=== PATIENT | male | born 1945 | race Caucasian/White ===

== ENCOUNTER 2020-12-27 18:54 | Emergency (ER) | payer OTHER, SELFPAY ==
--- NOTE | ~2020-12-27 | XR_ITS ---
EXAMINATION: XR ABDOMEN KUB CLINICAL INDICATION: Constipation COMPARISON: 09/28/2017 TECHNIQUE: AP view of the abdomen. FINDINGS: Stool and air seen throughout colon to the rectum. No evidence for obstruction. Scattered air-filled nondistended loops of small bowel are noted as well. No acute bony abnormality. Incidental bone island above the left acetabulum. XR/XR KUB IMPRESSION: Unremarkable bowel gas pattern no obstructive changes.
[2020-12-27 18:56] VITALS: BP 159/85; PULSE 90; RESP 18; TEMP 37.2; O2SAT 97; BMI 30.2
--- NOTE | 2020-12-27 21:53 | ED_ITS ---
HPI - Abdominal Pain General Chief Complaint: Abdominal Pain Stated Complaint: Abdominal pain Time Seen by Provider: 12/27/20 21:33 Source: patient Mode of arrival: ambulatory Limitations: no limitations History of Present Illness HPI narrative: Patient comes emergency room complaining of constipation/bloating. Patient states that he had 2 bowel movements earlier today. However he still feels distended. Patient does have history of chronic constipation. Patient states he took Dulcolax and MiraLax a few days ago and has been having bowel movements. Patient denies vomiting or diarrhea, denies hematuria Related Data Home Medications Medication Instructions Recorded Confirmed amlodipine 2.5 mg tablet mg PO 08/23/20 08/23/20 aspirin 81 mg tablet,delayed 81 mg PO DAILY 08/23/20 08/23/20 release flu vacc [id number](65yr up)-PF 240 ml IM 08/23/20 08/23/20 mcg/0.7 mL intramuscular syringe Previous Rx's Medication Instructions Recorded atorvastatin 40 mg tablet 40 mg PO DAILY #90 tab 06/11/20 lisinopril 40 mg tablet 40 mg PO DAILY #90 tab 07/30/20 buspirone 5 mg tablet 5 mg PO TID #270 tab 08/16/20 lorazepam 0.5 mg tablet 0.5 mg PO BEDTIME PRN #4 tab 08/23/20 fluconazole 100 mg tablet 100 mg PO DAILY #7 tab 08/31/20 nystatin 100,000 unit/gram topical 1 appl TOPICAL BID #60 g 08/31/20 powder omeprazole 20 mg capsule,delayed 20 mg PO DAILY #90 cap 10/16/20 release lidocaine 5 % topical patch 1 patch TOPICAL DAILY #30 ea 11/21/20 lactulose 20 g PO BID PRN #1 ea 12/28/20 simethicone 180 mg PO BID PRN #10 cap 12/28/20 Allergies Allergy/AdvReac Type Severity Reaction Status Date / Time gabapentin [GABAPENTIN] Allergy Intermediate DARK Verified 05/25/20 12:23 THOUGHTS, suicidal lactose [LACTOSE] Allergy Intermediate PAIN IN Verified 05/25/20 12:23 STOMACH, CONSTIPATION clindamycin [CLINDAMYCIN] Allergy Unknown HIVES Verified 05/25/20 12:23 penicillin V Allergy Unknown hives Verified 05/25/20 12:23 Penicillins [PENICILLINS] Allergy Unknown Hives Verified 10/16/20 12:23 prednisone Allergy Unknown nightmares Verified 05/25/20 12:23 ZyrTEC Allergy Unknown nausea, Verified 05/25/20 12:23 emotional sertraline [From ZOLOFT] AdvReac Severe SI Verified 05/25/20 12:23 Review of Systems Review of Systems Constitutional : No Weight loss, No Fever, No Chills, No Night Sweats, No Fatigue, No Malaise ENT/Mouth : No Hearing loss, No Ear Pain, No Nasal Congestion, No Sinus Pain, No Hoarseness, No sore throat, No Rhinorrhea, No Swallowing Difficulty Eyes: No Eye Pain, No Swelling, No Redness, No Foreign Body, No Discharge, No Vision Changes Cardiovascular : No Chest Pain, No SOB, No Dyspnea on Exertion, No Orthopnea, No Edema, No Palpitations Respiratory : No Cough, No Sputum, No Wheezing, No Smoke Exposure, No Dyspnea Gastrointestinal : No Nausea, No Vomiting, No Diarrhea, plane of Constipation, complaining of abdominal distension, no significant abdominal pain, No Hematochezia, No Melena Genitourinary : no irregular bleeding, No Dysuria, No Urinary Frequency, No Hematuria, No Urinary Incontinence, No Urgency, No Flank Pain, No Urinary Flow Changes, No Hesitancy Musculoskeletal : No joint pain, No Myalgias, No Joint Swelling Skin : No Skin Lesions, No rash Neuro : No Weakness, No Numbness, No Paresthesias, No Loss of Consciousness, No Dizziness, No Headache Psych : No Anxiety/Panic, No Depression, No SI/HI/AH/VH, No Social Issues, Heme/Lymph: No Bruising, No Bleeding,No Lymphadenopathy Endocrine : No Polyuria, No Polydipsia, No Temperature Intolerance Physical Exam Vital Signs: Vital Signs: Last Vital Signs Temp 99.0 F 12/27/20 18:56 Pulse 90 12/27/20 18:56 Resp 18 12/27/20 18:56 BP 159/85 H 12/27/20 18:56 Pulse Ox 97 12/27/20 18:56 Body Mass Index 30.2 Appearance: Alert. Oriented X3. No acute distress. Eyes: Pupils equal, round and reactive to light. ENT: Pharynx normal. Neck: Normal inspection. Neck supple. No lymph nodes noted. No crepitus CVS: Normal heart rate and rhythm. Pulses normal. Normal S1 and S2 Respiratory: No respiratory distress. Breath sounds normal. No Wheezing. No rales Abdomen: Soft and nontender. Moderate distension, no rigidity, no rebound or guarding. Skin: Skin warm and dry. Normal skin color. Normal skin turgor. Extremities: No lower extremity edema. No lower extremity edema. No Lacerations. No Rash Neuro: Oriented X 3. No motor deficit. No sensory deficit. Moving all extermities. No slurred speech. Course Course Course Narrative: KUB shows a fair amount of stool in the colon. Patient was given 1 Fleet enema. Patient states that he passed a significant amount of gas, patient states his abdomen feels much better, does not have any pain. On physical exam, no pain on palpation, the abdomen is no longer distended MDM - Abdominal Pain Imaging Data KUB: Radiologist's impression: FINDINGS: Stool and air seen throughout colon to the rectum. No evidence for obstruction. Scattered air-filled nondistended loops of small bowel are noted as well. No acute bony abnormality. Incidental bone island above the left acetabulum. XR/XR KUB IMPRESSION: Unremarkable bowel gas pattern no obstructive changes. Discharge Plan Discharge Clinical Impression: Constipation Qualifiers: Constipation type: unspecified constipation type Qualified Code(s): K59.00 - Constipation, unspecified Patient Disposition: Home, Self-Care Instructions: Constipation (ED) Additional Instructions: Please follow-up with your primary care physician tomorrow. If you have any worsening or new symptoms, please return to the emergency room or call 911 Prescriptions: New simethicone 180 mg capsule 180 mg PO BID PRN (Reason: abdominal distention) Qty: 10 RF: 0 lactulose 10 gram packet 20 g PO BID PRN (Reason: constipation) Qty: 1 RF: 0 No Action atorvastatin 40 mg tablet 40 mg PO DAILY Qty: 90 RF: 2 lisinopril 40 mg tablet 40 mg PO DAILY Qty: 90 RF: 3 buspirone 5 mg tablet 5 mg PO TID Qty: 270 RF: 3 nystatin 100,000 unit/gram powder 1 appl topical BID Qty: 60 RF: 2 fluconazole 100 mg tablet 100 mg PO DAILY Qty: 7 RF: 0 omeprazole 20 mg capsule,delayed release(DR/EC) 20 mg PO DAILY Qty: 90 RF: 3 lidocaine [Lidoderm] 5 % adhesive patch,medicated 1 patch topical DAILY Qty: 30 RF: 3 amlodipine 2.5 mg tablet PO RF: 0 aspirin 81 mg tablet,delayed release (DR/EC) 81 mg PO DAILY RF: 0 Fluzone HighDose Quad 20-21 PF 240 mcg/0.7 mL syringe IM RF: 0 lorazepam 0.5 mg tablet 0.5 mg PO BEDTIME PRN (Reason: anxiety) Qty: 4 RF: 0 PMFSH Past Medical History Medical History Anxiety CVA (cerebral vascular accident) GERD (gastroesophageal reflux disease) HTN (hypertension) Melanoma Neuralgia 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 Daughter No problems noted. Daughter No problems noted. Daughter No problems noted. Social History Social History Advance Directives: No Advance Directives Information Provided: Yes
[2020-12-27 22:00] VITALS: BP 148/70; PULSE 88; RESP 18; TEMP 37.1; O2SAT 98
[2020-12-28] VITALS: BP 150/70; PULSE 82; RESP 18; O2SAT 99
--- NOTE | 2020-12-28 00:04 | PC.NURSE ---
Spoke with patient's daughter (Eli Tanner) with updates. Aware of plan to medicate with fleet enema, with likely plan to discharge home. Instructed to call back at with updates when ready for discharge.
[2020-12-28] MEDS: Sodium Phosphate,Mono-Dibasic 133 ML ENEMA PR (00:22)
== END 2020-12-28 01:58 | disposition home or self-care (01) ==
PROVIDERS: Emergency Provider Emergency Medicine; PCP Internal Medicine
DX: K59.00 Constipation, unspecified (principal); R10.9 Unspecified abdominal pain; E78.5 Hyperlipidemia, unspecified; I10 Essential (primary) hypertension; Z79.82 Long term (current) use of aspirin; Z79.02 Long term (current) use of antithrombotics/antiplatelets; Z79.899 Other long term (current) drug therapy
CPT/HCPCS: 74018; 99284

== ENCOUNTER 2021-04-09 06:53 | Outpatient (REF) | payer OTHER, SELFPAY ==
[2021-04-09 11:43] LABS: Hematocrit 45.4 % (42-52); Mean Corpuscular Hemoglobin 30.4 pg (27.0-33.0); Mean Corpuscular Volume 91.9 fL (80-98); Mean Platelet Volume 9.4 fL (9.4-12.4); Platelet Count 246 X10*3/uL (160-400); Red Blood Count 4.94 X10*6/uL (4.60-5.80); Red Cell Distribution Width 13.3 % (11.0-16.0); White Blood Count 9.8 X10*3/uL (4.8-10.8)
[2021-04-09 11:54] LABS: Alanine Aminotransferase 39 U/L (0-40); Albumin Level 4.2 g/dL (3.5-5.0); Alkaline Phosphatase 190 U/L (39-117); Anion Gap 13 (12-20); Aspartate Amino Transferase 27 U/L (5-37); Bilirubin Total 0.6 mg/dL (0.0-1.0); Blood Urea Nitrogen 19 mg/dL (9-16); Calcium 9.3 mg/dL (8.4-10.2); Carbon Dioxide 25 mmol/L (22-29); Chloride 107 mmol/L (96-108); Cholesterol 116 mg/dL; Estimated Glomerular Filt Rate > 60; Glucose Fasting 96 mg/dL (60-99); HDL Cholesterol 44 mg/dL; LDL Cholesterol Calculated 45 mg/dl; Potassium 4.1 mmol/L (3.3-5.1); Sodium 141 mmol/L (135-145); Total Protein 6.8 g/dL (6.5-8.0); Triglycerides 135 mg/dL
== END 2021-04-09 06:54 | disposition home or self-care (01) ==
LOC: HO.HMGCLDS 06:53
PROVIDERS: PCP Internal Medicine; Visit Provider Internal Medicine
DX: E78.5 Hyperlipidemia, unspecified (principal); I10 Essential (primary) hypertension
CPT/HCPCS: 36415; 80053; 80061; 85027

== ENCOUNTER 2021-11-14 07:04 | Outpatient (REF) | payer OTHER, SELFPAY ==
[2021-11-14 11:34] LABS: Appearance Urine CLEAR; Color Urine YELLOW; Glucose Urine UA NEG (NEG); Leukocyte Esterase Urine NEG (NEG); Nitrite Urine NEG (NEG); Specific Gravity - Urine 1.025 (1.005-1.025); UACC Culture Trigger NO; Urine Blood 1+ (NEG); Urine Ketones NEG (NEG); Urine Protein NEG (NEG-TRACE)
[2021-11-14 11:47] LABS: Alanine Aminotransferase 44 U/L (0-40); Albumin Level 4.1 g/dL (3.5-5.0); Alkaline Phosphatase 182 U/L (39-117); Anion Gap 14 (12-20); Aspartate Amino Transferase 29 U/L (5-37); Bilirubin Total 1.2 mg/dL (0.0-1.0); Blood Urea Nitrogen 13 mg/dL (9-16); Calcium 9.4 mg/dL (8.4-10.2); Carbon Dioxide 23 mmol/L (22-29); Chloride 108 mmol/L (96-108); Cholesterol 134 mg/dL; Estimated Glomerular Filt Rate > 60; Glucose Fasting 132 mg/dL (60-99); HDL Cholesterol 49 mg/dL; LDL Cholesterol Calculated 67 mg/dl; Potassium 4.1 mmol/L (3.3-5.1); Sodium 141 mmol/L (135-145); Total Protein 6.7 g/dL (6.5-8.0); Triglycerides 94 mg/dL
[2021-11-14 11:56] LABS: Hematocrit 45.4 % (42.0-52.0); Hemoglobin 15.2 g/dl (14.0-18.0); Mean Corpuscular HGB Conc 33.5 g/dl (31.0-36.0); Mean Corpuscular Hemoglobin 30.3 pg (27.0-33.0); Mean Corpuscular Volume 90.4 fL (80.0-98.0); Mean Platelet Volume 9.4 fL (9.4-12.4); Platelet Count 245 X10*3/uL (160-400); Red Blood Count 5.02 X10*6/uL (4.60-5.80); Red Cell Distribution Width 13.4 % (11.0-16.0); Squamous Epithelial Cell Urine 1+ /LPF; WBC Urine 0-2 /HPF (0-4); White Blood Count 9.7 X10*3/uL (4.8-10.8)
== END 2021-11-14 07:05 | disposition home or self-care (01) ==
LOC: HO.LAB 07:04
PROVIDERS: PCP Internal Medicine; Visit Provider Internal Medicine
DX: E78.5 Hyperlipidemia, unspecified (principal); I10 Essential (primary) hypertension
CPT/HCPCS: 36415; 80053; 80061; 81001; 85027

== ENCOUNTER 2021-11-21 08:44 | Outpatient (REF) | payer OTHER, SELFPAY ==
--- NOTE | ~2021-11-21 | CT_ITS ---
EXAMINATION: CT CHEST WITH CONTRAST CLINICAL INFORMATION: Other nonspecific abnormal finding of lung field COMPARISON: Previous chest x-ray most recent December [address] most recent March 2019 TECHNIQUE: Multidetector volumetric CT imaging of the chest was obtained after the administration of 50 mL of Omnipaque 350 intravenous contrast without immediate adverse reactions. Axial MIP volume rendering provided. Sagittal and coronal reformatted images were obtained. This CT examination was performed using dose optimization techniques as appropriate, variously including the following: *Automated exposure control *Adjustment of mA and/or kV according to patient size (this includes techniques or standardized protocols for targeted exams where dose is matched to indication/reason for exam; i.e. extremities or head) *Use of iterative reconstruction technique DLP: 186 mGy-cm FINDINGS: LUNGS: The pulmonary nodules are stable. Largest right pulmonary nodule measures 7 x 10 mm in the right upper lobe axial image 45 series 7. Largest left pulmonary nodule is a heterogeneous nodule measuring 5 mm axial image 113 series 7. No new pulmonary nodule is seen. MEDIASTINUM: There are bilateral thyroid nodules that are stable.. The heart does not appear enlarged. There is coronary artery calcification. There is no pericardial effusion. The thoracic aorta is normal in caliber. There are no enlarged hilar or mediastinal lymph nodes. PLEURA: There is no pleural effusion. No pleural mass or thickening. AXILLA: No lymphadenopathy. UPPER ABDOMEN: Unremarkable OSSEOUS STRUCTURES: There are degenerative changes of the spine.. CT/CT chest w con IMPRESSION: Stable pulmonary nodules. Fleischner guidelines were followed.
[2021-11-21] MEDS: iohexoL 350 MG/ML 75 ML INFUS..BTL 65 ML IV (09:46)
== END 2021-11-21 08:45 | disposition home or self-care (01) ==
LOC: HO.CT 08:44
PROVIDERS: PCP Internal Medicine; Visit Provider Internal Medicine
DX: R91.8 Other nonspecific abnormal finding of lung field (principal)
CPT/HCPCS: 71260; Q9967

== ENCOUNTER 2022-04-26 21:49 | Observation (INO) | payer OTHER, SELFPAY ==
--- NOTE | ~2022-04-26 | CT_ITS ---
EXAMINATION: CT HEAD WITHOUT CONTRAST CLINICAL INFORMATION: TIA COMPARISON: 01/12/2020 TECHNIQUE: Contiguous axial imaging was performed from the skull base to vertex without intravenous contrast. This CT examination was performed using dose optimization techniques as appropriate, variously including the following: * Automated exposure control * Adjustment of mA and/or kV according to patient size (this includes techniques or standardized protocols for targeted exams where dose is matched to indication/reason for exam; i.e. extremities or head) Use of iterative reconstruction technique DLP: 718 mGy-cm. FINDINGS: There is no evidence of acute intracranial hemorrhage or territorial infarction. No abnormal mass effect or midline shift is seen. Meyer to white matter differentiation is well preserved. No extra-axial fluid collections are identified. No hydrocephalus. Proportional prominence of the ventricles and sulcal spaces is consistent with mild volume loss. Patchy periventricular and deep white matter hypoattenuation is consistent with moderate small vessel ischemic changes. The osseous structures and soft tissues are normal. Mucous retention cyst of the right maxillary sinus. The mastoid air cells and visualized portions of the paranasal sinuses are otherwise well aerated. CT/CT head/brain wo IV con IMPRESSION: No acute intracranial pathology. Chronic volume loss with small vessel ischemic change.
--- NOTE | ~2022-04-26 | XR_ITS ---
EXAMINATION: XR CHEST CLINICAL INFORMATION: Chest pain COMPARISON: 12/28/2019 TECHNIQUE: Frontal view of the chest was obtained. FINDINGS: The lungs are well expanded. There is no focal consolidation, edema, or effusion. No pneumothorax. The cardiomediastinal silhouette is within normal limits. No acute osseous abnormality. XR/XR chest 1V IMPRESSION: Clear lungs.
[2022-04-26 22:06] VITALS: BP 161/94; BP 200/110; PULSE 102; PULSE 70; RESP 20; O2SAT 96; O2SAT 98; BMI 31.3
[2022-04-26 22:41] VITALS: BMI 31.3
--- NOTE | 2022-04-26 22:41 | ECG_ITS ---
Test Reason : HIGH BP Blood Pressure : / mmHG Vent. Rate : 069 BPM Atrial Rate : 069 BPM P-R Int : 172 ms QRS Dur : 100 ms QT Int : 404 ms P-R-T Axes : 055 -32 052 degrees QTc Int : 432 ms Sinus rhythm with Blocked Premature atrial complexes Left axis deviation Minimal voltage criteria for LVH, may be normal variant ( R in aVL ) Abnormal ECG When compared with ECG of 27-MAR-2020 18:07, Premature atrial complexes are now Present Referred By: Lucinda Rome Electronically Signed By:KOSTAS ACKERMAN
[2022-04-26 23:00] LABS: Appearance Urine Clear; Color Urine Yellow; Glucose Urine UA Negative (Negative); Leukocyte Esterase Urine Small (1+) (Negative); Nitrite Urine Negative (Negative); UMIC TRIGGER UACC YES; Urine Blood Negative (Negative); Urine Ketones Negative (Negative); Urine Protein Negative (Neg-Trace)
--- NOTE | 2022-04-26 23:08 | ED_ITS ---
HPI - Neuro Symptoms/Deficit General Chief Complaint: Neuro Symptoms/Deficit Stated Complaint: LEFT SIDE PAIN AND WEAKNESS Time Seen by Provider: 04/26/22 22:40 History of Present Illness HPI Narrative: Patient is a 76-year-old male, history of hypertension, anxiety. Baseline on amlodipine. History CVA in the past. At the time patient had a CVA he had right foot weakness. Today patient complained of numbness to the left upper and to the left lower extremity. It was sudden in onset happened together. No associated chest pain. No diaphoresis. Patient from home. Symptoms lasted for approximately 10 minutes. He denies having any weakness at that time. There was no trauma. She denies any fever chills coughing congestion. No urinary symptoms. Patient home home. Currently symptom free. Patient denies noticing any changes in speech at the time. No changes in vision at that time. Related Data Home Medications Medication Instructions Recorded Confirmed flu vacc [id number](65yr up)-PF 240 ml IM 08/23/20 12/03/21 mcg/0.7 mL intramuscular syringe Previous Rx's Medication Instructions Recorded lorazepam 0.5 mg tablet 0.5 mg PO BEDTIME PRN anxiety #4 08/23/20 tabs lidocaine 5 % topical patch 1 patch topical DAILY #30 ea 11/21/20 (Lidoderm) lactulose 10 gram oral packet 20 g PO BID PRN constipation #1 ea 12/28/20 simethicone 180 mg capsule 180 mg PO BID PRN abdominal 12/28/20 distention #10 caps omeprazole 20 mg capsule,delayed 20 mg PO DAILY #90 caps 07/17/21 release meclizine 25 mg tablet 25 mg PO TID PRN dizziness #10 tabs 08/05/21 amlodipine 2.5 mg tablet 2.5 mg PO BID #180 tabs 12/24/21 fluconazole 100 mg tablet 100 mg PO DAILY #7 tabs 12/24/21 nystatin 100,000 unit/gram topical 1 appl topical BID to groin #60 12/24/21 powder grams buspirone 10 mg tablet 10 mg PO TID #270 tabs 02/28/22 atorvastatin 40 mg tablet 40 mg PO DAILY #90 tabs 04/15/22 lisinopril 40 mg tablet 40 mg PO DAILY #90 tabs 04/15/22 aspirin 81 mg tablet,delayed 81 mg PO DAILY #90 tabs 04/24/22 release Allergies Allergy/AdvReac Type Severity Reaction Status Date / Time gabapentin [GABAPENTIN] Allergy Intermediate DARK Verified 12/03/21 11:27 THOUGHTS, suicidal lactose [LACTOSE] Allergy Intermediate PAIN IN Verified 12/03/21 11:27 STOMACH, CONSTIPATION clindamycin [CLINDAMYCIN] Allergy Unknown HIVES Verified 12/03/21 11:27 penicillin V Allergy Unknown hives Verified 12/03/21 11:27 Penicillins [PENICILLINS] Allergy Unknown Hives Verified 12/03/21 11:27 prednisone Allergy Unknown nightmares Verified 12/03/21 11:27 ZyrTEC Allergy Unknown nausea, Verified 12/03/21 11:27 emotional sertraline [From ZOLOFT] AdvReac Severe SI Verified 12/03/21 11:27 Review of Systems Review of Systems: Positive left-sided weakness Yes all other systems are reviewed and are negative PMFSH Past Medical History Attestation statement: The following information was validated with the patient. Medical History Anxiety Cataract Constipation CVA (cerebral vascular accident) Epistaxis GERD (gastroesophageal reflux disease) Hematuria HTN (hypertension) Hyperlipidemia Lung mass Melanoma Neuralgia JOSEF on CPAP Paget's disease Seasonal allergies Tobacco dependence Surgical History No pertinent past surgical history Family History Family History Father Unknown family medical history Mother Unknown family medical history Son No problems noted. Daughter No problems noted. Daughter No problems noted. Daughter No problems noted. Social History Social History Housing: House Patient Tobacco Use Status: Never used Tobacco e-Cigarette/Vaping Use: Never Used Advance Directives: No Advance Directives Information Provided: No Current occupational status: retired Cognitive needs: No Hearing needs: Yes Vision needs: Yes Physical Exam Vital Signs: Vital Signs: Last Vital Signs Pulse 70 04/26/22 22:06 Resp 20 04/26/22 22:06 BP 161/94 H 04/26/22 22:06 Pulse Ox 96 04/26/22 22:06 O2 Del Method 04/26/22 22:06 BMI result Body Mass Index 31.3 Appearance: Alert. Oriented X3. No acute distress. Eyes: Pupils equal, round and reactive to light. ENT: Pharynx normal. Neck: Normal inspection. Neck supple. No lymph nodes noted. No crepitus CVS: Normal heart rate and rhythm. Pulses normal. Normal S1 and S2 Respiratory: No respiratory distress. Breath sounds normal. No Wheezing. No rales Abdomen: Soft and nontender. No rigidity. No distention. good BS x4 Skin: Skin warm and dry. Normal skin color. Normal skin turgor. Extremities: No lower extremity edema. Neurovascular intact to all extremities. No Lacerations. No Rash Neuro: Oriented X 3. No motor deficit. No sensory deficit. Moving all extermities. No slurred speech. Cranial nerves 2-12 grossly intact. [id number] intact. Rapid alternating movement intact. Strength in upper and lower extremity intact. NIH stroke scale 0 MDM - Neuro Symptoms/Deficit MDM Narrative Medical decision making narrative: Positive numbness to the left upper extremity left lower extremity which resolv ed. NIH stroke scale 0. Positive history of smoking positive history of CVA in the past. Patient actually went to rehab for that stroke [address] scan of the head was grossly negative for any acute evidence of bleeding. Labs are pending. Patient most likely will require admission for TIA workup. Patient's EKG showed a sinus pattern heart rate is 70 [place] QRS QT within normal limits there is no acute ST segment elevation noted. CT head no gross bleeding. Patient's numbness resolved. Will admit patient for possible TIA. Case discussed with hospitalist team. In stable condition. Medical Records Attestation: I reviewed the patient's medical records. Lab Data Attestation: I reviewed the patient's lab results. Result diagrams: 04/26/22 23:10 04/26/22 23:10 Labs: Lab Results 04/26/22 04/26/22 04/26/22 Range/Units 22:53 23:10 23:10 WBC 11.7 H (4.8-10.8) X10*3/uL RBC 5.36 (4.60-5.80) X10*6/uL Hgb 15.9 (14.0-18.0) g/dl Hct 47.0 (42.0-52.0) % MCV 87.7 (80.0-98.0) fL MCH 29.7 (27.0-33.0) pg MCHC 33.8 (31.0-36.0) g/dl RDW 13.3 (11.0-16.0) % Plt Count 245 (160-400) X10*3/uL MPV 8.9 L (9.4-12.4) fL Immature Gran % (Auto) 1.5 H (0.0-0.4) % Neut % (Auto) 64.6 (45-73) % Lymph % (Auto) 20.0 (20-40) % Bryan % (Auto) 10.3 (2-11) % Eos % (Auto) 2.7 (0-4) % Baso % (Auto) 0.9 (0-2) % Lymph # (Auto) 2.3 (1.2-4.9) X10*3/uL Bryan # (Auto) 1.2 (0.1-1.2) X10*3/uL Eos # (Auto) 0.3 (0.0-0.4) X10*3/uL Baso # (Auto) 0.1 (0.0-0.2) X10*3/uL Abs Immat Gran (auto) 0.18 H (0.00-0.03) X10*3/uL Absolute Neuts (auto) 7.6 (2.0-8.3) x10*3/uL Absolute Nucleated RBC 0.000 (0.0-0.012) X10*3/uL Nucleated RBC % (auto) 0.0 (0.0-0.2) /100WBC PT 11.2 (10.0-13.1) SEC INR 1.0 (0.9-1.1) Sodium (135-145) mmol/L Potassium (3.3-5.1) mmol/L Chloride (96-108) mmol/L Carbon Dioxide (22-29) mmol/L Anion Gap (12-20) BUN (9-16) mg/dL Creatinine (0.5-1.4) mg/dL Estim Creat Clear Calc Estimated GFR Random Glucose (60-115) mg/dL Calcium (8.4-10.2) mg/dL Troponin I High Sens (<3.5-35.0) ng/L Hold Red Top Urine Color Yellow Urine Appearance Clear Urine pH 6.0 (5.0-9.0) Ur Specific [place] 1.010 (1.005-1.025) Urine Protein Negative (Neg-Trace) mg/dL Urine Glucose (UA) Negative (Negative) mg/dL Urine Ketones Negative (Negative) mg/dL Urine Blood Negative (Negative) Urine Nitrite Negative (Negative) Ur Leukocyte Esterase Small (1+) H (Negative) Urine RBC 0-2 (0-2) /HPF Urine WBC 0-5 (0-5) /HPF Ur Squamous Epith Cells 0-2 (0-2) /HPF Urine Bacteria None Seen (None Seen) Hyaline Casts 0-2 (0-2) /LPF 04/26/22 04/26/22 04/26/22 Range/Units 23:10 23:10 23:10 WBC (4.8-10.8) X10*3/uL RBC (4.60-5.80) X10*6/uL Hgb (14.0-18.0) g/dl Hct (42.0-52.0) % MCV (80.0-98.0) fL MCH (27.0-33.0) pg MCHC (31.0-36.0) g/dl RDW (11.0-16.0) % Plt Count (160-400) X10*3/uL MPV (9.4-12.4) fL Immature Gran % (Auto) (0.0-0.4) % Neut % (Auto) (45-73) % Lymph % (Auto) (20-40) % Bryan % (Auto) (2-11) % Eos % (Auto) (0-4) % Baso % (Auto) (0-2) % Lymph # (Auto) (1.2-4.9) X10*3/uL Bryan # (Auto) (0.1-1.2) X10*3/uL Eos # (Auto) (0.0-0.4) X10*3/uL Baso # (Auto) (0.0-0.2) X10*3/uL Abs Immat Gran (auto) (0.00-0.03) X10*3/uL Absolute Neuts (auto) (2.0-8.3) x10*3/uL Absolute Nucleated RBC (0.0-0.012) X10*3/uL Nucleated RBC % (auto) (0.0-0.2) /100WBC PT (10.0-13.1) SEC INR (0.9-1.1) Sodium 142 (135-145) mmol/L Potassium 4.4 (3.3-5.1) mmol/L Chloride 106 (96-108) mmol/L Carbon Dioxide 24 (22-29) mmol/L Anion Gap 16 (12-20) BUN 17 H (9-16) mg/dL Creatinine 1.01 (0.5-1.4) mg/dL Estim Creat Clear Calc 76.6 Estimated GFR > 60 Random Glucose 136 H (60-115) mg/dL Calcium 9.5 (8.4-10.2) mg/dL Troponin I High Sens 6.4 (<3.5-35.0) ng/L Hold Red Top See Note Urine Color Urine Appearance Urine pH (5.0-9.0) Ur Specific [place] (1.005-1.025) Urine Protein (Neg-Trace) mg/dL Urine Glucose (UA) (Negative) mg/dL Urine Ketones (Negative) mg/dL Urine Blood (Negative) Urine Nitrite (Negative) Ur Leukocyte Esterase (Negative) Urine RBC (0-2) /HPF Urine WBC (0-5) /HPF Ur Squamous Epith Cells (0-2) /HPF Urine Bacteria (None Seen) Hyaline Casts (0-2) /LPF NIH Stroke Scale Internal: Initial- Upon Arrival Time: 23:11 Level of Consciousness: Alert Level of Consciousness Questions: Answers both questions correctly Level of Consciousness Commands: Performs both tasks correctly Best Gaze: Normal Visual: No visual loss Facial Palsy: Normal Motor Arm (Right): No drift Motor Arm (Left): No drift Motor Leg (Right): No drift Motor Leg (Left): No drift Limb Ataxia: Absent Sensory: Normal Best Language: No aphasia Dysarthia: Normal Extinction and Inattention: No abnormality Score: 0 Discharge Plan Discharge Clinical Impression: Transient cerebral ischemia Patient Disposition: Admitted as Observation
[2022-04-26 23:16] LABS: MANUAL DIFF FLAG NO
[2022-04-26 23:17] LABS: Basophils Absolute Auto 0.1 X10*3/uL (0.0-0.2); Basophils Percent Auto 0.9 % (0-2); Eosinophils Absolute Auto 0.3 X10*3/uL (0.0-0.4); Eosinophils Percent Auto 2.7 % (0-4); Hemoglobin 15.9 g/dl (14.0-18.0); Imm Gran Abs Auto 0.18 X10*3/uL (0.00-0.03); Imm Gran Pct Auto 1.5 % (0.0-0.4); Lymphocytes Absolute Auto 2.3 X10*3/uL (1.2-4.9); Mean Corpuscular HGB Conc 33.8 g/dl (31.0-36.0); Mean Corpuscular Hemoglobin 29.7 pg (27.0-33.0); Mean Corpuscular Volume 87.7 fL (80.0-98.0); Mean Platelet Volume 8.9 fL (9.4-12.4); Monocytes Absolute Auto 1.2 X10*3/uL (0.1-1.2); Monocytes Percent Auto 10.3 % (2-11); Neutrophils Absolute Auto 7.6 x10*3/uL (2.0-8.3); Neutrophils Percent Auto 64.6 % (45-73); Platelet Count 245 X10*3/uL (160-400); Red Blood Count 5.36 X10*6/uL (4.60-5.80); Red Cell Distribution Width 13.3 % (11.0-16.0); White Blood Count 11.7 X10*3/uL (4.8-10.8)
[2022-04-26 23:30] LABS: Anion Gap 16 (12-20); Blood Urea Nitrogen 17 mg/dL (9-16); Calcium 9.5 mg/dL (8.4-10.2); Carbon Dioxide 24 mmol/L (22-29); Chloride 106 mmol/L (96-108); Creatinine Clr Calc Pharmacy 76.6; Estimated Glomerular Filt Rate > 60; Glucose Random 136 mg/dL (60-115); Potassium 4.4 mmol/L (3.3-5.1); Sodium 142 mmol/L (135-145)
[2022-04-26 23:31] LABS: Prothrombin Time 11.2 SEC (10.0-13.1)
[2022-04-26 23:32] LABS: Bacteria Urine None Seen (None Seen); Hyaline Casts Urine 0-2 /LPF (0-2); RBC Urine 0-2 /HPF (0-2); Squamous Epithelial Cell Urine 0-2 /HPF (0-2); UACC Culture Trigger YES; WBC Urine 0-5 /HPF (0-5)
[2022-04-26 23:35] LABS: Stroke Lab Use COMPLETE
[2022-04-26 23:37] LABS: Troponin-I High Sensitivity 6.4 ng/L (<3.5-35.0)
[2022-04-26 23:44] LABS: Glucose, Whole Blood 136 mg/dL (60-115)
--- NOTE | 2022-04-26 23:44 | PM.IMHP ---
History of Present Illness Date of Service: 04/26/22 Chief Complaint: Left upper and lower extremity numbness 76-year-old male with a past medical history of hypertension, hyperlipidemia, CVA , anxiety, depression, history of lung mass, JOSEF on CPAP, paces disease, tobacco dependence presented to the hospital today with a chief complaint of left upper and lower extremity numbness. Patient reported that this afternoon he had an episode of left upper lower extremity numbness which lasted for about 10-15 minutes followed by his symptoms completely resolved. Denies any weakness. Denies any falls or trauma. Denies any headaches or blurry visions. Patient reports that he had a prior history of CVA with residual mild right-sided weakness. Denies any falls or trauma. Denies any chest pain palpitations lightheadedness or dizziness. Denies any fever chills cough, GI symptoms. Review of all other systems is negative except mentioned above ER course: Per ER team patient's exam was nonfocal; CT head showed no acute findings; admitted under impression of TIA. [facility] Medical History Anxiety Cataract Constipation CVA (cerebral vascular accident) Epistaxis GERD (gastroesophageal reflux disease) Hematuria HTN (hypertension) Hyperlipidemia Lung mass Melanoma Neuralgia JOSEF on CPAP Paget's disease Seasonal allergies Tobacco dependence Family History Father Unknown family medical history Mother Unknown family medical history Son No problems noted. Daughter No problems noted. Daughter No problems noted. Daughter No problems noted. Surgical History No pertinent past surgical history Social History Housing: House Patient Tobacco Use Status: Never used Tobacco e-Cigarette/Vaping Use: Never Used Advance Directives: No Advance Directives Information Provided: No Current occupational status: retired Cognitive needs: No Hearing needs: Yes Vision needs: Yes Meds Allergies Allergy/AdvReac Type Severity Reaction Status Date / Time gabapentin [GABAPENTIN] Allergy Intermediate DARK Verified 12/03/21 11:27 THOUGHTS, suicidal lactose [LACTOSE] Allergy Intermediate PAIN IN Verified 12/03/21 11:27 STOMACH, CONSTIPATION clindamycin [CLINDAMYCIN] Allergy Unknown HIVES Verified 12/03/21 11:27 penicillin V Allergy Unknown hives Verified 12/03/21 11:27 Penicillins [PENICILLINS] Allergy Unknown Hives Verified 12/03/21 11:27 prednisone Allergy Unknown nightmares Verified 12/03/21 11:27 ZyrTEC Allergy Unknown nausea, Verified 12/03/21 11:27 emotional sertraline [From ZOLOFT] AdvReac Severe SI Verified 12/03/21 11:27 Home Medications Medication Instructions Recorded Confirmed Last Taken Type flu vacc [id number](65yr up)-PF 240 ml IM 08/23/20 12/03/21 Unknown History mcg/0.7 mL intramuscular syringe Physical Exam Vital Signs and Narrative: Vital Signs: Last Vital Signs Pulse 70 04/26/22 22:06 Resp 20 04/26/22 22:06 BP 161/94 H 04/26/22 22:06 Pulse Ox 96 04/26/22 22:06 O2 Del Method 04/26/22 22:06 BMI result Body Mass Index 31.3 Gen: Appears be in no acute distress HEENT: NCAT, Moist mucosa. Pulmonary: Vesicular breath sounds, fair air entry CVS: Normal S1-S2 Abdomen: BS+, Soft, Nontender Extremities: Warm well perfused Neuro: Alert and awake. nonfocal Results Labs CBC and Chem 7: 04/26/22 23:10 04/26/22 23:10 Labs: Laboratory Results - last 24 hr 04/26/22 04/26/22 04/26/22 22:53 23:10 23:10 MCV 87.7 MCH 29.7 MCHC 33.8 RDW 13.3 Plt Count 245 MPV 8.9 L Immature Gran % (Auto) 1.5 H Neut % (Auto) 64.6 Lymph % (Auto) 20.0 [place] % (Auto) 10.3 Eos % (Auto) 2.7 Baso % (Auto) 0.9 Lymph # (Auto) 2.3 [place] # (Auto) 1.2 Eos # (Auto) 0.3 Baso # (Auto) 0.1 Abs Immat Gran (auto) 0.18 H Absolute Neuts (auto) 7.6 Absolute Nucleated RBC 0.000 Nucleated RBC % (auto) 0.0 PT 11.2 INR 1.0 Anion Gap Estim Creat Clear Calc Estimated GFR Random Glucose Calcium Hold Red Top Urine Color Yellow Urine Appearance Clear Urine pH 6.0 Ur Specific [place] 1.010 Urine Protein Negative Urine Glucose (UA) Negative Urine Ketones Negative Urine Blood Negative Urine Nitrite Negative Ur Leukocyte Esterase Small (1+) H Urine RBC 0-2 Urine WBC 0-5 Ur Squamous Epith Cells 0-2 Urine Bacteria None Seen Hyaline Casts 0-2 04/26/22 04/26/22 23:10 23:10 MCV MCH MCHC RDW Plt Count MPV Immature Gran % (Auto) Neut % (Auto) Lymph % (Auto) [place] % (Auto) Eos % (Auto) Baso % (Auto) Lymph # (Auto) [place] # (Auto) Eos # (Auto) Baso # (Auto) Abs Immat Gran (auto) Absolute Neuts (auto) Absolute Nucleated RBC Nucleated RBC % (auto) PT INR Anion Gap 16 Estim Creat Clear Calc 76.6 Estimated GFR > 60 Random Glucose 136 H Calcium 9.5 Hold Red Top See Note Urine Color Urine Appearance Urine pH Ur Specific [place] Urine Protein Urine Glucose (UA) Urine Ketones Urine Blood Urine Nitrite Ur Leukocyte Esterase Urine RBC Urine WBC Ur Squamous Epith Cells Urine Bacteria Hyaline Casts Imaging Radiologist's Impressions: Impressions Chest X-Ray 04/26/22 22:49 IMPRESSION: Clear lungs. Head CT 04/26/22 23:00 IMPRESSION: No acute intracranial pathology. Chronic volume loss with small vessel ischemic change. Assessment and Plan (1) Transient cerebral ischemia: Status: Acute Plan 76-year-old male with a past medical history of hypertension, hyperlipidemia, CVA, anxiety, depression, history of lung mass, JOSEF on CPAP, paces disease, tobacco dependence presented to the hospital today with a chief complaint of left upper and lower extremity numbness. Symptoms currently resolved. Concerning for TIA. Admitted for further management. TIA: Patient had transient left upper and left lower extremity numbness. Currently asymptomatic. Exam nonfocal. CT head showed no acute findings. PT/OT/speech and swallow eval Fall precautions Neurology consult Echocardiogram Telemetry Chronic medical conditions: History of CVA: Continue home aspirin/statin History of hypertension: Continue home amlodipine/lisinopril History of anxiety/depression: Continue home lorazepam/) DVT prophylaxis: SCD boots Code status: Full code Quality Stroke Does the patient have a stroke diagnosis?: No VTE Prior VTE?: No VTE Risk Level:: Medical - moderate - high VTE Device Contraindication: N/A - Device Ordered VTE Drug Contraindication: Treatment Not Indicated
[2022-04-27 03:36] VITALS: BP 131/62; PULSE 64; RESP 18; TEMP 36.7; O2SAT 98
--- NOTE | 2022-04-27 04:14 | PC.NURSE ---
pt sleeping comfortably on stretcher. equal chest rise and fall. no apparent distress. within view of nurses station. will continue to monitor.
[2022-04-27 05:15] LABS: COVID-19 Test Negative (Negative)
--- NOTE | 2022-04-27 06:53 | PC.NURSE ---
pt ambulatory, independent to and from bathroom. a&Ox4, speaking clear full sentences no apparent distress. neuros intact. on security monitor. will continue to monitor.
[2022-04-27 07:02] LABS: MANUAL DIFF FLAG NO
[2022-04-27 07:09] LABS: Basophils Absolute Auto 0.1 X10*3/uL (0.0-0.2); Basophils Percent Auto 0.9 % (0-2); Eosinophils Absolute Auto 0.4 X10*3/uL (0.0-0.4); Eosinophils Percent Auto 3.9 % (0-4); Hematocrit 41.4 % (42.0-52.0); Hemoglobin 14.3 g/dl (14.0-18.0); Imm Gran Abs Auto 0.13 X10*3/uL (0.00-0.03); Imm Gran Pct Auto 1.3 % (0.0-0.4); Lymphocytes Absolute Auto 2.6 X10*3/uL (1.2-4.9); Mean Corpuscular HGB Conc 34.5 g/dl (31.0-36.0); Mean Corpuscular Hemoglobin 30.5 pg (27.0-33.0); Mean Corpuscular Volume 88.3 fL (80.0-98.0); Monocytes Absolute Auto 1.1 X10*3/uL (0.1-1.2); Monocytes Percent Auto 11.2 % (2-11); Neutrophils Absolute Auto 5.5 x10*3/uL (2.0-8.3); Neutrophils Percent Auto 55.7 % (45-73); Platelet Count 223 X10*3/uL (160-400); Red Blood Count 4.69 X10*6/uL (4.60-5.80); Red Cell Distribution Width 13.6 % (11.0-16.0); White Blood Count 9.8 X10*3/uL (4.8-10.8)
[2022-04-27 07:28] VITALS: BP 134/68; PULSE 61; RESP 16; O2SAT 95
[2022-04-27 07:44] LABS: Cholesterol 119 mg/dL; HDL Cholesterol 42 mg/dL; LDL Cholesterol Calculated 51 mg/dl; Triglycerides 134 mg/dL
[2022-04-27 08:04] LABS: Anion Gap 16 (12-20); Blood Urea Nitrogen 16 mg/dL (9-16); Carbon Dioxide 22 mmol/L (22-29); Chloride 108 mmol/L (96-108); Creatinine Clr Calc Pharmacy 86.9; Estimated Glomerular Filt Rate > 60; Glucose Random 111 mg/dL (60-115); Potassium 4.3 mmol/L (3.3-5.1); Sodium 142 mmol/L (135-145)
--- NOTE | 2022-04-27 09:10 | P.PNIM_ITS ---
Subjective Subjective Date of Service: 04/27/22 Interval History: seen in f/u for tia interval hisotory: no new symptoms, back to baseline Review of Systems Gen: no fever Resp: no sob, no cough CV: no chest, no NGO, no leg edema GI: No n/v, no abd pain Neuro: No confusion Physical Exam Vital Signs: Vital Signs: Last Vital Signs Temp 98.1 F 04/27/22 03:36 Pulse 61 04/27/22 07:28 Resp 16 04/27/22 07:28 BP 134/68 04/27/22 07:28 Pulse Ox 95 04/27/22 07:28 O2 Del Method 04/27/22 07:28 BMI result Body Mass Index 31.3 Const: Other: General: AO X 3, no acute distress Resp: CTA bilateral CVS: S1,S2,RRR GI: +BS, NT, no distention Skin: No rash Neuro: motor grossly intact, no focal deficit Psych: appropriate affect Objective Data Active Medications Acetaminophen (Acetaminophen 325 Mg Tablet) 650 mg PO Q6H PRN PRN Reason: Pain, Mild (Pain Scale 1-3) Melatonin (Melatonin 3 Mg Tablet) 6 mg PO BEDTIME PRN PRN Reason: Insomnia Senna (Sennosides 8.6 Mg Tablet) 17.2 mg PO BEDTIME PRN PRN Reason: Constipation Sodium Chloride (0.9 % Sodium Chloride Flush 3 Ml Syringe) 3 ml IVFLUSH QSHIFT [facility] Last Admin: 04/27/22 05:50 Dose: Not Given Documented By: RENEE Non-Admin Reason: Previously Administered Labs CBC & Chem 7: 04/27/22 06:31 04/27/22 06:31 Labs: Laboratory Results - last 24 hr 04/26/22 04/26/22 04/26/22 22:53 23:10 23:10 MCV 87.7 MCH 29.7 MCHC 33.8 RDW 13.3 Plt Count 245 MPV 8.9 L Immature Gran % (Auto) 1.5 H Neut % (Auto) 64.6 Lymph % (Auto) 20.0 [place] % (Auto) 10.3 Eos % (Auto) 2.7 Baso % (Auto) 0.9 Lymph # (Auto) 2.3 [place] # (Auto) 1.2 Eos # (Auto) 0.3 Baso # (Auto) 0.1 Abs Immat Gran (auto) 0.18 H Absolute Neuts (auto) 7.6 Absolute Nucleated RBC 0.000 Nucleated RBC % (auto) 0.0 PT 11.2 INR 1.0 Anion Gap Estim Creat Clear Calc Estimated GFR POC Glucose Random Glucose Calcium Triglycerides Cholesterol LDL Cholesterol, Calc HDL Cholesterol Hold Red Top Urine Color Yellow Urine Appearance Clear Urine pH 6.0 Ur Specific [place] 1.010 Urine Protein Negative Urine Glucose (UA) Negative Urine Ketones Negative Urine Blood Negative Urine Nitrite Negative Ur Leukocyte Esterase Small (1+) H Urine RBC 0-2 Urine WBC 0-5 Ur Squamous Epith Cells 0-2 Urine Bacteria None Seen Hyaline Casts 0-2 COVID-19 (AIMEE) COVID-19 [employer] 04/26/22 04/26/22 04/26/22 23:10 23:10 23:40 MCV MCH MCHC RDW Plt Count MPV Immature Gran % (Auto) Neut % (Auto) Lymph % (Auto) [place] % (Auto) Eos % (Auto) Baso % (Auto) Lymph # (Auto) [place] # (Auto) Eos # (Auto) Baso # (Auto) Abs Immat Gran (auto) Absolute Neuts (auto) Absolute Nucleated RBC Nucleated RBC % (auto) PT INR Anion Gap 16 Estim Creat Clear Calc 76.6 Estimated GFR > 60 POC Glucose 136 H Random Glucose 136 H Calcium 9.5 Triglycerides Cholesterol LDL Cholesterol, Calc HDL Cholesterol Hold Red Top See Note Urine Color Urine Appearance Urine pH Ur Specific [place] Urine Protein Urine Glucose (UA) Urine Ketones Urine Blood Urine Nitrite Ur Leukocyte Esterase Urine RBC Urine WBC Ur Squamous Epith Cells Urine Bacteria Hyaline Casts COVID-19 (AIMEE) COVID-19 Clin Com 04/27/22 04/27/22 04/27/22 04:45 06:31 06:31 MCV 88.3 MCH 30.5 MCHC 34.5 RDW 13.6 Plt Count 223 MPV 9.0 L Immature Gran % (Auto) 1.3 H Neut % (Auto) 55.7 Lymph % (Auto) 27.0 [place] % (Auto) 11.2 H Eos % (Auto) 3.9 Baso % (Auto) 0.9 Lymph # (Auto) 2.6 [place] # (Auto) 1.1 Eos # (Auto) 0.4 Baso # (Auto) 0.1 Abs Immat Gran (auto) 0.13 H Absolute Neuts (auto) 5.5 Absolute Nucleated RBC 0.000 Nucleated RBC % (auto) 0.0 PT INR Anion Gap 16 Estim Creat Clear Calc 86.9 Estimated GFR > 60 POC Glucose Random Glucose 111 Calcium 9.0 Triglycerides Cholesterol LDL Cholesterol, Calc HDL Cholesterol Hold Red Top Urine Color Urine Appearance Urine pH Ur Specific [place] Urine Protein Urine Glucose (UA) Urine Ketones Urine Blood Urine Nitrite Ur Leukocyte Esterase Urine RBC Urine WBC Ur Squamous Epith Cells Urine Bacteria Hyaline Casts COVID-19 (AIMEE) Negative COVID-19 Clin Com See Note 04/27/22 06:31 MCV MCH MCHC RDW Plt Count MPV Immature Gran % (Auto) Neut % (Auto) Lymph % (Auto) [place] % (Auto) Eos % (Auto) Baso % (Auto) Lymph # (Auto) [place] # (Auto) Eos # (Auto) Baso # (Auto) Abs Immat Gran (auto) Absolute Neuts (auto) Absolute Nucleated RBC Nucleated RBC % (auto) PT INR Anion Gap Estim Creat Clear Calc Estimated GFR POC Glucose Random Glucose Calcium Triglycerides 134 Cholesterol 119 LDL Cholesterol, Calc 51 HDL Cholesterol 42 Hold Red Top Urine Color Urine Appearance Urine pH Ur Specific [place] Urine Protein Urine Glucose (UA) Urine Ketones Urine Blood Urine Nitrite Ur Leukocyte Esterase Urine RBC Urine WBC Ur Squamous Epith Cells Urine Bacteria Hyaline Casts COVID-19 (AIMEE) COVID-19 Clin Com Assessment and Plan (1) Transient cerebral ischemia: Status: Acute Plan 76-year-old male with a past medical history of hypertension, hyperlipidemia, CVA, anxiety, depression, history of lung mass, JOSEF on CPAP, paces disease, tobacco dependence presented to the hospital today with a chief complaint of left upper and lower extremity numbness.? Symptoms currently resolved.? Concerning for TIA.? Admitted for further management.? TIA: Patient had transient left upper and left lower extremity numbness.? Currently asymptomatic.? Exam nonfocal.? CT head showed no acute findings.? pending neuro eval, doesn't have speech deficity. DC speech consult -continue BP meds, ASA, statin Chronic medical conditions: History of CVA: Continue home aspirin/statin History of hypertension: Continue home amlodipine/lisinopril History of anxiety/depression:? Continue home lorazepam/) DVT prophylaxis: SCD boots Code status:? Full code need for inpatient: Home today unaless neuro advises further testing for TIA w/u med rec to be completed Quality Stroke Does the patient have a stroke diagnosis?: No VTE Prior VTE?: No VTE Risk Level:: Medical - moderate - high VTE Device Contraindication: N/A - Device Ordered VTE Drug Contraindication: Treatment Not Indicated
--- NOTE | 2022-04-27 09:28 | PHA.MEDREC ---
Pharmacy Consult ? Medication Reconciliation Pharmacy has completed the medication reconciliation. Patient great historian of meds. Verified meds with patient and cross-referenced claim history.
--- NOTE | 2022-04-27 10:04 | PM.NEUROCN ---
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 According to him it started in left shoulder area like goes bones. In about 7-8 minutes it slowly extended to involve the whole left side. After that he had a right-sided headache that was about 4/10 in intensity lasting for many hours and not associated with any other symptom. He also reported that he was having about 7-8 days of headaches every month, which he had attributed to sinus problems but ENT evaluation has been negative for any sinus issues. Review of Systems Review of Systems: No recent cold or flu-like illness PMFSH Past Medical History Medical History Anxiety Cataract Constipation CVA (cerebral vascular accident) Epistaxis GERD (gastroesophageal reflux disease) Hematuria HTN (hypertension) Hyperlipidemia Lung mass Melanoma Neuralgia JOSEF on CPAP Paget's disease Seasonal allergies Tobacco dependence Family History Family History Father Unknown family medical history Mother Unknown family medical history Son No problems noted. Daughter No problems noted. Daughter No problems noted. Daughter No problems noted. Surgical History Surgical History No pertinent past surgical history Social History Social History Housing: House Alcohol intake: never Patient Tobacco Use Status: Never used Tobacco e-Cigarette/Vaping Use: Never Used Use of substances other than those prescribed or required for medical reasons: No Advance Directives: No Advance Directives Information Provided: No Current occupational status: retired Cognitive needs: No Hearing needs: Yes Vision needs: Yes Meds Allergies Allergy/AdvReac Type Severity Reaction Status Date / Time gabapentin [GABAPENTIN] Allergy Intermediate DARK Verified 12/03/21 11:27 THOUGHTS, suicidal lactose [LACTOSE] Allergy Intermediate PAIN IN Verified 12/03/21 11:27 STOMACH, CONSTIPATION clindamycin [CLINDAMYCIN] Allergy Unknown HIVES Verified 12/03/21 11:27 penicillin V Allergy Unknown hives Verified 12/03/21 11:27 Penicillins [PENICILLINS] Allergy Unknown Hives Verified 12/03/21 11:27 prednisone Allergy Unknown nightmares Verified 12/03/21 11:27 ZyrTEC Allergy Unknown nausea, Verified 12/03/21 11:27 emotional sertraline [From ZOLOFT] AdvReac Severe SI Verified 12/03/21 11:27 Active Medications: Current Medications Acetaminophen (Acetaminophen 325 Mg Tablet) 650 mg PO Q6H PRN PRN Reason: Pain, Mild (Pain Scale 1-3) Melatonin (Melatonin 3 Mg Tablet) 6 mg PO BEDTIME PRN PRN Reason: Insomnia Senna (Sennosides 8.6 Mg Tablet) 17.2 mg PO BEDTIME PRN PRN Reason: Constipation Sodium Chloride (0.9 % Sodium Chloride Flush 3 Ml Syringe) 3 ml IVFLUSH QSHIFT [facility] Last Admin: 04/27/22 05:50 Dose: Not Given Home Medications Medication Instructions Recorded Confirmed Last Taken Type atorvastatin 40 mg tablet 40 mg PO BEDTIME 04/27/22 04/27/22 04/25/22 History finasteride 5 mg tablet 1 tab PO DAILY 04/27/22 04/27/22 04/26/22 History omeprazole 20 mg capsule,delayed 20 mg PO DAILY@0630 04/27/22 04/27/22 04/26/22 History release Physical Exam Vital Signs: Vital Signs: Last Vital Signs Temp 98.1 F 04/27/22 03:36 Pulse 61 04/27/22 07:28 Resp 16 04/27/22 07:28 BP 134/68 04/27/22 07:28 Pulse Ox 95 04/27/22 07:28 O2 Del Method 04/27/22 07:28 BMI result Body Mass Index 31.3 Neuro: Other: Alert and awake with normal spontaneity of speech fluency comprehension and slightly anxious affect. Pupils were equal and reactive to light and extraocular muscles were intact. Visual roth are full to confrontation. Face was symmetrical. There was no pronator drift. Deep tendon reflexes were trace to absent with flexor plantars. Speech was normal. His blood pressure was slightly high but not as much as he was stating. He said that his blood pressure at home was 220 but his initial systolic blood pressure was 159. Blood pressure now was 134/68. Results Labs CBC & Chem 7: 04/27/22 06:31 04/27/22 06:31 Labs: Short CBC 04/26/22 04/27/22 Range/Units 23:10 06:31 WBC 11.7 H 9.8 (4.8-10.8) X10*3/uL Hgb 15.9 14.3 (14.0-18.0) g/dl Hct 47.0 41.4 L (42.0-52.0) % Plt Count 245 223 (160-400) X10*3/uL BMP 04/26/22 04/27/22 23:10 06:31 Sodium 142 142 Potassium 4.4 4.3 Chloride 106 108 Carbon Dioxide 24 22 BUN 17 H 16 Creatinine 1.01 0.89 Calcium 9.5 9.0 Urine 04/26/22 Range/Units 22:53 Urine Color Yellow Urine Appearance Clear Urine pH 6.0 (5.0-9.0) Ur Specific [place] 1.010 (1.005-1.025) Urine Protein Negative (Neg-Trace) mg/dL Urine Glucose (UA) Negative (Negative) mg/dL His noncontrast head CT revealed moderate to severe hypodense signal abnormalities with no obvious acute lesion. His MRI of brain in the past had reveal similar lesions. CTA in the past was okay. Assessment and Plan (1) Migraine with aura: Status: Acute 76 years old man who reported having 7-8 headaches in a month, which she has attributed to sinus problems. This time he came with symptoms somewhat typical of migraine with aura and headache. He does have significant microvascular ischemic changes but this present set of symptoms and nonfocal examination was suggestive more of migraine and stroke or TIA. He was reassured and educated. I recommend starting him on topiramate 25 mg at night for migraine control and using sumatriptan 50 mg as needed. As far as vascular disease is concerned, he should continue anti-platelet agent, blood pressure control and statin. (2) Cerebral microvascular disease: Status: Acute Procedures Date of Service Date of Service: 04/27/22
[2022-04-27] MEDS: 0.9 % Sodium Chloride Flush 3 ML SYRINGE IVFLUSH ×2 (10:30→15:08)
[2022-04-27] MEDS: Aspirin Enteric Coated 81 MG TABLET.DR PO (13:40)
[2022-04-27] MEDS: lisinopriL 40 MG TABLET PO (13:40)
[2022-04-27] MEDS: Omeprazole 20 MG CAPSULE.DR PO (13:40)
[2022-04-27] MEDS: amLODIPine Besylate 2.5 MG TABLET PO (13:41)
[2022-04-27] MEDS: Finasteride 5 MG TABLET PO (13:41)
[2022-04-27] MEDS: busPIRone HCl 10 MG TABLET PO (13:41)
[2022-04-27 13:50] VITALS: BP 180/92; PULSE 67; RESP 16; TEMP 36.6; O2SAT 97
--- NOTE | 2022-04-27 13:55 | MHC.CM.PN ---
Met with patient in regards to discharge planning. Patient lives with his , ambulates with a cane/walker and had no services prior to coming to the hospital. PCP verified. Patient received 4 Pfizer vaccines. Patient denies having a HCP. Is interested in completing one but doesn't have his reading glasses. Blank HCP provided and explained. Obs notice explained and signed. Patient has transportation when medically stable. Continue to monitor for d/c needs.
[2022-04-27 15:35] VITALS: BP 142/70; PULSE 69; RESP 15; TEMP 36.8; O2SAT 96
== END 2022-04-27 16:30 | disposition home or self-care (01) ==
LOC: HO.ED 23:12 → HO.EDOVER 23:45
PROVIDERS: Admitting Provider Hospitalist; Emergency Provider Emergency Medicine Emergency Medical Services; PCP Internal Medicine; Visit Provider Internal Medicine
DX: G43.109 Migraine with aura, not intractable, without status migrainosus (principal); I67.89 Other cerebrovascular disease; I10 Essential (primary) hypertension; R07.89 Other chest pain; R20.0 Anesthesia of skin; Z20.822 Contact with and (suspected) exposure to COVID-19; F17.200 Nicotine dependence, unspecified, uncomplicated; Z71.6 Tobacco abuse counseling; Z79.899 Other long term (current) drug therapy; Z86.73 Personal history of transient ischemic attack (TIA), and cerebral infarction without residual deficits
CPT/HCPCS: 36415; 70450; 71045; 80048; 80061; 81001; 81003; 82947; 84484; 85025; 85610; 87086; 87635; 93005; 99219; 99285

== ENCOUNTER 2022-06-18 06:36 | Outpatient (REF) | payer OTHER, SELFPAY ==
[2022-06-18 11:31] LABS: Hematocrit 45.8 % (42.0-52.0); Hemoglobin 15.7 g/dl (14.0-18.0); Mean Corpuscular HGB Conc 34.3 g/dl (31.0-36.0); Mean Corpuscular Hemoglobin 30.5 pg (27.0-33.0); Mean Corpuscular Volume 89.1 fL (80.0-98.0); Mean Platelet Volume 9.1 fL (9.4-12.4); Platelet Count 279 X10*3/uL (160-400); Red Blood Count 5.14 X10*6/uL (4.60-5.80); Red Cell Distribution Width 13.2 % (11.0-16.0); White Blood Count 10.6 X10*3/uL (4.8-10.8)
[2022-06-18 11:46] LABS: Estimated Average Glucose 126 mg/dL
[2022-06-18 12:04] LABS: Alanine Aminotransferase 41 U/L (0-40); Albumin Level 4.4 g/dL (3.5-5.0); Alkaline Phosphatase 181 U/L (39-117); Anion Gap 19 (12-20); Aspartate Amino Transferase 26 U/L (5-37); Bilirubin Total 1.1 mg/dL (0.0-1.0); Blood Urea Nitrogen 21 mg/dL (9-16); Calcium 9.5 mg/dL (8.4-10.2); Carbon Dioxide 22 mmol/L (22-29); Chloride 104 mmol/L (96-108); Cholesterol 148 mg/dL; Estimated Glomerular Filt Rate > 60; Glucose Fasting 121 mg/dL (60-99); HDL Cholesterol 55 mg/dL; LDL Cholesterol Calculated 64 mg/dl; Potassium 4.2 mmol/L (3.3-5.1); Sodium 141 mmol/L (135-145); Total Protein 7.1 g/dL (6.5-8.0); Triglycerides 146 mg/dL
== END 2022-06-18 06:37 | disposition home or self-care (01) ==
LOC: HO.HMGCLDS 06:36
PROVIDERS: PCP Internal Medicine; Visit Provider Internal Medicine
DX: E78.5 Hyperlipidemia, unspecified (principal); I10 Essential (primary) hypertension
CPT/HCPCS: 36415; 80053; 80061; 83036; 85027

== ENCOUNTER 2022-09-10 10:11 | Outpatient (REF) | payer OTHER, SELFPAY ==
--- NOTE | ~2022-09-10 | XR_ITS ---
EXAMINATION: AP KNEE STANDING, BILATERAL XR KNEE, BILATERAL CLINICAL INFORMATION: Bilateral knee pain. COMPARISON: None. TECHNIQUE: AP bilateral knee. 2 views each knee. FINDINGS: Bilateral AP Knee Standing: There is severe loss of medial compartment joint space with periarticular spurring. The lateral compartment joint space is normal. No loose bodies, fracture or dislocation seen. Left Knee: There is severe loss of patellofemoral compartment joint space with periarticular spurring. No loose bodies or joint effusion seen. The soft tissues are normal. Right Knee: There is severe loss of patellofemoral compartment right knee with periarticular spurring. There is mild suprapatellar joint effusion. No visible acute fracture, dislocation or subluxation seen. The soft tissues are normal. 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 No loose bodies or bony erosive changes. There is mild suprapatellar joint effusion right knee.
--- NOTE | ~2022-09-10 | XR_ITS ---
EXAMINATION: AP KNEE STANDING, BILATERAL XR KNEE, BILATERAL CLINICAL INFORMATION: Bilateral knee pain. COMPARISON: None. TECHNIQUE: AP bilateral knee. 2 views each knee. FINDINGS: Bilateral AP Knee Standing: There is severe loss of medial compartment joint space with periarticular spurring. The lateral compartment joint space is normal. No loose bodies, fracture or dislocation seen. Left Knee: There is severe loss of patellofemoral compartment joint space with periarticular spurring. No loose bodies or joint effusion seen. The soft tissues are normal. Right Knee: There is severe loss of patellofemoral compartment right knee with periarticular spurring. There is mild suprapatellar joint effusion. No visible acute fracture, dislocation or subluxation seen. The soft tissues are normal. 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 No loose bodies or bony erosive changes. There is mild suprapatellar joint effusion right knee.
--- NOTE | ~2022-09-10 | XR_ITS ---
EXAMINATION: AP KNEE STANDING, BILATERAL XR KNEE, BILATERAL CLINICAL INFORMATION: Bilateral knee pain. COMPARISON: None. TECHNIQUE: AP bilateral knee. 2 views each knee. FINDINGS: Bilateral AP Knee Standing: There is severe loss of medial compartment joint space with periarticular spurring. The lateral compartment joint space is normal. No loose bodies, fracture or dislocation seen. Left Knee: There is severe loss of patellofemoral compartment joint space with periarticular spurring. No loose bodies or joint effusion seen. The soft tissues are normal. Right Knee: There is severe loss of patellofemoral compartment right knee with periarticular spurring. There is mild suprapatellar joint effusion. No visible acute fracture, dislocation or subluxation seen. The soft tissues are normal. XR/XR knee LT 2V IMPRESSION: Severe degenerative changes medial and patellofemoral compartment both knees with periarticular spurring. No loose bodies or bony erosive changes. There is mild suprapatellar joint effusion right knee.
== END 2022-09-10 10:12 | disposition home or self-care (01) ==
LOC: HO.HOSX 10:11
PROVIDERS: Visit Provider Physician Assistant
DX: M17.12 Unilateral primary osteoarthritis, left knee (principal); M25.561 Pain in right knee
CPT/HCPCS: 20610; 73560; 73565; J1040

== ENCOUNTER → 2022-09-22 09:23 | Outpatient (BNVA) | payer OTHER, SELFPAY | PROVIDERS: PCP Internal Medicine; Visit Provider Physician Assistant | DX: Z13.89 Encounter for screening for other disorder (principal) ==

== ENCOUNTER 2022-11-01 13:32 | Emergency (ER) | payer OTHER, SELFPAY ==
--- NOTE | ~2022-11-01 | CT_ITS ---
EXAMINATION: CT HEAD WITHOUT CONTRAST CLINICAL INFORMATION: Headache, hypertension COMPARISON: CT 04/26/2022 TECHNIQUE: Contiguous axial imaging was performed from the skull base to vertex without intravenous administration of contrast. This CT examination was performed using dose optimization techniques as appropriate, variously including the following: *Automated exposure control *Adjustment of mA and/or kV according to patient size (this includes techniques or standardized protocols for targeted exams where dose is matched to indication/reason for exam; i.e. extremities or head) *Use of iterative reconstruction technique DLP: 716 mGy-cm FINDINGS: No intra-axial or extra-axial hemorrhage. No acute territorial infarct. Chronic small vessel ischemic disease of the periventricular white matter does not appear significantly changed.. Preservation of stewart-white matter differentiation. No mass, mass effect, or midline shift. No fracture. Ossification along the falx. Polypoid mucosal thickening of the right maxillary sinus. The mastoid air cells and visualized paranasal sinuses are otherwise clear. CT/CT head/brain wo IV con IMPRESSION: No acute intracranial pathology. Chronic microangiopathy.
--- NOTE | 2022-11-01 13:48 | ED_ITS ---
HPI - General Adult General Chief complaint: General Medical <PIPPA Griffin - Last Filed: 11/01/22 14:19> Stated complaint: HTN <PIPPA Griffin - Last Filed: 11/01/22 14:19> Time Seen by Provider: 11/01/22 21:00 <PIPPA Griffin - Last Filed: 11/01/22 14:19> Source: patient <Uday Hernandez MD - Last Filed: 11/01/22 21:21> Mode of arrival: EMS <Uday Hernandez MD - Last Filed: 11/01/22 21:21> Limitations: no limitations <Uday Hernandez MD - Last Filed: 11/01/22 21:21> History of Present Illness HPI narrative: 69-year-old male with history of hypertension, stroke presents with elevated blood pressure reading. Patient had a new blood pressure cuff today. He used for the 1st time. Blood pressure was 200/100. He contacted his primary care provider who instructed him to take an extra 2.5 mg of amlodipine. Patient noted a mild headache but no other significant symptoms such as chest pain, shortness breath, palpitations, lightheadedness, focal neurologic deficits. Subsequently, his daughter at contacted 911 because she was unable to get a hold of family. They arrived, they noted his blood pressure continued to be significantly elevated was transported to the hospital. Patient has been compliant with his medication. Denies any significant dietary indiscretions. Again denies any chest pain, shortness of breath, palpitations, lightheadedness, lower extremity edema, orthopnea, PND, neurologic deficits. He does have a history of post herpetic neuralgia with hearing loss but that is unchanged. <Uday Hernandez MD - Last Filed: 11/01/22 21:21> Related Data Home medications: Home Medications Medication Instructions Recorded Confirmed atorvastatin 40 mg tablet 40 mg PO BEDTIME 04/27/22 09/22/22 finasteride 5 mg tablet 1 tab PO DAILY 04/27/22 09/22/22 Previous Rx's Medication Instructions Recorded buspirone 10 mg tablet 10 mg PO TID #270 tabs 02/28/22 lisinopril 40 mg tablet 40 mg PO DAILY #90 tabs 04/15/22 aspirin 81 mg tablet,delayed 81 mg PO DAILY #90 tabs 04/24/22 release topiramate 25 mg tablet (Topamax) 25 mg PO DAILY #30 tabs 04/27/22 omeprazole 20 mg capsule,delayed 20 mg PO DAILY@0630 #90 caps 07/14/22 release lidocaine 5 % topical patch 2 patch topical DAILY #60 ea 09/23/22 (Lidoderm) amlodipine 5 mg tablet 5 mg PO BID 90 days #180 tabs 11/01/22 <PIPPA Griffin - Last Filed: 11/01/22 14:19> Allergies/adverse reactions: Allergies Allergy/AdvReac Type Severity Reaction Status Date / Time gabapentin [GABAPENTIN] Allergy Intermediate DARK Verified 09/10/22 10:12 THOUGHTS, suicidal lactose [LACTOSE] Allergy Intermediate PAIN IN Verified 09/10/22 10:12 STOMACH, CONSTIPATION cetirizine [From Zyrtec] Allergy Unknown Nausea, Verified 09/10/22 10:12 Emotional clindamycin [CLINDAMYCIN] Allergy Unknown HIVES Verified 09/10/22 10:12 penicillin V Allergy Unknown hives Verified 09/10/22 10:12 Penicillins [PENICILLINS] Allergy Unknown Hives Verified 09/10/22 10:12 prednisone Allergy Unknown nightmares Verified 09/10/22 10:12 sertraline [From ZOLOFT] AdvReac Severe SI Verified 09/10/22 10:12 <PIPPA Griffin - Last Filed: 11/01/22 14:19> [facility] Past Medical History Medical History: Medical History Anxiety Cataract Cerebral microvascular disease Constipation CVA (cerebral vascular accident) Epistaxis GERD (gastroesophageal reflux disease) Hematuria HTN (hypertension) Hyperlipidemia Lung mass Melanoma Neuralgia JOSEF on CPAP Paget's disease Seasonal allergies Tobacco dependence <PIPPA Griffin - Last Filed: 11/01/22 14:19> Surgical History: Surgical History Hx of cataract surgery No pertinent past surgical history <PIPPA Griffin - Last Filed: 11/01/22 14:19> Family History Family History: Family History Father Unknown family medical history Mother Unknown family medical history Son No problems noted. Daughter No problems noted. Daughter No problems noted. Daughter No problems noted. <PIPPA Griffin - Last Filed: 11/01/22 14:19> Social History Social History: Social History Housing: House Alcohol intake: never Patient Tobacco Use Status: Never used Tobacco Smoked in Last 30 Days: No e-Cigarette/Vaping Use: Never Used Use of substances other than those prescribed or required for medical reasons: No Advance Directives: No Advance Directives Information Provided: No service: No Current occupational status: retired Cognitive needs: No Hearing needs: Yes Vision needs: Yes <PIPPA Griffin - Last Filed: 11/01/22 14:19> Physical Exam ED Vital Signs: Vital Signs - 24 hr 11/01/22 14:14 11/01/22 20:33 11/01/22 20:59 Temperature 97.9 F 98.1 F Pulse Rate 101 H 69 75 Respiratory Rate 18 17 18 Blood Pressure 160/92 H 153/95 H 140/80 H Pulse Oximetry 96 95 97 Oxygen Delivery Method Room Air Room Air Room Air BMI result Body Mass Index 32.6 <PIPPA Griffin - Last Filed: 11/01/22 14:19> Vital Signs - 24 hr 11/01/22 14:14 11/01/22 20:33 11/01/22 20:59 Temperature 97.9 F 98.1 F Pulse Rate 101 H 69 75 Respiratory Rate 18 17 18 Blood Pressure 160/92 H 153/95 H 140/80 H Pulse Oximetry 96 95 97 Oxygen Delivery Method Room Air Room Air Room Air BMI result Body Mass Index 32.6 <Uday Hernandez MD - Last Filed: 11/01/22 21:21> GEN: Well developed, no acute distress, alert, oriented HEENT: Normocephalic, atraumatic, normal external ears, nose appears normal, no oropharyngeal edema or exudates Eyes: Normal to appearance Neck: Supple, no lymphadenopathy Respiratory: Talks in complete sentences, no respiratory distress, clear to aus cultation bilaterally Cardiovascular: Regular rate and rhythm, no murmurs rubs or gallops Abdomen: Soft, nontender, nondistended, no guarding, no rebound Back: No CVA tenderness Extremities: No clubbing cyanosis or edema Neurologic: No focal neurologic deficits, cranial nerves 2-12 intact, strength is 5/5 bilaterally, gait normal Skin: No rash <Uday Hernandez MD - Last Filed: 11/01/22 21:21> Course Course Course Narrative: RMTrish--77-year-old male with past medical history of HTN, anxiety, prior CVA, JOSEF, HTN, intermittent deafness, BIBA for HTN at home 202/100 and MARTINEZ/pressure back of head. patient states he called his MD and was instructed to take additional dose of Amlodipine (2.5mg) and BP was even higher after repeating 1hr later. [Took total 5mg Amlodipine today]. Also reports gas pain , lightheadedness and tingling in fingers this morning when pressure was elevated, resolved now. Takes baby ASA BP 160/92 in triage EKG, labs including troponin, head CT ordered <PIPPA Griffin - Last Filed: 11/01/22 14:19> Reevaluation(s) Reevaluation #1: Patient raise anus asymptomatic. His or his blood pressures improved. W orkup is complete. Patient be discharged at this time. He take amlodipine 5 mg in the morning and 2.5 mg in the late afternoon. He will follow up on Thursday with his primary care provider in take his blood pressure cuff to corroborate the readings from his new machine <Uday Hernandez MD - Last Filed: 11/01/22 21:21> Time: 21:15 <Uday Hernandez MD - Last Filed: 11/01/22 21:21> Medical Decision Making Medical Decision Making MDM Narrative: 77-year-old male presents with elevated blood pressure. Patient had a mild headache. He describes a couple days ago having some mild indigestion which he attributed to some fish that he made. He denied any chest pain, shortness breath, palpitations, lightheadedness. Examination was normal including nonfocal neurologic deficits. We will continue to monitor her blood pressure. We will adjust medications as needed. Will check for renal dys function, any form of hemorrhagic CVA or other CVA given his headache, cardiac enzymes given indigestion 2 days ago. At this point, patient's most likely diagnosis is central hypertension. <Uday Hernandez MD - Last Filed: 11/01/22 21:21> Differential Diagnosis Differential Diagnoses: The differential diagnosis associated with the presentation includes (Essential hypertension, hypertensive urgency, hypertensive emergency, medication noncompliance) <Uday Hernandez MD - Last Filed: 11/01/22 21:21> Admission/Observation Consideration of admission/observation: Escalation of care including admission/observation considered <Uday Hernandez MD - Last Filed: 11/01/22 21:21> Lab Data MDM Lab Attestation statement: I reviewed the patient's lab results. <Uday Hernandez MD - Last Filed: 11/01/22 21:21> Result Diagrams: 11/01/22 15:27 11/01/22 15:27 <PIPPA Griffin - Last Filed: 11/01/22 14:19> Labs: Lab Results 11/01/22 11/01/22 11/01/22 Range/Units 15:27 15:27 15:27 WBC 10.8 (4.8-10.8) X10*3/uL RBC 5.46 (4.60-5.80) X10*6/uL Hgb 16.1 (14.0-18.0) g/dl Hct 47.3 (42.0-52.0) % MCV 86.6 (80.0-98.0) fL MCH 29.5 (27.0-33.0) pg MCHC 34.0 (31.0-36.0) g/dl RDW 13.6 (11.0-16.0) % Plt Count 255 (160-400) X10*3/uL MPV 8.5 L (9.4-12.4) fL Immature Gran % (Auto) 0.9 H (0.0-0.4) % Neut % (Auto) 71.2 (45-73) % Lymph % (Auto) 15.8 L (20-40) % [place] % (Auto) 9.6 (2-11) % Eos % (Auto) 1.4 (0-4) % Baso % (Auto) 1.1 (0-2) % Lymph # (Auto) 1.7 (1.2-4.9) X10*3/uL [place] # (Auto) 1.0 (0.1-1.2) X10*3/uL Eos # (Auto) 0.2 (0.0-0.4) X10*3/uL Baso # (Auto) 0.1 (0.0-0.2) X10*3/uL Abs Immat Gran (auto) 0.10 H (0.00-0.03) X10*3/uL Absolute Neuts (auto) 7.7 (2.0-8.3) x10*3/uL Absolute Nucleated RBC 0.000 (0.0-0.012) X10*3/uL Nucleated RBC % (auto) 0.0 (0.0-0.2) /100WBC PT (10.0-13.1) SEC INR (0.9-1.1) Sodium 142 (135-145) mmol/L Potassium 4.3 (3.3-5.1) mmol/L Chloride 108 (96-108) mmol/L Carbon Dioxide 24 (22-29) mmol/L Anion Gap 14 (12-20) BUN 13 (9-16) mg/dL Creatinine 0.99 (0.5-1.4) mg/dL Estim Creat Clear Calc 78.5 Estimated GFR > 60 Random Glucose 136 H (60-115) mg/dL Calcium 9.6 (8.4-10.2) mg/dL Magnesium 1.7 (1.6-2.6) mg/dL Total Bilirubin 0.7 (0.0-1.0) mg/dL Direct Bilirubin 0.2 (0.0-0.5) mg/dL AST 28 (5-37) U/L ALT 51 H (0-40) U/L Alkaline Phosphatase 208 H (39-117) U/L Troponin I High Sens 3.9 (<3.5-35.0) ng/L Total Protein 7.2 (6.5-8.0) g/dL Albumin 4.4 (3.5-5.0) g/dL 11/01/22 11/01/22 Range/Units 15:27 18:45 WBC (4.8-10.8) X10*3/uL RBC (4.60-5.80) X10*6/uL Hgb (14.0-18.0) g/dl Hct (42.0-52.0) % MCV (80.0-98.0) fL MCH (27.0-33.0) pg MCHC (31.0-36.0) g/dl RDW (11.0-16.0) % Plt Count (160-400) X10*3/uL MPV (9.4-12.4) fL Immature Gran % (Auto) (0.0-0.4) % Neut % (Auto) (45-73) % Lymph % (Auto) (20-40) % [place] % (Auto) (2-11) % Eos % (Auto) (0-4) % Baso % (Auto) (0-2) % Lymph # (Auto) (1.2-4.9) X10*3/uL [place] # (Auto) (0.1-1.2) X10*3/uL Eos # (Auto) (0.0-0.4) X10*3/uL Baso # (Auto) (0.0-0.2) X10*3/uL Abs Immat Gran (auto) (0.00-0.03) X10*3/uL Absolute Neuts (auto) (2.0-8.3) x10*3/uL Absolute Nucleated RBC (0.0-0.012) X10*3/uL Nucleated RBC % (auto) (0.0-0.2) /100WBC PT 10.7 (10.0-13.1) SEC INR 0.9 (0.9-1.1) Sodium (135-145) mmol/L Potassium (3.3-5.1) mmol/L Chloride (96-108) mmol/L Carbon Dioxide (22-29) mmol/L Anion Gap (12-20) BUN (9-16) mg/dL Creatinine (0.5-1.4) mg/dL Estim Creat Clear Calc Estimated GFR Random Glucose (60-115) mg/dL Calcium (8.4-10.2) mg/dL Magnesium (1.6-2.6) mg/dL Total Bilirubin (0.0-1.0) mg/dL Direct Bilirubin (0.0-0.5) mg/dL AST (5-37) U/L ALT (0-40) U/L Alkaline Phosphatase (39-117) U/L Troponin I High Sens 8.6 D (<3.5-35.0) ng/L Total Protein (6.5-8.0) g/dL Albumin (3.5-5.0) g/dL <PIPPA Griffin - Last Filed: 11/01/22 14:19> Lab Results 11/01/22 11/01/22 11/01/22 Range/Units 15:27 15:27 15:27 WBC 10.8 (4.8-10.8) X10*3/uL RBC 5.46 (4.60-5.80) X10*6/uL Hgb 16.1 (14.0-18.0) g/dl Hct 47.3 (42.0-52.0) % MCV 86.6 (80.0-98.0) fL MCH 29.5 (27.0-33.0) pg MCHC 34.0 (31.0-36.0) g/dl RDW 13.6 (11.0-16.0) % Plt Count 255 (160-400) X10*3/uL MPV 8.5 L (9.4-12.4) fL Immature Gran % (Auto) 0.9 H (0.0-0.4) % Neut % (Auto) 71.2 (45-73) % Lymph % (Auto) 15.8 L (20-40) % [place] % (Auto) 9.6 (2-11) % Eos % (Auto) 1.4 (0-4) % Baso % (Auto) 1.1 (0-2) % Lymph # (Auto) 1.7 (1.2-4.9) X10*3/uL [place] # (Auto) 1.0 (0.1-1.2) X10*3/uL Eos # (Auto) 0.2 (0.0-0.4) X10*3/uL Baso # (Auto) 0.1 (0.0-0.2) X10*3/uL Abs Immat Gran (auto) 0.10 H (0.00-0.03) X10*3/uL Absolute Neuts (auto) 7.7 (2.0-8.3) x10*3/uL Absolute Nucleated RBC 0.000 (0.0-0.012) X10*3/uL Nucleated RBC % (auto) 0.0 (0.0-0.2) /100WBC PT (10.0-13.1) SEC INR (0.9-1.1) Sodium 142 (135-145) mmol/L Potassium 4.3 (3.3-5.1) mmol/L Chloride 108 (96-108) mmol/L Carbon Dioxide 24 (22-29) mmol/L Anion Gap 14 (12-20) BUN 13 (9-16) mg/dL Creatinine 0.99 (0.5-1.4) mg/dL Estim Creat Clear Calc 78.5 Estimated GFR > 60 Random Glucose 136 H (60-115) mg/dL Calcium 9.6 (8.4-10.2) mg/dL Magnesium 1.7 (1.6-2.6) mg/dL Total Bilirubin 0.7 (0.0-1.0) mg/dL Direct Bilirubin 0.2 (0.0-0.5) mg/dL AST 28 (5-37) U/L ALT 51 H (0-40) U/L Alkaline Phosphatase 208 H (39-117) U/L Troponin I High Sens 3.9 (<3.5-35.0) ng/L Total Protein 7.2 (6.5-8.0) g/dL Albumin 4.4 (3.5-5.0) g/dL 11/01/22 11/01/22 Range/Units 15:27 18:45 WBC (4.8-10.8) X10*3/uL RBC (4.60-5.80) X10*6/uL Hgb (14.0-18.0) g/dl Hct (42.0-52.0) % MCV (80.0-98.0) fL MCH (27.0-33.0) pg MCHC (31.0-36.0) g/dl RDW (11.0-16.0) % Plt Count (160-400) X10*3/uL MPV (9.4-12.4) fL Immature Gran % (Auto) (0.0-0.4) % Neut % (Auto) (45-73) % Lymph % (Auto) (20-40) % [place] % (Auto) (2-11) % Eos % (Auto) (0-4) % Baso % (Auto) (0-2) % Lymph # (Auto) (1.2-4.9) X10*3/uL [place] # (Auto) (0.1-1.2) X10*3/uL Eos # (Auto) (0.0-0.4) X10*3/uL Baso # (Auto) (0.0-0.2) X10*3/uL Abs Immat Gran (auto) (0.00-0.03) X10*3/uL Absolute Neuts (auto) (2.0-8.3) x10*3/uL Absolute Nucleated RBC (0.0-0.012) X10*3/uL Nucleated RBC % (auto) (0.0-0.2) /100WBC PT 10.7 (10.0-13.1) SEC INR 0.9 (0.9-1.1) Sodium (135-145) mmol/L Potassium (3.3-5.1) mmol/L Chloride (96-108) mmol/L Carbon Dioxide (22-29) mmol/L Anion Gap (12-20) BUN (9-16) mg/dL Creatinine (0.5-1.4) mg/dL Estim Creat Clear Calc Estimated GFR Random Glucose (60-115) mg/dL Calcium (8.4-10.2) mg/dL Magnesium (1.6-2.6) mg/dL Total Bilirubin (0.0-1.0) mg/dL Direct Bilirubin (0.0-0.5) mg/dL AST (5-37) U/L ALT (0-40) U/L Alkaline Phosphatase (39-117) U/L Troponin I High Sens 8.6 D (<3.5-35.0) ng/L Total Protein (6.5-8.0) g/dL Albumin (3.5-5.0) g/dL <Uday Hernandez MD - Last Filed: 11/01/22 21:21> Independent Interpretation I performed an independent interpretation of an: EKG (Normal sinus rhythm id, left axis deviation, LVH, no acute ST elevations or depressions, no evidence of strain) and CT Scan (Head no acute injury) <Uday Hernandez MD - Last Filed: 11/01/22 21:21> Radiology Impression Discussion of test interpretation with radiology: I have reviewed the radiologist's reading. ( CT/CT head/brain wo IV con IMPRESSION: No acute intracranial pathology. Chronic microangiopathy. Dictated By:Jayy Elena MDSigned By:<Electronically signed by Jayy Elena MD in OV>11/01/221901 DD/ TD/TT: Research Microbiologist: COREEN) <Uday Hernandez MD - Last Filed: 11/01/22 21:21> Independent Historian Clinical information obtained from an independent historian. History obtained from or confirmed by: EMS <Uday Hernandez MD - Last Filed: 11/01/22 21:21> External Record Review External record reviewed: Office record (Neurology: 04/26/2022, visitation for microangiopathy.) <Uday Hernandez MD - Last Filed: 11/01/22 21:21> Tests considered The following testing was considered but not selected: MRI, chest x-ray <Uday Hernandez MD - Last Filed: 11/01/22 21:21> Prescription Management I considered prescription management with: Other (Antihypertensives) <Uday Hernandez MD - Last Filed: 11/01/22 21:21> Chronic Conditions Patient?s care impacted by: Hypertension <Uday Hernandez MD - Last Filed: 11/01/22 21:21> Discharge Plan Discharge Clinical Impression: HTN (hypertension), Elevated blood sugar, Cerebral microvascular disease, Alkaline phosphatase elevation <PIPPA Griffin - Last Filed: 11/01/22 14:19> Patient Disposition: Home, Self-Care <PIPPA Griffin - Last Filed: 11/01/22 14:19> Instructions: Nondiabetic Hyperglycemia (ED), Chronic Hypertension (DC), DASH Eating Plan (ED) <PIPPA Griffin - Last Filed: 11/01/22 14:19> Additional Instructions: Until you follow-up with your primary care provider, I am recommending taking amlodipine 5 mg in the morning and 2.5 mg in the afternoon as instead of 2.5 mg twice a day. When you follow-up with her primary care doctor on Thursday or Thursday, please take your blood pressure cuff to make sure the blood pressure cuff readings are similar to assure yourself working appropriately. For any concerning symptoms such as chest pain, headaches, vision changes, numbness, weakness, please return to the emergency department for re-evaluation. <PIPPA Griffin - Last Filed: 11/01/22 14:19> Prescriptions: No Action buspirone 10 mg tablet 10 mg PO TID Qty: 270 3RF lisinopril 40 mg tablet 40 mg PO DAILY Qty: 90 3RF aspirin 81 mg tablet,delayed release (DR/EC) 81 mg PO DAILY Qty: 90 3RF omeprazole 20 mg capsule,delayed release(DR/EC) 20 mg PO DAILY@0630 Qty: 90 3RF lidocaine [Lidoderm] 5 % adhesive patch,medicated 2 patch topical DAILY Qty: 60 2RF Rx Instructions: leave on most painful area for up to 12 hrs amlodipine 5 mg tablet 5 mg PO BID 90 Days Qty: 180 0RF finasteride 5 mg tablet 1 tab PO DAILY atorvastatin 40 mg tablet 40 mg PO BEDTIME topiramate [Topamax] 25 mg tablet 25 mg PO DAILY Qty: 30 0RF <PIPPA Griffin - Last Filed: 11/01/22 14:19> Referrals: Alicia Kelsey MD [Primary Care Provider] - 2 days <PIPPA Griffin - Last Filed: 11/01/22 14:19>
[2022-11-01 14:14] VITALS: BP 160/92; BP 180/90; PULSE 101; PULSE 70; RESP 18; TEMP 36.6; O2SAT 96; O2SAT 98; BMI 32.6
--- NOTE | 2022-11-01 14:14 | ECG_ITS ---
Test Reason : HYPERTENSION Blood Pressure : / mmHG Vent. Rate : 090 BPM Atrial Rate : 090 BPM P-R Int : 176 ms QRS Dur : 096 ms QT Int : 364 ms P-R-T Axes : 056 -39 057 degrees QTc Int : 445 ms Normal sinus rhythm Left axis deviation Minimal voltage criteria for LVH, may be normal variant ( R in aVL ) Abnormal ECG When compared with ECG of 26-APR-2022 22:15, Premature atrial complexes are no longer Present Referred By: Baylee Javed Electronically Signed By:WILLA COBURN MD
[2022-11-01 15:42] LABS: MANUAL DIFF FLAG NO
[2022-11-01 15:45] LABS: Basophils Absolute Auto 0.1 X10*3/uL (0.0-0.2); Basophils Percent Auto 1.1 % (0-2); Eosinophils Absolute Auto 0.2 X10*3/uL (0.0-0.4); Eosinophils Percent Auto 1.4 % (0-4); Hematocrit 47.3 % (42.0-52.0); Hemoglobin 16.1 g/dl (14.0-18.0); Imm Gran Pct Auto 0.9 % (0.0-0.4); Lymphocytes Absolute Auto 1.7 X10*3/uL (1.2-4.9); Lymphocytes Percent Auto 15.8 % (20-40); Mean Corpuscular Hemoglobin 29.5 pg (27.0-33.0); Mean Corpuscular Volume 86.6 fL (80.0-98.0); Mean Platelet Volume 8.5 fL (9.4-12.4); Monocytes Percent Auto 9.6 % (2-11); Neutrophils Absolute Auto 7.7 x10*3/uL (2.0-8.3); Neutrophils Percent Auto 71.2 % (45-73); Platelet Count 255 X10*3/uL (160-400); Red Blood Count 5.46 X10*6/uL (4.60-5.80); Red Cell Distribution Width 13.6 % (11.0-16.0); White Blood Count 10.8 X10*3/uL (4.8-10.8)
[2022-11-01 15:49] LABS: INTERNATIONAL NORM RATIO 0.9 (0.9-1.1); Prothrombin Time 10.7 SEC (10.0-13.1)
[2022-11-01 16:00] LABS: Alanine Aminotransferase 51 U/L (0-40); Albumin Level 4.4 g/dL (3.5-5.0); Alkaline Phosphatase 208 U/L (39-117); Anion Gap 14 (12-20); Aspartate Amino Transferase 28 U/L (5-37); Bilirubin Direct 0.2 mg/dL (0.0-0.5); Bilirubin Total 0.7 mg/dL (0.0-1.0); Blood Urea Nitrogen 13 mg/dL (9-16); Calcium 9.6 mg/dL (8.4-10.2); Carbon Dioxide 24 mmol/L (22-29); Chloride 108 mmol/L (96-108); Creatinine Clr Calc Pharmacy 78.5; Estimated Glomerular Filt Rate > 60; Glucose Random 136 mg/dL (60-115); Magnesium 1.7 mg/dL (1.6-2.6); Potassium 4.3 mmol/L (3.3-5.1); Sodium 142 mmol/L (135-145); Total Protein 7.2 g/dL (6.5-8.0)
[2022-11-01 16:07] LABS: Troponin-I High Sensitivity 3.9 ng/L (<3.5-35.0)
[2022-11-01 19:24] LABS: Troponin-I High Sensitivity 8.6 ng/L (<3.5-35.0)
[2022-11-01 20:33] VITALS: BP 153/95; PULSE 69; RESP 17; TEMP 36.7; O2SAT 95
[2022-11-01 20:59] VITALS: BP 140/80; PULSE 75; RESP 18; O2SAT 97
--- NOTE | 2022-11-01 21:22 | PC.NURSE ---
pt a&ox3, vss - pt blood pressure has decreased during time in ED, pt resting quietly. reporting 2/10 headache from the stretcher.
== END 2022-11-01 21:51 | disposition home or self-care (01) ==
PROVIDERS: Physician Assistant; Emergency Provider Emergency Medicine; PCP Internal Medicine
DX: I10 Essential (primary) hypertension (principal); R51.9 Headache, unspecified; R73.9 Hyperglycemia, unspecified; R74.8 Abnormal levels of other serum enzymes; I67.89 Other cerebrovascular disease; E78.5 Hyperlipidemia, unspecified; R91.8 Other nonspecific abnormal finding of lung field; Z86.73 Personal history of transient ischemic attack (TIA), and cerebral infarction without residual deficits; Z79.899 Other long term (current) drug therapy; Z79.02 Long term (current) use of antithrombotics/antiplatelets; Z79.82 Long term (current) use of aspirin
CPT/HCPCS: 36415; 70450; 80048; 80076; 83735; 84484; 85025; 85610; 93005; 99284

== ENCOUNTER 2022-12-10 07:18 | Outpatient (REF) | payer OTHER, SELFPAY ==
--- NOTE | ~2022-12-10 | CT_ITS ---
EXAMINATION: CT CHEST WITHOUT CONTRAST CLINICAL INFORMATION: Solitary pulmonary nodule. COMPARISON: CT chest 11/21/2021 TECHNIQUE: Multidetector volumetric CT imaging of the chest was done. Axial MIP volume rendering provided. Sagittal and coronal reformatted images were obtained. This CT examination was performed using dose optimization techniques as appropriate, variously including the following: *Automated exposure control *Adjustment of mA and/or kV according to patient size (this includes techniques or standardized protocols for targeted exams where dose is matched to indication/reason for exam; i.e. 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 LUNGS: Again visualized is 1.0 x 0.7 cm nodule right upper lobe, axial image 13/4. There is a 5 mm nodule left lower lobe, axial image 30/4. Both these nodules are stable. No new nodules are seen. 2 mm nodule left lower lobe pleural-based axial image 311/9 and a 4 mm calcified triangular shaped nodule pleural-based right lower lobe adjacent major fissure axial image 204/9 is stable. MEDIASTINUM: The right thyroid lobe is enlarged. Central trachea and the bronchi are widely patent. Heart size and the great vessels are normal caliber. No pericardial effusion seen. No abnormal size mediastinal lymph nodes noted. CORONARY ARTERY CALCIFICATION: Mild coronary artery calcifications are present. PLEURA: There is no pleural effusion. No pleural mass or thickening. AXILLA: No lymphadenopathy. UPPER ABDOMEN: Visualized liver, spleen, pancreas and bilateral adrenal glands unremarkable. OSSEOUS STRUCTURES: There is exaggerated thoracic kyphosis. The vertebral heights, alignment and disc heights are normal. There is moderate ventral spondylosis dorsal spine. CT/CT chest wo IV con IMPRESSION: 1. Stable bilateral pulmonary nodules. No new nodules seen. 2. No abnormal mediastinal or axillary lymphadenopathy. Fleischner guidelines were followed.
== END 2022-12-10 07:19 | disposition home or self-care (01) ==
LOC: HO.CT 07:18
PROVIDERS: Visit Provider Nurse Practitioner
DX: R91.1 Solitary pulmonary nodule (principal)
CPT/HCPCS: 71250

== ENCOUNTER 2023-04-29 06:36 | Outpatient (REF) | payer OTHER, SELFPAY ==
[2023-04-29 12:46] LABS: Alanine Aminotransferase 49 U/L (0-40); Albumin Level 4.1 g/dL (3.5-5.0); Alkaline Phosphatase 181 U/L (39-117); Anion Gap 13 (12-20); Aspartate Amino Transferase 30 U/L (5-37); Bilirubin Total 0.5 mg/dL (0.0-1.0); Blood Urea Nitrogen 16 mg/dL (9-16); Calcium 9.7 mg/dL (8.4-10.2); Carbon Dioxide 25 mmol/L (22-29); Chloride 107 mmol/L (96-108); Cholesterol 123 mg/dL (<200); Estimated Glomerular Filt Rate > 60; Glucose Fasting 125 mg/dL (60-99); HDL Cholesterol 45 mg/dL (>40); LDL Cholesterol Calculated 47 mg/dL (<100); Potassium 4.2 mmol/L (3.3-5.1); Sodium 141 mmol/L (135-145); Triglycerides 157 mg/dL (<150)
[2023-04-29 12:52] LABS: Estimated Average Glucose 128 mg/dL; Hemoglobin A1c % 6.1 % (<6.0)
[2023-04-29 13:16] LABS: PSA,Total (Free>4and<10) 1.76 ng/mL (0.00-4.00)
== END 2023-04-29 06:37 | disposition home or self-care (01) ==
LOC: HO.HMGCLDS 06:36
PROVIDERS: PCP Internal Medicine; Visit Provider Internal Medicine
DX: Z12.5 Encounter for screening for malignant neoplasm of prostate (principal); I10 Essential (primary) hypertension; E78.5 Hyperlipidemia, unspecified; R73.9 Hyperglycemia, unspecified; F41.9 Anxiety disorder, unspecified
CPT/HCPCS: 36415; 80053; 80061; 83036; 84153

== ENCOUNTER 2023-05-01 14:00 | Outpatient (AMB) | payer OTHER, SELFPAY ==
--- NOTE | 2023-05-01 14:01 | MHC.PC.OV ---
Intake Visit Reasons: 6mo follow up/ HTN Intake Note: Pt is here today for 6 months follow up visit on HTN. Allergies gabapentin [GABAPENTIN] Allergy (Intermediate, Verified 05/01/23 14:02) DARK THOUGHTS, suicidal lactose [LACTOSE] Allergy (Intermediate, Verified 05/01/23 14:02) PAIN IN STOMACH, CONSTIPATION cetirizine [From Zyrtec] Allergy (Unknown, Verified 05/01/23 14:02) Nausea, Emotional clindamycin [CLINDAMYCIN] Allergy (Unknown, Verified 05/01/23 14:02) HIVES penicillin V Allergy (Unknown, Verified 05/01/23 14:02) hives Penicillins [PENICILLINS] Allergy (Unknown, Verified 05/01/23 14:02) Hives prednisone Allergy (Unknown, Verified 05/01/23 14:02) nightmares sertraline [From ZOLOFT] Adverse Reaction (Severe, Verified 05/01/23 14:02) SI Tobacco use date assessed: 05/01/23 Fall risk assessment: 2 + Falls in past year Last assessed Fall Risk: 05/01/23 Dental Screening Dental Screen Date: 05/01/23 Did you have a dental visit in the last 12 months?: Yes Did you have a dental problem in the last 6 months where you did not have access to dental care?: No Was dental information given to patient?: Patient has dentist HPI 6mo follow up/ HTN HPI Details Pt is for f/u of HTN, HYPERLIPID, hyperglycemia. PFSH Medical History Cerebral microvascular disease Hematuria Epistaxis Lung mass Tobacco dependence Cataract Constipation Hyperlipidemia Anxiety CVA (cerebral vascular accident) Seasonal allergies JOSEF on CPAP Melanoma Paget's disease GERD (gastroesophageal reflux disease) Neuralgia HTN (hypertension) Surgical History Hx of cataract surgery No pertinent past surgical history Family History Father Unknown family medical history Mother Unknown family medical history Son No problems noted. Daughter No problems noted. Daughter No problems noted. Daughter No problems noted. Social History Housing: House Alcohol intake: never Patient Tobacco Use Status: Never used Tobacco e-Cigarette/Vaping Use: Never Used service: No Current occupational status: retired Cognitive needs: No Hearing needs: Yes Vision needs: Yes Questionnaire PHQ-9 Over the last 2 weeks, how often have you been bothered by any of the following problems? 1. Little interest or pleasure in doing things: not at all 2. Feeling down, depressed, or hopeless: not at all 3. Trouble falling or staying asleep, or sleeping too much: not at all 4. Feeling tired or having little energy: several days 5. Poor appetite or overeating: not at all 6. Feeling bad about yourself - or that you are a failure or have let yourself or your family down: not at all 7. Trouble concentrating on things, such as reading the newspaper or watching television: not at all 8. Moving or speaking so slowly that other people could have noticed. Or the opposite - being so fidgety or restless that you have been moving around a lot more than usual: not at all 9. Thoughts that you would be better off or of hurting yourself in some way: not at all Total score: 1 Depression Screening Interpretation: Negative Source: Developed by Drs. Neil Dominguez, Trang Butler, Armando Parr and colleagues, with an educational unruly from [employer]. Thrive Questionnaire Date Thrive assessed: 05/01/23 I am a: Patient What is your living situation today?: I have a steady place to live Within the past 12 months, did the food you bought not last and you didn't have the money to get more?: Never true Within the past 12 months, did you worry whether your food would run out before you got money to buy more?: Never true Do you have trouble paying for medicines?: No Do you have trouble getting transportation to medical appointments?: No Do you have trouble paying your heating and electricity bill?: No Do you have trouble taking care of your child, family member or friend?: No Do you have trouble with day-to-day activities such as bathing, preparing meals, shopping, managing finances, etc.?: No Are you currently unemployed and looking for a job?: No Are you interested in more education?: No Please select the resources that you would like help with: None Currently or been in a relationship where the following occur: no concerns reported AUDIT C Alcohol Use Questionnaire (AUDIT-C) 1. How often do you have a drink containing alcohol?: Never 3. How often do you have six or more drinks on one occasion?: Never Total Score: 0 ABBY-7 AMB Questionnaire ABBY-7 Date ABBY - 7 assessed: 05/01/23 Feeling nervous, anxious, or on edge: 0 = Not at all Not being able to stop or control worryin = Not at all Worrying too much about different things: 0 = Not at all Trouble relaxin = Not at all Being so restless that it is hard to sit still: 0 = Not at all Becoming easily annoyed or irritable: 0 = Not at all Feeling afraid as if something awful might happen: 0 = Not at all Total ABBY-7 score (0-4 normal; 5-9 mild; 10-14 moderate; 15-21 severe): 0 Source: Developed by Drs. Neil Dominguez, Trang Butler, Armando Parr and colleagues, with an educational unruly from [employer]. Review of Systems Const All systems reviewed & are unremarkable except as noted in HPI and below Reports no additional complaints Eyes Reports no additional complaints ENT Reports no additional complaints Card Reports no additional complaints Resp Reports no additional complaints GI Reports no additional complaints Reports no additional complaints Physical exam (Primary Care) Tobacco/Smoking Status: Tobacco use Status Tobacco use date assessed 05/01/23 05/01/23 14:04 Patient Tobacco Use Status Never used Tobacco 05/01/23 14:04 e-Cigarette/Vaping Use Never Used 05/01/23 14:04 PHQ-9: PHQ-9 Score PHQ-9: Total score 1 05/01/23 14:05 Depression Screening Interpretation: Negative Thrive Assessment: Date of Thrive Assessment Date Thrive assessed 05/01/23 05/01/23 14:05 Currently or been in a relationship where the following occur: no concerns reported Telehealth Telehealth Location of provider rendering services: practice address Location of patient: address on file Patient Identification confirmed using: Name, : Yes Telehealth method: voice only Patient verbally consented to treatment: Yes Patient verbally consented to billing insurance company: Yes Patient informed of any privacy concerns related to visit: Yes Minutes spent on Phone/Video with Pt.: 15 Assessment and Plan Assessment & Plan (1) Hyperglycemia: Code(s): R73.9 - Hyperglycemia, unspecified Plan: a1c is 6.1, ADA, exercise, weight loss discussed. Pt asked for referral to ranch helper (2) HTN (hypertension): Comment: 20 years Code(s): I10 - Essential (primary) hypertension Plan: cont meds (3) Hyperlipidemia: Code(s): E78.5 - Hyperlipidemia, unspecified Plan: cont statin, f/u 6 months Orders: Orders Complete Blood Count Auto Diff 6 Months E78.5 - Hyperlipidemia, unspecified, I10 - Essential (primary) hypertension, R73.9 - Hyperglycemia, unspecified Comprehensive [place]. Panel Fast 6 Months E78.5 - Hyperlipidemia, unspecified, I10 - Essential (primary) hypertension, R73.9 - Hyperglycemia, unspecified Hemoglobin A1c 6 Months E78.5 - Hyperlipidemia, unspecified, I10 - Essential (primary) hypertension, R73.9 - Hyperglycemia, unspecified Lipid Panel 6 Months E78.5 - Hyperlipidemia, unspecified, I10 - Essential (primary) hypertension, R73.9 - Hyperglycemia, unspecified Referrals Nutrition/Dietitian Referral R73.9 - Hyperglycemia, unspecified Coding Level of Care Code Tele New Pt Level 3 (42927) Diagnoses Hyperglycemia R73.9 HTN (hypertension) I10 Hyperlipidemia E78.5
== END 2023-05-01 14:23 | disposition home or self-care (01) ==
LOC: HO.HMGC 14:00
PROVIDERS: PCP Internal Medicine; Visit Provider Internal Medicine
DX: R73.9 Hyperglycemia, unspecified (principal); I10 Essential (primary) hypertension; E78.5 Hyperlipidemia, unspecified
CPT/HCPCS: 99442

== ENCOUNTER 2023-06-08 10:36 | Outpatient (REF) | payer OTHER, SELFPAY ==
[2023-06-08 13:06] LABS: MANUAL DIFF FLAG NO
[2023-06-08 13:16] LABS: Basophils Absolute Auto 0.1 X10*3/uL (0.0-0.2); Basophils Percent Auto 1.2 % (0-2); Eosinophils Absolute Auto 0.2 X10*3/uL (0.0-0.4); Hematocrit 43.3 % (42.0-52.0); Hemoglobin 14.9 g/dl (14.0-18.0); Imm Gran Abs Auto 0.04 X10*3/uL (0.00-0.03); Imm Gran Pct Auto 0.5 % (0.0-0.4); Lymphocytes Absolute Auto 1.7 X10*3/uL (1.2-4.9); Lymphocytes Percent Auto 21.6 % (20-40); Mean Corpuscular HGB Conc 34.4 g/dl (31.0-36.0); Mean Corpuscular Hemoglobin 30.1 pg (27.0-33.0); Mean Corpuscular Volume 87.5 fL (80.0-98.0); Mean Platelet Volume 9.4 fL (9.4-12.4); Monocytes Absolute Auto 0.8 X10*3/uL (0.1-1.2); Monocytes Percent Auto 10.7 % (2-11); Neutrophils Absolute Auto 4.8 x10*3/uL (2.0-8.3); Platelet Count 256 X10*3/uL (160-400); Red Blood Count 4.95 X10*6/uL (4.60-5.80); Red Cell Distribution Width 13.2 % (11.0-16.0); White Blood Count 7.6 X10*3/uL (4.8-10.8)
[2023-06-08 13:55] LABS: Alanine Aminotransferase 64 U/L (0-40); Albumin Level 4.2 g/dL (3.5-5.0); Alkaline Phosphatase 121 U/L (39-117); Anion Gap 14 (12-20); Aspartate Amino Transferase 43 U/L (5-37); Bilirubin Direct 0.4 mg/dL (0.0-0.5); Bilirubin Total 1.2 mg/dL (0.0-1.0); Blood Urea Nitrogen 12 mg/dL (9-16); C Reactive Protein 0.15 mg/dL (< or = 0.50); Calcium 9.3 mg/dL (8.4-10.2); Carbon Dioxide 23 mmol/L (22-29); Chloride 107 mmol/L (96-108); Estimated Glomerular Filt Rate > 60; Glucose Random 111 mg/dL (60-115); Lipase 25 U/L (8-78); Potassium 3.4 mmol/L (3.3-5.1); Sodium 141 mmol/L (135-145)
[2023-06-08 13:59] LABS: TSH reflex Free T4 0.47 uIU/mL (0.32-4.0)
[2023-06-08 15:06] LABS: Erythrocyte Sedimentation Rate 7 MM/HR (0-15)
== END 2023-06-08 10:37 | disposition home or self-care (01) ==
LOC: HO.HMGCLDS 10:36
PROVIDERS: PCP Internal Medicine; Visit Provider Internal Medicine
DX: R19.7 Diarrhea, unspecified (principal)
CPT/HCPCS: 36415; 80048; 80076; 83690; 84443; 85025; 85652; 86140

== ENCOUNTER 2023-06-09 09:28 | Outpatient (REF) | payer OTHER, SELFPAY ==
[2023-06-10 09:51] LABS: Adenovirus F 40/41 Not Detected (Not Detect.); Astrovirus Not Detected (Not Detect.); Campylobacter Not Detected (Not Detect.); Cryptosporidium Not Detected (Not Detect.); Cyclospora cayetanensis Not Detected (Not Detect.); E. coli EAEC Not Detected (Not Detect.); E. coli EPEC Not Detected (Not Detect.); E. coli ETEC Not Detected (Not Detect.); E. coli STEC Not Detected (Not Detect.); Entamoeba histolytica Not Detected (Not Detect.); Giardia lamblia Not Detected (Not Detect.); Norovirus GI/GII Not Detected (Not Detect.); Plesiomonas shigelloides Not Detected (Not Detect.); Rotavirus A Not Detected (Not Detect.); Salmonella Not Detected (Not Detect.); Sapovirus Not Detected (Not Detect.); Shigella sp./EIEC Not Detected (Not Detect.); Vibrio Not Detected (Not Detect.); Vibrio Cholerae Not Detected (Not Detect.); Yersinia enterocolitica Not Detected (Not Detect.)
[2023-06-13 21:59] LABS: Calprotectin, Fecal 1140 mcg/g
== END 2023-06-09 09:29 | disposition home or self-care (01) ==
LOC: HO.HMGCLNP 09:28
PROVIDERS: PCP Internal Medicine; Visit Provider Internal Medicine
DX: R19.7 Diarrhea, unspecified (principal)
CPT/HCPCS: 83993; 87507

== ENCOUNTER 2023-10-26 06:19 | Outpatient (REF) | payer OTHER, SELFPAY ==
[2023-10-26 11:08] LABS: MANUAL DIFF FLAG NO
[2023-10-26 11:25] LABS: Basophils Absolute Auto 0.1 X10*3/uL (0.0-0.2); Basophils Percent Auto 0.8 % (0-2); Eosinophils Absolute Auto 0.6 X10*3/uL (0.0-0.4); Eosinophils Percent Auto 6.7 % (0-4); Hemoglobin 15.1 g/dl (14.0-18.0); Imm Gran Abs Auto 0.08 X10*3/uL (0.00-0.03); Imm Gran Pct Auto 0.9 % (0.0-0.4); Lymphocytes Absolute Auto 2.8 X10*3/uL (1.2-4.9); Lymphocytes Percent Auto 32.4 % (20-40); Mean Corpuscular HGB Conc 33.6 g/dl (31.0-36.0); Mean Corpuscular Hemoglobin 30.1 pg (27.0-33.0); Mean Corpuscular Volume 89.6 fL (80.0-98.0); Mean Platelet Volume 9.6 fL (9.4-12.4); Monocytes Absolute Auto 0.9 X10*3/uL (0.1-1.2); Monocytes Percent Auto 10.4 % (2-11); Neutrophils Absolute Auto 4.3 x10*3/uL (2.0-8.3); Neutrophils Percent Auto 48.8 % (45-73); Platelet Count 232 X10*3/uL (160-400); Red Blood Count 5.02 X10*6/uL (4.60-5.80); Red Cell Distribution Width 13.4 % (11.0-16.0); White Blood Count 8.7 X10*3/uL (4.8-10.8)
[2023-10-26 11:50] LABS: Estimated Average Glucose 120 mg/dL; Hemoglobin A1c % 5.8 % (<6.0)
[2023-10-26 11:58] LABS: Alanine Aminotransferase 34 U/L (0-40); Albumin Level 3.9 g/dL (3.5-5.0); Alkaline Phosphatase 165 U/L (39-117); Anion Gap 14 (12-20); Aspartate Amino Transferase 26 U/L (5-37); Bilirubin Total 0.9 mg/dL (0.0-1.0); Blood Urea Nitrogen 14 mg/dL (9-16); Carbon Dioxide 25 mmol/L (22-29); Chloride 108 mmol/L (96-108); Cholesterol 108 mg/dL (<200); Estimated Glomerular Filt Rate > 60; Glucose Fasting 106 mg/dL (60-99); HDL Cholesterol 44 mg/dL (>40); LDL Cholesterol Calculated 49 mg/dL (<100); Potassium 3.8 mmol/L (3.3-5.1); Sodium 143 mmol/L (135-145); Total Protein 6.5 g/dL (6.5-8.0); Triglycerides 79 mg/dL (<150)
== END 2023-10-26 06:20 | disposition home or self-care (01) ==
LOC: HO.HMGCLDS 06:19
PROVIDERS: PCP Internal Medicine; Visit Provider Internal Medicine
DX: I10 Essential (primary) hypertension (principal); E78.5 Hyperlipidemia, unspecified; R73.9 Hyperglycemia, unspecified
CPT/HCPCS: 36415; 80053; 80061; 83036; 85025

== ENCOUNTER 2023-10-27 10:13 | Outpatient (REF) | payer OTHER, SELFPAY | END 2023-10-27 10:14 | disposition home or self-care (01) | LOC: HO.SH 10:13 | PROVIDERS: PCP Internal Medicine; Visit Provider Internal Medicine | DX: Z01.118 Encounter for examination of ears and hearing with other abnormal findings (principal); H90.3 Sensorineural hearing loss, bilateral | CPT/HCPCS: 92557 ==

== ENCOUNTER 2023-10-30 09:42 | Outpatient (AMB) | payer OTHER, SELFPAY ==
[2023-10-30 09:44] VITALS: BP 136/78; PULSE 89; O2SAT 97
--- NOTE | 2023-10-30 09:44 | A.OFFPC_ITS ---
Vital Signs 10/30/23 09:44 Height 6 ft Weight 221 lb BMI 30.0 BP 136/78 Blood Pressure Location Lt brachial Position Sitting Pulse 89 Pulse Source Pulse Oximeter Pulse Oximetry (%) 97 Oxygen Delivery Method Room Air Intake Visit Reasons: right ear wax Intake Note: Pt is here today for a follow up visit. Pt states that he needs his R ear flushed due to wax. Pt states that he has been having R heal pain and he has a a lump on his L eyelid. Pt also would like a referral to see specilaist Allergies gabapentin [GABAPENTIN] Allergy (Intermediate, Verified 10/30/23 10:00) DARK THOUGHTS, suicidal lactose [LACTOSE] Allergy (Intermediate, Verified 10/30/23 10:00) PAIN IN STOMACH, CONSTIPATION cetirizine [From Zyrtec] Allergy (Unknown, Verified 10/30/23 10:00) Nausea, Emotional clindamycin [CLINDAMYCIN] Allergy (Unknown, Verified 10/30/23 10:00) HIVES penicillin V Allergy (Unknown, Verified 10/30/23 10:00) hives Penicillins [PENICILLINS] Allergy (Unknown, Verified 10/30/23 10:00) Hives prednisone Allergy (Unknown, Verified 10/30/23 10:00) nightmares sertraline [From ZOLOFT] Adverse Reaction (Severe, Verified 10/30/23 10:00) SI Medication List - Last Reconciled 10/30/23 by Alicia Kelsey MD amlodipine 2.5 mg PO DAILY amlodipine 5 mg PO DAILY aspirin 81 mg PO DAILY atorvastatin 40 mg PO BEDTIME azelastine intranasal buspirone 10 mg PO TID finasteride 1 tab PO DAILY lidocaine 5% (Lidoderm) 2 patches topical DAILY lisinopril 40 mg PO DAILY meclizine 25 mg PO BID PRN nystatin 1 appl topical BID omeprazole 20 mg PO DAILY@0630 Tobacco use date assessed: 10/30/23 Fall risk assessment: 2 + Falls in past year Last assessed Fall Risk: 10/30/23 Dental Screening Dental Screen Date: 10/30/23 Did you have a dental visit in the last 12 months?: Yes Did you have a dental problem in the last 6 months where you did not have access to dental care?: No Was dental information given to patient?: Patient has dentist HPI right ear wax HPI Details Patient presents for the follow-up on hypertension hyperlipidemia chronic anxiety BPH stable on current medications. He complains of left heel pain when starting to walk for the last few days. He denies any injury [facility] Medical History Cerebral microvascular disease Hematuria Epistaxis Lung mass Tobacco dependence Cataract Constipation Hyperlipidemia Anxiety CVA (cerebral vascular accident) Seasonal allergies JOSEF on CPAP Melanoma Paget's disease GERD (gastroesophageal reflux disease) Neuralgia HTN (hypertension) Surgical History Hx of cataract surgery No pertinent past surgical history Family History Father Unknown family medical history Mother Unknown family medical history Son No problems noted. Daughter No problems noted. Daughter No problems noted. Daughter No problems noted. Social History Housing: House Alcohol intake: never Patient Tobacco Use Status: Never used Tobacco e-Cigarette/Vaping Use: Never Used service: No Current occupational status: retired Cognitive needs: No Hearing needs: Yes Vision needs: Yes Questionnaire PHQ-9 Over the last 2 weeks, how often have you been bothered by any of the following problems? 1. Little interest or pleasure in doing things: not at all 2. Feeling down, depressed, or hopeless: not at all 3. Trouble falling or staying asleep, or sleeping too much: not at all 4. Feeling tired or having little energy: several days 5. Poor appetite or overeating: not at all 6. Feeling bad about yourself - or that you are a failure or have let yourself or your family down: not at all 7. Trouble concentrating on things, such as reading the newspaper or watching television: not at all 8. Moving or speaking so slowly that other people could have noticed. Or the opposite - being so fidgety or restless that you have been moving around a lot more than usual: not at all 9. Thoughts that you would be better off or of hurting yourself in some way: not at all Total score: 1 Depression Screening Interpretation: Negative Depression Screening Done: Yes Source: Developed by Drs. Neil Trang Asher Kurt Kroenke and colleagues, with an educational unruly from [employer]. Thrive Questionnaire Date Thrive assessed: 10/30/23 I am a: Patient What is your living situation today?: I have a steady place to live Within the past 12 months, did the food you bought not last and you didn't have the money to get more?: Never true Within the past 12 months, did you worry whether your food would run out before you got money to buy more?: Never true Do you have trouble paying for medicines?: No Do you have trouble getting transportation to medical appointments?: No Do you have trouble paying your heating and electricity bill?: No Do you have trouble taking care of your child, family member or friend?: No Do you have trouble with day-to-day activities such as bathing, preparing meals, shopping, managing finances, etc.?: No Are you currently unemployed and looking for a job?: No Are you interested in more education?: No Please select the resources that you would like help with: None THRIVE Score: 0 AUDIT C Alcohol Use Questionnaire (AUDIT-C) 1. How often do you have a drink containing alcohol?: Never 3. How often do you have six or more drinks on one occasion?: Never Total Score: 0 ABBY-7 AMB Questionnaire ABBY-7 Date ABBY - 7 assessed: 10/30/23 Feeling nervous, anxious, or on edge: 0 = Not at all Not being able to stop or control worryin = Not at all Worrying too much about different things: 0 = Not at all Trouble relaxin = Not at all Being so restless that it is hard to sit still: 0 = Not at all Becoming easily annoyed or irritable: 0 = Not at all Feeling afraid as if something awful might happen: 0 = Not at all Total ABBY-7 score (0-4 normal; 5-9 mild; 10-14 moderate; 15-21 severe): 0 Source: Developed by Drs. Neil Dominguez, Armando Golden and colleagues, with an educational unruly from [employer]. Review of Systems Const All systems reviewed & are unremarkable except as noted in HPI and below Reports no additional complaints Eyes Reports no additional complaints ENT Reports no additional complaints Card Reports no additional complaints Resp Reports no additional complaints GI Reports no additional complaints Reports no additional complaints Physical exam (Primary Care) Vital Signs: Last Vital Signs Pulse 89 10/30/23 09:44 BP 136/78 10/30/23 09:44 Pulse Ox 97 10/30/23 09:44 Oxygen Delivery Method Room Air 10/30/23 09:44 BMI result Body Mass Index 30.0 Tobacco/Smoking Status: Tobacco use Status Tobacco use date assessed 10/30/23 10/30/23 10:02 Patient Tobacco Use Status Never used Tobacco 10/30/23 10:02 e-Cigarette/Vaping Use Never Used 10/30/23 09:44 PHQ-9: PHQ-9 Score PHQ-9: Total score 1 10/30/23 10:06 Depression Screening Interpretation: Negative Thrive Assessment: Date of Thrive Assessment Date Thrive assessed 10/30/23 10/30/23 10:06 Const General: no acute distress HENMT Head: Yes normal to inspection General nose exam: Normal external nose present Neck Neck: Yes no lymphadenopathy Resp Effort & Inspection: normal respiratory effort Auscultation: clear to auscultation bilaterally Cardio Rhythm: regular rhythm Heart sounds: S1 normal heart sound present and S2 normal heart sound present GI Inspection: Yes normal to inspection Palpation (GI): Soft to palpation Percussion: Yes normal to percussion Auscultation: normal bowel sounds Extrem Other: Reproducible tenderness over the left heel General: Yes no clubbing, cyanosis or edema Assessment and Plan Assessment & Plan (1) Onychomycosis: Code(s): B35.1 - Tinea unguium Plan: refer to podiatry (2) Hyperlipidemia: Code(s): E78.5 - Hyperlipidemia, unspecified Plan: Continue statin (3) HTN (hypertension): Comment: 20 years Code(s): I10 - Essential (primary) hypertension Plan: Continue current medications (4) Hyperglycemia: Code(s): R73.9 - Hyperglycemia, unspecified Plan: A1c is 5.8 continue ADA diet increase exercise and weight loss discussed with the patient (5) Anxiety: Code(s): F41.9 - Anxiety disorder, unspecified Plan: Continue BuSpar Orders: Orders Hemoglobin A1c 4 Months E78.5 - Hyperlipidemia, unspecified, F41.9 - Anxiety disorder, unspecified, I10 - Essential (primary) hypertension, R73.9 - Hyperglycemia, unspecified Comprehensive [place]. Panel Fast 4 Months E78.5 - Hyperlipidemia, unspecified, F41.9 - Anxiety disorder, unspecified, I10 - Essential (primary) hypertension, R73.9 - Hyperglycemia, unspecified Referrals Podiatry Referral B35.1 - Tinea unguium, E78.5 - Hyperlipidemia, unspecified, F41.9 - Anxiety disorder, unspecified, I10 - Essential (primary) hypertension, R73.9 - Hyperglycemia, unspecified Medications: New meloxicam 15 mg PO DAILY 10 tabs 0RF Coding Level of Care Code Est Pt Level 4 (45791) Diagnoses Onychomycosis B35.1 Hyperlipidemia E78.5 HTN (hypertension) I10 Hyperglycemia R73.9 Anxiety F41.9
== END 2023-10-30 10:34 | disposition home or self-care (01) ==
PROVIDERS: PCP Internal Medicine; Visit Provider Internal Medicine
DX: B35.1 Tinea unguium (principal); E78.5 Hyperlipidemia, unspecified; I10 Essential (primary) hypertension; R73.9 Hyperglycemia, unspecified; F41.9 Anxiety disorder, unspecified
CPT/HCPCS: 99214

== ENCOUNTER 2023-11-06 08:42 | Outpatient (REF) | payer SELFPAY ==
--- NOTE | 2023-11-06 09:47 | MHC.AU.HA1 ---
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 Summary: Gabo reports successful wax removal at PCP following his eval here 10/26. Ready to proceed with ordering hearing aids. Reviewed options. Due to his frustration with maintenance such as wax guards and batteries on the hearing aids he previously disliked, a rechargeable mini BTE with custom earmold is recommended. Gabo gets out and about into difficult to hear in situations such as restaurants and zoroastrian. He notes that his family is looking forward to him getting hearing aids. Impressions taken without incidence Au. He will be submitting a reimbursement form to [facility]. Hearing Aid Prescription: Based on the individual?s shared listening needs, communication environments, dexterity, desire for connectivity, and personal preferences, the following prescription for amplification has been made: Right ear: Make, Model, Color: Oticon Real 1 miniBTE R, chroma beige Battery Size: Rechargeable Type of Earmold/Dome/CShell/SlimTip: acrylic canal lock Left ear: Left ear prescription to be same as Right Hearing Aid above: Make, Model, Color: Oticon Real 1 miniBTE R, chroma beige Battery Size: Rechargeable Type of Earmold/Dome/CShell/SlimTip: acrylic canal lock Plan of Care: Patient wishes to purchase hearing aids as prescribed Action Taken/Action Needed: Earmold Impressions Taken Medical Clearance requested from PCP/ENT Hearing Instrument Fitting to be scheduled when materials arrive Primary Diagnosis: H90.3 Bilateral Sensorineural Hearing Loss Signature: Provider: Bhavin Martinez, [facility]
== END 2023-11-06 08:43 | disposition home or self-care (01) ==
LOC: HO.HAP 08:42
PROVIDERS: PCP Internal Medicine; Visit Provider Internal Medicine
DX: Z46.1 Encounter for fitting and adjustment of hearing aid (principal); H90.3 Sensorineural hearing loss, bilateral
CPT/HCPCS: 92590

== ENCOUNTER 2023-11-24 14:41 | Outpatient (AMB) | payer OTHER, SELFPAY ==
[2023-11-24 14:44] VITALS: BP 130/78; PULSE 82; TEMP 36.6; O2SAT 98
--- NOTE | 2023-11-24 14:44 | MHC.OFFWIV ---
Intake Vital Signs 11/24/23 14:44 Height 6 ft Weight 221 lb BMI 30.0 BP 130/78 Blood Pressure Location Lt brachial Position Sitting Pulse 82 Pulse Source Pulse Oximeter Temp 97.8 F Temp Source Oral Pulse Oximetry (%) 98 Intake Visit Reasons: EP LT side pain Intake Note: pt is here for left side pain Patient Tobacco Use Status: Never used Tobacco Allergies gabapentin [GABAPENTIN] Allergy (Intermediate, Verified 11/24/23 15:12) DARK THOUGHTS, suicidal lactose [LACTOSE] Allergy (Intermediate, Verified 11/24/23 15:12) PAIN IN STOMACH, CONSTIPATION cetirizine [From Zyrtec] Allergy (Unknown, Verified 11/24/23 15:12) Nausea, Emotional clindamycin [CLINDAMYCIN] Allergy (Unknown, Verified 11/24/23 15:12) HIVES penicillin V Allergy (Unknown, Verified 11/24/23 15:12) hives Penicillins [PENICILLINS] Allergy (Unknown, Verified 11/24/23 15:12) Hives prednisone Allergy (Unknown, Verified 11/24/23 15:12) nightmares sertraline [From ZOLOFT] Adverse Reaction (Severe, Verified 11/24/23 15:12) SI Medication List - Last Reconciled 11/24/23 by Milton Dumont MD amlodipine 2.5 mg PO DAILY amlodipine 5 mg PO DAILY aspirin 81 mg PO DAILY atorvastatin 40 mg PO BEDTIME azelastine intranasal buspirone 10 mg PO TID finasteride 1 tab PO DAILY lidocaine 5% (Lidoderm) 2 patches topical DAILY lisinopril 40 mg PO DAILY meclizine 25 mg PO BID PRN meloxicam 15 mg PO DAILY nystatin 1 appl topical BID omeprazole 20 mg PO DAILY@0630 Do you need a note to return to daycare/school/sports/work: No HPI EP LT side pain HPI Details 78 yr old male presents to the office for a sick visit. Pt lost his 2 weeks ago. He is suffering with low back pain after he lifted a heavy garbage bag two weeks ago. Sx are slowly improving. Pain from the lower back radiating to the left lower leg. No urinary incontinence. [facility] Medical History Cerebral microvascular disease Hematuria Epistaxis Lung mass Tobacco dependence Cataract Constipation Hyperlipidemia Anxiety CVA (cerebral vascular accident) Seasonal allergies JOSEF on CPAP Melanoma Paget's disease GERD (gastroesophageal reflux disease) Neuralgia HTN (hypertension) Surgical History Hx of cataract surgery No pertinent past surgical history Family History Father Unknown family medical history Mother Unknown family medical history Son No problems noted. Daughter No problems noted. Daughter No problems noted. Daughter No problems noted. Social History Housing: House Alcohol intake: never Patient Tobacco Use Status: Never used Tobacco e-Cigarette/Vaping Use: Never Used service: No Current occupational status: retired Cognitive needs: No Hearing needs: Yes Vision needs: Yes Physical Exam Vital Signs: Last Vital Signs Temp 97.8 F 11/24/23 14:44 Pulse 82 11/24/23 14:44 BP 130/78 11/24/23 14:44 Pulse Ox 98 11/24/23 14:44 BMI result Body Mass Index 30.0 Const General: cooperative and healthy appearing Nutritional Appearance: well nourished Orientation/consciousness: patient oriented x3 Limitations: no limitations HEENT Head: Yes normal to inspection Eyes General: appearance normal, both eyes and all related structures Neck Neck: Yes normal visual inspection Chest Chest palpation & inspection: normal palpation of entire chest wall Resp Effort & Inspection: normal respiratory effort Back/Spine/Pelvis Other: No spinal tenderness. No paraspinal spasm. Neuro General: patient oriented x3 Assessment & Plan Assessment & Plan (1) Low back pain: Code(s): M54.50 - Low back pain, unspecified Plan: Muscle relaxant added to the regimen. Physical therapy added to the regimen. If sx do not improve, to follow up here. Coding Level of Care Code Est Pt Level 3 (61208) Diagnoses Low back pain M54.50
== END 2023-11-24 15:24 | disposition home or self-care (01) ==
PROVIDERS: PCP Internal Medicine; Visit Provider Internal Medicine
DX: M54.50 Low back pain, unspecified (principal)
CPT/HCPCS: 99213

== ENCOUNTER 2023-12-09 08:19 | Outpatient (REF) | payer OTHER, SELFPAY ==
--- NOTE | ~2023-12-09 | XR_ITS ---
EXAMINATION: XR KNEE, LEFT CLINICAL INFORMATION: Pain left knee. COMPARISON: 09/10/2022. TECHNIQUE: AP standing, lateral and sunrise views of the left knee. FINDINGS: LEFT KNEE: The bones are diffusely demineralized. Trace joint effusion. Marked narrowing of the medial compartment with medial marginal osteophytes. Narrowing of the patellofemoral compartment with small posterior patellar osteophytes. Tiny lateral marginal osteophytes. XR/XR knee LT 3V IMPRESSION: Advanced degenerative changes in the medial and patellofemoral compartments.
== END 2023-12-09 08:20 | disposition home or self-care (01) ==
LOC: HO.HOSX 08:19
PROVIDERS: Visit Provider Physician Assistant
DX: M17.0 Bilateral primary osteoarthritis of knee (principal)
CPT/HCPCS: 20610; 73562; J0665; J1010

== ENCOUNTER 2023-12-09 09:33 | Outpatient (AMB) | payer OTHER, SELFPAY ==
--- NOTE | 2023-12-09 09:38 | MHC.OFFVIS ---
Vital Signs 12/09/23 09:38 Height 6 ft Weight 221 lb BMI 30.0 Intake Visit Reasons: new prob-Lt knee pain Intake Note: Gabo is a 78 year old male, left hand dominant, who presents today for left knee pain. Patient reports the pain has been going on for about 3 weeks and is a 5 on the 0-10 pain scale. He was using ibuprofen 600 mg for the pain with relief but still experienced pain when ambulating. He applied lidocaine patches on the left knee that he had at home. He states he was taking out a trash bin and began having pain on the left buttocks radiating down the left ankle. Laboratory Specialist Required: No Accompanied by: Self / Same As Patient Allergies gabapentin [GABAPENTIN] Allergy (Intermediate, Verified 12/09/23 09:38) DARK THOUGHTS, suicidal lactose [LACTOSE] Allergy (Intermediate, Verified 12/09/23 09:38) PAIN IN STOMACH, CONSTIPATION cetirizine [From Zyrtec] Allergy (Unknown, Verified 12/09/23 09:38) Nausea, Emotional clindamycin [CLINDAMYCIN] Allergy (Unknown, Verified 12/09/23 09:38) HIVES penicillin V Allergy (Unknown, Verified 12/09/23 09:38) hives Penicillins [PENICILLINS] Allergy (Unknown, Verified 12/09/23 09:38) Hives prednisone Allergy (Unknown, Verified 12/09/23 09:38) nightmares sertraline [From ZOLOFT] Adverse Reaction (Severe, Verified 12/09/23 09:38) SI HPI HPI new prob-Lt knee pain: Details: 78-year-old male who presents to the office today for evaluation of left knee pain for about 3 weeks. He reports he was taking out a trash bin when he started having pain on the left buttock radiating down the left ankle. He currently states he has pain in his left knee and rates the pain as 5 on the scale of 0-10. His pain is aggravated with ambulation. He has tried ibuprofen for his pain without relief. He also tried lidocaine patches which provided him relief. She does not have a history of diabetes. 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 Daughter No problems noted. Daughter No problems noted. Daughter No problems noted. Social History Housing: House Alcohol intake: never Patient Tobacco Use Status: Never used Tobacco e-Cigarette/Vaping Use: Never Used service: No Current occupational status: retired Cognitive needs: No Hearing needs: Yes Vision needs: Yes Review of Systems Const All systems reviewed & are unremarkable except as noted in HPI and below Physical Exam Vital Signs: BMI result Body Mass Index 30.0 Extrem Other: Left knee: Skin intact, no erythema or joint effusion. Tenderness along the medial and lateral joint line. Full ROM with crepitus. Negative Leigh?s. No ligamentous laxity. NVI. Office Procedures Joint Injection/Drain Joint Injection/Drain Primary Site: left knee Prep: site was prepped using aseptic technique, ethochloride spray was applied and injection warnings given Injected: 80 mg of, DepoMedrol, 1% plain lidocaine (2ml), 0.25% bupivacaine (6ml) and in the joint Approach Used: anterolateral Procedure: The patient tolerated the procedure well and there was some relief with the local anesthesia Coding 57901 - Glenohumeral/Tronchanteric Bursa/Intraarticular Procedure code (CPT) selection complete Results Reviewed Results Reviewed: Xrays were obtained in the office today and personally reviewed by me of the left knee show end stage oa Assessment & Plan Assessment & Plan (1) Osteoarthritis of knees, bilateral: Code(s): M17.0 - Bilateral primary osteoarthritis of knee Category: Medical Plan We discussed options today which include steroid injection. They did consent to move forward with the injection, which was tolerated well. I recommended rest, ice and elevation and OTC anti-inflammatories PRN for discomfort. A prescription of Celebrex was sent to his pharmacy today. If symptoms persist or worsens over the next 6-8 weeks, patient will contact the office, otherwise follow-up as needed. Orders: Orders PT Evaluation and Treatment Today M17.0 - Bilateral primary osteoarthritis of knee XR knee LT 3V Today M25.562 - Pain in left knee Medications: New celecoxib (Celebrex) 200 mg PO BID 60 caps 3RF 30 days Patient Instructions: Scribed for Beatris Perkins PA-C, by Uriel Weaver emergency medical technician/driver, on 12/09/2023 at 9:45 AM EST. I, Beatris Perkins PA-C, have personally reviewed and agree with the information entered by the scribe. Coding Level of Care Code Est Pt Level 3 (09841) Diagnoses Osteoarthritis of knees, bilateral M17.0 CPT Codes Coding - Joint 7: 04945 - Glenohumeral/Tronchanteric Bursa/Intraarticular ([id number])
== END 2023-12-09 10:32 | disposition home or self-care (01) ==
PROVIDERS: PCP Internal Medicine; Visit Provider Physician Assistant
DX: M17.0 Bilateral primary osteoarthritis of knee (principal)
CPT/HCPCS: 20610; 99214

== ENCOUNTER 2023-12-31 09:52 | Outpatient (REF) | payer SELFPAY ==
--- NOTE | 2023-12-31 11:02 | MHC.AU.HA2 ---
Hearing Instrument Fitting- Adult- Binaural Date of Visit: 12/31/23 Hearing Instruments Dispensed: Right Ear: Make, Model, Color, Serial Number: Oticon Real 1 miniBTE R, chroma beige [id number] Escape Wheel Tooth Cutter Repair Warranty: 12/05/2026 Escape Wheel Tooth Cutter Loss and Damage Warranty: 12/05/2026 [facility] Service Plan: 12/30/26 Battery Size: Rechargeable Earmold/Dome/CShell/SlimTip: acrylic canal lock [id number], war 03/03/24 Left Ear: Make, Model, Color, Serial Number: Oticon Real 1 miniBTE R, chroma beige [id number] Escape Wheel Tooth Cutter Repair Warranty: 12/05/2026 Escape Wheel Tooth Cutter Loss and Damage Warranty: 12/05/2026 [facility] Service Plan: 12/30/26 Battery Size: Rechargeable Earmold/Dome/CShell/SlimTip: acrylic canal lock [id number] war: 03/03/24 Accessories/Assistive Technology: Oticon Minibite dispatcher street department [id number] Warranty 12/05/2026 Connectline TV3 Black [id number] Warranty 12/05/2024 Summary of Fitting: Fit with and oriented to binaural Oticon Real 1 miniBTE R HAs. EM fit looks good. Good subjective comfort and benefit reported. Verified to DSL 5 Adult targets. Set to adaptation 2 with gradual increase. VC not active. Reviewed charging, maintenance, precautions. Practiced insertion and removal. Counseled on adjustment to amplification. Aids are paired to TV streamer, should be ready to go once plugged in and connected to TV. Provided itemized receipt [facility]. Recommendations: Recommendations: Hearing instrument care and maintenance were discussed and practiced. A hearing instrument follow-up was scheduled. Diagnosis Code(s): Primary Diagnosis: H90.3 Bilateral Sensorineural Hearing Loss Signature: Provider: Bhavin Martinez, [facility]
== END 2023-12-31 09:53 | disposition home or self-care (01) ==
LOC: HO.HAP 09:52
PROVIDERS: Visit Provider Internal Medicine
DX: Z46.1 Encounter for fitting and adjustment of hearing aid (principal); H90.3 Sensorineural hearing loss, bilateral
CPT/HCPCS: V5262; V5264; V5299

== ENCOUNTER 2024-01-14 14:15 | Outpatient (REF) | payer SELFPAY ==
--- NOTE | 2024-01-14 14:40 | MHC.AU.HA3 ---
Hearing Instrument Follow-Up- Binaural Date of Visit: 01/14/24 Right Ear: Make, Model, Color, Serial Number: Oticon Real 1 miniBTE R, chroma beige [id number] Purchasing Administrative Assistant Repair Warranty: 12/05/2026 Purchasing Administrative Assistant Loss and Damage Warranty: 12/05/2026 [facility] Service Plan: 12/30/26 Battery Size: Rechargeable Gallery Intern/Slim Tube: Earmold/Dome/CShell/SlimTip:acrylic canal lock [id number], war 03/03/24 Type of Wax Guard: Dispensed By: [facility] Date of Fittin12/31/2023 Left Ear: Make, Model, Color, Serial Number: Oticon Real 1 miniBTE R, chroma beige [id number] Purchasing Administrative Assistant Repair Warranty: 12/05/2026 Purchasing Administrative Assistant Loss and Damage Warranty: 12/05/2026 [facility] Service Plan: 12/30/26 Battery Size: Rechargeable Gallery Intern/Slim Tube: Earmold/Dome/CShell/SlimTip: acrylic canal lock [id number] war: 03/03/24 Type of Wax Guard: Dispensed By: [facility] Date of Fittin12/31/2023 Follow-Up Summary: Gabo reports that he likes the hearing aids but is struggling with the right side falling out. Has stopped wearing the aids out of the house due to fear of losing one. Had him put the aids in. Found he was putting the aids on the wrong ear. Reinstructed- red right . Advised to put the hearing aid behind the ear first and then insert the earmold. Practiced repeatedly on both sides. Pt. reports he can feel the difference when they are in correctly. Recommendations: Recommendations (Other): Return for hearing aid follow up as previously planned. Diagnosis Code(s): Primary Diagnosis: H90.3 Bilateral Sensorineural Hearing Loss Signature: Provider: Bhavin Martinez, [facility]
== END 2024-01-14 14:16 | disposition home or self-care (01) ==
LOC: HO.HAP 14:15
PROVIDERS: Visit Provider Internal Medicine
DX: Z13.89 Encounter for screening for other disorder (principal)

== ENCOUNTER 2024-01-18 08:00 | Outpatient (RCR) | payer OTHER, SELFPAY ==
--- NOTE | 2023-12-28 08:58 | MHC.PT.EP ---
[facility] [place] Office [place] Office [place] Office [address] Jeremie Sotelo [address] [phone] F: [phone] F: [phone] F: [phone] F: [phone] Physical Therapy Plan of Care Date of Evaluation: 12/28/23 Date of Surgery: Diagnosis: Bilateral knee OA Assessment: Patient is a 78 year old R handed male who presents with s/s consistent with b/l knee OA, pain. He does not work and lost his 3 months ago. He wants to be more active. He has a cane and walker as needed. Patient past medical history includes HTN, CVA, Paget's disease. Current impairments include pain, posture, balance, flexibility, ROM, strength, activity tolerance and functional mobility. Functional limitations include decreased ability to sit, stand, walk, transfer and negotiate stairs. Patient is motivated with good rehab potential. Skilled PT will address impairments and functional limitations in order to achieve goals. Frequency and Duration: The patient will be seen 2x/week for 5 weeks Short Term Goals: I with HEP - 2 weeks AROM 0-120 b/l - 3 weeks Able to walk 10 minutes without increased pain - 3 weeks Nuclear Medicine Medical Director Goals: AROM 0-125 - 5 weeks Strength in b/l LE 4/5 grossly - 5 weeks LEFS 50/80 - 5 weeks Max pain with ADLs 3/10 - 5 weeks Treatment Plan: Modalities to reduce pain, spasms and effusion. Manual therapy to restore motion and function. Therapeutic exercise to improve strength and flexibility. Neuromuscular re-education for posture and balance. Therapeutic activities to return to functional activities of daily living. Electronically signed by: Darin Monk, PT Please sign and return to therapist. Thank you for your referral.
--- NOTE | 2024-05-18 10:32 | MHC.PT.DC ---
[facility] [place] [facility] [place] [facility] [place] [facility] [address] Jeremie Sotelo [address] [phone] F: [phone] F: [phone] F: [phone] F: [phone] Physical Therapy Discharge Report Diagnosis: Bilateral knee OA Date of Surgery: Date of Evaluation: 12/28/23 Date of Discharge: 03/19/24 Treatments to Date: 5 Cancellations to Date: No Shows to Date: Discharge Status: Patient Elected to Stop Recommend MD Follow-up Discharge Summary: 01/18/24: pt progressing slowly with skilled PT. Pain continues to limit progression and activity tolerance it restricted as a result. 01/11/24: multiple co-morbidities limiting current activity tolerance. we will attempt to progress NV. 01/08/24: we held on progression due to recent bout of pain from PHN. we will attempt to progress NV. 01/01/24: pt progressing with ex. s/s similar to eval. continue to assess and progress accordingly. Patient is a 78 year old R handed male who presents with s/s consistent with b/l knee OA, pain. He does not work and lost his 3 months ago. He wants to be more active. He has a cane and walker as needed. Patient past medical history includes HTN, CVA, Paget's disease. Current impairments include pain, posture, balance, flexibility, ROM, strength, activity tolerance and functional mobility. Functional limitations include decreased ability to sit, stand, walk, transfer and negotiate stairs. Patient is motivated with good rehab potential. Skilled PT will address impairments and functional limitations in order to achieve goals. Electronically signed by: Darin Monk, PT Please sign and return to therapist. Thank you for your referral.
== END 2024-05-18 10:33 | disposition home or self-care (01) ==
LOC: HO.PTCHIC 08:00
PROVIDERS: PCP Internal Medicine; Visit Provider Physician Assistant
DX: M17.0 Bilateral primary osteoarthritis of knee (principal)
CPT/HCPCS: 97110; 97163

== ENCOUNTER 2024-01-21 08:59 | Outpatient (REF) | payer SELFPAY ==
--- NOTE | 2024-01-21 10:45 | MHC.AU.HA3 ---
Hearing Instrument Follow-Up- Binaural Date of Visit: 01/21/24 Right Ear: Make, Model, Color, Serial Number: Oticon Real 1 miniBTE R, chroma beige [id number] Fiberglass Luggage Molder Repair Warranty: 12/05/2026 Fiberglass Luggage Molder Loss and Damage Warranty: 12/05/2026 [facility] Service Plan: 12/30/26 Battery Size: Rechargeable Assessment Technician/Slim Tube: Earmold/Dome/CShell/SlimTip:acrylic canal lock [id number], war 03/03/24 Type of Wax Guard: Dispensed By: [facility] Date of Fittin12/31/2023 Left Ear: Make, Model, Color, Serial Number: Oticon Real 1 miniBTE R, chroma beige [id number] Fiberglass Luggage Molder Repair Warranty: 12/05/2026 Fiberglass Luggage Molder Loss and Damage Warranty: 12/05/2026 [facility] Service Plan: 12/30/26 Battery Size: Rechargeable Assessment Technician/Slim Tube: Earmold/Dome/CShell/SlimTip: acrylic canal lock [id number] war: 03/03/24 Type of Wax Guard: Dispensed By: [facility] Date of Fittin12/31/2023 Follow-Up Summary: Here for hearing aid follow up. Upon arrival hearing aids were visibly in the wrong ears. Despite inserting hearing aids correctly repeatedly at last visit, he returned to thinking red, left once he got home. He notes the way he has his assembly stock supervisor oriented might be mixing him up. Wrote him a note to put next to the assembly stock supervisor as a daily reminder that the red marked hearing aid goes in the right ear. Had to re-tube the left aid as it had become distorted from being twisted into the wrong ear. Practiced insertion again, doing well. Recommendations: Recommendations: An additional follow-up was scheduled to monitor progress. Diagnosis Code(s): Primary Diagnosis: H90.3 Bilateral Sensorineural Hearing Loss Signature: Provider: Bhavin Martinez, [facility]
== END 2024-01-21 09:00 | disposition home or self-care (01) ==
LOC: HO.HAP 08:59
PROVIDERS: Visit Provider Internal Medicine
DX: Z13.89 Encounter for screening for other disorder (principal)

== ENCOUNTER 2024-04-05 06:53 | Outpatient (REF) | payer OTHER, SELFPAY ==
[2024-04-05 11:06] LABS: Estimated Average Glucose 117 mg/dL; Hemoglobin A1c % 5.7 % (<6.0)
[2024-04-05 11:07] LABS: Alanine Aminotransferase 38 U/L (0-40); Albumin Level 4.1 g/dL (3.5-5.0); Alkaline Phosphatase 161 U/L (39-117); Anion Gap 15 (12-20); Aspartate Amino Transferase 28 U/L (5-37); Bilirubin Total 1.2 mg/dL (0.0-1.0); Blood Urea Nitrogen 14 mg/dL (9-16); Calcium 9.8 mg/dL (8.4-10.2); Carbon Dioxide 24 mmol/L (22-29); Chloride 107 mmol/L (96-108); Estimated Glomerular Filt Rate > 60; Glucose Fasting 115 mg/dL (60-99); Potassium 3.8 mmol/L (3.3-5.1); Sodium 142 mmol/L (135-145); Total Protein 6.9 g/dL (6.5-8.0)
== END 2024-04-05 06:54 | disposition home or self-care (01) ==
LOC: HO.HMGCLDS 06:53
PROVIDERS: PCP Internal Medicine; Visit Provider Internal Medicine
DX: E78.5 Hyperlipidemia, unspecified (principal); I10 Essential (primary) hypertension; R73.9 Hyperglycemia, unspecified; F41.9 Anxiety disorder, unspecified
CPT/HCPCS: 36415; 80053; 83036

== ENCOUNTER 2024-04-18 08:03 | Outpatient (AMB) | payer OTHER, SELFPAY ==
--- NOTE | 2024-04-18 08:04 | MHC.OFFWIV ---
Intake Vital Signs 04/18/24 08:08 Height 6 ft Weight 243 lb BMI 33.0 BP 130/86 Blood Pressure Location Lt brachial Position Sitting Pulse 72 Pulse Source Pulse Oximeter Pulse Oximetry (%) 97 Oxygen Delivery Method Room Air Intake Visit Reasons: EP dizzy, exhaustion Intake Note: pt c/o dizziness and fatigue. Started about 1 month ago. Patient Tobacco Use Status: Never used Tobacco Allergies gabapentin [GABAPENTIN] Allergy (Intermediate, Verified 04/18/24 08:10) DARK THOUGHTS, suicidal lactose [LACTOSE] Allergy (Intermediate, Verified 04/18/24 08:10) PAIN IN STOMACH, CONSTIPATION cetirizine [From Zyrtec] Allergy (Unknown, Verified 04/18/24 08:10) Nausea, Emotional clindamycin [CLINDAMYCIN] Allergy (Unknown, Verified 04/18/24 08:10) HIVES penicillin V Allergy (Unknown, Verified 04/18/24 08:10) hives Penicillins [PENICILLINS] Allergy (Unknown, Verified 04/18/24 08:10) Hives prednisone Allergy (Unknown, Verified 04/18/24 08:10) nightmares sertraline [From ZOLOFT] Adverse Reaction (Severe, Verified 04/18/24 08:10) SI Do you need a note to return to daycare/school/sports/work: No HPI HPI Comments History of Present Illness Details Gabo presents to the walkin today for sick visit Reports waking up with dry mouth and fatigue Also struggling with the loss of his who passed 09/2023 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 Daughter No problems noted. Daughter No problems noted. Daughter No problems noted. Social History Housing: House Alcohol intake: never Patient Tobacco Use Status: Never used Tobacco e-Cigarette/Vaping Use: Never Used service: No Current occupational status: retired Cognitive needs: No Hearing needs: Yes Vision needs: Yes Review of Systems Const All systems reviewed & are unremarkable except as noted in HPI and below Physical Exam Vital Signs: Last Vital Signs Pulse 72 04/18/24 08:08 BP 130/86 04/18/24 08:08 Pulse Ox 97 04/18/24 08:08 Oxygen Delivery Method Room Air 04/18/24 08:08 BMI result Body Mass Index 33.0 General: awake, alert, oriented. Answers questions appropriately. Fully engaged in examination. Skin: warm, dry, intact HEENT: Normocephalic. Hearing intact. Cardiac: External chest normal in appearance. RRR. Respiratory: No cough, audible wheezing or stridor. Abdomen: without gross distension. MS: No obvious swelling or deformities. Neurological: Oriented to person, place, time and situation. Thought process intact. No gait abnormalities appreciated. Psychiatric: Appropriate mood and affect. Good judgment and insight. Office Procedures EKG Details: Sinus rhythm with blocked PACs. Left axis deviation. Similar when compared to EKG from 04/26/2022 [id number], Complete Assessment & Plan Assessment & Plan (1) Fatigue: Code(s): R53.83 - Other fatigue (2) Anxiety: Code(s): F41.9 - Anxiety disorder, unspecified Plan EKG performed, as per above Message sent to patient's PCP to request sleep study be ordered to rule out obstructive sleep apnea Due to concerns for patients depression/anxiety I requested Eli the community sports coordinator to speak with the patient while he was in the office. He was referred for therapy. Advised patient dietary modifications Follow up with PCP in 1 month as planned. Return to walk-in as needed Orders: Orders AMB EKG-In Office Today R53.83 - Other fatigue Coding Level of Care Code Est Pt Level 3 (34322) Diagnoses Fatigue R53.83 Anxiety F41.9 CPT Codes EKG - CPT: 39552-Toelqschtykwfrano, Complete ([id number])
[2024-04-18 08:08] VITALS: BP 130/86; PULSE 72; O2SAT 97; BMI 33.0
== END 2024-04-18 10:04 | disposition home or self-care (01) ==
PROVIDERS: PCP Internal Medicine; Visit Provider Registered Nurse Emergency
DX: R53.83 Other fatigue (principal); F41.9 Anxiety disorder, unspecified
CPT/HCPCS: 93000; 99213

== ENCOUNTER 2024-05-04 09:07 | Outpatient (AMB) | payer OTHER, SELFPAY ==
[2024-05-04 09:16] VITALS: BP 110/74; PULSE 78; O2SAT 97; BMI 32.8
--- NOTE | 2024-05-04 09:16 | A.OFFPC_ITS ---
Vital Signs 05/04/24 09:16 Height 6 ft Weight 242 lb BMI 32.8 BP 110/74 Blood Pressure Location Rt brachial Position Sitting Pulse 78 Pulse Source Pulse Oximeter Pulse Oximetry (%) 97 Oxygen Delivery Method Room Air Intake Visit Reasons: follow up reschedule Intake Note: Pt is here today for a follow up visit. Pt states that he has been having 2 major falls. Pt states that he has been having dizziness and feeling out of balance. Pt also c/o sinus pain and pressure and pain in his gums. Allergies gabapentin [GABAPENTIN] Allergy (Intermediate, Verified 05/04/24 09:20) DARK THOUGHTS, suicidal lactose [LACTOSE] Allergy (Intermediate, Verified 05/04/24 09:20) PAIN IN STOMACH, CONSTIPATION cetirizine [From Zyrtec] Allergy (Unknown, Verified 05/04/24 09:20) Nausea, Emotional clindamycin [CLINDAMYCIN] Allergy (Unknown, Verified 05/04/24 09:20) HIVES penicillin V Allergy (Unknown, Verified 05/04/24 09:20) hives Penicillins [PENICILLINS] Allergy (Unknown, Verified 05/04/24 09:20) Hives prednisone Allergy (Unknown, Verified 05/04/24 09:20) nightmares sertraline [From ZOLOFT] Adverse Reaction (Severe, Verified 05/04/24 09:20) SI Medication List - Last Reconciled 05/04/24 by Alicia Kelsey MD amlodipine 2.5 mg PO DAILY amlodipine 5 mg PO DAILY aspirin 81 mg PO DAILY atorvastatin 40 mg PO BEDTIME azelastine intranasal buspirone 10 mg PO TID celecoxib (Celebrex) 200 mg PO BID 30 days finasteride 1 tab PO DAILY lidocaine 5% (Lidoderm) 2 patches topical DAILY lisinopril 40 mg PO DAILY meclizine 25 mg PO BID PRN nystatin 1 appl topical BID omeprazole 20 mg PO DAILY@0630 Tobacco use date assessed: 05/04/24 Fall risk assessment: 2 + Falls in past year Last assessed Fall Risk: 05/04/24 Dental Screening Dental Screen Date: 10/30/23 HPI follow up reschedule HPI Details Pt presents c/o lightheadness when standing up suddenly. Patient denies vertigo, weakness or numbness in extremities but reports poor balance and has been ambulating with a walker. Patient is grieving his to but has been talking to his friends and a licensed tax consultant. Anxiety is stable on buspirone. [facility] Medical History Cerebral microvascular disease Hematuria Epistaxis Lung mass Tobacco dependence Cataract Constipation Hyperlipidemia Anxiety CVA (cerebral vascular accident) Seasonal allergies JOSEF on CPAP Melanoma Paget's disease GERD (gastroesophageal reflux disease) Neuralgia HTN (hypertension) Surgical History Hx of cataract surgery No pertinent past surgical history Family History Father Unknown family medical history Mother Unknown family medical history Son No problems noted. Daughter No problems noted. Daughter No problems noted. Daughter No problems noted. Social History (Updated 05/04/24 @ 09:29 by KARI Pham) Household Members: None Housing: House Alcohol intake: never Patient Tobacco Use Status: Never used Tobacco e-Cigarette/Vaping Use: Never Used service: No Current occupational status: retired Cognitive needs: No Hearing needs: Yes Vision needs: Yes Questionnaire PHQ-9 Over the last 2 weeks, how often have you been bothered by any of the following problems? 1. Little interest or pleasure in doing things: not at all 2. Feeling down, depressed, or hopeless: not at all 3. Trouble falling or staying asleep, or sleeping too much: not at all 4. Feeling tired or having little energy: not at all 5. Poor appetite or overeating: not at all 6. Feeling bad about yourself - or that you are a failure or have let yourself or your family down: not at all 7. Trouble concentrating on things, such as reading the newspaper or watching television: not at all 8. Moving or speaking so slowly that other people could have noticed. Or the opposite - being so fidgety or restless that you have been moving around a lot more than usual: not at all 9. Thoughts that you would be better off or of hurting yourself in some way: not at all Total score: 0 Depression Screening Interpretation: Negative Depression Screening Done: Yes 16093 - PHQ-9 Billing: Yes Source: Developed by Drs. Neil Dominguez, Armando Golden and colleagues, with an educational unruly from [employer]. Thrive Questionnaire Date Thrive assessed: 05/04/24 I am a: Patient What is your living situation today?: I have a steady place to live Within the past 12 months, did the food you bought not last and you didn't have the money to get more?: Never true Within the past 12 months, did you worry whether your food would run out before you got money to buy more?: Never true Do you have trouble paying for medicines?: No Do you have trouble getting transportation to medical appointments?: No Do you have trouble paying your heating and electricity bill?: No Do you have trouble taking care of your child, family member or friend?: No Do you have trouble with day-to-day activities such as bathing, preparing meals, shopping, managing finances, etc.?: No Are you interested in more education?: No Please select the resources that you would like help with: None Currently or been in a relationship where the following occur: No concerns reported THRIVE Score: 0 AUDIT C Alcohol Use Questionnaire (AUDIT-C) 1. How often do you have a drink containing alcohol?: Never Total Score: 0 ABBY-7 AMB Questionnaire ABBY-7 Date ABBY - 7 assessed: 05/04/24 Feeling nervous, anxious, or on edge: 1 = Several days Not being able to stop or control worryin = Not at all Worrying too much about different things: 0 = Not at all Trouble relaxin = Several days Being so restless that it is hard to sit still: 1 = Several days Becoming easily annoyed or irritable: 0 = Not at all Feeling afraid as if something awful might happen: 0 = Not at all Total ABBY-7 score (0-4 normal; 5-9 mild; 10-14 moderate; 15-21 severe): 3 Source: Developed by Drs. Neil Dominguez, Armando Golden and colleagues, with an educational unruly from [employer]. ABBY-7 Assessment Billing ABBY-7 Assessment Tool: ABBY-7 Assessment 31626 Review of Systems Const All systems reviewed & are unremarkable except as noted in HPI and below Eyes Reports no additional complaints ENT Reports no additional complaints Card Reports no additional complaints Resp Reports no additional complaints GI Reports no additional complaints Reports no additional complaints Physical exam (Primary Care) Vital Signs: Last Vital Signs Pulse 78 05/04/24 09:16 BP 110/74 05/04/24 09:16 Pulse Ox 97 05/04/24 09:16 Oxygen Delivery Method Room Air 05/04/24 09:16 BMI result Body Mass Index 32.8 Tobacco/Smoking Status: Tobacco use Status Tobacco use date assessed 05/04/24 05/04/24 09:30 Patient Tobacco Use Status Never used Tobacco 05/04/24 09:30 e-Cigarette/Vaping Use Never Used 05/04/24 09:30 PHQ-9: PHQ-9 Score PHQ-9: Total score 0 05/04/24 09:30 Depression Screening Interpretation: Negative Thrive Assessment: Date of Thrive Assessment Date Thrive assessed 05/04/24 05/04/24 09:30 Currently or been in a relationship where the following occur: No concerns reported Const General: no acute distress HENMT Head: Yes normal to inspection Throat: Yes posterior oropharynx normal Resp Effort & Inspection: normal respiratory effort Auscultation: clear to auscultation bilaterally Cardio Rhythm: regular rhythm Heart sounds: S1 normal heart sound present and S2 normal heart sound present GI Palpation (GI): Soft to palpation Percussion: Yes normal to percussion Auscultation: normal bowel sounds Neuro Cranial nerves: Yes CN's II-XII intact bilaterally Gait exam (Neuro): Wide-based gait present Motor exam (neuro): 5/5 motor strength present throughout Extrem General: Yes no clubbing, cyanosis or edema Assessment and Plan Assessment & Plan (1) Poor balance: Code(s): R26.89 - Other abnormalities of gait and mobility Plan: Referred to [facility] for home physical therapy for poor balance (2) JOSEF on CPAP: Comment: Used to use CPAP but not for the last 3 years Code(s): G47.33 - Obstructive sleep apnea (adult) (pediatric); Z99.89 - Dependence on other enabling machines and devices Plan: Obtain sleep studies to get a new CPAP machine (3) HTN (hypertension): Comment: 20 years Code(s): I10 - Essential (primary) hypertension Plan: Blood pressure is low and amlodipine will be decreased from 7.5 to 5 mg a day and patient was advised to take it at night. He will continue 40 mg of lisinopril we will follow-up in 2 months (4) Anxiety: Code(s): F41.9 - Anxiety disorder, unspecified Plan: Continue buspirone and grieving counseling Orders: Orders RT home sleep study Today G47.33 - Obstructive sleep apnea (adult) (pediatric), Z99.89 - Dependence on other enabling machines and devices [facility]errals [facility] Referral R26.89 - Other abnormalities of gait and mobility Medications: Discontinued amlodipine in PM Discontinued Reason: Doctor's Order 2.5 mg PO DAILY 90 tabs 3RF Coding Level of Care Code Est Pt Level 4 (26369) Diagnoses Poor balance R26.89 JOSEF on CPAP G47.33; Z99.89 HTN (hypertension) I10 Anxiety F41.9 Additional Codes ABBY-7 Assessment Billing - ABBY-7 Assessment Tool: ABBY-7 Assessment 32988 ([id number])
== END 2024-05-04 10:11 | disposition home or self-care (01) ==
PROVIDERS: PCP Internal Medicine; Visit Provider Internal Medicine
DX: R26.89 Other abnormalities of gait and mobility (principal); G47.33 Obstructive sleep apnea (adult) (pediatric); Z99.89 Dependence on other enabling machines and devices; I10 Essential (primary) hypertension; F41.9 Anxiety disorder, unspecified

== ENCOUNTER → 2024-05-04 09:07 | Outpatient (BNVA) | payer OTHER, SELFPAY | PROVIDERS: PCP Internal Medicine; Visit Provider Internal Medicine | DX: R26.89 Other abnormalities of gait and mobility (principal); G47.33 Obstructive sleep apnea (adult) (pediatric); I10 Essential (primary) hypertension; F41.9 Anxiety disorder, unspecified; Z79.899 Other long term (current) drug therapy; Z99.89 Dependence on other enabling machines and devices | CPT/HCPCS: 96127 ==

== ENCOUNTER 2024-05-25 13:17 | Outpatient (AMB) | payer OTHER, SELFPAY ==
[2024-05-25 13:32] VITALS: BP 130/76; PULSE 96; O2SAT 97; BMI 32.8
--- NOTE | 2024-05-25 13:32 | MHC.PC.OV ---
Vital Signs 05/25/24 13:32 Height 6 ft Weight 242 lb BMI 32.8 BP 130/76 Blood Pressure Location Lt brachial Position Sitting Pulse 96 Pulse Source Pulse Oximeter Pulse Oximetry (%) 97 Oxygen Delivery Method Room Air Intake Visit Reasons: Follow up visit Intake Note: Pt is here today for a follow up visit on headaches and dizziness. Pt states that he saw ENT specialist. Allergies gabapentin [GABAPENTIN] Allergy (Intermediate, Verified 05/25/24 13:42) DARK THOUGHTS, suicidal lactose [LACTOSE] Allergy (Intermediate, Verified 05/25/24 13:42) PAIN IN STOMACH, CONSTIPATION cetirizine [From Zyrtec] Allergy (Unknown, Verified 05/25/24 13:42) Nausea, Emotional clindamycin [CLINDAMYCIN] Allergy (Unknown, Verified 05/25/24 13:42) HIVES penicillin V Allergy (Unknown, Verified 05/25/24 13:42) hives Penicillins [PENICILLINS] Allergy (Unknown, Verified 05/25/24 13:42) Hives prednisone Allergy (Unknown, Verified 05/25/24 13:42) nightmares sertraline [From ZOLOFT] Adverse Reaction (Severe, Verified 05/25/24 13:42) SI Medication List - Last Reconciled 05/25/24 by Alicia Kelsey MD amlodipine 5 mg PO DAILY aspirin 81 mg PO DAILY atorvastatin 40 mg PO BEDTIME azelastine intranasal buspirone 10 mg PO TID finasteride 5 mg PO DAILY lidocaine 5% (Lidoderm) 2 patches topical DAILY lisinopril 40 mg PO DAILY meclizine 25 mg PO BID PRN nystatin 1 appl topical BID omeprazole 20 mg PO DAILY@0630 Tobacco use date assessed: 05/04/24 Dental Screening Dental Screen Date: 10/30/23 HPI Follow up visit HPI Details Patient presents for the follow-up of hypertension hyperlipidemia chronic anxiety persistent positional vertigo. Patient was evaluated by ENT for vertigo and had a negative workup. He started vestibular therapy and balance exercises at home and is doing better. He is ambulating with a walker. [facility] Medical History Cerebral microvascular disease Hematuria Epistaxis Lung mass Tobacco dependence Cataract Constipation Hyperlipidemia Anxiety CVA (cerebral vascular accident) Seasonal allergies JOSEF on CPAP Melanoma Paget's disease GERD (gastroesophageal reflux disease) Neuralgia HTN (hypertension) Surgical History Hx of cataract surgery No pertinent past surgical history Family History Father Unknown family medical history Mother Unknown family medical history Son No problems noted. Daughter No problems noted. Daughter No problems noted. Daughter No problems noted. Social History Household Members: None Housing: House Alcohol intake: never Patient Tobacco Use Status: Never used Tobacco e-Cigarette/Vaping Use: Never Used service: No Current occupational status: retired Cognitive needs: No Hearing needs: Yes Vision needs: Yes Questionnaire Thrive Questionnaire Date Thrive assessed: 05/04/24 I am a: Patient What is your living situation today?: I have a steady place to live Within the past 12 months, did the food you bought not last and you didn't have the money to get more?: Never true Within the past 12 months, did you worry whether your food would run out before you got money to buy more?: Never true Do you have trouble paying for medicines?: No Do you have trouble getting transportation to medical appointments?: No Do you have trouble paying your heating and electricity bill?: No Do you have trouble taking care of your child, family member or friend?: No Do you have trouble with day-to-day activities such as bathing, preparing meals, shopping, managing finances, etc.?: No Are you interested in more education?: No Please select the resources that you would like help with: None Currently or been in a relationship where the following occur: No concerns reported THRIVE Score: 0 ABBY-7 AMB Questionnaire ABBY-7 Date ABBY - 7 assessed: 05/04/24 Source: Developed by Drs. Neil Dominguez, Trang Butler, Armando Parr and colleagues, with an educational unruly from [employer]. Review of Systems Const All systems reviewed & are unremarkable except as noted in HPI and below ENT Reports no additional complaints Card Reports no additional complaints Resp Reports no additional complaints GI Reports no additional complaints Reports no additional complaints Physical exam (Primary Care) Vital Signs: Last Vital Signs Pulse 96 05/25/24 13:32 BP 130/76 05/25/24 13:32 Pulse Ox 97 05/25/24 13:32 Oxygen Delivery Method Room Air 05/25/24 13:32 BMI result Body Mass Index 32.8 Tobacco/Smoking Status: Tobacco use Status Tobacco use date assessed 05/04/24 05/25/24 13:32 Patient Tobacco Use Status Never used Tobacco 05/25/24 13:32 e-Cigarette/Vaping Use Never Used 05/25/24 13:32 Thrive Assessment: Date of Thrive Assessment Date Thrive assessed 05/04/24 05/25/24 13:32 Currently or been in a relationship where the following occur: No concerns reported Const General: no acute distress HENMT Face and sinus: Yes normal facial exam Eyes General: appearance normal, both eyes and all related structures Resp Effort & Inspection: normal respiratory effort Auscultation: clear to auscultation bilaterally Cardio Rhythm: regular rhythm Heart sounds: S1 normal heart sound present and S2 normal heart sound present GI Inspection: Yes normal to inspection Palpation (GI): Soft to palpation Percussion: Yes normal to percussion Auscultation: normal bowel sounds Neuro General: CN's II-XI intact bilaterally Gait exam (Neuro): Staggering gait present Motor exam (neuro): 5/5 motor strength present throughout and Normal motor muscle tone present throughout Coordination: [id number] test normal Romberg Test: Negative Coding Level of Care Code Est Pt Level 4 (14471) Diagnoses Poor balance R26.89 Lung mass R91.8 Hyperlipidemia E78.5 HTN (hypertension) I10 Anxiety F41.9 Assessment & Plan Assessment & Plan (1) Poor balance: Code(s): R26.89 - Other abnormalities of gait and mobility Category: Medical Plan: Continue physical therapy and vestibular therapy (2) Lung mass: Comment: Stable chest CT consistent with multiple nodules 10/29 Code(s): R91.8 - Other nonspecific abnormal finding of lung field Category: Medical Plan: Continue to follow-up (3) Hyperlipidemia: Code(s): E78.5 - Hyperlipidemia, unspecified Category: Medical Plan: Continue atorvastatin (4) HTN (hypertension): Comment: 20 years Code(s): I10 - Essential (primary) hypertension Category: Medical Plan: Continue current medications (5) Anxiety: Code(s): F41.9 - Anxiety disorder, unspecified Category: Medical Plan: Continue buspirone Orders: Orders Lipid Panel 6 Weeks E78.5 - Hyperlipidemia, unspecified, I10 - Essential (primary) hypertension, R26.89 - Other abnormalities of gait and mobility, R53.83 - Other fatigue Complete Blood Count Auto Diff 6 Weeks E78.5 - Hyperlipidemia, unspecified, I10 - Essential (primary) hypertension, R26.89 - Other abnormalities of gait and mobility, R53.83 - Other fatigue TSH reflex Free T4 6 Weeks E78.5 - Hyperlipidemia, unspecified, I10 - Essential (primary) hypertension, R26.89 - Other abnormalities of gait and mobility, R53.83 - Other fatigue Comprehensive Edcouch. Panel Fast 6 Weeks E78.5 - Hyperlipidemia, unspecified, I10 - Essential (primary) hypertension, R26.89 - Other abnormalities of gait and mobility, R53.83 - Other fatigue Vitamin B12 and Folate 6 Weeks E78.5 - Hyperlipidemia, unspecified, I10 - Essential (primary) hypertension, R26.89 - Other abnormalities of gait and mobility, R53.83 - Other fatigue Medications: Discontinued celecoxib (Celebrex) Discontinued Reason: Doctor's Order 200 mg PO BID 30 days 60 caps 3RF
== END 2024-05-25 14:44 | disposition home or self-care (01) ==
PROVIDERS: PCP Internal Medicine; Visit Provider Internal Medicine
DX: R26.89 Other abnormalities of gait and mobility (principal); R91.8 Other nonspecific abnormal finding of lung field; E78.5 Hyperlipidemia, unspecified; I10 Essential (primary) hypertension; F41.9 Anxiety disorder, unspecified

== ENCOUNTER → 2024-05-25 13:17 | Outpatient (BNVA) | payer SELFPAY | PROVIDERS: PCP Internal Medicine; Visit Provider Internal Medicine ==

== ENCOUNTER 2024-05-25 13:36 | Outpatient (REF) | payer SELFPAY | END 2024-05-25 13:37 | disposition home or self-care (01) | LOC: HO.HAP 13:36 | PROVIDERS: Visit Provider Internal Medicine | DX: Z13.89 Encounter for screening for other disorder (principal) ==

== ENCOUNTER 2024-05-26 13:05 | Outpatient (REF) | payer SELFPAY | END 2024-05-26 13:06 | disposition home or self-care (01) | LOC: HO.HAP 13:05 | PROVIDERS: Visit Provider Internal Medicine | DX: Z13.89 Encounter for screening for other disorder (principal) ==

== ENCOUNTER 2024-06-27 12:54 | Outpatient (REF) | payer OTHER, SELFPAY ==
[2024-06-27 17:05] LABS: Influenza A PCR NEGATIVE (Negative); Influenza B PCR NEGATIVE (Negative); Resp Syncy Virus RNA Qual PCR NEGATIVE (Negative); SARS COV2 PCR INHOUSE NEGATIVE (Negative)
== END 2024-06-27 12:55 | disposition home or self-care (01) ==
LOC: HO.LAB 12:54
PROVIDERS: PCP Internal Medicine; Visit Provider Internal Medicine
DX: J06.9 Acute upper respiratory infection, unspecified (principal); I10 Essential (primary) hypertension; R09.89 Other specified symptoms and signs involving the circulatory and respiratory systems
CPT/HCPCS: 0241U

== ENCOUNTER 2024-06-27 12:54 | Outpatient (AMB) | payer OTHER, SELFPAY ==
[2024-06-27 12:57] VITALS: BP 130/78; PULSE 98; O2SAT 95; BMI 32.5
--- NOTE | 2024-06-27 12:57 | MHC.PC.OV ---
Vital Signs 06/27/24 12:57 Height 6 ft Weight 240 lb BMI 32.5 BP 130/78 Blood Pressure Location Rt brachial Position Sitting Pulse 98 Pulse Source Pulse Oximeter Pulse Oximetry (%) 95 Oxygen Delivery Method Room Air Intake Visit Reasons: Strong Flue Like Symptoms Intake Note: Pt is here today for a sick visit. Pt c/o cough, headache, post nasal drip, pt states that he gets the coughing fits to the point where his ribs hurt. Pt also c/o discharge from [facility] and hot sensation under her eyes. Allergies gabapentin [GABAPENTIN] Allergy (Intermediate, Verified 06/27/24 13:02) DARK THOUGHTS, suicidal lactose [LACTOSE] Allergy (Intermediate, Verified 06/27/24 13:02) PAIN IN STOMACH, CONSTIPATION cetirizine [From Zyrtec] Allergy (Unknown, Verified 06/27/24 13:02) Nausea, Emotional clindamycin [CLINDAMYCIN] Allergy (Unknown, Verified 06/27/24 13:02) HIVES penicillin V Allergy (Unknown, Verified 06/27/24 13:02) hives Penicillins [PENICILLINS] Allergy (Unknown, Verified 06/27/24 13:02) Hives prednisone Allergy (Unknown, Verified 06/27/24 13:02) nightmares sertraline [From ZOLOFT] Adverse Reaction (Severe, Verified 06/27/24 13:02) SI Medication List - Last Reconciled 06/27/24 by Alicia Kelsey MD amlodipine 5 mg PO DAILY aspirin 81 mg PO DAILY atorvastatin 40 mg PO BEDTIME azelastine intranasal buspirone 10 mg PO TID finasteride 5 mg PO DAILY lidocaine 5% (Lidoderm) 2 patches topical DAILY lisinopril 40 mg PO DAILY meclizine 25 mg PO BID PRN nystatin 1 appl topical BID omeprazole 20 mg PO DAILY@0630 Tobacco use date assessed: 05/04/24 Dental Screening Dental Screen Date: 10/30/23 HPI Strong Flue Like Symptoms HPI Details Pt c/o 2 days of cough with clear sputum, sore throat, sinus congestion, body aches. He denies shortness of breath pleurisy fever or night sweats. Hypertension is controlled on current medications. [facility] Medical History Cerebral microvascular disease Hematuria Epistaxis Lung mass Tobacco dependence Cataract Constipation Hyperlipidemia Anxiety CVA (cerebral vascular accident) Seasonal allergies JOSEF on CPAP Melanoma Paget's disease GERD (gastroesophageal reflux disease) Neuralgia HTN (hypertension) Surgical History Hx of cataract surgery No pertinent past surgical history Family History Father Unknown family medical history Mother Unknown family medical history Son No problems noted. Daughter No problems noted. Daughter No problems noted. Daughter No problems noted. Social History Household Members: None Housing: House Alcohol intake: never Patient Tobacco Use Status: Never used Tobacco e-Cigarette/Vaping Use: Never Used service: No Current occupational status: retired Cognitive needs: No Hearing needs: Yes Vision needs: Yes Questionnaire Thrive Questionnaire Date Thrive assessed: 05/01/24 I am a: Patient What is your living situation today?: I have a steady place to live Within the past 12 months, did the food you bought not last and you didn't have the money to get more?: Never true Within the past 12 months, did you worry whether your food would run out before you got money to buy more?: Never true Do you have trouble paying for medicines?: No Do you have trouble getting transportation to medical appointments?: No Do you have trouble paying your heating and electricity bill?: No Do you have trouble taking care of your child, family member or friend?: No Do you have trouble with day-to-day activities such as bathing, preparing meals, shopping, managing finances, etc.?: No Are you currently unemployed and looking for a job?: No Are you interested in more education?: No Please select the resources that you would like help with: None Currently or been in a relationship where the following occur: No concerns reported THRIVE Score: 0 AUDIT C Alcohol Use Questionnaire (AUDIT-C) 3. How often do you have six or more drinks on one occasion?: Never Total Score: 0 ABBY-7 AMB Questionnaire ABBY-7 Date ABBY - 7 assessed: 05/04/24 Source: Developed by Drs. Neil Dominguez, Trang B.W. Armando Butler and colleagues, with an educational unruly from [employer]. Review of Systems Const All systems reviewed & are unremarkable except as noted in HPI and below Eyes Reports no additional complaints ENT Reports no additional complaints Card Reports no additional complaints Resp Reports no additional complaints GI Reports no additional complaints Reports no additional complaints Physical exam (Primary Care) Vital Signs: Last Vital Signs Pulse 98 06/27/24 12:57 BP 130/78 06/27/24 12:57 Pulse Ox 95 06/27/24 12:57 Oxygen Delivery Method Room Air 06/27/24 12:57 BMI result Body Mass Index 32.5 Tobacco/Smoking Status: Tobacco use Status Tobacco use date assessed 05/04/24 06/27/24 12:59 Patient Tobacco Use Status Never used Tobacco 06/27/24 12:59 e-Cigarette/Vaping Use Never Used 06/27/24 12:59 Thrive Assessment: Date of Thrive Assessment Date Thrive assessed 05/01/24 06/27/24 12:59 Currently or been in a relationship where the following occur: No concerns reported Const General: no acute distress HENMT Ears: TM's normal bilaterally Face and sinus: Yes normal facial exam and No sinus tenderness Throat: Yes posterior oropharynx abnormal (erythema) and Yes postnasal drainage Eyes General: appearance normal, both eyes and all related structures Neck Neck: Yes supple and Yes anterior neck swelling Resp Effort & Inspection: normal respiratory effort Auscultation: clear to auscultation bilaterally Cardio Rhythm: regular rhythm Heart sounds: S1 normal heart sound present and S2 normal heart sound present Coding Level of Care Code Est Pt Level 3 (51439) Diagnoses URI (upper respiratory infection) J06.9 HTN (hypertension) I10 Assessment & Plan Assessment & Plan (1) URI (upper respiratory infection): Code(s): J06.9 - Acute upper respiratory infection, unspecified Category: Medical Plan: Check respiratory panel supportive care discussed with the patient (2) HTN (hypertension): Comment: 20 years Code(s): I10 - Essential (primary) hypertension Category: Medical Plan: Continue current medications Orders: Orders SARS-CoV2/FLU/RSV Today R09.89 - Other specified symptoms and signs involving the circulatory and respiratory systems
== END 2024-06-27 13:33 | disposition home or self-care (01) ==
PROVIDERS: PCP Internal Medicine; Visit Provider Internal Medicine
DX: J06.9 Acute upper respiratory infection, unspecified (principal); I10 Essential (primary) hypertension

== ENCOUNTER 2024-07-05 06:22 | Outpatient (REF) | payer OTHER, SELFPAY ==
[2024-07-05 09:58] LABS: MANUAL DIFF FLAG NO
[2024-07-05 10:05] LABS: Basophils Absolute Auto 0.1 X10*3/uL (0.0-0.2); Basophils Percent Auto 0.9 % (0-2); Eosinophils Absolute Auto 0.6 X10*3/uL (0.0-0.4); Eosinophils Percent Auto 5.9 % (0-4); Hemoglobin 15.3 g/dl (14.0-18.0); Imm Gran Abs Auto 0.11 X10*3/uL (0.00-0.03); Imm Gran Pct Auto 1.2 % (0.0-0.4); Lymphocytes Absolute Auto 2.5 X10*3/uL (1.2-4.9); Lymphocytes Percent Auto 25.7 % (20-40); Mean Corpuscular Hemoglobin 30.4 pg (27.0-33.0); Mean Corpuscular Volume 89.5 fL (80.0-98.0); Mean Platelet Volume 9.1 fL (9.4-12.4); Monocytes Absolute Auto 0.9 X10*3/uL (0.1-1.2); Monocytes Percent Auto 9.1 % (2-11); Neutrophils Absolute Auto 5.5 x10*3/uL (2.0-8.3); Neutrophils Percent Auto 57.2 % (45-73); Platelet Count 269 X10*3/uL (160-400); Red Blood Count 5.03 X10*6/uL (4.60-5.80); White Blood Count 9.5 X10*3/uL (4.8-10.8)
[2024-07-05 10:38] LABS: Alanine Aminotransferase 39 U/L (0-40); Alkaline Phosphatase 149 U/L (39-117); Anion Gap 11 (12-20); Aspartate Amino Transferase 36 U/L (5-37); Blood Urea Nitrogen 12 mg/dL (9-16); Calcium 9.1 mg/dL (8.4-10.2); Carbon Dioxide 27 mmol/L (22-29); Chloride 105 mmol/L (96-108); Cholesterol 110 mg/dL (<200); Estimated Glomerular Filt Rate > 60; Glucose Fasting 124 mg/dL (60-99); HDL Cholesterol 42 mg/dL (>40); LDL Cholesterol Calculated 50 mg/dL (<100); Potassium 3.6 mmol/L (3.3-5.1); Sodium 139 mmol/L (135-145); Total Protein 6.9 g/dL (6.5-8.0); Triglycerides 94 mg/dL (<150)
[2024-07-05 10:56] LABS: Folate 5.2 ng/mL (> or = 4.0); Vitamin B12 594 pg/mL (200-900)
== END 2024-07-05 06:23 | disposition home or self-care (01) ==
LOC: HO.HMGCLDS 06:22
PROVIDERS: PCP Internal Medicine; Visit Provider Internal Medicine
DX: R26.89 Other abnormalities of gait and mobility (principal); R53.83 Other fatigue; E78.5 Hyperlipidemia, unspecified; I10 Essential (primary) hypertension
CPT/HCPCS: 36415; 80053; 80061; 82607; 82746; 84443; 85025

== ENCOUNTER 2024-07-12 08:59 | Outpatient (AMB) | payer OTHER, SELFPAY ==
[2024-07-12 09:02] VITALS: BP 122/78; PULSE 80; O2SAT 97; BMI 32.5
--- NOTE | 2024-07-12 09:02 | MHC.PC.OV ---
Vital Signs 07/12/24 09:02 Height 6 ft Weight 240 lb BMI 32.5 BP 122/78 Blood Pressure Location Rt brachial Position Sitting Pulse 80 Pulse Source Pulse Oximeter Pulse Oximetry (%) 97 Intake Visit Reasons: 2 month follow up Intake Note: pt is here for 2 month follow up Sports Physiotherapist Required: No Accompanied by: Self / Same As Patient Allergies gabapentin [GABAPENTIN] Allergy (Intermediate, Verified 07/12/24 09:03) DARK THOUGHTS, suicidal lactose [LACTOSE] Allergy (Intermediate, Verified 07/12/24 09:03) PAIN IN STOMACH, CONSTIPATION cetirizine [From Zyrtec] Allergy (Unknown, Verified 07/12/24 09:03) Nausea, Emotional clindamycin [CLINDAMYCIN] Allergy (Unknown, Verified 07/12/24 09:03) HIVES penicillin V Allergy (Unknown, Verified 07/12/24 09:03) hives Penicillins [PENICILLINS] Allergy (Unknown, Verified 07/12/24 09:03) Hives prednisone Allergy (Unknown, Verified 07/12/24 09:03) nightmares sertraline [From ZOLOFT] Adverse Reaction (Severe, Verified 07/12/24 09:03) SI Medication List - Last Reconciled 07/12/24 by Alicia Kelsey MD amlodipine 5 mg PO QPM aspirin 81 mg PO DAILY atorvastatin 40 mg PO BEDTIME azelastine intranasal buspirone 10 mg PO TID finasteride 5 mg PO DAILY lidocaine 5% (Lidoderm) 2 patches topical DAILY lisinopril 40 mg PO DAILY meclizine 25 mg PO BID PRN nystatin 1 appl topical BID omeprazole 20 mg PO DAILY@0630 Tobacco use date assessed: 05/04/24 Fall risk assessment: No Falls in past year Last assessed Fall Risk: 07/12/24 Dental Screening Dental Screen Date: 10/30/23 HPI 2 month follow up HPI Details Patient presents for the follow-up for hypertension hyperlipidemia diet-controlled diabetes stable on current medications. [facility] Medical History Cerebral microvascular disease Hematuria Epistaxis Lung mass Tobacco dependence Cataract Constipation Hyperlipidemia Anxiety CVA (cerebral vascular accident) Seasonal allergies JOSEF on CPAP Melanoma Paget's disease GERD (gastroesophageal reflux disease) Neuralgia HTN (hypertension) Surgical History Hx of cataract surgery No pertinent past surgical history Family History Father Unknown family medical history Mother Unknown family medical history Son No problems noted. Daughter No problems noted. Daughter No problems noted. Daughter No problems noted. Social History Household Members: None Housing: House Alcohol intake: never Patient Tobacco Use Status: Never used Tobacco e-Cigarette/Vaping Use: Never Used service: No Current occupational status: retired Cognitive needs: No Hearing needs: Yes Vision needs: Yes Questionnaire Thrive Questionnaire Date Thrive assessed: 07/12/24 I am a: Patient What is your living situation today?: I have a steady place to live Within the past 12 months, did the food you bought not last and you didn't have the money to get more?: Never true Within the past 12 months, did you worry whether your food would run out before you got money to buy more?: Never true Do you have trouble paying for medicines?: No Do you have trouble getting transportation to medical appointments?: No Do you have trouble paying your heating and electricity bill?: No Do you have trouble taking care of your child, family member or friend?: No Do you have trouble with day-to-day activities such as bathing, preparing meals, shopping, managing finances, etc.?: No Are you currently unemployed and looking for a job?: No Are you interested in more education?: No Please select the resources that you would like help with: None Currently or been in a relationship where the following occur: No concerns reported THRIVE Score: 0 ABBY-7 AMB Questionnaire ABBY-7 Date ABBY - 7 assessed: 05/04/24 Source: Developed by Drs. Neil Dominguez, Trang Butler, Armando Parr and colleagues, with an educational unruly from [employer]. Review of Systems Const All systems reviewed & are unremarkable except as noted in HPI and below Eyes Reports no additional complaints ENT Reports no additional complaints Card Reports no additional complaints Resp Reports no additional complaints GI Reports no additional complaints Reports no additional complaints Physical exam (Primary Care) Vital Signs: Last Vital Signs Pulse 80 07/12/24 09:02 BP 122/78 07/12/24 09:02 Pulse Ox 97 07/12/24 09:02 BMI result Body Mass Index 32.5 Tobacco/Smoking Status: Tobacco use Status Tobacco use date assessed 05/04/24 07/12/24 09:05 Patient Tobacco Use Status Never used Tobacco 07/12/24 09:05 e-Cigarette/Vaping Use Never Used 07/12/24 09:05 Thrive Assessment: Date of Thrive Assessment Date Thrive assessed 07/12/24 07/12/24 09:05 Currently or been in a relationship where the following occur: No concerns reported Const General: no acute distress HENMT Head: Yes normal to inspection General nose exam: Normal external nose present Eyes General: appearance normal, both eyes and all related structures Neck Neck: Yes supple Resp Effort & Inspection: normal respiratory effort Auscultation: clear to auscultation bilaterally Cardio Rhythm: regular rhythm Heart sounds: S1 normal heart sound present and S2 normal heart sound present GI Inspection: Yes normal to inspection Palpation (GI): Soft to palpation Coding Level of Care Code Est Pt Level 4 (17530) Diagnoses HTN (hypertension) I10 Hyperlipidemia E78.5 Hyperglycemia R73.9 Assessment & Plan Assessment & Plan (1) HTN (hypertension): Comment: 20 years Code(s): I10 - Essential (primary) hypertension Category: Medical Plan: Continue medications (2) Hyperlipidemia: Code(s): E78.5 - Hyperlipidemia, unspecified Category: Medical Plan: Continue statin (3) Hyperglycemia: Code(s): R73.9 - Hyperglycemia, unspecified Category: Medical Plan: ADA diet increase physical activity discussed with the patient return in 4 months with a fasting labs before Orders: Orders Hemoglobin A1c 4 Months E78.5 - Hyperlipidemia, unspecified, I10 - Essential (primary) hypertension, R73.9 - Hyperglycemia, unspecified Complete Blood Count Auto Diff 4 Months E78.5 - Hyperlipidemia, unspecified, I10 - Essential (primary) hypertension, R73.9 - Hyperglycemia, unspecified Comprehensive [place]. Panel Fast 4 Months E78.5 - Hyperlipidemia, unspecified, I10 - Essential (primary) hypertension, R73.9 - Hyperglycemia, unspecified Lipid Panel 4 Months E78.5 - Hyperlipidemia, unspecified, I10 - Essential (primary) hypertension, R73.9 - Hyperglycemia, unspecified Microalbumin, Random (w Creat) 4 Months E78.5 - Hyperlipidemia, unspecified, I10 - Essential (primary) hypertension, R73.9 - Hyperglycemia, unspecified Medications: New triamcinolone acetonide 0.1% 1 appl topical DAILY 80 grams 1RF finasteride 5 mg PO DAILY 90 tabs 3RF OneTouch Ultra Test (blood sugar diagnostic) 1 qd 100 ea 3RF NS OneTouch Ultra2 Meter (blood-glucose meter) As directed 1 ea 0RF NS Changed From amlodipine 5 mg PO QAM 90 tabs 3RF To amlodipine 5 mg PO QPM Refilled lisinopril 40 mg PO DAILY 90 tabs 3RF atorvastatin 40 mg PO BEDTIME 90 tabs 3RF buspirone 10 mg PO TID 270 tabs 3RF omeprazole 20 mg PO DAILY@0630 90 caps 3RF
== END 2024-07-12 09:38 | disposition home or self-care (01) ==
PROVIDERS: PCP Internal Medicine; Visit Provider Internal Medicine
DX: I10 Essential (primary) hypertension (principal); E78.5 Hyperlipidemia, unspecified; R73.9 Hyperglycemia, unspecified

== ENCOUNTER 2024-08-29 09:03 | Emergency (ER) | payer OTHER, SELFPAY ==
--- NOTE | ~2024-08-29 | XR_ITS ---
EXAMINATION: XR ELBOW 1-2 VIEWS RIGHT HISTORY: fall, pain COMPARISON: There are no prior studies available for comparison. FINDINGS: Three views of the right elbow are submitted. Osseous mineralization is normal. There is no fracture or dislocation. The joint spaces are preserved. The soft tissues are unremarkable. There is no joint effusion. XR/XR elbow RT 2V IMPRESSION: Unremarkable examination of the right elbow. Electronically signed by: Neil Banegas MD 08/29/2024 10:42 AM [facility]
--- NOTE | ~2024-08-29 | XR_ITS ---
EXAMINATION: XR CHEST 2 VIEWS HISTORY: fall, upper back pain COMPARISON: Comparison is made with the prior examination dated 04/26/2022. FINDINGS: PA and lateral views of the chest are submitted. There is a 10 mm nodule in the right upper lobe previously described on chest CT 12/10/2022. The lungs are otherwise clear. There is no pleural effusion, pneumothorax, or pulmonary vascular congestion. The heart is normal in size. There is degenerative disc disease of the spine. XR/XR chest 2V IMPRESSION: No acute cardiopulmonary abnormality. Electronically signed by: Neil Banegas MD 08/29/2024 10:43 AM [facility]
--- NOTE | ~2024-08-29 | XR_ITS ---
EXAMINATION: XR SHOULDER 2 OR MORE VIEWS RIGHT HISTORY: fall, pain COMPARISON: There are no prior studies available for comparison. FINDINGS: Three views of the right shoulder are submitted. Osseous mineralization is normal. There is no fracture or dislocation. There is severe osteoarthritis of the AC joint with joint space narrowing and osteophyte formation. The glenohumeral maintained. There is a 10 mm nodule in the right upper lobe of the lung as described on prior chest CT 12/10/2022. XR/XR shoulder RT min 2V IMPRESSION: Severe osteoarthritis of the AC joint. No evidence of fracture of the right shoulder. Electronically signed by: Neil Banegas MD 08/29/2024 10:41 AM [facility]
[2024-08-29 09:25] VITALS: BP 138/78; PULSE 72; RESP 18; TEMP 36.6; O2SAT 95; BMI 33.0
--- NOTE | 2024-08-29 12:20 | ED_ITS ---
HPI - Fall General Chief Complaint: Fall Stated Complaint: Fall t-2, R shoulder pain Time Seen by Provider: 08/29/24 11:56 Source: patient Mode of arrival: ambulatory Limitations: no limitations History of Present Illness ED Provider: Gia Perez APRN HPI Narrative: 79-year-old male with a history of hypertension, anxiety, high cholesterol, GERD here with complaints of right shoulder pain which occurred after an injury last night. Patient reports that he was getting out of bed when he got caught in his night gown with his feet causing him to hit his right shoulder on his bed. Denies any fall to the ground. He denies any head strike or loss of consciousness. Reports right shoulder pain with waking. He has not tried any mifz-mnu-lvaegtp medications. He denies any associated weakness, numbness or tingling of the extremity. Is left-hand dominant Related Data Home Medications ?Medication ?Instructions ?Recorded ?Confirmed azelastine 137 mcg (0.1 %) nasal intranasal 10/30/23 07/12/24 spray amlodipine 5 mg tablet 5 mg PO QPM 07/12/24 07/12/24 Previous Rx's ?Medication ?Instructions ?Recorded meclizine 25 mg tablet 25 mg PO BID PRN dizziness #30 tabs 12/15/22 nystatin 100,000 unit/gram topical 1 appl topical BID #60 grams 02/20/23 powder lidocaine 5 % topical patch 2 patch topical DAILY #60 ea 01/26/24 (Lidoderm) aspirin 81 mg tablet,delayed 81 mg PO DAILY #90 tabs 06/12/24 release OneTouch Ultra Test (blood sugar #100 ea 07/12/24 diagnostic) OneTouch Ultra2 Meter #1 ea 07/12/24 (blood-glucose meter) atorvastatin 40 mg tablet 40 mg PO BEDTIME #90 tabs 07/12/24 buspirone 10 mg tablet 10 mg PO TID #270 tabs 07/12/24 finasteride 5 mg tablet 5 mg PO DAILY #90 tabs 07/12/24 lisinopril 40 mg tablet 40 mg PO DAILY #90 tabs 07/12/24 omeprazole 20 mg capsule,delayed 20 mg PO DAILY@0630 #90 caps 07/12/24 release triamcinolone acetonide 0.1 % 1 appl topical DAILY #80 grams 07/12/24 topical cream lancets 33 gauge (OneTouch Delica #100 ea 07/15/24 Plus Lancet) cyclobenzaprine 5 mg tablet 5 mg PO TID PRN muscle spasm #9 08/29/24 tabs lidocaine 5 % topical patch 1 patch topical DAILY #15 ea 08/29/24 (Lidoderm) Allergies Allergy/AdvReac Type Severity Reaction Status Date / Time gabapentin [GABAPENTIN] Allergy Intermediate DARK Verified 08/29/24 09:27 THOUGHTS, suicidal lactose [LACTOSE] Allergy Intermediate PAIN IN Verified 08/29/24 09:27 STOMACH, CONSTIPATION cetirizine [From Zyrtec] Allergy Unknown Nausea, Verified 08/29/24 09:27 Emotional clindamycin [CLINDAMYCIN] Allergy Unknown HIVES Verified 08/29/24 09:27 penicillin V Allergy Unknown hives Verified 08/29/24 09:27 Penicillins [PENICILLINS] Allergy Unknown Hives Verified 08/29/24 09:27 prednisone Allergy Unknown nightmares Verified 08/29/24 09:27 sertraline [From ZOLOFT] AdvReac Severe SI Verified 08/29/24 09:27 Review of Systems Review of Systems: Yes all other systems are reviewed and are negative Constitutional: Constitutional: Reports no additional constitutional complaints, Denies body ache(s), Denies chills, Denies fever(s), Denies headache(s) and Denies weakness Eyes: Eyes: Reports no additional eye complaints and Denies change in vision ENT: Reports system reviewed and no additional complaints, except as documented, Denies dizziness, Denies headache(s), Denies nasal congestion, Denies nasal discharge and Denies neck pain Cardiovascular: Cardiovascular: Reports no additional cardiovascular complaints, Denies chest pain, Denies leg edema and Denies dyspnea Respiratory: Respiratory: Reports no additional respiratory complaints, Denies cough and Denies dyspnea Gastrointestinal: Gastrointestinal: Reports no additional gastrointestinal complaints, Denies abdominal pain, Denies diarrhea, Denies nausea and Denies vomiting Genitourinary: Genitourinary: Denies urinary incontinence Musculoskeletal: Musculoskeletal: Reports no additional musculoskeletal compl aints, Denies back pain, Reports arthralgias, Denies joint swelling, Denies limited range of motion, Denies neck pain, Denies numbness and Denies tingling Integumentary/Breasts: Skin/Breast: Reports system reviewed and no additional complaints, except as docu and Denies rash Neurologic: Reports system reviewed and no additional complaints, except as documented, Denies Abnormal speech present, Denies dizziness, Denies headache(s), Denies numbness, Denies tingling and Denies weakness PMFSH Past Medical History Attestation statement: The following information was validated with the patient. 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 Daughter No problems noted. Daughter No problems noted. Daughter No problems noted. Social History Social History Household Members: None Housing: House Alcohol intake: never Patient Tobacco Use Status: Never used Tobacco e-Cigarette/Vaping Use: Never Used Advance Directives: No Advance Directives Information Provided: Yes Do you have a plan to hurt others: No Plan service: No Current occupational status: retired Cognitive needs: No Hearing needs: Yes Vision needs: Yes Physical Exam Vital Signs: Vital Signs: Last Vital Signs Temp 97.9 F 08/29/24 09:25 Pulse 72 08/29/24 09:25 Resp 18 08/29/24 09:25 BP 138/78 08/29/24 09:25 Pulse Ox 95 08/29/24 09:25 O2 Del Method Room Air 08/29/24 09:25 BMI result Body Mass Index 33.0 Const: General: cooperative, healthy appearing, comfortable and no acute distress Orientation/consciousness: patient oriented x3 Limitations: no limitations HEENT: Head: Yes normal to inspection Ears: hearing grossly normal bilaterally General nose exam: Normal external nose present Face and sinus: Yes normal facial exam Mouth: Normal oral and palatal mucosa present Throat: Yes posterior oropharynx normal Eyes: General: appearance normal, both eyes and all related structures Pupils: Equal, round and reactive pupils present Neck: Neck: Yes normal visual inspection and Yes full ROM Chest: Chest palpation & inspection: normal inspection of the chest Resp: Effort & Inspection: normal respiratory effort Auscultation: clear to auscultation bilaterally Cardio: Rate: regular rate Rhythm: regular rhythm Peripheral pulses: Peripheral pulses 2+ throughout GI: Inspection: Yes normal to inspection Palpation (GI): Soft to palpation and nontender Auscultation: normal bowel sounds Back/Spine/Pelvis: Thoracic/Lumbar Spine: thoracic and lumbar spine normal to inspection Skin: General skin exam: no rashes or lesions noted Neuro: General: patient oriented x3, moves all extremities, no focal motor deficits and normal sensation to monofilament Cranial nerves: Yes CN's II-XII intact bilaterally, Yes Equal, round and reactive pupils present, Yes Bilaterally intact EOM present, Yes Nystagmus not present, Yes Normal facial strength present and Yes Midline tongue present Cognition (Neuro): normal cognition Speech: No Abnormal speech present Gait exam (Neuro): Normal gait present Motor exam (neuro): 5/5 motor strength present throughout Sensory Exam: Normal double simultaneous stimulation for sensation Extrem: Other: there is tenderness on palpation to the right proximal humerus, anterior and p osterior shoulder with no obvious deformity, swelling or ecchymosis. There is pain with abduction of the extremity but the patient is able. He has full active and passive range of motion of the right elbow, right forearm and right hand and wrist. He has normal distal sensation. His 2+ radial and ulnar pulses. He has no pain on palpation over the thoracic or cervical spine. He has no step-offs or deformities. General: Yes normal to inspection Medications Administered Discontinued Medications Generic Name Dose Route Start Last Admin Trade Name Freq PRN Reason Stop Dose Admin Acetaminophen 975 mg 08/29/24 12:05 08/29/24 12:32 Acetaminophen 325 Mg Tablet PO 08/29/24 12:06 975 mg ONCE ONE Administration Lidocaine 1 patch 08/29/24 12:05 08/29/24 12:31 Lidocaine 4 % Patch Adh..Patch TRANSDERMA 08/29/24 12:06 1 patch ONCE ONE Administration Protocol Medical Decision Making Medical Decision Making MDM Narrative: 79-year-old male with a history of hypertension, anxiety, high cholesterol, GERD here with complaints of right shoulder pain which occurred after an injury last night. Patient reports that he was getting out of bed when he got caught in his night gown with his feet causing him to hit his right shoulder on his bed. Denies any fall to the ground. He denies any head strike or loss of consciousness. Reports right shoulder pain with waking. He has not tried any cljq-wzb-ozbvrhn medications. He denies any associated weakness, numbness or tingling of the extremity. Is left-hand dominant there is tenderness on palpation to the right proximal humerus, anterior and posterior shoulder with no obvious deformity, swelling or ecchymosis. There is pain with abduction of the extremity but the patient is able. He has full active and passive range of motion of the right elbow, right forearm and right hand and wrist. He has normal distal sensation. His 2+ radial and ulnar pulses. He has no pain on palpation over the thoracic or cervical spine. He has no step-offs or deformities. I will obtain x-rays There was no significant fall at all, no reports of head strike or LOC, normal neuro, no reports of AC therapy and therefore I do not believe patient needs CT imaging. I offered analgesia in the ER but he will only accept APAP and a lidoderm patch. He does have APAP at home as well as lidoderm patches which he will try. He will try low dose flexeril at night only. We discussed risks for falls. Differential Diagnosis Differential Diagnoses: The differential diagnosis associated with the presentation includes Contusion, strain, sprain Low suspicion for fracture, dislocation, vascular injury see additional discussion above Admission/Observation Consideration of admission/observation: Escalation of care including admission/observation considered Low suspicion for fracture, dislocation, vascular injury requiring advanced imaging, urgent orthopedic consultation Independent Interpretation I performed an independent interpretation of an: Plain X-Ray Interpretation: I independently viewed the x-ray and agree with the radiology report Radiology Impression Discussion of test interpretation with radiology: I have reviewed the radiologist's reading. Radiologist Impression: [address] [address] XRay Report Signed Patient: Gabo Blackburn MR#: [id number] : 1945 Acct:[id number] Age/Sex: 79 / M ADM Date: 08/29/24 Loc: HO.ED Attending Dr: Ordering Physician: Gia Perez NP Date of Service: 08/29/24 Procedure(s): XR shoulder RT min 2V Accession Number(s): [id number] cc: Alicia Kelsey MD; Gia Perez RO[address] FREIGHT FIRER~ EXAMINATION: XR SHOULDER 2 OR MORE VIEWS RIGHT HISTORY: fall, pain COMPARISON: There are no prior studies available for comparison. FINDINGS: Three views of the right shoulder are submitted. Osseous mineralization is normal. There is no fracture or dislocation. There is severe osteoarthritis of the AC joint with joint space narrowing and osteophyte formation. The glenohumeral maintained. There is a 10 mm nodule in the right upper lobe of the lung as described on prior chest CT 12/10/2022. XR/XR shoulder RT min 2V IMPRESSION: Severe osteoarthritis of the AC joint. No evidence of fracture of the right shoulder. Electronically signed by: Neil Banegas MD 08/29/2024 10:41 AM EST RP [address] [address] XRay Report Signed Patient: Gabo Blackburn MR#: [id number] : 1945 Acct:[id number] Age/Sex: 79 / M ADM Date: 08/29/24 Loc: .ED Attending Dr: Ordering Physician: Gia Perez NP Date of Service: 08/29/24 Procedure(s): XR elbow RT 2V Accession Number(s): [id number] cc: Alicia Kelsey MD; Gia Perez RO[address] F[employer]IGHT FIRER~ EXAMINATION: XR ELBOW 1-2 VIEWS RIGHT HISTORY: fall, pain COMPARISON: There are no prior studies available for comparison. FINDINGS: Three views of the right elbow are submitted. Osseous mineralization is normal. There is no fracture or dislocation. The joint spaces are preserved. The soft tissues are unremarkable. There is no joint effusion. XR/XR elbow RT 2V IMPRESSION: Unremarkable examination of the right elbow. Electronically signed by: Neil Banegas MD 08/29/2024 10:42 AM EST RP [address] [place] [address] XRay Report Signed Patient: Gabo Blackburn MR#: [id number] : 1945 Acct:[id number] Age/Sex: 79 / M ADM Date: 08/29/24 Loc: HO.ED Attending Dr: Ordering Physician: Gia Perez NP Date of Service: 08/29/24 Procedure(s): XR chest 2V Accession Number(s): [id number] cc: Alicia Kelsey MD; Gia Perez NP~ EXAMINATION: XR CHEST 2 VIEWS HISTORY: fall, upper back pain COMPARISON: Comparison is made with the prior examination dated 04/26/2022. FINDINGS: PA and lateral views of the chest are submitted. There is a 10 mm nodule in the right upper lobe previously described on chest CT 12/10/2022. The lungs are otherwise clear. There is no pleural effusion, pneumothorax, or pulmonary vascular congestion. The heart is normal in size. There is degenerative disc disease of the spine. XR/XR chest 2V IMPRESSION: No acute cardiopulmonary abnormality. Electronically signed by: Neil Banegas MD 08/29/2024 10:43 AM [facility] Tests considered The following testing was considered but not selected: low suspicion for fracture, dislocation, vascular injury requiring advanced imaging Prescription Management I considered prescription management with: Pain Medication Discharge Plan Discharge Clinical Impression: Strain of right shoulder Patient Disposition: Home, Self-Care Instructions: Muscle Strain (ED) Additional Instructions: take Tylenol 650 mg every 4 hours as needed for pain You may alternate heat or ice to the area Gentle stretching Follow-up with your doctor for any continued symptoms Prescriptions: New cyclobenzaprine 5 mg tablet 5 mg PO TID PRN (Reason: muscle spasm) Qty: 9 0RF lidocaine [Lidoderm] 5 % adhesive patch,medicated 1 patch topical DAILY Qty: 15 0RF Rx Instructions: leave on most painful area for up to 12 hrs No Action meclizine 25 mg tablet 25 mg PO BID PRN (Reason: dizziness) Qty: 30 0RF nystatin 100,000 unit/gram powder 1 appl topical BID Qty: 60 2RF Rx Instructions: to the groin lidocaine [Lidoderm] 5 % adhesive patch,medicated 2 patch topical DAILY Qty: 60 2RF Rx Instructions: leave on most painful area for up to 12 hrs aspirin 81 mg tablet,delayed release (DR/EC) 81 mg PO DAILY Qty: 90 3RF (DME) lancets [OneTouch Delica Plus Lancet] [facility] See Rx Instructions .Route Qty: 100 3RF Rx Instructions: Test blood sugar once a day azelastine 137 mcg (0.1 %) aerosol,spray intranasal amlodipine 5 mg tablet 5 mg PO QPM (DME) OneTouch Ultra Test Strip See Rx Instructions .Route Qty: 100 3RF Rx Instructions: 1 qd (DME) blood-glucose meter [OneTouch Ultra2 Meter] [facility] See Rx Instructions .Route Qty: 1 0RF Rx Instructions: As directed atorvastatin 40 mg tablet 40 mg PO BEDTIME Qty: 90 3RF buspirone 10 mg tablet 10 mg PO TID Qty: 270 3RF lisinopril 40 mg tablet 40 mg PO DAILY Qty: 90 3RF omeprazole 20 mg capsule,delayed release(DR/EC) 20 mg PO DAILY@0630 Qty: 90 3RF triamcinolone acetonide 0.1 % cream 1 appl topical DAILY Qty: 80 1RF finasteride 5 mg tablet 5 mg PO DAILY Qty: 90 3RF Referrals: Alicia Kelsey MD [Primary Care Provider] - 1 week Print Language: Citizen Of [place]
[2024-08-29] MEDS: Lidocaine 4 % Patch ADH..PATCH 1 PATCH TRANSDERMA (12:31)
[2024-08-29] MEDS: Acetaminophen 325 MG TABLET 975 MG PO (12:32)
[2024-08-29 12:44] VITALS: BP 138/78; PULSE 72; RESP 18; TEMP 36.6; O2SAT 95
== END 2024-08-29 12:44 | disposition home or self-care (01) ==
PROVIDERS: Emergency Provider Emergency Medicine; PCP Internal Medicine
DX: S29.012A Strain of muscle and tendon of back wall of thorax, initial encounter (principal); W19.XXXA Unspecified fall, initial encounter; Y93.89 Activity, other specified; Y92.9 Unspecified place or not applicable; Y99.9 Unspecified external cause status; M25.511 Pain in right shoulder; M25.521 Pain in right elbow
CPT/HCPCS: 71046; 73030; 73070; 99283

== ENCOUNTER → 2024-08-29 09:39 | Outpatient (BNV) | payer OTHER, SELFPAY | PROVIDERS: PCP Internal Medicine; Visit Provider Radiology Diagnostic Radiology | DX: M54.9 Dorsalgia, unspecified (principal); M25.521 Pain in right elbow; M25.511 Pain in right shoulder | CPT/HCPCS: 71046; 73030; 73070 ==

== ENCOUNTER 2024-11-08 06:33 | Outpatient (REF) | payer OTHER, SELFPAY ==
--- OUTSIDE RECORDS SUMMARY | 2024-11-08 06:35 | XMS_ITS | Patient Health Record ---
Author Organization [facility] Address [address] [place] [address] Care Team Providers Care Global Supply Chain Vice President Name Role Phone Alicia Kelsey MD Primary Care Provider Neil Hogan Unavailable [phone] Allergies Allergen (clinical drug ingredient) Drug/Non Drug Allergy documented on EMR Reaction Allergy Type Onset Date Status Penicillin ? reaction Drug Allergy Activ e clindamycin Clindamycin Unknown Drug Allergy Act birdie prednisone Prednisone Unknown Drug Allergy Activ e ZyrTEC Unknown Drug Allergy Active sertraline Zoloft Unknown Drug Allergy Active gabapentin Neurontin Unknown Drug Allergy Active Reason For Referral No Information Medications Medication SIG (Take, Route, Frequency, Duration) Notes Start Date End Date Status Lisinopril 40 MG Oral for 90 A ctive Dicyclomine HCl 10 MG TAKE 1 OR 2 CAPSUL ES ORALLY EVERY 6 HOURS NEEDED FOR ABDOMINAL CRAMPS OR DISCOMFORT for 90 Active Nystatin 675428 UNIT/GM External for 30 Active Simethicone Ultra Strength 180 MG Oral for 5 Active Aspirin Low Dose 81 MG Oral for 90 Active Omeprazole 20 MG Oral for 90 A ctive Atorvastatin Calcium 40 MG Oral for 90 Active Azelastine HCl 137 MCG/SPRAY Nasal for 90 Active Lactulose 20 GM 1 packet Orally Once a day for 30 day(s) Active Lidocaine 5 % External for 30 Active LORazepam 0.5 MG Oral for 4 Ac tive Fluconazole 100 MG Oral for 7 Active busPIRone HCl 5 MG Oral for 90 Active amLODIPine Besylate 2.5 MG Oral for 90 Active Immunizations Vaccine Route Administration Date Status Comme nts Influenza Unknown 05/10/2020 Administered Social History Tobacco Use: Social History Observation Description Date Details (start date - stop date) Never Smoker NA - NA Tobacco Use/Smoking Question Answer Notes Patient is a nonsmoker Alcohol Screen Question Answer Notes Did you have a drink containing alcohol in the p ast year? No Points 0 Interpretation Negative Section Notes: Nonsmoker; no sig alcohol Nonsmoker; no sig alcohol Problems Problem Type SNOMED Code ICD Code Onset Dates Problem Status W/U Status Risk Notes Problem 627452203 Encounter for screening for malignant neoplasm of colon (Z12.11) Active confirmed Problem 49661450 Constipation, unspecified constipation type (K59.00) Active confirmed Problem 730315508 Abdominal cramps (R10.9) Active confirmed Problem 51290823 Irritable bowel syndrome, unspecified type (K58.9) Active confirmed Problem 057240829 Irritable bowel syndrome with constipation (K58.1) Active confirmed Problem 27037571 Diarrhea of presumed infectious origin (R19.7) Active confirmed Problem 636294125 Acute diarrhea (R19.7) Active confirmed Encounters Encounter Location Date Provider Diagnosis [facility] [address] [place] [address] 10/07/2024 Neil Myrtle Plan Of Treatment Pending Test Test Name Order Date STOOL WBC 06/05/2023 C DIFFICILE RFLX PCR 06/05/2023 Future Test Test Name Order Date COLONOSCOPY 06/13/2021 Next Appt Details Provider Name:Neil Inman Myrtle , 02/01/2025 02:40:00 PM, [address], [address], [place], [address], Insurance Providers Payer Name Payer Address Payer Phone Subscriber Number Group Number Insured Name Patient Relationship to Insured Coverage Start Date Coverage End Date [facility] [address] [place] [address] [id number] GERRI WEBB Self - patient is the insured Medical (General) History Medical History History ICD Code Stroke Dec, 2019-no deficit Seasonal allergies Hypertension 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 Meyer Chronic constipation with IBS Sleep apnea--uses a CPAP GERD Melanoma of the right ear Surgical History Surgery Date(Month/Year) History of skin cancer surge abhijit with Basal cell and Squamous cell cancers Cataracts Melanoma on right ear
--- OUTSIDE RECORDS SUMMARY | 2024-11-08 06:35 | XMS_ITS ---
Author Organization [facility] Address [address] [place] [address] Care Team Providers Care Refrigeration Specialist Name Role Phone Alicia Kelsey MD Primary Care Provider Neil Hogan [phone] REASON FOR VISIT gas/constipation Encounters Encounter Location Date Provider Diagnosis [facility] [address] [place] [address] 10/07/2024 Neil Iraheta Plan Of Treatment Next Appt Details Provider Name:Neil Iraheta , 02/01/2025 02:40:00 PM, [address], [address], [place], [address], Progress Notes * GERRI GARCIA RDOB:1944 (79 yo M)Acc No.[id number]:10/07/2024 Patient:?GERRI GARCIA :1945???Age:79 Y???Sex:Male Address:[address] [place] [address], [address] * true * Date:? Generated for Printi ng/Mauriciog/eTransmitting on:?11/08/2024 06:35 AM EDT
--- OUTSIDE RECORDS SUMMARY | 2024-11-08 06:35 | XMS_ITS | Patient Health Record ---
Author Organization [facility] [place] Address [address] [place], [place] [id number] Care Team Providers Care Bushler Name Role Phone Alonso Meyer Primary Care Provider Chapito Hernandez Unavailable [phone] Allergies Allergen (clinical drug ingredient) Drug/Non Drug Allergy documented on EMR Reaction Allergy Type Onset Date Status Lactose Unknown Drug Allergy Active gabapentin Neurontin Unknown Drug Allergy Active sertraline Zoloft Unknown Drug Allergy Active Zyrtec Allergy Unknown Drug Allergy Ac tive Penicillin Unknown Drug Allergy Active Reason For Referral No Information Medications Medication SIG (Take, Route, Frequency, Duration) Notes Start Date End Date Status Baby Aspirin 81 MG 1 tablet Orally Once a day Active Ranitidine HCl 300 MG TAKE ONE CAPSULE B Y MOUTH EVERY DAY AT BEDTIME Oral for 90 Active Cpap Mask Order G47.33 Resmed Airtou ch F20 large Sig Date: 12/08/17 during sleep nightly for the treatment of sleep apnea for Lifetime 12/08/2017 Unknown LORazepam 0.5 MG (Schedule IV Drug) T K 1 T PO BID PRN ANXIETY Oral for 30 Active Azelastine HCl 0.1 % INHALE 2 SPRAY INTO BOTH NOSTRILS TWICE A DAY DIRECTED Nasal for 30 Active Lisinopril 40 MG 1 TABLET ONCE A DAY ORALLY 90 Oral for 90 Active amLODIPine Besylate 2.5 MG TAKE 1 TABLET BY MOUTH TWICE A DAY Oral for 90 Active Problems Problem Type SNOMED Code ICD Code Onset Dates Problem Status W/U Status Risk Notes Problem 60913939 Obstructive slee p apnea (adult) (pediatric) (G47.33) Active confirmed Problem 242627119 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) Active confirmed Problem 63970132 Essential hypertension (I10) Active confirmed Problem 738056843 Gastroesophageal reflux disease, esophagitis presence not specified (K21.9) Active confirmed Problem 304247269 Obesity (BMI 30-39.9) (E66.9) Active confirmed Problem 77467568 Aerophagia (F45.8) Active confirmed Problem 9045658 Post herpetic neuralgia (B02.29) Active confirmed Plan Of Treatment No Information Insurance Providers Payer Name Payer Address Payer Phone Subscriber Number Group Number Insured Name Patient Relationship to Insured Coverage Start Date Coverage End Date [facility] [address] [place] [phone] [id number] Gabo Steven Self - patient is the insured Medical (General) History Medical History History ICD Code Obstructive sleep apnea (adult) (pediatr ic) G47.33 Dependence on other enabling machines an d devices Z99.89 Gastroesophageal reflux disease, esophag itis presence not specified K21.9 Post herpetic neuralgia B02.29 Surgical History Surgery Date(Month/Year) Melanoma excision Hospitalization History Reason Date(Month/Year) ED visit abdominal pain 11/08/2017
--- OUTSIDE RECORDS SUMMARY | 2024-11-08 06:36 | XMS_ITS ---
Author Organization [facility] Address [address] [place] [address] Care Team Providers Care Aquatic Laborer Name Role Phone Alicia Kelsey MD Primary Care Provider Neil Hogan [phone] REASON FOR VISIT stool tests Encounters Encounter Location Date Provider Diagnosis [facility] [address] [place] [address] 06/25/2023 Neil Iraheta Plan Of Treatment Next Appt Details Provider Name:Neil Iraheta , 02/01/2025 02:40:00 PM, [address], [address], [place], [address], Progress Notes * GERRI GARCIA RDOB:1944 (78 yo M)Acc No.[id number]:06/25/2023 Patient:?GERRI GARCIA :1945???Age:78 Y???Sex:Male Address:[address] [place] [address], [address] * true * Date:? Generated for Printi ng/Mauriciog/eTransmitting on:?11/08/2024 06:36 AM EDT
--- OUTSIDE RECORDS SUMMARY | 2024-11-08 06:36 | XMS_ITS | Data Portability ---
Author Organization [place] - [facility] Address [address] [address] Care Team Providers Care Loss Prevention Detective Name Role Phone EZIO MCDONALD Primary Care Provider Assessment Encounter Date Assessment Date Assessment LastModified by Organization Details LastModified Time 05/18/2024 05/18/2024 78 year old male presents for evaluation of sinuses. Discussed with the patient that XR of the sinuses today demonstrate no significant sinus disease. He has a right maxillary mucus retention cyst. His symptoms may be consistent with a migraine variant. Have recommended that he pursue OT/PT for his lightheadedness . He will follow up as needed. Patient was evaluated by Dr. Nichole who examined pt and formulated this plan. Chen Turcios PA-C functioned as a scribe for this visit. [email or web address] Not available 05/19/2024 08:44:22 10/26/2024 10/26/2024 79-year-old male presents for evaluation of nasal discomfort and dryness. On examination there is mild mucositis which is likely the cause for his discomfort. Recommended 1 week of mupirocin and instructed him in proper use. Likely brought on by dryness. Recommended continued use of K-Y jelly and saline throughout the day. He may also consider cool-mist humidifier. Follow-up as needed. [email or web address] Not available 10/26/2024 09:05:00 Plan of Treatment Reminders Order Date Submit Date Provider Last Modified By Organization Details Last Modified Time Details Appointments Establish ed 30 2024 01:00P M KAVON LEGER MD Not available Not available Not available Lab None recorded. Referral None recorded. Procedures None recorded. Surgeries None recorded. Imaging XR, sinuses, paranasal , 3 or more view 2023 024 [email or web address] [facility], [address] [place] [address], [address], 05/18/2024 14:07:44 Medication Orders mupirocin 2 % topical ointment 2024 025 [facility][id number], [address] [place], [address], 10/26/2024 09:05:29 Patient TargetsNo targets recorded. Patient InstructionsNo instructions recorded. Reason for Referral None Reported. Results Created Date Observation Date Name Description Value Unit Range Abnormal Flag Note LastModifiedBy Organization Detail LastModifiedTime 05/18/20 24 XR, sinus es, paran flores, 3 or more view No observ ation record ed. [email or web address] [facility] [address], [address], 05/18/2024 14:04:56 Result Notes None recorded. Problems Name Problem SNOMED Code Status Onset Date Resolution Date Notes Provider Name and Address Organization Details Recorded Time Nasal congestio n 28152380 Active 2016 Nasal congestion ; Note: Date Diagnosed: 11/05/2016 2:50 PM (R09.81) Not Available [facility] 4 02:42:05 Sensorine ural hearing loss of bilateral ears 717166313 Active 2016 Sensorineu ral HL, bilateral; Note: Date Diagnosed: 02/20/2015 9:53 AM (389.18) ; Start Date : 02/20/2015 Sensorine ural hearing loss, bilateral; Note: Date Diagnosed: 12/02/2016 2:25 PM (H90.3) Not Available [facility] 4 02:42:07 Disorder of nasal sinus 0960874 Active 2016 Other specified disorders of nose and nasal sinuses; Note: Date Diagnosed: 05/19/2017 12:46 PM (J34.89) Not Available [facility] 4 02:42:02 Disorder of the nose 34812543 Active 2016 Other specified disorders of nose and nasal sinuses; Note: Date Diagnosed: 05/19/2017 12:46 PM (J34.89) Not Available [facility] 4 02:42:02 Gastroeso phageal reflux disease without esophagit is 286389052 Active 2015 Gastro-eso phageal reflux disease without esophagiti s; Condition: improved N ote: Date Diagnosed: 09/10/2015 9:47 AM (K21.9) Not Available [facility] 4 02:42:12 Chronic rhinitis 04964190 Active 2015 Chronic rhinitis; Note: Date Diagnosed: 09/10/2015 9:27 AM (J31.0) Not Available [facility] 4 02:42:03 Benign paroxysma l positiona l vertigo 804828891 Active 2015 Benign paroxysmal vertigo, right ear; Note: Date Diagnosed: 09/10/2015 9:27 AM (H81.11) Not Available [facility] 4 02:42:08 Atypical facial pain 53751808 Active 2016 Atypical facial pain; Note: Date Diagnosed: 11/05/2016 2:50 PM (G50.1) Not Available [facility] hospital 4 02:42:01 Lighthead edness 597004105 Active 2023 KAVON HERNANDEZ MD [address] [facility] [place] [address], [place], [address] , [place] - [facility] 4 14:03:53 Dizziness 055499431 Active 2023 CHEN TURCIOS PA-C [address] [place] [address],[place] [address], [place], [address] , [place] - [facility] 4 15:45:12 Ulcerativ e rhinitis 56979232 Active 2024 ESPERANZA CASTLE PA-C [address] [place] [address],[place] [address], [place], [address] , [place] - [facility] 5 09:05:17 Problem Notes None recorded. Procedures Surgical History None recorded. Imaging Results Imaging Date Name Status LastModified by [facility] Details LastModified Time 05/18/2024 XR, sinuses, paranasal, 3 or more view completed [email or web address] [facility] [address], [place], [address], 05/18/2024 14:04:56 Procedure Notes None recorded. Medical Equipment None Reported. Allergies Allergen ID Allergen Name Allergen Category Reaction Reaction Severity Criticality Documentation Date Start Date Code Code System Note Provider Name and Address Organization Details Recorded Time 87486 gabapenti n medicatio n other Not available Not available 12/22/2023 64767 RxNorm React ion: unkno wn, unspe cifie d;; Not Available [facility] 4 01:02:20 21776 cetirizin e hydrochlo ride medicatio n other Not available Not available 12/22/2023 77510 0 RxNorm React ion: unkno wn, unspe cifie d;; Not Available [facility] 4 01:02:31 99030 sertralin e hydrochlo ride medicatio n other Not available Not available 12/22/2023 44351 7 RxNorm React ion: unkno wn, unspe cifie d;; Not Available [facility] hospital 4 01:02:32 Medications Name Sig Start Date Stop Date Status Note LastModified by Organization Details LastModified Time Prescript ion - Prior Authoriza tion Request active Script Copy/Josephine or Auth^Scr ipt Copy/Josephine or Auth_ 36010 Not Available Not Available Not Available celecoxib 200 mg capsule 10/26 completed Not Available Not Available Not Available cyclobenz aprine 10 mg tablet 10/26 completed Not Available Not Available Not Available atorvasta tin 40 mg tablet TAKE 1 TABLET BY MOUTH EVERYDAY AT BEDTIME active Not Available Not Available No t Available meloxicam 15 mg tablet active Not Available Not Available Not Available pimecroli mus 1 % topical cream APPLY TWICE DAILY TO AFFECTED AREAS IN THE GROIN NEEDED. active Not Available Not Available No t Available amlodipin e 2.5 mg tablet 10/26 completed Not Available Not Available Not Available amlodipin e 5 mg tablet TAKE 1 TABLET BY MOUTH EVERY MORNING active Not Available Not Available No t Available omeprazol e 40 mg capsule,d elayed release 09/27 completed Medicati on ID: [id number] D uration Value: 30 Brand Name: omeprazo le Send Method: E-Prescr ibed Sub s Allowed: subs OK Medic ationGen ericName : omeprazo le Not Available Not Available Not Available aspirin 81 mg tablet,de layed release TAKE 1 TABLET BY MOUTH EVERY DAY active Not Available Not Available No t Available triamcino lone acetonide 0.1 % topical cream APPLY 1 APPLICAT ION TOPICALL Y DAILY 10/26 completed Not Available Not Available Not Available OneTouch Ultra Test strips USE ONE A DAY active Not Available Not Available No t Available buspirone 10 mg tablet TAKE 1 TABLET BY MOUTH THREE TIMES A DAY active Not Available Not Available No t Available lidocaine 5 % topical patch 10/26 completed Not Available Not Available Not Available omeprazol e 20 mg capsule,d elayed release TAKE 1 CAPSULE BY MOUTH EVERY DAY AT 0630 active Not Available Not Available No t Available mupirocin 2 % topical ointment APPLY A SMALL AMOUNT TO AFFECTED AREA active Not Available Not Available No t Available azelastin e 137 mcg (0.1 %) nasal spray USE 2 SPRAYS NASALLY TWICE A DAY DIRECTED active Not Available Not Available No t Available levofloxa melina 750 mg tablet 01/10 completed Medicati on ID: [id number] D uration Value: 10 Brand Name: levoflox acin Sen d Method: E-Prescr ibed Sub s Allowed: subs OK Medic ationGen ericName : levoflox acin Not Available Not Available Not Available lisinopri l 40 mg tablet TAKE 1 TABLET BY MOUTH EVERY DAY active Not Available Not Available No t Available fluticaso ne propionat e 50 mcg/actua tion nasal spray,janet pension 01/10 completed Medicati on ID: [id number] D uration Value: 30 Brand Name: fluticas one propiona te Send Method: E-Prescr ibed Sub s Allowed: subs OK Speci al Instruct ion: USE 1 SPRAY IN EACH NOSTRIL EVERY DAY Medi cationGe nericNam e: fluticas one propiona te Not Available Not Available Not Available dicyclomi ne 10 mg capsule 10/26 completed Not Available Not Available Not Available ipratropi um bromide 21 mcg (0.03 %) nasal spray 2 spray into both nostrils 01/10 completed Medicati on ID: [id number] P humphrey d By Name: ROME Merlos nd Name: ipratrop ium bromide Send Method: E-Prescr ibed Sub s Allowed: subs OK Medic ationGen ericName : ipratrop ium bromide Not Available Not Available Not Available finasteri de 5 mg tablet TAKE 1 TABLET BY MOUTH EVERY DAY active Not Available Not Available No t Available tobramyci n 0.3 %-dexamet hasone 0.1 % eye drops,janet penon 01/10 completed Medicati on ID: [id number] D uration Value: 7 Brand Name: tobramyc in-dexam ethasone Send Method: E-Prescr ibed Sub s Allowed: subs OK Medic ationGen ericName : tobramyc in-dexam ethasone Not Available Not Available Not Available cyclobenz aprine 5 mg tablet TAKE 1 TABLET BY MOUTH THREE TIMES A DAY NEEDED FOR MUSCLE SPASMS active Not Available Not Available No t Available Ranitidin e Hcl 01/10 completed Medicati on ID: [id number] D uration Value: 90 Brand Name: ranitidi ne hcl Send Method: E-Prescr ibed Sub s Allowed: subs OK Speci al Instruct ion: TAKE 1 TABLET BY MOUTH EVERY DAY AT BEDTIME Medicati onGeneri cName: ranitidi ne hcl Not Available Not Available Not Available omeprazol e 20 mg tablet,de layed release 10/26 completed Medicati on ID: [id number] P humphrey d By Name: ROME Merlos nd Name: omeprazo le Send Method: E-Prescr ibed Sub s Allowed: subs OK Speci al Instruct ion: Take 1 tablet by mouth every day before breakfas t Medica tionGene ricName: omeprazo le Not Available Not Available Not Available OneTouch Ultra2 Meter DIRECTED active Not Available Not Available No t Available OneTouch Delica Plus Lancet 33 gauge USE TO TEST BLOOD SUGAR ONCE A DAY active Not Available Not Available No t Available Vitals Date Recorded Body height Body mass index (BMI) Body weight Provider Name and Address Organization Details Last Updated DateTime 10/26/2024 182.88 cm 32.5 kg/m2 179055.17 g Varsha Doe [facility] 10/26/2024 08:50:33 Date Recorded Body height Body mass index (BMI) Body weight Provider Name and Address Organization Details Last Updated DateTime 05/18/2024 182.88 cm 32.7 kg/m2 424222.76 g Leonel Almonte [facility] 05/18/2024 13:14:48 Social History None recorded. Functional Status None recorded. Mental Status None recorded. Family History Nothing Reported. Medical History Condition Response Allergies/Hayfever Y Heart Problems N Anxiety Y Tonsil Infections N Emphysema N Migraines Y Thyroid Problems N Glaucoma N Depression N COPD N Developmental Delay N Nasal or Sinus Problems Y Anemia N Immune System Disorder N Anesthesia Complications N Heart Attack (MT) N Other Skin Condition N Diabetes N Rhinitis Y Bleeding Disorder N Food Allergy Y Arthritis Y Hearing Loss Y Hyperlipidemia N Cancer N Stroke Y Dementia N Nasal polyps Y Asthma N High Cholesterol N Sleep Disorder N GERD/Reflux Y Liver Disease N Headaches Y Fibromyalgia N Hypertension Y Speech Delay N Kidney Disease N Past Encounters Encounter ID Performer Location Encounter Start Date Encounter Closed Date Diagnosis/Indication Diagnosis SNOMED-CT Code Diagnosis ICD10 Code Diagnosis Note KAVNO HERNANDEZ MD [facility] [address] [address] 05/18/2024 12:51:34 05/18/2024 14:07:44 Nasal congestion 53539125 R09.81 Lightheadedness 18425298 8 R42 Dizziness 669059546 R42 [id number] KAVON HERNANDEZ MD [facility] [address] [address] 10/26/2024 08:40:31 10/26/2024 09:01:21 Chronic rhinitis 97226099 J31.0 Ulcerative rhinitis 3666 9007 J34.81 Health Concerns Section Related Observation LastModified by Organization Detai ls LastModified Time None Recorded Concern Status LastModified by Organization Details LastModified Time None Recorded Advance Directives Directive None Recorded Payers Encounter Date Sequence Insurance Name Policy Number Policy Ross Covered Member ID Ross Member ID Guarantor Name 05/18/2024 1 [facility] INDEMNITY PLAN (PPO) [id number] Gabo Shannon Ciro [id number] Gabo Tanner 10/26/2024 1 PENDING SALE TO [facility] INDEMNITY PLAN (PPO) [id number] Gabo Shannon PappasCiro [id number] Gabo Tanner Notes Date Note Type Note Provider Name and Address Organization Details Recorded Time 05/18/2024 text/html 78 year old male presents for evaluation of his sinuses. He reports nasal congestion and facial pressure. He does have longstanding post-herpetic neuralgia. He reports episodes of dizziness which he describes as a feeling of unsteadiness but not room spinning that lasts 15 minutes or less. These episodes occur 2-5 times daily. He has been using a walker to prevent falls. He feels this is related to his sinus pressure. He has been using Astelin but reports it only intermittently helps with his congestion. He denies nasal drainage. CT in January 2022 negative for sinus disease. He has used Flonase in the past. KAVON NICHOLE MD [address] [facility] [place],[address], [address], [facility] 05/19/2024 08:44:39 10/26/2024 text/html 79-year-old male presents for evaluation of nasal dryness and discomfort. This usually affects him in the morning. A small amount of blood in his mucus in the morning but no shimon bleeding. He uses azelastine but has taken a break from it as he was worried this was what was causing the discomfort. He occasionally uses saline and K-Y jelly in the nose. KAVON NICHOLE MD [address] [facility] [place] [address], [place], [address], [facility] - [facility] 10/26/2024 12:06:48
--- OUTSIDE RECORDS SUMMARY | 2024-11-08 06:36 | XMS_ITS | Clinical Summary ---
Author Organization [facility] Address [address] [id number] Care Team Providers Care Cerner Analyst Name Role Phone BebetomailekarlaAlicia Primary Care Provider [phone] Allergies Active Allergy Reactions Criticality Noted Date Comments Lactose Unknown Gabapentin Unknown Penicillins Unknown Prednisone Unknown Sertraline Unknown Cetirizine Unknown Medications amLODIPine (NORVASC) 5 mg tablet Active aspirin (ASPIRIN LOW DOSE) 81 mg EC tablet Active eucalyptus oil oil Active fluticasone (FLONASE) 50 mcg/actuation nasal spray Active lidocaine (LIDODERM) 5% patch Active lisinopril (PRINIVIL,ZESTR IL) 40 mg tablet Active ranitidine (ZANTAC) 300 mg capsule Active salicylic acid 6 % cream Active lactase 9,000 unit tablet Active amLODIPine (NORVASC) 2.5 mg tablet Take 2.5 mg by mouth at bed time. Active eucalyptus-pepp ermint oil solution Administer into affected nostril(s) as needed. 7 Active PAZEO 0.7 % drops Instill 0.7 drops into both eyes as needed. 4 7 Active azelastine (ASTELIN) 137 mcg (0.1 %) nasal spray INHALE 2 SPRAY INTO BOTH NOSTRILS TWICE A DAY DIRECTED 11 8 Active clindamycin (CLEOCIN T) 1 % lotion APPLY ONCE TO TWICE DAILY TO AFFECTED AREAS ON THE BODY 3 8 Active LORazepam (ATIVAN) 0.5 mg tablet TK 1 T PO BID PRN ANXIETY 0 8 Active Active Problems Problem Noted Date Diagnosed Date Post herpetic neuralgia 07/27/2017 Melanoma 07/27/2017 Vertigo 07/27/2017 Osteoarthritis 07/27/2017 Essential hypertension 07/27/2017 Palpitations 07/27/2017 Weakness 07/27/2017 Nodule of right lung 10/28/2016 Assessment & Plan (12/22/2022 9:48 AM EDT): Assessment: - Lung nodules stable since 2016 Plan: -Patient prefers to continue surveillance -CT chest without contrast in 1 year Assessment & Plan (12/13/2021 12:17 PM EDT): Assessment: -Stable pulmonary nodules Plan: -Low-dose CT scan chest in 12 months Assessment & Plan (04/07/2018 12:21 PM EDT): Assessment: Incidentally found lung nodules remain stable for 18 months. Considering Mr. Tanner's many health problems, he would like to watch these nodules once more before stopping surveillance. Since we have not yet reached two years, I feel this is reasonable. Plan: CT Chest with no contrast in 12 months, follow up in clinic afterward. If CT chest remains unchanged we have agreed to stop surveillance of these nodules. Family History Medical History Relation Name Comments Other Brother Family History of myocardial infarction Other Father Family History of congestive heart failure Other Mother Family History of multiple myeloma Relation Name Status Comments Brother Father Mother Social History Tobacco Use Types Packs/Day Years Used Date Smoking Tobacco: Never Smokeless Tobacco: Never Comments:: Alcohol Use Standard Drinks/Week Comments No 0 (1 standard drink = 0.6 oz pur e alcohol) Sex and Gender Information Value Date Recorded Sex Assigned at Male 12/19/2022 9:15 AM EDT Legal Sex Male 7:22 PM EDT Gender Identity Male 12/19/2022 9:15 AM EDT Sexual Orientation Straight 12/19/2022 9: 15 AM EDT Last Filed Vital Signs Vital Sign Reading Time Taken Comments Blood Pressure 160/93 04/07/2018 10:50 AM EDT Pulse 89 04/07/2018 10:50 AM EDT Temperature 36.7 ??C (98 ??F) 04/07/2018 10:50 AM EDT Respiratory Rate 16 04/07/2018 10:50 AM EDT Oxygen Saturation 98% 04/07/2018 10:50 AM EDT Inhaled Oxygen Concentration - - Weight 107 kg (236 lb) 04/07/2018 10:50 AM EDT Height 182.9 cm (6') 04/07/2018 10:50 AM EDT Body Mass Index 32.01 04/07/2018 10:50 AM EDT Plan of Treatment Health Maintenance Due Date Last Done Comments Basic Metabolic Panel 1945 DTaP,Tdap,and Td Vaccines (1 - Tdap) 04/30/2013 04/29/2013 Pneumococcal Vaccine: 50+ Years (2 of 2 - PCV) 07/30/2018 07/30/2017 RSV Vaccine (60+ years old and patients) (1 - 1-dose 75+ series) 2019 COVID-19 Vaccine (6 - season) 2024 05/08/2022, 11/11/2021, 05/19/2021, Additional history exists Influenza Vaccine (#1) 2024 , 04/17/2021, 05/10/2020, Additional history exists Alcohol/Substance Use Screening 08/10/2024 Depression Screening and Follow-Up 08/10/2024 Health Care Proxy Review 08/10/2024 Social Drivers of Health Annual Screening 08/10/2024 Zoster Vaccines Completed 06/18/2019, 03/04/2019 Hepatitis B Vaccines Aged Out No long er eligible based on patient's age to complete this topic Insurance [employer] Care Teams Cerner Analyst Relationship Specialty Start Date End Date Alicia Kelsey [address] [place] [address] PCP - General Internal Medicine 08/16/21
--- OUTSIDE RECORDS SUMMARY | 2024-11-08 06:36 | XMS_ITS | Referral Summary ---
Author Organization [facility] Address [address] [id number] Care Team Providers Care Label Fuser Tender Name Role Phone LowAlicia Primary Care Provider [phone] Allergies Active Allergy Reactions Criticality Noted Date [...] agreed to stop surveillance of these nodules. Social History Tobacco Use Types Packs/Day Years [...] 04/07/2018 10:50 AM EDT Plan of Treatment Not on file Insurance [facility] [place] [id number] Care Teams Label Fuser Tender Relationship Specialty Start Date End Date Alicia Kelsey [address] [place] [address] PCP - General Internal Medicine 08/16/21
--- OUTSIDE RECORDS SUMMARY | 2024-11-08 06:36 | XMS_ITS ---
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 reaction Drug Allergy Activ e clindamycin Clindamycin Unknown Drug Allergy Act birdie prednisone Prednisone Unknown Drug Allergy Activ e ZyrTEC Unknown Drug Allergy Active sertraline Zoloft Unknown Drug Allergy Active gabapentin Neurontin Unknown Drug Allergy Active REASON FOR VISIT diarrhea Medications Medication SIG (Take, Route, Frequency, Duration) Notes Start Date End Date Status busPIRone HCl 5 MG Oral for 90 Active amLODIPine Besylate 2.5 MG Oral for 90 Active Lisinopril 40 MG Oral for 90 A ctive Omeprazole 20 MG Oral for 90 A ctive Atorvastatin Calcium 40 MG Oral for 90 Active Azelastine HCl 137 MCG/SPRAY Nasal for 90 Active Lactulose 20 GM 1 packet Orally Once a day for 30 day(s) Active Lidocaine 5 % External for 30 Active LORazepam 0.5 MG Oral for 4 Ac tive Dicyclomine HCl 10 MG 1 or 2 capsules Or ally Every 6 hours as needed for abdominal cramps or discomfort for 30 day(s) 06/25/2023 Active Nystatin 185509 UNIT/GM External for 30 Active Simethicone Ultra Strength 180 MG Oral for 5 Active Aspirin Low Dose 81 MG Oral for 90 Active Fluconazole 100 MG Oral for 7 Active Social History Tobacco Use: Social History Observation Description Date Details (start date - stop date) Never Smoker NA - NA Tobacco Use/Smoking Question Answer Notes Patient is a nonsmoker Alcohol Screen Question Answer Notes Did you have a drink containing alcohol in the p ast year? No Points 0 Interpretation Negative Section Notes: Nonsmoker; no sig alcohol Problems Problem Type SNOMED Code ICD Code Onset Dates Problem Status W/U Status Risk Notes Problem 44763403 Irritable bowel syndrome, unspecified type (K58.9) Active confirmed Problem 298705159 Abdominal cramps (R10.9) Active confirmed Problem 440920767 Acute diarrhea (R19.7) Active confirmed Vital Signs Temperature 97.7 degrees Fahrenheit 06/25/20 23 Blood pressure systolic 00 mm Hg 06/25/20 23 Blood pressure diastolic 00 mm Hg 023 Height 72 in 06/25/2023 Weight 228 lbs 06/25/2023 BMI 30.92 kg/m2 06/25/2023 Encounters Encounter Location Date Provider Diagnosis [facility] [address] [place] [address] 06/25/2023 Neil Iraheta Irritable bowel syndrome, unspecified type K58.9 ; Abdominal cramps R10.9 and Acute diarrhea R19.7 Assessments Encounter Date Diagnosis (ICD Code) Assessment Notes Treatment Notes Treatment Clinical Notes Section Notes 06/25/2023 Irritable bowel syndrome, unspecified type (ICD-10 - K58.9) Watch diet, treat stress, and use the new prescription as needed Overall, Mr. Tanner presently appears well. It appears that the acute issue of his diarrhea and abdominal discomfort from over the past several weeks has resolved spontaneously. He never had any definitive evidence of an infectious process such as a fever or bleeding that would imply some type of bacterial infection. This may have been a nonspecific gastroenteritis . His did have a similar, albeit abbreviated, illness as well. Both of their illnesses seem to have been related to the COVID vaccines they each received before the onset of their symptoms. The elevated fecal calprotectin level did make me suspicious for possible underlying inflammatory bowel disease. However, given its current resolution and his good clinical appearance I suspect inflammatory bowel disease is not playing a role here. In regard to his more chronic symptoms we did discuss the diagnosis of irritable bowel syndrome again. I advised him that his stress and anxiety will very much play a role in these symptoms. I have given him a prescription to try dicyclomine on a p.r.n. basis to see if that can give him some transient relief when the situation is arise. We did discuss potential side effects such as blurred vision and urinary retention. I advised him of the need to stop the medication if he has any adverse effects and to advise me of that. If his symptoms remain stable and inactive then I don't think any further workup would be required. However, if his symptoms recur then I would recommend a colonoscopy at some point to definitively exclude any type of underlying inflammatory bowel disease or microscopic colitis. I would also want to check laboratories for celiac disease at that time as well. However at this point, if things remain well, I will see him again on a p.r.n. basis. I did advise him to definitely call me if things worsen again, or if he has any problems or questions I can be of assistance with. Mr. Tanner was comfortable with this plan. Thank you again for allowing me to have participated in Mr. Tanner's care. I shall continue to keep you advised of his progress as needed. Please do not hesitate to contact me if I can be of any further assistance in the future. 06/25/2023 Abdominal cramps (ICD-10 - R10.9) Overall, Mr. Tanner presently appears well. It appears that the acute issue of his diarrhea and abdominal discomfort from over the past several weeks has resolved spontaneously. He never had any definitive evidence of an infectious process such as a fever or bleeding that would imply some type of bacterial infection. This may have been a nonspecific gastroenteritis . His did have a similar, albeit abbreviated, illness as well. Both of their illnesses seem to have been related to the COVID vaccines they each received before the onset of their symptoms. The elevated fecal calprotectin level did make me suspicious for possible underlying inflammatory bowel disease. However, given its current resolution and his good clinical appearance I suspect inflammatory bowel disease is not playing a role here. In regard to his more chronic symptoms we did discuss the diagnosis of irritable bowel syndrome again. I advised him that his stress and anxiety will very much play a role in these symptoms. I have given him a prescription to try dicyclomine on a p.r.n. basis to see if that can give him some transient relief when the situation is arise. We did discuss potential side effects such as blurred vision and urinary retention. I advised him of the need to stop the medication if he has any adverse effects and to advise me of that. If his symptoms remain stable and inactive then I don't think any further workup would be required. However, if his symptoms recur then I would recommend a colonoscopy at some point to definitively exclude any type of underlying inflammatory bowel disease or microscopic colitis. I would also want to check laboratories for celiac disease at that time as well. However at this point, if things remain well, I will see him again on a p.r.n. basis. I did advise him to definitely call me if things worsen again, or if he has any problems or questions I can be of assistance with. Mr. Tanner was comfortable with this plan. Thank you again for allowing me to have participated in Mr. Tanner's care. I shall continue to keep you advised of his progress as needed. Please do not hesitate to contact me if I can be of any further assistance in the future. 06/25/2023 Acute diarrhea (ICD-10 - R19.7) Overall, Mr. Tanner presently appears well. It appears that the acute issue of his diarrhea and abdominal discomfort from over the past several weeks has resolved spontaneously. He never had any definitive evidence of an infectious process such as a fever or bleeding that would imply some type of bacterial infection. This may have been a nonspecific gastroenteritis . His did have a similar, albeit abbreviated, illness as well. Both of their illnesses seem to have been related to the COVID vaccines they each received before the onset of their symptoms. The elevated fecal calprotectin level did make me suspicious for possible underlying inflammatory bowel disease. However, given its current resolution and his good clinical appearance I suspect inflammatory bowel disease is not playing a role here. In regard to his more chronic symptoms we did discuss the diagnosis of irritable bowel syndrome again. I advised him that his stress and anxiety will very much play a role in these symptoms. I have given him a prescription to try dicyclomine on a p.r.n. basis to see if that can give him some transient relief when the situation is arise. We did discuss potential side effects such as blurred vision and urinary retention. I advised him of the need to stop the medication if he has any adverse effects and to advise me of that. If his symptoms remain stable and inactive then I don't think any further workup would be required. However, if his symptoms recur then I would recommend a colonoscopy at some point to definitively exclude any type of underlying inflammatory bowel disease or microscopic colitis. I would also want to check laboratories for celiac disease at that time as well. However at this point, if things remain well, I will see him again on a p.r.n. basis. I did advise him to definitely call me if things worsen again, or if he has any problems or questions I can be of assistance with. Mr. Tanner was comfortable with this plan. Thank you again for allowing me to have participated in Mr. Tanner's care. I shall continue to keep you advised of his progress as needed. Please do not hesitate to contact me if I can be of any further assistance in the future. Plan Of Treatment Medication Medication Name Sig Start Date Stop Date Notes Dicyclomine HCl 10 MG 1 or 2 capsules Or ally Every 6 hours as needed for abdominal cramps or discomfort for 30 day(s) 06/25/2023 Treatment Notes Assessment Notes Irritable bowel syndrome, unspecified ty pe Watch diet, treat stress, and use the new prescription as needed Next Appt Details Follow Up: prn, Reason: Provider Name:Neil Iraheta , 02/01/2025 02:40:00 PM, [address] [place] [address], [place] [address], [place], [address], Progress Notes * GERRI TANNER RDOB:1944 (78 yo M)Acc No.[id number]:06/25/2023 Progress Notes Patient:?GERRI TANNER Provider:?Neil Iraheta MD :1945???Age:78 Y???Sex:Male Tad e:06/25/2023 Address:[address] [place], [place] [id number] Pcp:Alicia Kelsey MD Subjective: * Chief Complaints: * ???Diarrhea * HPI: ???incontinence:? I saw Mr. Tanner in the office today for evaluation of his recent diarrhea, and more chronic issues of abdominal discomfort and irregular bowel movements. He was accompanied by his . ?I last saw Mr. Tanner in June 2021 when he came to the office for evaluation of primarily constipation. At that time I felt he had a definite component of long-standing irritable bowel syndrome. We did review that and I scheduled him for a screening colonoscopy given that he had not had an exam in over 10 years. However, he had to cancel that due to some family issues and did not want to reschedule. ?He does describe a long-standing history of some anxiety and stress- induced abdominal complaints and irregular bowel movements. 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 He also describes that it also seems that this will bother him at family gatherings such as at [facility] and [facility]. This will also precipitate abdominal cramping, gas, and irregular bowel movements. He has not noticed any hematochezia nor melena. ?He did call me in May with a more acute problem of diarrhea. He and his had received the COVID vaccine and both developed some diarrhea. His 's diarrhea resolved within a few days. However, is persisted with associated urgency and abdominal discomfort. I did order some laboratories which revealed a normal CBC, normal sedimentation rate, normal liver profile except for some very minimal elevations, normal chemistries and renal function, normal sedimentation rate, normal lipase, a normal TSH, and negative stool GI panel. His fecal calprotectin level did come back elevated at over 1100. ?I did have him come into the office today based on his previous symptoms and the elevated fecal calprotectin so as to assess whether or not he would need a colonoscopy to exclude inflammatory bowel disease or some other type of colitis. ?However, he reports that since we last spoke and he made this appointment his GI symptoms have greatly resolved in regard to the diarrhea and urgency. He reports that he is no longer having any diarrhea. Again, there's been no sign of bleeding. His appetite has remained good and he denies any nausea, vomiting, nor dysphagia. He denies any preceding history of antibiotic use, travel, nor ill contacts other than his who had a similar, but abbreviated illness, prior to the onset of his diarrhea. ?He denies any known family history of colon cancer nor inflammatory bowel disease. ?Of note, in regard to his stress and anxiety he does describe having seen counselors for that. 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 * Medical History:? * Surgical History:?History of skin cancer surgeries with Basal cell and Squamous cell cancers Cataracts Melanoma on right ear * Hospitalization/Major Diagno stic Procedure:?No Hospitalization History. * Family History:?Father: dece ased.?Mother: .?Maternal aunt: , stomach ulcers.? No known hx of colon cancer. * Social History:?Tobacco Use:?Tobacco Use/Smoking?Patient is a?nonsmoker.?Drugs/Alcohol:?Alcohol Screen?Did you have a drink containing alcohol in the past year??No,?Points?0,?Interpretation?Negative.?Miscellaneous:?Marital status: . 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 ???Nonsmoker; no sig alcohol. * Medications:?TakingLactulose 20 GM Packet 1 packet Orally Once a dayAtorvastatin Calcium 40 MG Tablet Oral amLODIPine Besylate 2.5 MG Tablet Oral busPIRone HCl 5 MG Tablet Oral Lisinopril 40 MG Tablet Oral Omeprazole 20 MG Capsule Delayed Release Oral Aspirin Low Dose 81 MG Tablet Delayed Release Oral Simethicone Ultra Strength 180 MG Capsule Oral Nystatin 119133 UNIT/GM Powder External Fluconazole 100 MG Tablet Oral LORazepam 0.5 MG Tablet Oral Lidocaine 5 % Patch External Azelastine HCl 137 MCG/SPRAY Solution Nasal Medication List reviewed and reconciled with the patientTaking Lactulose 20 GM Packet 1 packet Orally Once a dayTaking Atorvastatin Calcium 40 MG Tablet Oral Taking amLODIPine Besylate 2.5 MG Tablet Oral Taking busPIRone HCl 5 MG Tablet Oral Taking Lisinopril 40 MG Tablet Oral Taking Omeprazole 20 MG Capsule Delayed Release Oral Taking Aspirin Low Dose 81 MG Tablet Delayed Release Oral Taking Simethicone Ultra Strength 180 MG Capsule Oral Taking Nystatin 366726 UNIT/GM Powder External Taking Fluconazole 100 MG Tablet Oral Taking LORazepam 0.5 MG Tablet Oral Taking Lidocaine 5 % Patch External Taking Azelastine HCl 137 MCG/SPRAY Solution Nasal Medication List reviewed and reconciled with the patient * Allergies:?ZoloftNeurontinCl indamycinPenicillin: ? reactionPrednisoneZyrTECyes[Allergies Verified] Objective: * Vitals:?Wt: 228 lbs, Ht: 72 in, BMI:30.92 Index, BP: 00/00 mm Hg, Temp: 97.7. * Examination: ???General Examination: ?GENERAL APPEARANCE:?pleasant, well nourished, well developed, in no acute distress.?EYES:?sclera non-icteric.?ORAL CAVITY:?mucosa moist.?NECK/THYROID:?no cervical lymphadenopathy, neck supple.?SKIN:?nonjaundiced, no spider angiomata.?HEART:?S1, S2 normal.?LUNGS:?clear to auscultation bilaterally.?ABDOMEN:?normal bowel sounds, no guarding or rigidity, no guarding or rigidity, no masses palpable, soft, nontender, nondistended.?EXTREMITIES:?no edema.?NEUROLOGIC:?alert and oriented.? Assessment: * Assessment: 1.?Irritable bowel syndrome, unspecified type - K58.9 (Primary)?2.?Abdominal cramps - R10.9?3.?Acute diarrhea - R19.7? Overall, Mr. Tanner prese ly appears well. It appears that the acute issue of his diarrhea and abdominal discomfort from over the past several weeks has resolved spontaneously. He never had any definitive evidence of an infectious process such as a fever or bleeding that would imply some type of bacterial infection. This may have been a nonspecific gastroenteritis. His did have a similar, albeit abbreviated, illness as well. Both of their illnesses seem to have been related to the COVID vaccines they each received before the onset of their symptoms. The elevated fecal calprotectin level did make me suspicious for possible underlying inflammatory bowel disease. However, given its current resolution and his good clinical appearance I suspect inflammatory bowel disease is not playing a role here. In regard to his more chronic symptoms we did discuss the diagnosis of irritable bowel syndrome again. I advised him that his stress and anxiety will very much play a role in these symptoms. I have given him a prescription to try dicyclomine on a p.r.n. basis to see if that can give him some transient relief when the situation is arise. We did discuss potential side effects such as blurred vision and urinary retention. I advised him of the need to stop the medication if he has any adverse effects and to advise me of that. If his symptoms remain stable and inactive then I don't think any further workup would be required. However, if his symptoms recur then I would recommend a colonoscopy at some point to definitively exclude any type of underlying inflammatory bowel disease or microscopic colitis. I would also want to check laboratories for celiac disease at that time as well. However at this point, if things remain well, I will see him again on a p.r.n. basis. I did advise him to definitely call me if things worsen again, or if he has any problems or questions I can be of assistance with. Mr. Tanner was comfortable with this plan. Thank you again for allowing me to have participated in Mr. Tanner's care. I shall continue to keep you advised of his progress as needed. Please do not hesitate to contact me if I can be of any further assistance in the future. Plan: * Treatment: 2.?Abdominal cramps? Start Dicyclomine HCl Capsule, 10 MG, 1 or 2 capsules, Orally, Every 6 hours as needed for abdominal cramps or discomfort, 30 day(s), 30, Refills 3.?? * Procedure Codes:?1036F TOBAC CO NON-[id number] BP SCR NOT PRFRM REC REASON NOS * Preventive Medicine:? ??Counseling:?Care goal follow-up plan:?Above Normal BMI Follow-up?Giving encouragement to exercise,?BMI management provided?Yes.? * Follow Up:?prn * * Sign off status: Completed true * Provider:?Neil Iraheta MD Date:? 023 Generated for Petros cano/Anmol/Luizsmitting on:?11/08/2024 06:35 AM EDT History and Physical Notes * HPI (History of Present Illness) Category Sub-Category Detail Notes Category Not es incontinence I saw Mr. Tanner in the office today for evaluation of his recent diarrhea, and more chronic issues of abdominal discomfort and irregular bowel movements. He was accompanied by his . I last saw Mr. Tanner in June 2021 when he came to the office for evaluation of primarily constipation. At that time I felt he had a definite component of long-standing irritable bowel syndrome. We did review that and I scheduled him for a screening colonoscopy given that he had not had an exam in over 10 years. However, he had to cancel that due to some family issues and did not want to reschedule. He does describe a long-standing history of some anxiety and stress-induced abdominal complaints and irregular bowel movements. 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 He also describes that it also seems that this will bother him at family gatherings such as at [employer] and [facility]. This will also precipitate abdominal cramping, gas, and irregular bowel movements. He has not noticed any hematochezia nor melena. He did call me in May with a more acute problem of diarrhea. He and his had received the COVID vaccine and both developed some diarrhea. His 's diarrhea resolved within a few days. However, is persisted with associated urgency and abdominal discomfort. I did order some laboratories which revealed a normal CBC, normal sedimentation rate, normal liver profile except for some very minimal elevations, normal chemistries and renal function, normal sedimentation rate, normal lipase, a normal TSH, and negative stool GI panel. His fecal calprotectin level did come back elevated at over 1100. I did have him come into the office today based on his previous symptoms and the elevated fecal calprotectin so as to assess whether or not he would need a colonoscopy to exclude inflammatory bowel disease or some other type of colitis. However, he reports that since we last spoke and he made this appointment his GI symptoms have greatly resolved in regard to the diarrhea and urgency. He reports that he is no longer having any diarrhea. Again, there's been no sign of bleeding. His appetite has remained good and he denies any nausea, vomiting, nor dysphagia. He denies any preceding history of antibiotic use, travel, nor ill contacts other than his who had a similar, but abbreviated illness, prior to the onset of his diarrhea. He denies any known family history of colon cancer nor inflammatory bowel disease. Of note, in regard to his stress and anxiety he does describe having seen counselors for that. Examination Category Sub-Category Detail Notes Category Not es General Examination GENERAL APPEARANCE: pleasant , well nourished, well developed, in no acute distress HEAD: EYES: sclera non-icteric EARS: NOSE: THROAT: NECK/THYROID: no cervical lymphade nopathy, neck supple HEART: S1, S2 normal CHEST: LUNGS: clear to auscultatio n bilaterally ABDOMEN: normal bowel sounds, no guarding or rigidity, no guarding or rigidity, no masses palpable, soft, nontender, nondistended NEUROLOGIC: alert and oriented SKIN: nonjaundiced, no spi lily angiomata EXTREMITIES: no edema PERIPHERAL PULSES: BACK: BREASTS: MUSCULOSKELETAL: MALE GENITOURINARY: LYMPH NODES: RECTAL EXAM: FEMALE GENITOURINARY: ORAL CAVITY: mucosa moist
--- OUTSIDE RECORDS SUMMARY | 2024-11-08 06:36 | XMS_ITS | Clinical Summary ---
Author Organization [facility] ity Address [address] [place] [address] Care Team Providers Care Float Nurse Name Role Phone Unavailable Primary Care Provider Unavailabl e Social History Tobacco Use Types Packs/Day Years Used Date Smoking Tobacco: Never Assessed Sex and Gender Information Value Date Recorded Sex Assigned at Not on file Legal Sex Male 12:01 AM EST Gender Identity Not on file Sexual Orientation Not on file Plan of Treatment Health Maintenance Due Date Last Done Comments DTaP,Tdap,and Td Vaccines (1 - Tdap) 1964 Pneumococcal Vaccine: 50+ Ye ars (1 of 1 - PCV) 1994 Zoster Vaccines (1 of 2) 1994 RSV Immunization Patients 60 + Years Old (1 - 1-dose 75+ series) 2019 COVID-19 Vaccine (2023-2 5 season) 2024 Influenza Vaccine (#1) 2024 HIB Vaccines Aged Out No longer eligi ble based on patient's age to complete this topic HPV Vaccines Aged Out No longer eligi ble based on patient's age to complete this topic Hepatitis A Vaccines Aged Out No long er eligible based on patient's age to complete this topic Hepatitis B Vaccines Aged Out No long er eligible based on patient's age to complete this topic IPV Vaccines Aged Out No longer eligi ble based on patient's age to complete this topic MMR Vaccines Aged Out No longer eligi ble based on patient's age to complete this topic Meningococcal ACWY Vaccine Aged Out N o longer eligible based on patient's age to complete this topic Meningococcal B Vacine Aged Out No lo nger eligible based on patient's age to complete this topic RSV Immunization Patients Un lily 20 months Aged Out No longer eligible b ased on patient's age to complete this topic Varicella Vaccines Aged Out No longer eligible based on patient's age to complete this topic
[2024-11-08 10:26] LABS: MANUAL DIFF FLAG NO
[2024-11-08 10:42] LABS: Basophils Absolute Auto 0.1 X10*3/uL (0.0-0.2); Basophils Percent Auto 1.3 % (0-2); Eosinophils Absolute Auto 0.4 X10*3/uL (0.0-0.4); Eosinophils Percent Auto 4.6 % (0-4); Hematocrit 45.6 % (42.0-52.0); Hemoglobin 15.4 g/dl (14.0-18.0); Imm Gran Abs Auto 0.11 X10*3/uL (0.00-0.03); Imm Gran Pct Auto 1.3 % (0.0-0.4); Lymphocytes Absolute Auto 2.6 X10*3/uL (1.2-4.9); Lymphocytes Percent Auto 30.3 % (20-40); Mean Corpuscular HGB Conc 33.8 g/dl (31.0-36.0); Mean Corpuscular Hemoglobin 30.4 pg (27.0-33.0); Mean Corpuscular Volume 90.1 fL (80.0-98.0); Mean Platelet Volume 9.4 fL (9.4-12.4); Monocytes Absolute Auto 0.8 X10*3/uL (0.1-1.2); Monocytes Percent Auto 9.7 % (2-11); Neutrophils Absolute Auto 4.5 x10*3/uL (2.0-8.3); Neutrophils Percent Auto 52.8 % (45-73); Platelet Count 261 X10*3/uL (160-400); Red Blood Count 5.06 X10*6/uL (4.60-5.80); Red Cell Distribution Width 13.5 % (11.0-16.0); White Blood Count 8.5 X10*3/uL (4.8-10.8)
[2024-11-08 11:19] LABS: Estimated Average Glucose 120 mg/dL; Hemoglobin A1C 161.2681 umol/L; Hemoglobin A1c % 5.8 % (<6.0); Total Hemoglobin (HGBA1C) 4068.6396 umol/L
[2024-11-08 11:27] LABS: Creatinine Urine 144.38 mg/dL; Microalbum/Creatinine Ratio Ur 5.5 ug/mg cr (<30)
[2024-11-08 11:39] LABS: Albumin Level 3.9 g/dL (3.5-5.0); Alkaline Phosphatase 216 U/L (39-117); Anion Gap 11 (12-20); Aspartate Amino Transferase 34 U/L (5-37); Bilirubin Total 0.5 mg/dL (0.0-1.0); Blood Urea Nitrogen 13 mg/dL (9-16); Calcium 9.2 mg/dL (8.4-10.2); Carbon Dioxide 24 mmol/L (22-29); Chloride 110 mmol/L (96-108); Cholesterol 112 mg/dL (<200); Estimated Glomerular Filt Rate > 60; Glucose Fasting 164 mg/dL (60-99); HDL Cholesterol 42 mg/dL (>40); LDL Cholesterol Calculated 24 mg/dL (<100); Sodium 141 mmol/L (135-145); Total Protein 6.8 g/dL (6.5-8.0); Triglycerides 232 mg/dL (<150)
[2024-11-08 12:01] LABS: Alanine Aminotransferase 43 U/L (0-40)
== END 2024-11-08 06:34 | disposition home or self-care (01) ==
LOC: HO.HMGCLDS 06:33
PROVIDERS: PCP Internal Medicine; Visit Provider Internal Medicine
DX: I10 Essential (primary) hypertension (principal); E78.5 Hyperlipidemia, unspecified; R73.9 Hyperglycemia, unspecified
CPT/HCPCS: 36415; 80053; 80061; 82043; 82570; 83036; 85025

== ENCOUNTER 2024-11-14 09:02 | Outpatient (AMB) | payer OTHER, SELFPAY ==
--- NOTE | 2024-11-14 09:12 | MHC.PC.OV ---
Vital Signs 11/14/24 09:18 Height 6 ft Weight 240 lb BMI 32.5 BP 128/80 Blood Pressure Location Rt brachial Position Sitting Respiration 20 Pulse 82 Pulse Source Pulse Oximeter Temp 98.2 F Temp Source Oral Pulse Oximetry (%) 97 Oxygen Delivery Method Room Air Intake Visit Reasons: 4 months f/up Intake Note: Pt is here today for 4 months follow up visit. Allergies gabapentin [GABAPENTIN] Allergy (Intermediate, Verified 11/14/24 09:20) DARK THOUGHTS, suicidal lactose [LACTOSE] Allergy (Intermediate, Verified 11/14/24 09:20) PAIN IN STOMACH, CONSTIPATION cetirizine [From Zyrtec] Allergy (Unknown, Verified 11/14/24 09:20) Nausea, Emotional clindamycin [CLINDAMYCIN] Allergy (Unknown, Verified 11/14/24 09:20) HIVES penicillin V Allergy (Unknown, Verified 11/14/24 09:20) hives Penicillins [PENICILLINS] Allergy (Unknown, Verified 11/14/24 09:20) Hives prednisone Allergy (Unknown, Verified 11/14/24 09:20) nightmares sertraline [From ZOLOFT] Adverse Reaction (Severe, Verified 11/14/24 09:20) SI Medication List - Last Reconciled 11/14/24 by Alicia Kelsey MD amlodipine 5 mg PO QPM aspirin 81 mg PO DAILY atorvastatin 40 mg PO BEDTIME azelastine intranasal buspirone 10 mg PO TID cyclobenzaprine 5 mg PO TID PRN finasteride 5 mg PO DAILY lancets (J-KanTouch Delica Plus Lancet) Test blood sugar once a day lidocaine 5% (Lidoderm) 1 patch topical DAILY lidocaine 5% (Lidoderm) 2 patches topical DAILY lisinopril 40 mg PO DAILY meclizine 25 mg PO BID PRN nystatin 1 appl topical BID omeprazole 20 mg PO DAILY@0630 OneTouch Ultra Test (blood sugar diagnostic) 1 qd NS OneTouch Ultra2 Meter (blood-glucose meter) As directed NS triamcinolone acetonide 0.1% 1 appl topical DAILY Tobacco use date assessed: 11/14/24 Fall risk assessment: 2 + Falls in past year Last assessed Fall Risk: 11/14/24 Dental Screening Dental Screen Date: 11/14/24 Did you have a dental visit in the last 12 months?: Yes Did you have a dental problem in the last 6 months where you did not have access to dental care?: No Was dental information given to patient?: Patient has dentist HPI 4 months f/up HPI Details Pt presents for f/u HTN, hyperlipid, chronic anxiety, stable on meds PFSH Medical History Cerebral microvascular disease Hematuria Epistaxis Lung mass Tobacco dependence Cataract Constipation Hyperlipidemia Anxiety CVA (cerebral vascular accident) Seasonal allergies JOSEF on CPAP Melanoma Paget's disease GERD (gastroesophageal reflux disease) Neuralgia HTN (hypertension) Surgical History Hx of cataract surgery No pertinent past surgical history Family History Father Unknown family medical history Mother Unknown family medical history Son No problems noted. Daughter No problems noted. Daughter No problems noted. Daughter No problems noted. Social History Household Members: None Housing: House Alcohol intake: never Patient Tobacco Use Status: Never used Tobacco e-Cigarette/Vaping Use: Never Used service: No Current occupational status: retired Cognitive needs: No Hearing needs: Yes Vision needs: Yes Questionnaire PHQ-9 Over the last 2 weeks, how often have you been bothered by any of the following problems? 1. Little interest or pleasure in doing things: several days 2. Feeling down, depressed, or hopeless: several days 3. Trouble falling or staying asleep, or sleeping too much: not at all 4. Feeling tired or having little energy: several days 5. Poor appetite or overeating: not at all 6. Feeling bad about yourself - or that you are a failure or have let yourself or your family down: not at all 7. Trouble concentrating on things, such as reading the newspaper or watching television: not at all 8. Moving or speaking so slowly that other people could have noticed. Or the opposite - being so fidgety or restless that you have been moving around a lot more than usual: not at all 9. Thoughts that you would be better off or of hurting yourself in some way: not at all Total score: 3 Depression Screening Interpretation: Negative Depression Screening Done: Yes 95404 - PHQ-9 Billing: Yes Source: Developed by Drs. Neil Dominguez, Trang Butler, Armando Parr and colleagues, with an educational unruly from [employer]. Thrive Questionnaire Date Thrive assessed: 11/14/24 I am a: Patient What is your living situation today?: I have a steady place to live Within the past 12 months, did the food you bought not last and you didn't have the money to get more?: Never true Within the past 12 months, did you worry whether your food would run out before you got money to buy more?: Never true Do you have trouble paying for medicines?: No Do you have trouble getting transportation to medical appointments?: No Do you have trouble paying your heating and electricity bill?: No Do you have trouble taking care of your child, family member or friend?: I choose not to answer this question Do you have trouble with day-to-day activities such as bathing, preparing meals, shopping, managing finances, etc.?: No Are you currently unemployed and looking for a job?: No Are you interested in more education?: Yes Please select the resources that you would like help with: None Currently or been in a relationship where the following occur: No concerns reported THRIVE Score: 0 AUDIT C Alcohol Use Questionnaire (AUDIT-C) 1. How often do you have a drink containing alcohol?: Never 3. How often do you have six or more drinks on one occasion?: Never Total Score: 0 ABBY-7 AMB Questionnaire ABBY-7 Date ABBY - 7 assessed: 11/14/24 Feeling nervous, anxious, or on edge: 1 = Several days Not being able to stop or control worryin = Not at all Worrying too much about different things: 0 = Not at all Trouble relaxin = Several days Being so restless that it is hard to sit still: 0 = Not at all Becoming easily annoyed or irritable: 0 = Not at all Feeling afraid as if something awful might happen: 0 = Not at all Total ABBY-7 score (0-4 normal; 5-9 mild; 10-14 moderate; 15-21 severe): 2 Source: Developed by Trang MeadW. Luke, Armando Parr and colleagues, with an educational unruly from [employer]. ABBY-7 Assessment Billing ABBY-7 Assessment Tool: ABBY-7 Assessment 34934 Review of Systems Const All systems reviewed & are unremarkable except as noted in HPI and below Eyes Reports no additional complaints ENT Reports no additional complaints Card Reports no additional complaints Resp Reports no additional complaints GI Reports no additional complaints Reports no additional complaints Physical exam (Primary Care) Vital Signs: Last Vital Signs Temp 98.2 F 11/14/24 09:18 Pulse 82 11/14/24 09:18 Resp 20 11/14/24 09:18 BP 128/80 11/14/24 09:18 Pulse Ox 97 11/14/24 09:18 Oxygen Delivery Method Room Air 11/14/24 09:18 BMI result Body Mass Index 32.5 Tobacco/Smoking Status: Tobacco use Status Tobacco use date assessed 11/14/24 11/14/24 09:25 Patient Tobacco Use Status Never used Tobacco 11/14/24 09:12 e-Cigarette/Vaping Use Never Used 11/14/24 09:12 PHQ-9: PHQ-9 Score PHQ-9: Total score 3 11/14/24 09:57 Depression Screening Interpretation: Negative Thrive Assessment: Date of Thrive Assessment Date Thrive assessed 11/14/24 11/14/24 09:25 Currently or been in a relationship where the following occur: No concerns reported Const General: no acute distress HENMT Head: Yes normal to inspection Mouth: Normal oral and palatal mucosa present Eyes General: appearance normal, both eyes and all related structures Neck Neck: Yes no lymphadenopathy and Yes supple Resp Effort & Inspection: normal respiratory effort Auscultation: clear to auscultation bilaterally Cardio Rhythm: regular rhythm Heart sounds: S1 normal heart sound present and S2 normal heart sound present GI Inspection: Yes normal to inspection Palpation (GI): Soft to palpation Percussion: Yes normal to percussion Auscultation: normal bowel sounds Coding Level of Care Code Est Pt Level 4 (38691) Complex EM visit Add On G2211 Diagnoses HTN (hypertension) I10 Hyperglycemia R73.9 Hyperlipidemia E78.5 Additional Codes ABBY-7 Assessment Billing - ABBY-7 Assessment Tool: ABBY-7 Assessment 50051 ([id number]) PHQ-9 - 07370 - PHQ-9 Billing: Yes ([id number]) Assessment & Plan Assessment & Plan (1) HTN (hypertension): Comment: 20 years Code(s): I10 - Essential (primary) hypertension Category: Medical Plan: cont meds (2) Hyperglycemia: Code(s): R73.9 - Hyperglycemia, unspecified Category: Medical Plan: ADA diet, exercise, weight loss, A1C is 5.9, f/u 6 months (3) Hyperlipidemia: Code(s): E78.5 - Hyperlipidemia, unspecified Category: Medical Plan: cont statin Orders: Orders Complete Blood Count Auto Diff 4 Months E78.5 - Hyperlipidemia, unspecified, I10 - Essential (primary) hypertension, R73.9 - Hyperglycemia, unspecified Lipid Panel 4 Months E78.5 - Hyperlipidemia, unspecified, I10 - Essential (primary) hypertension, R73.9 - Hyperglycemia, unspecified Vitamin D 25-OH Total 4 Months E78.5 - Hyperlipidemia, unspecified, I10 - Essential (primary) hypertension, R73.9 - Hyperglycemia, unspecified Hemoglobin A1c 4 Months E78.5 - Hyperlipidemia, unspecified, I10 - Essential (primary) hypertension, R73.9 - Hyperglycemia, unspecified Comprehensive [place]. Panel Fast 4 Months E78.5 - Hyperlipidemia, unspecified, I10 - Essential (primary) hypertension, R73.9 - Hyperglycemia, unspecified Microalbumin, Random (w Creat) 4 Months E78.5 - Hyperlipidemia, unspecified, I10 - Essential (primary) hypertension, R73.9 - Hyperglycemia, unspecified
[2024-11-14 09:18] VITALS: BP 128/80; PULSE 82; RESP 20; TEMP 36.8; O2SAT 97; BMI 32.5
--- OUTSIDE RECORDS SUMMARY | 2024-11-14 09:59 | XMS_ITS ---
Author Organization [facility] Address [address] [place] [address] Care Team Providers Care Analysis Internship Name Role Phone Alicia Kelsey MD Primary Care Provider Neil Hogan [phone] REASON FOR VISIT gas/constipation Encounters Encounter Location Date Provider Diagnosis [facility] [address] [facility] [place] [address] 10/07/2024 Neil Iraheta Plan Of Treatment Next Appt Details Provider Name:Neil Iraheta , 02/01/2025 02:40:00 PM, [address], [address], [place], [address], Progress Notes * GERRI GARCIA RDOB:1944 (79 yo M)Acc No.[id number]:10/07/2024 Patient:?GERRI GARCIA :1945???Age:79 Y???Sex:Male Address:[address] [place] [address], [address] * true * Date:? Generated for Printi ng/Mauriciog/eTransmitting on:?11/14/2024 09:59 AM EDT
--- OUTSIDE RECORDS SUMMARY | 2024-11-14 10:00 | XMS_ITS | Referral Summary ---
Author Organization [facility] Address [address] [id number] Care Team Providers Care Section Supervisor Name Role Phone LowAlicia Primary Care Provider [phone] Allergies Active Allergy Reactions Criticality Noted Date [...] Plan of Treatment Not on file Insurance [facility] [place] [id number] Care Teams Section Supervisor Relationship Specialty Start Date End Date Alicia Kelsey [address] [place] [address] PCP - General Internal Medicine 08/16/21
--- OUTSIDE RECORDS SUMMARY | 2024-11-14 10:00 | XMS_ITS | Patient Health Record ---
Author Organization [facility] Address [address] [place] [address] Care Team Providers Care Traffic Maintenance Supervisor Name Role Phone Alicia Kelsey MD Primary Care Provider Neil Hogan Unavailable [phone] Allergies Allergen (clinical drug ingredient) Drug/Non Drug Allergy documented on EMR Reaction Allergy Type Onset Date Status clindamycin Clindamycin Unknown Drug Allergy Act birdie prednisone Prednisone Unknown Drug Allergy Activ e ZyrTEC Unknown Drug Allergy Active sertraline Zoloft Unknown Drug Allergy Active gabapentin Neurontin Unknown Drug Allergy Active Penicillin ? reaction Drug Allergy Activ e Reason For Referral No Information Medications Medication SIG (Take, Route, Frequency, Duration) Notes Start Date End Date Status Lisinopril 40 MG Oral for 90 A ctive Dicyclomine HCl 10 MG TAKE 1 OR 2 CAPSUL ES ORALLY EVERY 6 HOURS NEEDED FOR ABDOMINAL CRAMPS OR DISCOMFORT for 90 Active Nystatin 901283 UNIT/GM External for 30 Active Simethicone Ultra [...] Problem Status W/U Status Risk Notes Problem 992812469 Encounter for screening for malignant neoplasm of colon (Z12.11) Active confirmed Problem 66207689 Constipation, unspecified constipation type (K59.00) Active confirmed Problem 266521202 Abdominal cramps (R10.9) Active confirmed Problem 43861829 Irritable bowel syndrome, unspecified type (K58.9) Active confirmed Problem 103539330 Irritable bowel syndrome with constipation (K58.1) Active confirmed Problem 11781041 Diarrhea of presumed infectious origin (R19.7) Active confirmed Problem 228973976 Acute diarrhea (R19.7) Active confirmed Encounters Encounter Location Date Provider Diagnosis [facility] [address] [place] [address] 10/07/2024 Neil Myrtle Plan Of Treatment Pending Test Test Name Order Date STOOL WBC 06/05/2023 C DIFFICILE RFLX PCR 06/05/2023 Future Test Test Name Order Date COLONOSCOPY 06/13/2021 Next Appt Details Provider Name:Neil Inman Myrtle , 02/01/2025 02:40:00 PM, [address], [address], [place], [address], Insurance Providers Payer Name Payer Address Payer Phone Subscriber Number Group Number Insured Name Patient Relationship to Insured Coverage Start Date Coverage End Date [facility] [address] [place] [address] [id number] GERRI WEBB Self - patient is the insured Medical (General) History Medical History History ICD Code Stroke Dec, 2019-no deficit Seasonal allergies Hypertension 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
--- OUTSIDE RECORDS SUMMARY | 2024-11-14 10:00 | XMS_ITS | Patient Health Record ---
Author Organization 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) Active confirmed Problem 09863406 Essential hypertension (I10) Active confirmed Problem 381479176 Gastroesophageal reflux disease, esophagitis presence not specified (K21.9) Active confirmed Problem 592461818 Obesity (BMI 30-39.9) (E66.9) Active confirmed Problem 08759158 Aerophagia (F45.8) Active confirmed Problem 3203733 Post herpetic neuralgia (B02.29) Active confirmed Plan Of Treatment No Information Insurance Providers Payer Name Payer Address Payer Phone Subscriber Number Group Number Insured Name Patient Relationship to Insured Coverage Start Date Coverage End Date [facility] [address] [place] [address] [id number] Gabo Steven Self - patient is the [...]
--- OUTSIDE RECORDS SUMMARY | 2024-11-14 10:00 | XMS_ITS ---
Author Organization [facility] Address [address] [place] [address] Care Team Providers Care Lan Analyst Name Role Phone Alicia Kelsey MD Primary Care Provider Neil Hogan Unavailable [phone] Allergies Allergen (clinical drug ingredient) Drug/Non Drug Allergy documented on EMR Reaction Allergy Type Onset Date Status clindamycin Clindamycin Unknown Drug Allergy Act birdie prednisone Prednisone Unknown Drug Allergy Activ e ZyrTEC Unknown Drug Allergy Active sertraline Zoloft Unknown Drug Allergy Active gabapentin Neurontin Unknown Drug Allergy Active Penicillin ? reaction Drug Allergy Activ e REASON FOR VISIT diarrhea Medications Medication SIG [...] discomfort for 30 day(s) 06/25/2023 Active Nystatin 128705 UNIT/GM External for 30 Active Simethicone Ultra [...] Problem Status W/U Status Risk Notes Problem 72925949 Irritable bowel syndrome, unspecified type (K58.9) Active confirmed Problem 282193018 Abdominal cramps (R10.9) Active confirmed Problem 558106873 Acute diarrhea (R19.7) Active confirmed Vital Signs Temperature 97.7 degrees Fahrenheit 06/25/20 23 Blood pressure systolic 00 mm Hg 06/25/20 23 Blood pressure diastolic 00 mm Hg 023 Height 72 in 06/25/2023 Weight 228 lbs 06/25/2023 BMI 30.92 kg/m2 06/25/2023 Encounters Encounter Location Date Provider Diagnosis [facility] [address] [place] [address] 06/25/2023 Neil Iraheta Irritable bowel syndrome, unspecified [...] Provider Name:Neil Iraheta , 02/01/2025 02:40:00 PM, [address] [place] [address], [address] [address], [place], [address], Progress Notes * GERRI TANNER RDOB:1944 (78 yo M)Acc No.[id number]:06/25/2023 Progress Notes Patient:?GERRI TANNER Provider:?Neil Iraheta MD :1945???Age:78 Y???Sex:Male Tad e:06/25/2023 Address:[address] [place], [place] [address] Pcp:Alicia Kelsey MD Subjective: * Chief Complaints: [...] playing a major role as his 's processing spec. He also describes that it also seems that this will bother him at family gatherings such as at [facility] and [facility]. This will also precipitate abdominal cramping, [...] stress in relation to being his 's processing spec for medical and daily needs.? * Medical [...] status: . 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 ???Nonsmoker; no sig alcohol. * Medications:?TakingLactulose 20 GM Packet 1 packet Orally Once a dayAtorvastatin Calcium 40 MG Tablet Oral amLODIPine Besylate 2.5 MG Tablet Oral busPIRone HCl 5 MG Tablet Oral Lisinopril 40 MG Tablet Oral Omeprazole 20 MG Capsule Delayed Release Oral Aspirin Low Dose 81 MG Tablet Delayed Release Oral Simethicone Ultra Strength 180 MG Capsule Oral Nystatin 443151 UNIT/GM Powder External Fluconazole 100 MG Tablet [...] Strength 180 MG Capsule Oral Taking Nystatin 009067 UNIT/GM Powder External Taking Fluconazole 100 MG [...] Refills 3.?? * Procedure Codes:?1036F TOBAC CO NON-[id number] BP SCR NOT PRFRM REC REASON NOS * Preventive Medicine:? ??Counseling:?Care goal follow-up plan:?Above Normal BMI Follow-up?Giving encouragement to exercise,?BMI management provided?Yes.? * Follow Up:?prn * * Sign off status: Completed true * Provider:?Neil Iraheta MD Date:? 023 Generated for Petros cano/Anmol/Luizsmitting on:?11/14/2024 09:59 AM EDT History and Physical Notes * [...] playing a major role as his 's processing spec. He also describes that it also seems that this will bother him at family gatherings such as at [employer] and [facility]. This will also precipitate abdominal cramping, [...]
--- OUTSIDE RECORDS SUMMARY | 2024-11-14 10:00 | XMS_ITS | Clinical Summary ---
Author Organization [facility] Address [address] [id number] Care Team Providers Care Spinner Iron Name Role Phone TalikarlaAlicia Primary Care Provider [phone] Allergies Active Allergy Reactions Criticality Noted Date [...] - 1-dose 75+ series) 2019 COVID-19 Vaccine ( - season) 2024 05/08/2022, 11/11/2021, 05/19/2021, Additional history exists Alcohol/Substance Use Screening 08/10/2024 Depression Screening and Follow-Up 08/10/2024 Health Care Proxy Review 08/10/2024 Social Drivers of Health Annual Screening 08/10/2024 Influenza Vaccine (Season Ended) 2025 04/23/2022, 04/17/2021, 05/10/2020, Additional history exists Zoster Vaccines Completed 06/18/2019, 03/04/2019 Hepatitis B Vaccines Aged Out No long er eligible based on patient's age to complete this topic Insurance [employer] Care Teams Spinner Iron Relationship Specialty Start Date End Date Alicia Kelsey [address] [place] [address] PCP - General Internal Medicine 08/16/21
--- OUTSIDE RECORDS SUMMARY | 2024-11-14 10:00 | XMS_ITS | Data Portability ---
Author Organization [place] - [facility], Allergy Address [address] [address] Care Team Providers Care Videotape Operator Name Role Phone EZIO MCDONALD Primary Care [...] also consider cool-mist humidifier. Follow-up as needed. [email or web address] Not available 10/26/2024 09:05:00 Plan of Treatment [...] view 2023 024 [email or web address] [facility], [address] [place] [address], [address], 05/18/2024 14:07:44 Medication Orders mupirocin 2 % topical ointment 2024 025 [facility] #[id number], [address] [place], [address], 10/26/2024 09:05:29 Patient TargetsNo targets recorded. Patient InstructionsNo instructions recorded. Reason for Referral None Reported. Results Created Date Observation Date Name Description Value Unit Range Abnormal Flag Note LastModifiedBy Organization Detail LastModifiedTime 05/18/20 24 XR, sinus es, paran flores, 3 or more view No observ ation record ed. [email or web address] [facility] Of [address], [address], 05/18/2024 14:04:56 Result Notes None recorded. Problems Name Problem SNOMED Code Status Onset Date Resolution Date Notes Provider Name and Address Organization Details Recorded Time Nasal congestio n 40385346 Active 2016 Nasal congestion ; Note: Date Diagnosed: 11/05/2016 2:50 PM (R09.81) Not Available [facility] 4 02:42:05 Sensorine ural hearing loss of bilateral ears 545216997 Active 2016 Sensorineu ral HL, bilateral; Note: Date Diagnosed: 02/20/2015 9:53 AM (389.18) ; Start Date : 02/20/2015 Sensorine ural hearing loss, bilateral; Note: Date Diagnosed: 12/02/2016 2:25 PM (H90.3) Not Available [facility] 4 02:42:07 Disorder of nasal sinus 4488617 Active 2016 Other specified disorders of nose and nasal sinuses; Note: Date Diagnosed: 05/19/2017 12:46 PM (J34.89) Not Available [facility] 4 02:42:02 Disorder of the nose 54535785 Active 2016 Other specified disorders of nose and nasal sinuses; Note: Date Diagnosed: 05/19/2017 12:46 PM (J34.89) Not Available [facility] 4 02:42:02 Gastroeso phageal reflux disease without esophagit is 977874245 Active 2015 Gastro-eso phageal reflux disease without esophagiti s; Condition: improved N ote: Date Diagnosed: 09/10/2015 9:47 AM (K21.9) Not Available [facility] 4 02:42:12 Chronic rhinitis 79017718 Active 2015 Chronic rhinitis; Note: Date Diagnosed: 09/10/2015 9:27 AM (J31.0) Not Available [facility] 4 02:42:03 Benign paroxysma l positiona l vertigo 842163601 Active 2015 Benign paroxysmal vertigo, right ear; Note: Date Diagnosed: 09/10/2015 9:27 AM (H81.11) Not Available [facility] 4 02:42:08 Atypical facial pain 36076628 Active 2016 Atypical facial pain; Note: Date Diagnosed: 11/05/2016 2:50 PM (G50.1) Not Available [facility] 4 02:42:01 [place] edness 101894130 Active 2023 KAVON HERNANDEZ MD [address] [facility],[place] [address], [place], [address] , [place] - [facility] 4 14:03:53 Dizziness 201202250 Active 2023 CHEN TURCIOS PA-C [address] [place] [address],[place] [address], [place], [address] , [place] [facility] 4 15:45:12 Ulcerativ e rhinitis 91369799 Active 2024 ESPERANZA CASTLE PA-C [address] [place] [address],[place] [address], [place], [address] , [place] [facility] 5 09:05:17 Problem Notes None recorded. Procedures Surgical History None recorded. Imaging Results Imaging Date Name Status LastModified by [facility] Details LastModified Time 05/18/2024 XR, sinuses, paranasal, 3 or more view completed [email or web address] [facility] Of [address], [place], [address], 05/18/2024 14:04:56 Procedure Notes None recorded. Medical Equipment None Reported. Allergies Allergen ID Allergen Name Allergen Category Reaction Reaction Severity Criticality Documentation Date Start Date Code Code System Note Provider Name and Address Organization Details Recorded Time 30320 gabapenti n medicatio n other Not available Not available 12/22/2023 07741 RxNorm React ion: unkno wn, unspe cifie d;; Not Available [facility] 4 01:02:20 72922 cetirizin e hydrochlo ride medicatio n other Not available Not available 12/22/2023 36266 0 RxNorm React ion: unkno wn, unspe cifie d;; Not Available [facility] 4 01:02:31 54178 sertralin e hydrochlo ride medicatio n other Not available Not available 12/22/2023 49324 7 RxNorm React ion: unkno wn, unspe cifie d;; Not Available [facility] 4 01:02:32 Medications Name Sig Start Date Stop Date Status Note LastModified by Organization Details LastModified Time Prescript ion - Prior Authoriza tion Request active Script Copy/Josephine or Auth^Scr ipt Copy/Josephine or Auth_ [id number] Not Available Not Available Not Available celecoxib [...] elayed release 09/27 completed Medicati on ID: [id number] D uration Value: 30 Brand Name: omeprazo [...] mg tablet 01/10 completed Medicati on ID: [id number] D uration Value: 10 Brand Name: levoflox [...] spray,janet pension 01/10 completed Medicati on ID: [id number] D uration Value: 30 Brand Name: fluticas [...] both nostrils 01/10 completed Medicati on ID: [id number] P humphrey d By Name: ROME Merlos [...] drops,janet penon 01/10 completed Medicati on ID: [id number] D uration Value: 7 Brand Name: tobramyc [...] e Hcl 01/10 completed Medicati on ID: [id number] D uration Value: 90 Brand Name: ranitidi ne hcl Send Method: E-Prescr ibed Sub s Allowed: subs OK Speci al Instruct ion: TAKE 1 TABLET BY MOUTH EVERY DAY AT BEDTIME Medicati onGeneri cName: ranitidi ne hcl Not Available Not Available Not Available omeprazol e 20 mg tablet,de layed release 10/26 completed Medicati on ID: [id number] P uhmphrey d By Name: ROME Merlos nd Name: [...] Updated DateTime 10/26/2024 182.88 cm 32.5 kg/m2 436275.17 g Varsha Doe [facility] 10/26/2024 08:50:33 Date Recorded Body height Body mass index (BMI) Body weight Provider Name and Address Organization Details Last Updated DateTime 05/18/2024 182.88 cm 32.7 kg/m2 618780.76 g Leonel Almonte [facility] 05/18/2024 13:14:48 Social History None recorded. Functional [...] Disorder N Anesthesia Complications N Heart Attack (OK) N Other Skin Condition N Diabetes N Rhinitis Y Bleeding Disorder N Food Allergy Y Arthritis Y Hearing Loss Y Hyperlipidemia N Cancer N Stroke Y Dementia N Nasal polyps Y Asthma N Sleep Disorder N GERD/Reflux Y High Cholesterol N Liver Disease N Headaches Y Fibromyalgia N Hypertension Y Speech Delay N Kidney Disease N Past Encounters Encounter ID Performer Location Encounter Start Date Encounter Closed Date Diagnosis/Indication Diagnosis SNOMED-CT Code Diagnosis ICD10 Code Diagnosis Note KAVON HERNANDEZ MD [facility] [address] [address] 05/18/2024 12:51:34 05/18/2024 14:07:44 Nasal congestion 46833449 R09.81 Lightheadedness 06359289 8 R42 Dizziness 264446400 R42 [id number] KAVON HERNANDEZ MD [facility] [address] [address] 10/26/2024 08:40:31 10/26/2024 09:01:21 Chronic rhinitis 65268492 J31.0 Ulcerative rhinitis 3666 9007 J34.81 Health Concerns Section Related Observation LastModified by Organization Detai ls LastModified Time None Recorded Concern Status LastModified by Organization Details LastModified Time None Recorded Advance Directives Directive None Recorded Payers Encounter Date Sequence Insurance Name Policy Number Policy Ross Covered Member ID Ross Member ID Guarantor Name 05/18/2024 1 [facility] INDEMNITY PLAN (PPO) [id number] Gabo Shannon Ciro [id number] Gabo Tanner 10/26/2024 1 [facility] INDEMNITY PLAN (PPO) [id number] Gabo Shannon PappasCiro [id number] Gabo Tanner Notes Date Note Type Note [...] in the past. KAVON NICHOLE MD [address] [facility],[address], [address], [facility] 05/19/2024 08:44:39 10/26/2024 text/html 79-year-old male presents [...] in the nose. KAVON NICHOLE MD [address] [facility],[place] [address], [place], [address], [facility] - [facility] 10/26/2024 12:06:48
--- OUTSIDE RECORDS SUMMARY | 2024-11-14 10:00 | XMS_ITS | Clinical Summary ---
Author Organization [facility] ity Address [address] [place] [address] Care Team Providers Care Refrigerator Mover Name Role Phone Unavailable Primary Care Provider [...] Vaccines (1 of 2) 1994 RSV Immunization Adult Patie nts (1 - 1-dose 75+ series) 2019 COVID-19 [...]
--- OUTSIDE RECORDS SUMMARY | 2024-11-14 10:00 | XMS_ITS ---
Author Organization [facility] Address [address] [place] [address] Care Team Providers Care Commercial Subcontractor Name Role Phone Alicia Kelsey MD Primary Care Provider Neil Hogan [phone] REASON FOR VISIT stool tests Encounters Encounter Location Date Provider Diagnosis [facility] [address] [facility] [address] [place] [address] 06/25/2023 Neil Iraheta Plan Of Treatment Next Appt Details Provider Name:Neil rIaheta , 02/01/2025 02:40:00 PM, [address], [address], [place], [address], Progress Notes * GERRI GARCIA RDOB:1944 (78 yo M)Acc No.[id number]:06/25/2023 Patient:?GERRI GARCIA :1945???Age:78 Y???Sex:Male Address:[address] [place] [address], [address] * true * Date:? Generated for Printi ng/Mauriciog/eTransmitting on:?11/14/2024 10:00 AM EDT
== END 2024-11-14 09:52 | disposition home or self-care (01) ==
LOC: HO.HMCC 09:02
PROVIDERS: PCP Internal Medicine; Visit Provider Internal Medicine
DX: I10 Essential (primary) hypertension (principal); R73.9 Hyperglycemia, unspecified; E78.5 Hyperlipidemia, unspecified

== ENCOUNTER → 2024-11-14 09:02 | Outpatient (BNVA) | payer OTHER, SELFPAY | PROVIDERS: PCP Internal Medicine; Visit Provider Internal Medicine | DX: I10 Essential (primary) hypertension (principal); R73.9 Hyperglycemia, unspecified; E78.5 Hyperlipidemia, unspecified; Z79.899 Other long term (current) drug therapy | CPT/HCPCS: 96127 ==

== ENCOUNTER 2024-11-23 19:41 | Emergency (ER) | payer OTHER, SELFPAY ==
--- NOTE | ~2024-11-23 | CT_ITS ---
CLINICAL HISTORY: Left post neck pain and MARTINEZ, hypertension, unsteady CT angiography head and neck with contrast. 3D Postprocessing. Comparison: CT/SR - CT HEAD/BRAIN WO IV CON - 11/23/24 20:14 EDT Findings: Aortic arch and cervical great vessels are patent with no aneurysm, dissection, hemodynamically significant stenoses, or occlusion. Dominant right vertebral artery. Atherosclerosis at both carotid bifurcations without hemodynamically significant stenosis. Intracranial arteries are patent. No aneurysm, dissection, hemodynamically significant stenoses, or occlusion. origin of both posterior cerebral arteries. No abnormal intracranial enhancement. 3.3 cm right thyroid lobe nodule. 9 mm right parotid nodule. Lung apices clear. Degenerative changes of the spine. IMPRESSION: Patent head and neck CTA. 3.3 cm right thyroid lobe nodule. Recommend nonemergent thyroid ultrasound for further evaluation. This document has been electronically signed by: Maciel Jo MD on 11/23/2024 22:56:50
--- NOTE | ~2024-11-23 | CT_ITS ---
CLINICAL HISTORY: head pressure, HTN CT head without contrast Comparison: CT/REG/SR - CT HEAD/BRAIN WO IV CON - 11/01/22 16:56 EDT Findings: No intra-axial mass, midline shift, hydrocephalus, or acute hemorrhage. Diffuse volume loss. Periventricular and subcortical white matter hypoattenuation likely chronic small-vessel ischemic changes. Intracranial atherosclerosis. Mucous retention cyst in the right maxillary sinus. No acute findings in the orbits. Lipoma in the right posterior scalp. There is no acute fracture. IMPRESSION: 1. No acute intracranial findings. This document has been electronically signed by: Maciel Jo MD on 11/23/2024 21:40:07
[2024-11-23 19:56] VITALS: BP 173/108; PULSE 100; RESP 18; TEMP 37; O2SAT 98; BMI 32.5
--- NOTE | 2024-11-23 19:57 | ED.GENADULT ---
HPI - General Adult General Chief complaint: General Medical Stated complaint: high bp 189/105 Time Seen by Provider: 11/23/24 21:39 History of Present Illness ED Provider: Cholo BAGLEY narrative: The patient is an 79-year-old male who lives at home by himself. He was preparing himself dinner. He was sitting at the kitchen table when he developed an abrupt headache at the back of his head and his neck. This is more in the left side in the right. He has no history of similar symptoms. He says the headache was very uncomfortable. He checked his blood pressure and it was elevated compared to his usual. He was concerned about the headache and the hypertension and had his family bring him to the hospital. Related Data Home Medications ?Medication ?Instructions ?Recorded ?Confirmed azelastine 137 mcg (0.1 %) nasal intranasal 10/30/23 11/14/24 spray amlodipine 5 mg tablet 5 mg PO QPM 07/12/24 11/14/24 Previous Rx's ?Medication ?Instructions ?Recorded meclizine 25 mg tablet 25 mg PO BID PRN dizziness #30 tabs 12/15/22 nystatin 100,000 unit/gram topical 1 appl topical BID #60 grams 02/20/23 powder lidocaine 5 % topical patch 2 patch topical DAILY #60 ea 01/26/24 (Lidoderm) aspirin 81 mg tablet,delayed 81 mg PO DAILY #90 tabs 06/12/24 release OneTouch Ultra Test (blood sugar #100 ea 07/12/24 diagnostic) OneTouch Ultra2 Meter #1 ea 07/12/24 (blood-glucose meter) atorvastatin 40 mg tablet 40 mg PO BEDTIME #90 tabs 07/12/24 buspirone 10 mg tablet 10 mg PO TID #270 tabs 07/12/24 finasteride 5 mg tablet 5 mg PO DAILY #90 tabs 07/12/24 lisinopril 40 mg tablet 40 mg PO DAILY #90 tabs 07/12/24 omeprazole 20 mg capsule,delayed 20 mg PO DAILY@0630 #90 caps 07/12/24 release triamcinolone acetonide 0.1 % 1 appl topical DAILY #80 grams 07/12/24 topical cream lancets 33 gauge (OneTouch Delica #100 ea 07/15/24 Plus Lancet) cyclobenzaprine 5 mg tablet 5 mg PO TID PRN muscle spasm #9 08/29/24 tabs lidocaine 5 % topical patch 1 patch topical DAILY #15 ea 08/29/24 (Lidoderm) Allergies Allergy/AdvReac Type Severity Reaction Status Date / Time gabapentin [GABAPENTIN] Allergy Intermediate DARK Verified 11/23/24 20:04 THOUGHTS, suicidal lactose [LACTOSE] Allergy Intermediate PAIN IN Verified 11/23/24 20:04 STOMACH, CONSTIPATION cetirizine [From Zyrtec] Allergy Unknown Nausea, Verified 11/23/24 20:04 Emotional clindamycin [CLINDAMYCIN] Allergy Unknown HIVES Verified 11/23/24 20:04 penicillin V Allergy Unknown hives Verified 11/23/24 20:04 Penicillins [PENICILLINS] Allergy Unknown Hives Verified 11/23/24 20:04 prednisone Allergy Unknown nightmares Verified 11/23/24 20:04 sertraline [From ZOLOFT] AdvReac Severe SI Verified 11/23/24 20:04 Review of Systems Review of Systems: Yes all other systems are reviewed and are negative PMFSH Past Medical History Medical History Cerebral microvascular disease Hematuria Epistaxis Lung mass Tobacco dependence Cataract Constipation Hyperlipidemia Anxiety CVA (cerebral vascular accident) Seasonal allergies JOSEF on CPAP Melanoma Paget's disease GERD (gastroesophageal reflux disease) Neuralgia HTN (hypertension) Surgical History Hx of cataract surgery No pertinent past surgical history Family History Family History Father Unknown family medical history Mother Unknown family medical history Son No problems noted. Daughter No problems noted. Daughter No problems noted. Daughter No problems noted. Social History Social History Household Members: None Housing: House Alcohol intake: never Patient Tobacco Use Status: Never used Tobacco Smoked in Last 30 Days: No e-Cigarette/Vaping Use: Never Used Use of substances other than those prescribed or required for medical reasons: No Advance Directives: No Advance Directives Information Provided: No Do you have a plan to hurt others: No Plan service: No Current occupational status: retired Cognitive needs: No Hearing needs: Yes Vision needs: Yes Physical Exam ED Vital Signs: Vital Signs - 24 hr 11/23/24 20:49 11/23/24 22:39 11/24/24 00:43 Temperature 97.6 F 98.4 F 97.6 F Pulse Rate 96 85 81 Respiratory Rate 20 16 14 Blood Pressure 160/91 H 153/87 H 133/87 Pulse Oximetry 96 98 95 Oxygen Delivery Method Room Air Room Air Room Air BMI result Body Mass Index 32.5 Const Other: The patient is a fairly vigorous looking 79-year-old male. He is awake and alert. He does not appear in obvious distress. HENMT Other: The head and face are unremarkable. No external abnormalities in the occipital scalp. Mucous membranes are moist. Eyes Other: Pupils are round equal, conjunctivae are clear, extraocular movements are intact, lateral gaze is intact, visual roth are intact to confrontation. Neck Other: The patient can easily touch his chin to his chest. Resp Effort & Inspection: normal respiratory effort Auscultation: clear to auscultation bilaterally Cardio Rate: regular rate Rhythm: regular rhythm Heart sounds: S1 normal heart sound present and S2 normal heart sound present Skin General skin exam: no rashes or lesions noted Neuro Other: The patient was awake and alert with normal mental status. He has a supple neck. Lateral gaze is intact. Visual roth are intact. Face is symmetrical. Speech is clear. He has intact strength in all 4 extremities. No pronator drift. Finger-nose is normal. He normally walks with a cane. He was able to walk reasonably steady with a cane. Extrem Other: No peripheral edema Course Course Course Narrative: This is an RME: Additional HPI, ROS, PE not included below will be deferred to primary provider. RME assessment and note performed by: Chiquis Herbert PA-C This is a 61-fefl-urs-male, with a hx of HTN, HLD, hyperglycemia, who presents tot he ER with complaints of head pressure which started at 5:30PM . He states that he developed head pressure while making dinner and took his BP and was elevated. Patient reports that he has a history of a CVA with no deficits. He is neurologically intact, no focal deficits on examination. Patient reports that he took amlodipine dose 1 hour prior to arrival, he was also on aspirin, he is not on anticoagulation. Plan: CT, labs, further ER eval needed Medications Administered Discontinued Medications Generic Name Dose Route Start Last Admin Trade Name Ronnie PRN Reason Stop Dose Admin Acetaminophen 1,000 mg in 100 mls @ 400 mls/hr 11/23/24 21:59 11/23/24 22:53 Ofirmev IV 11/23/24 22:13 Infused ONCE ONE Infusion Iohexol 70 ml 11/23/24 22:24 11/23/24 22:24 Iohexol 350 Mg/Ml 100 Ml Infus..Btl IV 11/23/24 22:25 70 ml ONCE ONE Administration Medical Decision Making Medical Decision Making [facility] Narrative: patient is 79-year-old male who presents with abrupt onset of left-sided neck pain and occipital headache. He has no history of similar episodes in the past he was somewhat hypertensive. He says his normal blood pressure is 120/80. Although the patient did not look obviously toxic and although he had a normal neurological exam he was hypertensive and continued to complain of pain in the back of his head and the back of the left side of his neck. A noncontrast head CT had been ordered at triage. This was negative. Given the patient's ongoing symptoms have changed a CT angiogram of the head and neck that shows no signs of dissection or any other acute process. No aneurysm. While waiting for the results of the CT angiogram the patient's blood pressure improved without treatment. He was given IV acetaminophen. His headache resolved. He has also had 2 negative troponins and an unremarkable EKG. I think it may be discharged. Lab Data 11/23/24 20:28 11/23/24 20:28 Labs: Lab Results 11/23/24 11/23/24 Range/Units 20:28 23:33 WBC 10.6 (4.8-10.8) X10*3/uL RBC 5.42 (4.60-5.80) X10*6/uL Hgb 16.5 (14.0-18.0) g/dl Hct 47.7 (42.0-52.0) % MCV 88.0 (80.0-98.0) fL MCH 30.4 (27.0-33.0) pg MCHC 34.6 (31.0-36.0) g/dl RDW 13.0 (11.0-16.0) % Plt Count 249 (160-400) X10*3/uL MPV 8.8 L (9.4-12.4) fL Immature Gran % (Auto) 0.6 H (0.0-0.4) % Neut % (Auto) 58.8 (45-73) % Lymph % (Auto) 27.2 (20-40) % [place] % (Auto) 9.2 (2-11) % Eos % (Auto) 3.4 (0-4) % Baso % (Auto) 0.8 (0-2) % Lymph # (Auto) 2.9 (1.2-4.9) X10*3/uL [place] # (Auto) 1.0 (0.1-1.2) X10*3/uL Eos # (Auto) 0.4 (0.0-0.4) X10*3/uL Baso # (Auto) 0.1 (0.0-0.2) X10*3/uL Abs Immat Gran (auto) 0.06 H (0.00-0.03) X10*3/uL Absolute Neuts (auto) 6.2 (2.0-8.3) x10*3/uL Absolute Nucleated RBC 0.000 (0.0-0.012) X10*3/uL Nucleated RBC % (auto) 0.0 (0.0-0.2) /100WBC Sodium 142 (135-145) mmol/L Potassium 4.1 (3.3-5.1) mmol/L Chloride 109 H (96-108) mmol/L Carbon Dioxide 23 (22-29) mmol/L Anion Gap 14 (12-20) BUN 15 (9-16) mg/dL Creatinine 1.12 (0.5-1.4) mg/dL Estim Creat Clear Calc 66.9 Estimated GFR > 60 Random Glucose 120 H (60-115) mg/dL Calcium 9.7 (8.4-10.2) mg/dL Total Bilirubin 0.9 (0.0-1.0) mg/dL Direct Bilirubin 0.4 (0.0-0.5) mg/dL AST 36 (5-37) U/L ALT 50 H (0-40) U/L Alkaline Phosphatase 161 H (39-117) U/L Troponin I High Sens 5.5 8.7 D (<3.5-35.0) ng/L Total Protein 7.3 (6.5-8.0) g/dL Albumin 4.4 (3.5-5.0) g/dL Discharge Plan Discharge Clinical Impression: Occipital headache, Hypertension, Posterior neck pain, Thyroid nodule Patient Disposition: Home, Self-Care Additional Instructions: Your testing today is very reassuring. There is no dangerous process that seems to be causing your headache or your neck pain. The CAT scan of your head and neck showed an incidental finding of a thyroid nodule. You have a 3.3 cm nodule in the right side of your thyroid gland. This should be followed up with an ultrasound for further evaluation. Therefore please continue your regular medications. Please contact your regular doctor's office in the morning to arrange a follow up appointment to discuss today's episode further and also to arrange further evaluation of your thyroid nodule. Return to the emergency room if you feel significantly worse. Prescriptions: No Action meclizine 25 mg tablet 25 mg PO BID PRN (Reason: dizziness) Qty: 30 0RF nystatin 100,000 unit/gram powder 1 appl topical BID Qty: 60 2RF Rx Instructions: to the groin lidocaine [Lidoderm] 5 % adhesive patch,medicated 2 patch topical DAILY Qty: 60 2RF Rx Instructions: leave on most painful area for up to 12 hrs aspirin 81 mg tablet,delayed release (DR/EC) 81 mg PO DAILY Qty: 90 3RF (DME) lancets [OneTouch Delica Plus Lancet] 33 gauge misc See Rx Instructions .Route Qty: 100 3RF Rx Instructions: Test blood sugar once a day cyclobenzaprine 5 mg tablet 5 mg PO TID PRN (Reason: muscle spasm) Qty: 9 0RF lidocaine [Lidoderm] 5 % adhesive patch,medicated 1 patch topical DAILY Qty: 15 0RF Rx Instructions: leave on most painful area for up to 12 hrs azelastine 137 mcg (0.1 %) aerosol,spray intranasal amlodipine 5 mg tablet 5 mg PO QPM (DME) OneTouch Ultra Test Strip See Rx Instructions .Route Qty: 100 3RF Rx Instructions: 1 qd (DME) blood-glucose meter [[employer] MinderTouch Ultra2 Meter] Misc See Rx Instructions .Route Qty: 1 0RF Rx Instructions: As directed atorvastatin 40 mg tablet 40 mg PO BEDTIME Qty: 90 3RF buspirone 10 mg tablet 10 mg PO TID Qty: 270 3RF lisinopril 40 mg tablet 40 mg PO DAILY Qty: 90 3RF omeprazole 20 mg capsule,delayed release(DR/EC) 20 mg PO DAILY@0630 Qty: 90 3RF triamcinolone acetonide 0.1 % cream 1 appl topical DAILY Qty: 80 1RF finasteride 5 mg tablet 5 mg PO DAILY Qty: 90 3RF Referrals: Alicia Kelsey MD [Primary Care Provider] - Interventions: ED Discharge Assessment Last Done: 11/24/24 00:43 Discharge Date/Time: 11/24/24 01:00 Print Language: Amharic
[2024-11-23 20:32] LABS: MANUAL DIFF FLAG NO
[2024-11-23 20:38] LABS: Basophils Absolute Auto 0.1 X10*3/uL (0.0-0.2); Basophils Percent Auto 0.8 % (0-2); Eosinophils Absolute Auto 0.4 X10*3/uL (0.0-0.4); Eosinophils Percent Auto 3.4 % (0-4); Hematocrit 47.7 % (42.0-52.0); Hemoglobin 16.5 g/dl (14.0-18.0); Imm Gran Abs Auto 0.06 X10*3/uL (0.00-0.03); Imm Gran Pct Auto 0.6 % (0.0-0.4); Lymphocytes Absolute Auto 2.9 X10*3/uL (1.2-4.9); Lymphocytes Percent Auto 27.2 % (20-40); Mean Corpuscular HGB Conc 34.6 g/dl (31.0-36.0); Mean Corpuscular Hemoglobin 30.4 pg (27.0-33.0); Mean Platelet Volume 8.8 fL (9.4-12.4); Monocytes Percent Auto 9.2 % (2-11); Neutrophils Absolute Auto 6.2 x10*3/uL (2.0-8.3); Neutrophils Percent Auto 58.8 % (45-73); Platelet Count 249 X10*3/uL (160-400); Red Blood Count 5.42 X10*6/uL (4.60-5.80); White Blood Count 10.6 X10*3/uL (4.8-10.8)
[2024-11-23 20:49] VITALS: BP 160/91; PULSE 96; RESP 20; TEMP 36.4; O2SAT 96
[2024-11-23 20:49] LABS: Alanine Aminotransferase 50 U/L (0-40); Albumin Level 4.4 g/dL (3.5-5.0); Alkaline Phosphatase 161 U/L (39-117); Anion Gap 14 (12-20); Aspartate Amino Transferase 36 U/L (5-37); Bilirubin Direct 0.4 mg/dL (0.0-0.5); Bilirubin Total 0.9 mg/dL (0.0-1.0); Blood Urea Nitrogen 15 mg/dL (9-16); Calcium 9.7 mg/dL (8.4-10.2); Carbon Dioxide 23 mmol/L (22-29); Chloride 109 mmol/L (96-108); Creatinine Clr Calc Pharmacy 66.9; Estimated Glomerular Filt Rate > 60; Glucose Random 120 mg/dL (60-115); Potassium 4.1 mmol/L (3.3-5.1); Sodium 142 mmol/L (135-145); Total Protein 7.3 g/dL (6.5-8.0)
--- OUTSIDE RECORDS SUMMARY | 2024-11-23 21:18 | XMS_ITS | Clinical Summary ---
Author Organization [facility] Address [address] [id number] Care Team Providers Care Learning Facilitator Name Role Phone TalikarlaAlicia Primary Care Provider [phone] Allergies Active Allergy Reactions Criticality Noted Date [...] complete this topic Insurance [employer] Care Teams Learning Facilitator Relationship Specialty Start Date End Date Alicia Kelsey [address] [place] [address] PCP - General Internal Medicine 08/16/21
--- OUTSIDE RECORDS SUMMARY | 2024-11-23 21:18 | XMS_ITS | Referral Summary ---
Author Organization [facility] Address [address] [id number] Care Team Providers Care Diet Consultant Name Role Phone LowAlicia Primary Care Provider [phone] Allergies Active Allergy Reactions Criticality Noted Date [...] Plan of Treatment Not on file Insurance [facility] [id number] Care Teams Diet Consultant Relationship Specialty Start Date End Date Alicia Kelsey [address] [place] [address] PCP - General Internal Medicine 08/16/21
--- OUTSIDE RECORDS SUMMARY | 2024-11-23 21:18 | XMS_ITS | Clinical Summary ---
Author Organization [facility] ity Address [address] [place] [address] Care Team Providers Care Automotive Detailer Name Role Phone Unavailable Primary Care Provider [...] 75+ series) 2019 COVID-19 Vaccine ( - 2023-2 5 season) 2024 Influenza Vaccine (Season Ended) 2025 HIB Vaccines Aged Out No longer eligi [...] age to complete this topic Meningococcal B Vaccine Aged Out No l onger eligible based on patient's age to complete this topic RSV Immunization Patients Un lily 20 months Aged Out No longer eligible b ased on patient's age to complete this topic Varicella Vaccines Aged Out No longer eligible based on patient's age to complete this topic
--- NOTE | 2024-11-23 22:00 | ECG_ITS ---
Test Reason : HYPERTENSION Blood Pressure : */* mmHG Vent. Rate : 85 BPM Atrial Rate : 85 BPM P-R Int : 188 ms QRS Dur : 98 ms QT Int : 392 ms P-R-T Axes : 34 -34 53 degrees QTcB Int : 466 ms Normal sinus rhythm Left axis deviation Minimal voltage criteria for LVH, may be normal variant ( R in aVL ) Abnormal ECG When compared with ECG of 01-Nov-2022 15:30, No significant change was found Referred By: Grabiel Emmanuel Electronically Signed By: WILLA COBURN MD
[2024-11-23] MEDS: iohexoL 350 MG/ML 100 ML INFUS..BTL 70 ML IV (22:24)
[2024-11-23 22:27] LABS: Troponin-I High Sensitivity 5.5 ng/L (<3.5-35.0)
[2024-11-23] MEDS: Acetaminophen 1,000 MG/100 ML PIGGYBACK 400 MG IV (22:38)
[2024-11-23 22:39] VITALS: BP 153/87; PULSE 85; RESP 16; TEMP 36.9; O2SAT 98
[2024-11-23 23:58] LABS: Troponin-I High Sensitivity 8.7 ng/L (<3.5-35.0)
[2024-11-24 00:43] VITALS: BP 133/87; PULSE 81; RESP 14; TEMP 36.4; O2SAT 95
== END 2024-11-24 01:00 | disposition home or self-care (01) ==
PROVIDERS: Physician Assistant Medical; Emergency Provider Emergency Medicine; PCP Internal Medicine
DX: M54.81 Occipital neuralgia (principal); I10 Essential (primary) hypertension; M54.2 Cervicalgia; E04.1 Nontoxic single thyroid nodule; E78.5 Hyperlipidemia, unspecified; Z86.73 Personal history of transient ischemic attack (TIA), and cerebral infarction without residual deficits; Z79.899 Other long term (current) drug therapy; Z79.02 Long term (current) use of antithrombotics/antiplatelets
CPT/HCPCS: 36415; 70450; 70496; 70498; 80048; 80076; 84484; 85025; 93005; 96374; 99285; J0131; Q9967

== ENCOUNTER → 2024-11-23 20:06 | Outpatient (BNV) | payer OTHER, SELFPAY | PROVIDERS: Emergency Provider Emergency Medicine; PCP Internal Medicine; Visit Provider Radiology Diagnostic Radiology | DX: E04.1 Nontoxic single thyroid nodule (principal) | CPT/HCPCS: 70450; 70496; 70498 ==

== ENCOUNTER → 2024-11-23 22:00 | Outpatient (BNV) | payer OTHER, SELFPAY | PROVIDERS: Emergency Provider Emergency Medicine; PCP Internal Medicine; Visit Provider Internal Medicine Cardiovascular Disease | DX: R94.31 Abnormal electrocardiogram [ECG] [EKG] (principal); I10 Essential (primary) hypertension | CPT/HCPCS: 93010 ==

== ENCOUNTER 2025-01-05 09:55 | Outpatient (AMB) | payer OTHER, SELFPAY ==
[2025-01-05 09:56] VITALS: BP 132/80; PULSE 96; RESP 18; TEMP 36.8; O2SAT 96; BMI 32.8
--- NOTE | 2025-01-05 09:56 | MHC.PC.OV ---
Vital Signs 01/05/25 09:56 Height 6 ft Weight 242 lb BMI 32.8 BP 132/80 Blood Pressure Location Lt brachial Position Sitting Respiration 18 Pulse 96 Pulse Source Pulse Oximeter Temp 98.2 F Temp Source Oral Pulse Oximetry (%) 96 Oxygen Delivery Method Room Air Intake Visit Reasons: Infected toe Intake Note: Pt is here today for a sick visit. Pt c/o infected big toe. Pt states that he has been having redness and swelling in his big toe in R foot. Allergies gabapentin [GABAPENTIN] Allergy (Intermediate, Verified 01/05/25 09:57) DARK THOUGHTS, suicidal lactose [LACTOSE] Allergy (Intermediate, Verified 01/05/25 09:57) PAIN IN STOMACH, CONSTIPATION cetirizine [From Zyrtec] Allergy (Unknown, Verified 01/05/25 09:57) Nausea, Emotional clindamycin [CLINDAMYCIN] Allergy (Unknown, Verified 01/05/25 09:57) HIVES penicillin V Allergy (Unknown, Verified 01/05/25 09:57) hives Penicillins [PENICILLINS] Allergy (Unknown, Verified 01/05/25 09:57) Hives prednisone Allergy (Unknown, Verified 01/05/25 09:57) nightmares sertraline [From ZOLOFT] Adverse Reaction (Severe, Verified 01/05/25 09:57) SI Medication List - Last Reconciled 01/05/25 by Alicia Kelsey MD amlodipine 5 mg PO QPM aspirin 81 mg PO DAILY atorvastatin 40 mg PO BEDTIME azelastine intranasal buspirone 10 mg PO TID finasteride 5 mg PO DAILY lancets (OneTouch Delica Plus Lancet) Test blood sugar once a day lidocaine 5% (Lidoderm) 1 patch topical DAILY lidocaine 5% (Lidoderm) 2 patches topical DAILY lisinopril 40 mg PO DAILY meclizine 25 mg PO BID PRN nystatin 1 appl topical BID omeprazole 20 mg PO DAILY@0630 OneTouch Ultra Test (blood sugar diagnostic) 1 qd NS OneTouch Ultra2 Meter (blood-glucose meter) As directed NS triamcinolone acetonide 0.1% 1 appl topical DAILY Tobacco use date assessed: 01/05/25 Dental Screening Dental Screen Date: 11/14/24 HPI Infected toe HPI Details Patient presents complaining of ingrown toenail in the right big toe. Patient cut his toenail and developed swelling pain and redness 2 days ago. Patient denies fever chills, hypertension hyperlipidemia stable on current medications. [facility] Medical History (Updated 01/05/25 @ 17:21 by Alicia Kelsey MD) Thyroid nodule Cerebral microvascular disease Hematuria Epistaxis Lung mass Tobacco dependence Cataract Constipation Hyperlipidemia Anxiety CVA (cerebral vascular accident) Seasonal allergies JOSEF on CPAP Melanoma Paget's disease GERD (gastroesophageal reflux disease) Neuralgia HTN (hypertension) Surgical History Hx of cataract surgery No pertinent past surgical history Family History Father Unknown family medical history Mother Unknown family medical history Son No problems noted. Daughter No problems noted. Daughter No problems noted. Daughter No problems noted. Social History Household Members: None Housing: House Alcohol intake: never Patient Tobacco Use Status: Never used Tobacco e-Cigarette/Vaping Use: Never Used service: No Current occupational status: retired Cognitive needs: No Hearing needs: Yes Vision needs: Yes Questionnaire PHQ-9 Over the last 2 weeks, how often have you been bothered by any of the following problems? 1. Little interest or pleasure in doing things: not at all 2. Feeling down, depressed, or hopeless: not at all 3. Trouble falling or staying asleep, or sleeping too much: not at all 4. Feeling tired or having little energy: not at all 5. Poor appetite or overeating: not at all 6. Feeling bad about yourself - or that you are a failure or have let yourself or your family down: not at all 7. Trouble concentrating on things, such as reading the newspaper or watching television: not at all 8. Moving or speaking so slowly that other people could have noticed. Or the opposite - being so fidgety or restless that you have been moving around a lot more than usual: not at all 9. Thoughts that you would be better off or of hurting yourself in some way: not at all Total score: 0 Depression Screening Interpretation: Negative Depression Screening Done: Yes 87499 - PHQ-9 Billing: Yes Source: Developed by Drs. Neil Dominguez, Trang Butler, Armando Parr and colleagues, with an educational unruly from [employer]. Thrive Questionnaire Date Thrive assessed: 11/07/24 I am a: Patient What is your living situation today?: I have a steady place to live Within the past 12 months, did the food you bought not last and you didn't have the money to get more?: Never true Within the past 12 months, did you worry whether your food would run out before you got money to buy more?: Never true Do you have trouble paying for medicines?: No Do you have trouble getting transportation to medical appointments?: No Do you have trouble paying your heating and electricity bill?: No Do you have trouble taking care of your child, family member or friend?: I choose not to answer this question Do you have trouble with day-to-day activities such as bathing, preparing meals, shopping, managing finances, etc.?: No Are you currently unemployed and looking for a job?: No Are you interested in more education?: Yes Please select the resources that you would like help with: None Currently or been in a relationship where the following occur: No concerns reported THRIVE Score: 0 ABBY-7 AMB Questionnaire ABBY-7 Date ABBY - 7 assessed: 11/14/24 Source: Developed by Drs. Neil Dominguez, Trang Butler, Armando Parr and colleagues, with an educational unruly from [employer]. Review of Systems Const All systems reviewed & are unremarkable except as noted in HPI and below ENT Reports no additional complaints Resp Reports no additional complaints GI Reports no additional complaints Reports no additional complaints Physical exam (Primary Care) Vital Signs: Last Vital Signs Temp 98.2 F 01/05/25 09:56 Pulse 96 01/05/25 09:56 Resp 18 01/05/25 09:56 BP 132/80 01/05/25 09:56 Pulse Ox 96 01/05/25 09:56 Oxygen Delivery Method Room Air 01/05/25 09:56 BMI result Body Mass Index 32.8 Tobacco/Smoking Status: Tobacco use Status Tobacco use date assessed 01/05/25 01/05/25 09:59 Patient Tobacco Use Status Never used Tobacco 01/05/25 09:59 e-Cigarette/Vaping Use Never Used 01/05/25 09:59 PHQ-9: PHQ-9 Score PHQ-9: Total score 0 01/05/25 09:59 Depression Screening Interpretation: Negative Thrive Assessment: Date of Thrive Assessment Date Thrive assessed 11/07/24 01/05/25 09:59 Currently or been in a relationship where the following occur: No concerns reported HENMT Head: Yes normal to inspection Resp Effort & Inspection: normal respiratory effort Auscultation: clear to auscultation bilaterally Cardio Rhythm: regular rhythm Heart sounds: S1 normal heart sound present and S2 normal heart sound present GI Inspection: Yes normal to inspection Extrem Other: Right toenail but with slight erythema and tenderness but no discharge Coding Level of Care Code Est Pt Level 4 (13165) Diagnoses Thyroid nodule E04.1 Ingrown toenail of right foot L60.0 HTN (hypertension) I10 Additional Codes PHQ-9 - 55084 - PHQ-9 Billing: Yes ([id number]) Assessment & Plan Assessment & Plan (1) Thyroid nodule: Comment: on CT of neck 11/2024, present on thyroid US in 09/2016 3.1x 2.4 cm ? Thyroid biopsy in 2017 Code(s): E04.1 - Nontoxic single thyroid nodule Category: Medical Plan: Obtain thyroid ultrasound to evaluate for any change in the size of a thyroid nodule (2) Ingrown toenail of right foot: Code(s): L60.0 - Ingrowing nail Category: Medical Plan: Local care discussed with the patient doxycycline 100 mg b.i.d. for 7 days is present (3) HTN (hypertension): Comment: 20 years Code(s): I10 - Essential (primary) hypertension Category: Medical Plan: Continue current medications Orders: Orders US thyroid Today E04.1 - Nontoxic single thyroid nodule Medications: New doxycycline hyclate 100 mg PO BID 14 tabs 0RF
== END 2025-01-05 14:11 | disposition home or self-care (01) ==
LOC: HO.HMCC 09:55
PROVIDERS: PCP Internal Medicine; Visit Provider Internal Medicine
DX: E04.1 Nontoxic single thyroid nodule (principal); L60.0 Ingrowing nail; I10 Essential (primary) hypertension

== ENCOUNTER → 2025-01-05 09:55 | Outpatient (BNVA) | payer OTHER, SELFPAY | PROVIDERS: PCP Internal Medicine; Visit Provider Internal Medicine | DX: E04.1 Nontoxic single thyroid nodule (principal); L60.0 Ingrowing nail; I10 Essential (primary) hypertension | CPT/HCPCS: 96127 ==

== ENCOUNTER 2025-01-09 07:08 | Observation (INO) | payer OTHER, SELFPAY ==
[2025-01-09] VITALS (11 sets, daily range): BP systolic 107–172; BP diastolic 50–91; PULSE 60–91; RESP 14–18; TEMP 36.4–37.2; O2SAT 93–98; BMI 32.6; BMI 33.9
--- NOTE | ~2025-01-09 | CT_ITS ---
EXAMINATION: CT ANGIOGRAM HEAD AND NECK CLINICAL INFORMATION: Right-sided weakness, change in vision, resolved. 79-year-old male. COMPARISON: CT angiogram head and neck 11/23/2024, 12/28/2019. TECHNIQUE: Noncontrast axial imaging of the head was performed. This was followed by test bolus sequences and head and neck intravenous bolus administration 70 mL of Omnipaque 350. Helical imaging was performed in the axial plane from the aortic arch to the skull vertex. A [address] head was also obtained. The data was processed at the registered vascular technologist (rvt)'s workstation for generation of MIP sequences. Angled MIPs and volume rendered reformatted images were also generated at an offline 3D workstation. Stenoses are assessed in accordance with NASCET criteria unless otherwise indicated. This CT examination was performed using dose optimization techniques as appropriate, variously including the following: *Automated exposure control *Adjustment of mA and/or kV according to patient size (this includes techniques or standardized protocols for targeted exams where dose is matched to indication/reason for exam; i.e. extremities or head) *Use of iterative reconstruction technique FINDINGS: NONCONTRAST HEAD CT: There is no evidence of intracranial hemorrhage or extra-axial fluid collection. There is no mass effect, or edema. No CT evidence of acute territorial infarct. Ventricles, sulci, and cisterns are normal in size and configuration for patient age. No hydrocephalus. No midline shift. No hyperdense MCA sign. No subinsular ribbon sign. 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 There are numerous bilateral punctate and confluent hypoattenuating foci involving the supratentorial periventricular, subcortical, and hemispheric deep white matter, most likely small vessel ischemic change. Normal pituitary. Anterior falcine calcifications. Globes and orbital contents image normally. There are bilateral lens replacements. No extracranial soft tissue abnormalities. The paranasal sinuses, mastoid air cells, and tympanic cavities are normally aerated. No suspicious bony abnormalities. FINDINGS: NECK CTA: -AORTIC ARCH: Normal in caliber. Mild atheromatous calcification. Three-vessel branching pattern. -GREAT VESSEL ORIGINS: Widely patent. No stenosis. -RIGHT COMMON CAROTID ARTERY: Normal in course and caliber to the level of the bifurcation. -CERVICAL RIGHT INTERNAL CAROTID ARTERY: Calcific atherosclerotic disease of the carotid bulb and proximal internal carotid artery causing an approximate 30% stenosis. Remainder of the vessel is normal in course and caliber into the skull base. -LEFT COMMON CAROTID ARTERY: Normal in course and caliber to the level of the bifurcation. -CERVICAL LEFT INTERNAL CAROTID ARTERY: Calcific atherosclerotic disease of the carotid bulb and proximal internal carotid artery causing an approximate 20% stenosis. Remainder of the vessel is normal in course and caliber into the skull base. -CERVICAL RIGHT VERTEBRAL ARTERY: Mildly dominant. Normal origin. Normal in course and caliber into the skull base. -CERVICAL LEFT VERTEBRAL ARTERY: Normal origin. Normal in course and caliber into the skull base. OTHER, SOFT TISSUES: -No lymphadenopathy or mass. No abnormal fluid collection or soft tissue swelling. -Right-sided goiter. -Imaged superior mediastinal structures normal. -Imaged lung apices demonstrate emphysematous changes. There is a 1.2 x 0.8 cm oval nodule in the right posterior upper lobe (series 10, image 1151). This is unchanged from prior exams and presumably a benign entity. This is stable from 2021. CTA OF THE BRAIN: -INTRACRANIAL INTERNAL CAROTID ARTERIES: No focal stenosis or occlusion. -RIGHT ANTERIOR CEREBRAL ARTERY: Normal A1 segment.. Normal arborization of the distal segments. -LEFT ANTERIOR CEREBRAL ARTERY: Normal A1 segment.. Normal arborization of the distal segments. -ANTERIOR COMMUNICATING ARTERY: Normal. -RIGHT MIDDLE CEREBRAL ARTERY: Normal M1 segment of the MCA without focal stenosis or occlusion. Mild narrowing of the proximal M2 segments. Normal bifurcation. Normal arborization of the distal segments. -LEFT MIDDLE CEREBRAL ARTERY: Normal M1 segment of the MCA without focal stenosis or occlusion. Normal bifurcation. Normal arborization of the distal segments. -RIGHT VERTEBRAL ARTERY V4: Mildly dominant. Normal in course and caliber. -LEFT VERTEBRAL ARTERY V4: Normal in course and caliber. -BASILAR ARTERY: Normal without focal stenosis or occlusion. Normal appearance of the proximal superior cerebellar arteries. Normal basilar tip. -RIGHT POSTERIOR CEREBRAL ARTERY: The P1 segment is diminutive. origin of the [employer] with robust opacification of the posterior communicating artery. Normal opacification of the distal [employer] segments. -LEFT POSTERIOR CEREBRAL ARTERY: The P1 segment is diminutive. origin of the [employer]GER with robust opacification of the posterior communicating artery. Normal opacification of the distal [employer] segments. -POSTERIOR COMMUNICATING ARTERIES: Robust as detailed above. Normal opacification of the superior sagittal, straight, transverse, and sigmoid sinuses. No venous thrombosis. No space-occupying hemorrhage or definite evolving infarct. ------ CT/CT angio head neck IMPRESSION: NONCONTRAST HEAD CT: 1. No intracranial hemorrhage or mass effect. No CT evidence of acute territorial infarct. 2. Moderate small vessel ischemic changes. CTA NECK: 1. There is an approximate 30% stenosis of the right ICA at the origin secondary to calcific plaque. Vessel is otherwise patent. 2. There is an approximate 20% stenosis of the left ICA at the origin secondary to calcific plaque. Vessel is otherwise patent. 3. The vertebral arteries are normal in course and caliber without stenoses. The left is dominant. 4. There is emphysema in the lung apices. There is a stable 1.2 x 0.8 cm right upper lobe pulmonary nodule, unchanged from 2020 exam. This is a benign entity. 5. There is a right-sided goiter. CTA HEAD: 1. There is no flow-limiting high-grade stenosis, occlusion, dissection, or aneurysm in the intracranial arterial vasculature. 2. The major cortical and dural venous sinuses are patent. Electronically signed by: Donald Melendrez MD 01/09/2025 09:44 AM EDT
--- NOTE | 2025-01-09 07:17 | ECG_ITS ---
Test Reason : dizziness Blood Pressure : */* mmHG Vent. Rate : 60 BPM Atrial Rate : 60 BPM P-R Int : 186 ms QRS Dur : 102 ms QT Int : 432 ms P-R-T Axes : 86 -33 26 degrees QTcB Int : 432 ms Normal sinus rhythm Left axis deviation Minimal voltage criteria for LVH, may be normal variant ( R in aVL ) Abnormal ECG When compared with ECG of 23-Nov-2024 22:05, No significant changes seen Referred By: Lucinda Rome Electronically Signed By: VANE AMBROCIO
[2025-01-09 07:41] LABS: MANUAL DIFF FLAG NO
[2025-01-09 07:53] LABS: Basophils Absolute Auto 0.1 X10*3/uL (0.0-0.2); Basophils Percent Auto 0.9 % (0-2); Eosinophils Absolute Auto 0.3 X10*3/uL (0.0-0.4); Eosinophils Percent Auto 3.3 % (0-4); Hematocrit 46.2 % (42.0-52.0); Hemoglobin 16.2 g/dl (14.0-18.0); Imm Gran Abs Auto 0.08 X10*3/uL (0.00-0.03); Imm Gran Pct Auto 1.1 % (0.0-0.4); Lymphocytes Absolute Auto 1.7 X10*3/uL (1.2-4.9); Lymphocytes Percent Auto 22.8 % (20-40); Mean Corpuscular HGB Conc 35.1 g/dl (31.0-36.0); Mean Corpuscular Hemoglobin 30.5 pg (27.0-33.0); Mean Corpuscular Volume 86.8 fL (80.0-98.0); Monocytes Absolute Auto 0.8 X10*3/uL (0.1-1.2); Monocytes Percent Auto 10.6 % (2-11); Neutrophils Absolute Auto 4.6 x10*3/uL (2.0-8.3); Neutrophils Percent Auto 61.3 % (45-73); Platelet Count 232 X10*3/uL (160-400); Red Blood Count 5.32 X10*6/uL (4.60-5.80); Red Cell Distribution Width 13.1 % (11.0-16.0); White Blood Count 7.5 X10*3/uL (4.8-10.8)
[2025-01-09 08:03] LABS: INTERNATIONAL NORM RATIO 0.9 (0.9-1.1); Prothrombin Time 10.6 SEC (10.9-12.4)
[2025-01-09] MEDS: 0.9 % Sodium Chloride 1,000 ML 999 ML IV (08:03)
[2025-01-09 08:06] LABS: Partial Thromboplastin Time 31.5 SEC (26.0-36.8)
--- NOTE | 2025-01-09 08:10 | PC.NURSE ---
Addendum entered by Jame Haque RN 01/09/25 08:29: Patient c/o of vision changes in right eye at times. Patient states vision becomes blurry Original Note: Patient presents to ED c/o dizziness on exertion. Patient [facility] [place] [facility]. Patient was attempting to get out of bed and got dizzy and sat back down on bed. No LOC. Denies falls. Denies pain. PMH TIA and stroke. 20G in left hand on arrival, placed 18G in Left forearm. Collected/ sent blood. Patient + orthrostatics. Nurses swallow eval performed, patient passed. Patient notes using walker at home. Family at bedside.
[2025-01-09 08:14] LABS: Troponin-I High Sensitivity 6.1 ng/L (<3.5-35.0)
--- NOTE | 2025-01-09 08:20 | ED.DIZZY ---
HPI - Dizziness General Chief Complaint: Dizziness Stated Complaint: Dizzy, Headache Time Seen by Provider: 01/09/25 07:13 History of Present Illness HPI Narrative: Patient is an 79-year-old male with a previous history of TIA approximately 4 years ago. Presented today with trying to get up going to the bathroom at night felt somewhat lightheaded. Sat down. Then had visual changes over the right eye. Associated with some flopping of the right upper extremity. Lasted about 2 minutes. Symptoms subsequently resolved. Patient claims the entire right eye seems to be blurry at that time. Patient denies any fever chills no headache. No blood in the stool. No new medication. No nausea no vomiting. Had a 2nd episode of the floppiness over the hand. Light down called EMS. When EMS spoke with him he was awake alert oriented he was answering question his speech was normal. Patient was sent to the ED for further evaluation he is not on any blood thinners. No fever no chills has a history of osteoarthritis to the knee has a history of TIA has a history of thyroid nodules. Patient from home. No history of diabetes, hypertension, high cholesterol. No smoking. No AK. Related Data Home Medications ?Medication ?Instructions ?Recorded ?Confirmed azelastine 137 mcg (0.1 %) nasal intranasal 10/30/23 01/05/25 spray amlodipine 5 mg tablet 5 mg PO QPM 07/12/24 01/05/25 Previous Rx's ?Medication ?Instructions ?Recorded meclizine 25 mg tablet 25 mg PO BID PRN dizziness #30 tabs 12/15/22 nystatin 100,000 unit/gram topical 1 appl topical BID #60 grams 02/20/23 powder lidocaine 5 % topical patch 2 patch topical DAILY #60 ea 01/26/24 (Lidoderm) aspirin 81 mg tablet,delayed 81 mg PO DAILY #90 tabs 06/12/24 release OneTouch Ultra Test (blood sugar #100 ea 07/12/24 diagnostic) OneTouch Ultra2 Meter #1 ea 07/12/24 (blood-glucose meter) atorvastatin 40 mg tablet 40 mg PO BEDTIME #90 tabs 07/12/24 buspirone 10 mg tablet 10 mg PO TID #270 tabs 07/12/24 finasteride 5 mg tablet 5 mg PO DAILY #90 tabs 07/12/24 lisinopril 40 mg tablet 40 mg PO DAILY #90 tabs 07/12/24 omeprazole 20 mg capsule,delayed 20 mg PO DAILY@0630 #90 caps 07/12/24 release triamcinolone acetonide 0.1 % 1 appl topical DAILY #80 grams 07/12/24 topical cream lancets 33 gauge (NormaTouch Delica #100 ea 07/15/24 Plus Lancet) lidocaine 5 % topical patch 1 patch topical DAILY #15 ea 08/29/24 (Lidoderm) doxycycline hyclate 100 mg tablet 100 mg PO BID #14 tabs 01/05/25 Allergies Allergy/AdvReac Type Severity Reaction Status Date / Time gabapentin [GABAPENTIN] Allergy Intermediate DARK Verified 01/09/25 07:19 THOUGHTS, suicidal lactose [LACTOSE] Allergy Intermediate PAIN IN Verified 01/09/25 07:19 STOMACH, CONSTIPATION cetirizine [From Zyrtec] Allergy Unknown Nausea, Verified 01/09/25 07:19 Emotional clindamycin [CLINDAMYCIN] Allergy Unknown HIVES Verified 01/09/25 07:19 penicillin V Allergy Unknown hives Verified 01/09/25 07:19 Penicillins [PENICILLINS] Allergy Unknown Hives Verified 01/09/25 07:19 prednisone Allergy Unknown nightmares Verified 01/09/25 07:19 sertraline [From ZOLOFT] AdvReac Severe SI Verified 01/09/25 07:19 Review of Systems Review of Systems: Positive right arm floppiness positive change in vision over the right eye PMFSH Past Medical History Attestation statement: The following information was validated with the patient. Medical History Thyroid nodule Cerebral microvascular disease Hematuria Epistaxis Lung mass Tobacco dependence Cataract Constipation Hyperlipidemia Anxiety CVA (cerebral vascular accident) Seasonal allergies JOSEF on CPAP Melanoma Paget's disease GERD (gastroesophageal reflux disease) Neuralgia HTN (hypertension) Surgical History Hx of cataract surgery No pertinent past surgical history Family History Family History Father Unknown family medical history Mother Unknown family medical history Son No problems noted. Daughter No problems noted. Daughter No problems noted. Daughter No problems noted. Social History Social History Household Members: None Housing: House Alcohol intake: never Patient Tobacco Use Status: Never used Tobacco Smoked in Last 30 Days: No e-Cigarette/Vaping Use: Never Used Use of substances other than those prescribed or required for medical reasons: No Advance Directives: No Advance Directives Information Provided: Yes Do you have a plan to hurt others: No Plan service: No Current occupational status: retired Cognitive needs: No Hearing needs: Yes Vision needs: Yes Physical Exam Vital Signs: Vital Signs: Last Vital Signs Temp 98.7 F 01/09/25 08:09 Pulse 74 01/09/25 08:09 Resp 17 01/09/25 08:09 BP 147/81 H 01/09/25 08:09 Pulse Ox 97 01/09/25 08:09 O2 Del Method Room Air 01/09/25 08:09 BMI result Body Mass Index 32.6 Appearance: Alert. Oriented X3. No acute distress. Eyes: Pupils equal, round and reactive to light. ENT: Pharynx normal. Neck: Normal inspection. Neck supple. No lymph nodes noted. No crepitus CVS: Normal heart rate and rhythm. Pulses normal. Normal S1 and S2 Respiratory: No respiratory distress. Breath sounds normal. No Wheezing. No rales Abdomen: Soft and nontender. No rigidity. No distention. good BS x4 Skin: Skin warm and dry. Normal skin color. Normal skin turgor. Extremities: No lower extremity edema. Neurovascular intact to all extremities. No Lacerations. No Rash Neuro: Oriented X 3. No motor deficit. No sensory deficit. Moving all extermities. No slurred speech. Cranial nerves 2-12 grossly intact. Medications Administered Discontinued Medications Generic Name Dose Route Start Last Admin Trade Name Freq PRN Reason Stop Dose Admin Sodium Chloride 1,000 mls @ 999 mls/hr 01/09/25 07:45 01/09/25 09:12 Ns IV 01/09/25 08:45 Infused .Q1H1M MANNY Infusion Sodium Chloride 500 mls @ 999 mls/hr 01/09/25 08:30 01/09/25 09:42 Ns IV 01/09/25 09:00 Infused .Q31M MANNY Infusion Iohexol 100 ml 01/09/25 09:03 01/09/25 09:04 Iohexol 350 Mg/Ml 100 Ml Infus..Btl IV 01/09/25 09:04 70 ml ONCE ONE Administration Medical Decision Making Medical Decision Making [facility] Narrative: Patient well-appearing neurologically intact. NIH stroke scale is 0 at this time. Patient intra-ocular pressure was 15 on the right 16 on the left. No evidence for glaucoma. Sed rate and CRP was sent as patient had acute changes in vision. CT scan of the head CTA of the head and neck was ordered for possible TIA. Patient electrolyte to be checked. We got his hemoglobin back they were grossly normal no evidence for anemia patient's hemoglobin is 16. My interpretation of patient's EKG showed a sinus rhythm heart rate was 70 VT QRS QTC normal there is no acute ST segment elevation. First set of troponin was negative. INR was negative. CT scan of the head was grossly negative for any acute evidence of bleed by my interpretation. CT angio showed multiple partial blockage. Per radiology. Patient to be admitted for further evaluation question amaurosis fugax causing the change in vision. Currently in stable condition awaiting admission. CRP sed rate negative CT scan negative patient's symptoms not consistent with having temporal arteritis. I checked patient's intra-ocular pressure they were 15 bilaterally. No evidence for glaucoma. Differential Diagnosis Differential Diagnoses: The differential diagnosis associated with the presentation includes CVA, hypoglycemia Admission/Observation Consideration of admission/observation: Escalation of care including admission/observation considered Consult Healthcare Provider Management of the patient was discussed with: Hospitalist Lab Data [facility] Lab Attestation statement: I reviewed the patient's lab results. 01/09/25 07:34 01/09/25 08:16 Labs: Lab Results 01/09/25 01/09/25 01/09/25 Range/Units 07:34 07:36 08:16 WBC 7.5 (4.8-10.8) X10*3/uL RBC 5.32 (4.60-5.80) X10*6/uL Hgb 16.2 (14.0-18.0) g/dl Hct 46.2 (42.0-52.0) % MCV 86.8 (80.0-98.0) fL MCH 30.5 (27.0-33.0) pg MCHC 35.1 (31.0-36.0) g/dl RDW 13.1 (11.0-16.0) % Plt Count 232 (160-400) X10*3/uL MPV 9.0 L (9.4-12.4) fL Immature Gran % (Auto) 1.1 H (0.0-0.4) % Neut % (Auto) 61.3 (45-73) % Lymph % (Auto) 22.8 (20-40) % [place] % (Auto) 10.6 (2-11) % Eos % (Auto) 3.3 (0-4) % Baso % (Auto) 0.9 (0-2) % Lymph # (Auto) 1.7 (1.2-4.9) X10*3/uL [place] # (Auto) 0.8 (0.1-1.2) X10*3/uL Eos # (Auto) 0.3 (0.0-0.4) X10*3/uL Baso # (Auto) 0.1 (0.0-0.2) X10*3/uL Abs Immat Gran (auto) 0.08 H (0.00-0.03) X10*3/uL Absolute Neuts (auto) 4.6 (2.0-8.3) x10*3/uL Absolute Nucleated RBC 0.000 (0.0-0.012) X10*3/uL Nucleated RBC % (auto) 0.0 (0.0-0.2) /100WBC ESR (0-15) MM/HR PT 10.6 L (10.9-12.4) SEC INR 0.9 (0.9-1.1) APTT 31.5 (26.0-36.8) SEC Sodium 143 (135-145) mmol/L Potassium 3.7 (3.3-5.1) mmol/L Chloride 109 H (96-108) mmol/L Carbon Dioxide 26 (22-29) mmol/L Anion Gap 12 (12-20) BUN 16 (9-16) mg/dL Creatinine 0.91 (0.5-1.4) mg/dL Estim Creat Clear Calc 82.5 Estimated GFR > 60 Random Glucose 132 H (60-115) mg/dL Calcium 9.1 D (8.4-10.2) mg/dL Magnesium 1.6 (1.6-2.6) mg/dL Total Bilirubin 0.8 (0.0-1.0) mg/dL AST 35 (5-37) U/L ALT 56 H (0-40) U/L Alkaline Phosphatase 179 H (39-117) U/L Troponin I High Sens 6.1 (<3.5-35.0) ng/L Total Protein 6.9 (6.5-8.0) g/dL Albumin 4.3 (3.5-5.0) g/dL Urine Color Urine Appearance Urine pH (5.0-9.0) Ur Specific [place] (1.005-1.025) Urine Protein (Neg-Trace) mg/dL Urine Glucose (UA) (Negative) mg/dL Urine Ketones (Negative) mg/dL Urine Blood (Negative) Urine Nitrite (Negative) Ur Leukocyte Esterase (Negative) Urine RBC (0-2) /HPF Urine WBC (0-5) /HPF Ur Squamous Epith Cells (0-2) /HPF Urine Bacteria (None Seen) Hyaline Casts (0-2) /LPF 01/09/25 01/09/25 01/09/25 Range/Units 08:17 08:22 08:42 WBC (4.8-10.8) X10*3/uL RBC (4.60-5.80) X10*6/uL Hgb (14.0-18.0) g/dl Hct (42.0-52.0) % MCV (80.0-98.0) fL MCH (27.0-33.0) pg MCHC (31.0-36.0) g/dl RDW (11.0-16.0) % Plt Count (160-400) X10*3/uL MPV (9.4-12.4) fL Immature Gran % (Auto) (0.0-0.4) % Neut % (Auto) (45-73) % Lymph % (Auto) (20-40) % [place] % (Auto) (2-11) % Eos % (Auto) (0-4) % Baso % (Auto) (0-2) % Lymph # (Auto) (1.2-4.9) X10*3/uL [place] # (Auto) (0.1-1.2) X10*3/uL Eos # (Auto) (0.0-0.4) X10*3/uL Baso # (Auto) (0.0-0.2) X10*3/uL Abs Immat Gran (auto) (0.00-0.03) X10*3/uL Absolute Neuts (auto) (2.0-8.3) x10*3/uL Absolute Nucleated RBC (0.0-0.012) X10*3/uL Nucleated RBC % (auto) (0.0-0.2) /100WBC ESR 1 (0-15) MM/HR PT (10.9-12.4) SEC INR (0.9-1.1) APTT (26.0-36.8) SEC Sodium (135-145) mmol/L Potassium (3.3-5.1) mmol/L Chloride (96-108) mmol/L Carbon Dioxide (22-29) mmol/L Anion Gap (12-20) BUN (9-16) mg/dL Creatinine (0.5-1.4) mg/dL Estim Creat Clear Calc Estimated GFR Random Glucose (60-115) mg/dL Calcium (8.4-10.2) mg/dL Magnesium (1.6-2.6) mg/dL Total Bilirubin (0.0-1.0) mg/dL AST (5-37) U/L ALT (0-40) U/L Alkaline Phosphatase (39-117) U/L Troponin I High Sens 2.9 D (<3.5-35.0) ng/L Total Protein (6.5-8.0) g/dL Albumin (3.5-5.0) g/dL Urine Color Yellow Urine Appearance Clear Urine pH 6.5 (5.0-9.0) Ur Specific [place] 1.010 (1.005-1.025) Urine Protein Negative (Neg-Trace) mg/dL Urine Glucose (UA) Negative (Negative) mg/dL Urine Ketones Negative (Negative) mg/dL Urine Blood Negative (Negative) Urine Nitrite Negative (Negative) Ur Leukocyte Esterase Negative (Negative) Urine RBC 0-2 (0-2) /HPF Urine WBC 0-5 (0-5) /HPF Ur Squamous Epith Cells 0-2 (0-2) /HPF Urine Bacteria None Seen (None Seen) Hyaline Casts 0-2 (0-2) /LPF Independent Interpretation I performed an independent interpretation of an: EKG (Sinus heart rate is 60 VT QRS QTC normal no acute ST-T segment elevation noted.) and CT Scan (My interpretation patient's CT head grossly negative for bleed) Radiology Impression Discussion of test interpretation with radiology: I have reviewed the radiologist's reading. External Record Review External record reviewed: Inpatient record Chronic Conditions Patient?s care impacted by: Diabetes Discharge Plan Discharge Clinical Impression: Brain TIA Patient Disposition: Admitted As Inpatient Prescriptions: No Action meclizine 25 mg tablet 25 mg PO BID PRN (Reason: dizziness) Qty: 30 0RF nystatin 100,000 unit/gram powder 1 appl topical BID Qty: 60 2RF Rx Instructions: to the groin lidocaine [Lidoderm] 5 % adhesive patch,medicated 2 patch topical DAILY Qty: 60 2RF Rx Instructions: leave on most painful area for up to 12 hrs aspirin 81 mg tablet,delayed release (DR/EC) 81 mg PO DAILY Qty: 90 3RF (DME) lancets [Validus DC SystemsTouch Delica Plus Lancet] 33 gauge [facility] [place] See Rx Instructions .Route Qty: 100 3RF Rx Instructions: Test blood sugar once a day lidocaine [Lidoderm] 5 % adhesive patch,medicated 1 patch topical DAILY Qty: 15 0RF Rx Instructions: leave on most painful area for up to 12 hrs azelastine 137 mcg (0.1 %) aerosol,spray intranasal amlodipine 5 mg tablet 5 mg PO QPM (DME) OneTouch Ultra Test Strip See Rx Instructions .Route Qty: 100 3RF Rx Instructions: 1 qd (DME) blood-glucose meter [OneTouch Ultra2 Meter] [facility] See Rx Instructions .Route Qty: 1 0RF Rx Instructions: As directed atorvastatin 40 mg tablet 40 mg PO BEDTIME Qty: 90 3RF buspirone 10 mg tablet 10 mg PO TID Qty: 270 3RF lisinopril 40 mg tablet 40 mg PO DAILY Qty: 90 3RF omeprazole 20 mg capsule,delayed release(DR/EC) 20 mg PO DAILY@0630 Qty: 90 3RF triamcinolone acetonide 0.1 % cream 1 appl topical DAILY Qty: 80 1RF finasteride 5 mg tablet 5 mg PO DAILY Qty: 90 3RF doxycycline hyclate 100 mg tablet 100 mg PO BID Qty: 14 0RF Print Language: Nepali
[2025-01-09 08:30] LABS: Appearance Urine Clear; Color Urine Yellow; Glucose Urine UA Negative (Negative); Leukocyte Esterase Urine Negative (Negative); Nitrite Urine Negative (Negative); PH 6.5 (5.0-9.0); Urine Blood Negative (Negative); Urine Ketones Negative (Negative); Urine Protein Negative (Neg-Trace)
[2025-01-09 08:32] LABS: Bacteria Urine None Seen (None Seen); Hyaline Casts Urine 0-2 /LPF (0-2); RBC Urine 0-2 /HPF (0-2); Squamous Epithelial Cell Urine 0-2 /HPF (0-2); WBC Urine 0-5 /HPF (0-5)
--- OUTSIDE RECORDS SUMMARY | 2025-01-09 08:38 | XMS_ITS | Data Portability ---
Author Organization [place] - [facility], Allergy Address [address] [address] Care Team Providers Care Ceo And Co Founder Name Role Phone EZIO MCDONALD Primary Care [...] also consider cool-mist humidifier. Follow-up as needed. [email or web address] Not available 10/26/2024 09:05:00 Plan of Treatment [...] view 2023 024 [email or web address] 4 [facility], [address] [place] [address], [address], 05/18/2024 14:07:44 Medication Orders mupirocin 2 % topical ointment 2024 025 [facility][id number], [address] [place], [address], 10/26/2024 09:05:29 Patient TargetsNo targets recorded. Patient InstructionsNo instructions recorded. Reason for Referral None Reported. Results Created Date Observation Date Name Description Value Unit Range Abnormal Flag Note LastModifiedBy Organization Detail LastModifiedTime 05/18/20 24 XR, sinus es, paran flores, 3 or more view No observ ation record ed. [email or web address] [facility] Of [address], [address], 05/18/2024 14:04:56 Result Notes None recorded. Problems Name Problem SNOMED Code Status Onset Date Resolution Date Notes Provider Name and Address Organization Details Recorded Time Nasal congestio n 03853668 Active 2016 Nasal congestion ; Note: Date Diagnosed: 11/05/2016 2:50 PM (R09.81) Not Available [facility] 4 02:42:05 Sensorine ural hearing loss of bilateral ears 726710318 Active 2016 Sensorineu ral HL, bilateral; Note: Date Diagnosed: 02/20/2015 9:53 AM (389.18) ; Start Date : 02/20/2015 Sensorine ural hearing loss, bilateral; Note: Date Diagnosed: 12/02/2016 2:25 PM (H90.3) Not Available [facility] 4 02:42:07 Disorder of nasal sinus 6263435 Active 2016 Other specified disorders of nose and nasal sinuses; Note: Date Diagnosed: 05/19/2017 12:46 PM (J34.89) Not Available [facility] 4 02:42:02 Disorder of the nose 31479223 Active 2016 Other specified disorders of nose and nasal sinuses; Note: Date Diagnosed: 05/19/2017 12:46 PM (J34.89) Not Available [facility] 4 02:42:02 Gastroeso phageal reflux disease without esophagit is 350857233 Active 2015 Gastro-eso phageal reflux disease without esophagiti s; Condition: improved N ote: Date Diagnosed: 09/10/2015 9:47 AM (K21.9) Not Available [facility] 4 02:42:12 Chronic rhinitis 67919634 Active 2015 Chronic rhinitis; Note: Date Diagnosed: 09/10/2015 9:27 AM (J31.0) Not Available [facility] 4 02:42:03 Benign paroxysma l positiona l vertigo 824961569 Active 2015 Benign paroxysmal vertigo, right ear; Note: Date Diagnosed: 09/10/2015 9:27 AM (H81.11) Not Available [facility] 4 02:42:08 Atypical facial pain 91044738 Active 2016 Atypical facial pain; Note: Date Diagnosed: 11/05/2016 2:50 PM (G50.1) Not Available [facility] 4 02:42:01 [place] edness 833974591 Active 2023 KAVON HERNANDEZ MD [address] [facility],[place] [address], [place], [address] , [facility] - [facility] 4 14:03:53 Dizziness 517893892 Active 2023 CHEN TURCIOS PA-C [address] [place] [address],[place] [address], [place], [address] , [facility] - [facility] 4 15:45:12 Ulcerativ e rhinitis 17114840 Active 2024 ESPERANZA CASTLE PA-C [address] [place] [address],[place] [address], [place], [address] , [facility] 5 09:05:17 Problem Notes None recorded. Medical Equipment None Reported. Allergies Allergen ID Allergen Name Allergen Category Reaction Reaction Severity Criticality Documentation Date Start Date Code Code System Note Provider Name and Address Organization Details Recorded Time 32758 gabapenti n medicatio n other Not available Not available 12/22/2023 61808 RxNorm React ion: unkno wn, unspe cifie d;; Not Available [facility] 4 01:02:20 23011 cetirizin e hydrochlo ride medicatio n other Not available Not available 12/22/2023 19918 0 RxNorm React ion: unkno wn, unspe cifie d;; Not Available [facility] 4 01:02:31 50542 sertralin e hydrochlo ride medicatio n other Not available Not available 12/22/2023 39482 7 RxNorm React ion: unkno wn, unspe cifie d;; Not Available [facility] 4 01:02:32 Medications Name Sig Start Date Stop Date Status Note LastModified by Organization Details LastModified Time Prescript ion - Prior Authoriza tion Request active Script Copy/Josephine or Auth^Scr ipt Copy/Josephine or Auth_ [id number] Not Available Not Available Not Available celecoxib [...] elayed release 09/27 completed Medicati on ID: [id number] D uration Value: 30 Brand Name: omeprazo [...] mg tablet 01/10 completed Medicati on ID: [id number] D uration Value: 10 Brand Name: levoflox acin Sen d Method: E-Prescr ibed Sub s Allowed: subs OK Medic ationGen ericName : levoflox acin Not Available Not Available Not Available lisinopri l 40 mg tablet TAKE 1 TABLET BY MOUTH EVERY DAY active Not Available Not Available No t Available fluticaso ne propionat e 50 mcg/actua tion nasal spray,janet moreno 01/10 completed Medicati on ID: [id number] D uration Value: 30 Brand Name: fluticas [...] both nostrils 01/10 completed Medicati on ID: [id number] P rescribe d By Name: ROME Merlos nd Name: ipratrop ium bromide Send Method: E-Prescr ibed Sub s Allowed: subs OK Medic ationGen ericName : ipratrop ium bromide Not Available Not Available Not Available finasteri de 5 mg tablet TAKE 1 TABLET BY MOUTH EVERY DAY active Not Available Not Available No t Available tobramyci n 0.3 %-dexamet hasone 0.1 % eye drops,janet pension 01/10 completed Medicati on ID: [id number] D uration Value: 7 Brand Name: tobramyc [...] e Hcl 01/10 completed Medicati on ID: [id number] D uration Value: 90 Brand Name: ranitidi ne hcl Send Method: E-Prescr ibed Sub s Allowed: subs OK Speci al Instruct ion: TAKE 1 TABLET BY MOUTH EVERY DAY AT BEDTIME Medicati onGeneri cName: ranitidi ne hcl Not Available Not Available Not Available omeprazol e 20 mg tablet,de layed release 10/26 completed Medicati on ID: [id number] Janette castañeda By Name: ROME Merlos nd Name: omeprazo [...] Updated DateTime 10/26/2024 182.88 cm 32.5 kg/m2 108758.17 g Varsha Doe [place] - [facility] 10/26/2024 08:50:33 Date Recorded Body height Body mass index (BMI) Body weight Provider Name and Address Organization Details Last Updated DateTime 05/18/2024 182.88 cm 32.7 kg/m2 044166.76 g Leonel Almonte [place] - [facility] 05/18/2024 13:14:48 Social History None recorded. Functional Status None recorded. Mental Status None recorded. Family History Nothing Reported. Medical History Condition Response Allergies/Hayfever Y Heart Problems N Anxiety Y Tonsil Infections N Emphysema N Migraines Y Thyroid Problems N Depression N COPD N Developmental Delay N Glaucoma N Nasal or Sinus Problems Y Anemia N Immune System Disorder N Anesthesia Complications N Heart Attack (ID) N Other Skin Condition N Diabetes N Rhinitis Y Bleeding Disorder N Food Allergy Y Hearing Loss Y Arthritis Y Hyperlipidemia N Cancer N Stroke Y Dementia N Nasal polyps Y Asthma N Sleep Disorder N High Cholesterol N GERD/Reflux Y Liver Disease N Headaches Y Fibromyalgia N Hypertension Y Speech Delay N Kidney Disease N Past Encounters Encounter ID Performer Location Encounter Start Date Encounter Closed Date Diagnosis/Indication Diagnosis SNOMED-CT Code Diagnosis ICD10 Code Diagnosis Note KAVON HERNANDEZ MD [facility] [address] [address] 05/18/2024 12:51:34 05/18/2024 14:07:44 Nasal congestion 21468083 R09.81 Lightheadedness 08440896 8 R42 Dizziness 422066937 R42 [id number] ESPERANZA CASTLE PA-C [facility] [address] [address] 10/26/2024 08:40:31 10/26/2024 09:01:21 Chronic rhinitis 67289246 J31.0 Ulcerative rhinitis 3666 9007 J34.81 Health Concerns Section Related Observation LastModified by Organization Detai ls LastModified Time None Recorded Concern Status LastModified by Organization Details LastModified Time None Recorded Advance Directives Directive None Recorded Payers Insurance Date Sequence Insurance Name Policy Number Policy Ross Covered Member ID Ross Member ID Guarantor Name 10/26/2024 1 [facility] IN[facility]MNITY [facility] (MEDICARE SUPPLEMENT) [id number] Gabo Tanner [id number] Gabo Tanner 10/26/2024 1 [facility] IN[facility]MNITY [facility] (PPO) [id number] Gabo Tanner [id number] Gabo Tanner 10/26/2024 2 [facility] [id number] Gabo Ortega Ciro [id number] Gabo Tanner Notes Date Note Type Note [...] Flonase in the past. KAVON NICHOLE MD [address] [place] [address], [phone], [facility] 05/19/2024 08:44:39 10/26/2024 text/html 79-year-old male [...] jelly in the nose. KAVON NICHOLE MD [address] [place] [address],[address], [address], [facility] 10/26/2024 12:06:48
[2025-01-09 08:43] LABS: Alanine Aminotransferase 56 U/L (0-40); Albumin Level 4.3 g/dL (3.5-5.0); Alkaline Phosphatase 179 U/L (39-117); Anion Gap 12 (12-20); Aspartate Amino Transferase 35 U/L (5-37); Bilirubin Total 0.8 mg/dL (0.0-1.0); Blood Urea Nitrogen 16 mg/dL (9-16); Calcium 9.1 mg/dL (8.4-10.2); Carbon Dioxide 26 mmol/L (22-29); Chloride 109 mmol/L (96-108); Creatinine Clr Calc Pharmacy 82.5; Estimated Glomerular Filt Rate > 60; Glucose Random 132 mg/dL (60-115); Magnesium 1.6 mg/dL (1.6-2.6); Potassium 3.7 mmol/L (3.3-5.1); Sodium 143 mmol/L (135-145); Total Protein 6.9 g/dL (6.5-8.0)
[2025-01-09] MEDS: iohexoL 350 MG/ML 100 ML INFUS..BTL IV (09:04)
[2025-01-09 09:07] LABS: Troponin-I High Sensitivity 2.9 ng/L (<3.5-35.0)
[2025-01-09 09:08] LABS: Erythrocyte Sedimentation Rate 1 MM/HR (0-15)
[2025-01-09] MEDS: 0.9 % Sodium Chloride 500 ML 999 ML IV (09:13)
--- NOTE | 2025-01-09 11:14 | PHA.MEDREC ---
Addendum entered by James Glynn RPh 01/09/25 11:25: MED REC CHECKED BY [facility] Original Note: Pharmacy Consult ? Medication Reconciliation Pharmacy has completed the medication reconciliation. Spoke to patient to confirm med list. Patient new all of his medications. Patient states he is no longer taking Meclizine 25 mg. Patient confirmed he takes Buspirone 15 mg BID (1& 1/2 tab of 10 mg=15mg BID) Patient last took his medication yesterday.
--- NOTE | 2025-01-09 11:25 | PC.NURSE ---
CT head and neck performed showing multiple partial blockages, patient remains stable at this time.
--- NOTE | 2025-01-09 11:53 | P.HPHOSP_ITS ---
History of Present Illness Date of Service: 01/09/25 Chief Complaint: neurological changes The patient is a 79-year-old with a past medical history significant for hypertension, CVA, post herpetic neuralgia, Paget's, GERD, multiple others who presents to [facility] ED with complaints of acute neurological changes was began on the morning prior to hospitalization. The patient states that this morning while ambulating to the bathroom, the patient felt off balance as though he would fall backwards. The patient ambulated to and from the bathroom with this feeling. Subsequent to this the patient reported a several minute episode where his right eye vision was blurred. He reports that his vision looked as though seeing through ?prostate glass.? Shortly after this the patient reported ?flapping? of his right hand which lasted several sec. In the interim, the patient called his son and subsequently the paramedics. He had another episode of flapping of his hand. He reports that these have now resolved. In the emergency room, CT a of the head and neck reveals: No evidence of acute territorial infarct, moderate small-vessel ischemic changes 30% stenosis of the right ICA and 20% stenosis of the left ICA (see full reports for other findings) Pt patient will now be placed under observation for further monitoring and evaluation. Review of Systems 2 Review of Systems: Negative except HPI/interval history. [facility] Medical History Thyroid nodule Cerebral microvascular disease Hematuria Epistaxis Lung mass Tobacco dependence Cataract Constipation Hyperlipidemia Anxiety CVA (cerebral vascular accident) Seasonal allergies JOSEF on CPAP Melanoma Paget's disease GERD (gastroesophageal reflux disease) Neuralgia HTN (hypertension) Family History Father Unknown family medical history Mother Unknown family medical history Son No problems noted. Daughter No problems noted. Daughter No problems noted. Daughter No problems noted. Surgical History Hx of cataract surgery No pertinent past surgical history Social History Household Members: None Housing: House Alcohol intake: never Patient Tobacco Use Status: Never used Tobacco Smoked in Last 30 Days: No e-Cigarette/Vaping Use: Never Used Use of substances other than those prescribed or required for medical reasons: No Advance Directives: No Advance Directives Information Provided: Yes Do you have a plan to hurt others: No Plan service: No Current occupational status: retired Cognitive needs: No Hearing needs: Yes Vision needs: Yes Meds Allergies Allergy/AdvReac Type Severity Reaction Status Date / Time gabapentin [GABAPENTIN] Allergy Intermediate DARK Verified 01/09/25 07:19 THOUGHTS, suicidal cetirizine [From Zyrtec] Allergy Unknown Nausea, Verified 01/09/25 07:19 Emotional clindamycin [CLINDAMYCIN] Allergy Unknown HIVES Verified 01/09/25 07:19 penicillin V Allergy Unknown hives Verified 01/09/25 07:19 Penicillins [PENICILLINS] Allergy Unknown Hives Verified 01/09/25 07:19 prednisone Allergy Unknown nightmares Verified 01/09/25 07:19 sertraline [From ZOLOFT] AdvReac Severe SI Verified 01/09/25 07:19 Active Medications: Current Medications Acetaminophen (Acetaminophen 325 Mg Tablet) 650 mg PO Q6H PRN PRN Reason: Pain, Mild 1-3,fever,headache Calcium Carbonate (Calcium Carbonate 750 Mg Tab.Chew) 750 mg PO Q4H PRN PRN Reason: Heartburn Magnesium Hydroxide (Milk Of Magnesia 30 Ml Oral.Susp) 30 ml PO DAILY PRN PRN Reason: Constipation Melatonin (Melatonin 3 Mg Tablet) 6 mg PO BEDTIME PRN PRN Reason: Insomnia Sodium Chloride (0.9 % Sodium Chloride Flush 3 Ml Syringe) 3 ml IVFLUSH [facility] Medications ?Medication ?Instructions ?Recorded ?Confirmed ?Last Taken ?Type amlodipine 5 mg tablet 5 mg PO BEDTIME@1800 07/12/24 01/09/25 01/08/25 History azelastine 137 mcg (0.1 %) nasal 2 spray intranasal BID PRN Allergy 01/09/25 01/09/25 01/08/25 History spray Symptoms buspirone 10 mg tablet 15 mg PO BID 01/09/25 01/09/25 01/08/25 History lisinopril 40 mg tablet 40 mg PO DAILY 01/09/25 01/09/25 01/08/25 History nystatin 100,000 unit/gram topical 1 appl topical BID PRN Rash 01/09/25 01/09/25 01/08/25 History powder Physical Exam 2 Vital Signs and Narrative: Vital Signs: Last Vital Signs Temp 98.7 F 01/09/25 08:09 Pulse 74 01/09/25 08:09 Resp 17 01/09/25 08:09 BP 147/81 H 01/09/25 08:09 Pulse Ox 97 01/09/25 08:09 O2 Del Method Room Air 01/09/25 08:09 BMI result Body Mass Index 32.6 Const: Other: Constitutional - Awake and Alert, No apparent distress Eyes - PERRLA, EOMI Cardiovascular - S1S2, RRR, No edema Respiratory - Normal lung expansion, Normal respiratory effort, No respiratory distress, CTA bilaterally Gastrointestinal - NT / ND; +BS; No rebound or guarding - No CVA tenderness Extremities - no calf tenderness bilaterally, no swelling Musculoskeletal - Normal inspection, normal ROM Skin - Warm/Dry Neurological - Alert & oriented x3, No focal deficit; CN2-12 intact; fingter to nose appears wnl b/l Psychological - Appropriate affect Results Labs 01/09/25 07:34 01/09/25 08:16 Labs: Laboratory Results - last 24 hr 01/09/25 01/09/25 01/09/25 07:34 07:36 08:16 MCV 86.8 MCH 30.5 MCHC 35.1 RDW 13.1 Plt Count 232 MPV 9.0 L Immature Gran % (Auto) 1.1 H Neut % (Auto) 61.3 Lymph % (Auto) 22.8 Mckean % (Auto) 10.6 Eos % (Auto) 3.3 Baso % (Auto) 0.9 Lymph # (Auto) 1.7 Mckean # (Auto) 0.8 Eos # (Auto) 0.3 Baso # (Auto) 0.1 Abs Immat Gran (auto) 0.08 H Absolute Neuts (auto) 4.6 Absolute Nucleated RBC 0.000 Nucleated RBC % (auto) 0.0 ESR PT 10.6 L INR 0.9 APTT 31.5 Anion Gap 12 Estim Creat Clear Calc 82.5 Estimated GFR > 60 Random Glucose 132 H Calcium 9.1 D Magnesium 1.6 Total Bilirubin 0.8 AST 35 ALT 56 H Alkaline Phosphatase 179 H Troponin I High Sens 6.1 Total Protein 6.9 Albumin 4.3 Urine Color Urine Appearance Urine pH Ur Specific [place] Urine Protein Urine Glucose (UA) Urine Ketones Urine Blood Urine Nitrite Ur Leukocyte Esterase Urine RBC Urine WBC Ur Squamous Epith Cells Urine Bacteria Hyaline Casts 01/09/25 01/09/25 01/09/25 08:17 08:22 08:42 MCV MCH MCHC RDW Plt Count MPV Immature Gran % (Auto) Neut % (Auto) Lymph % (Auto) Mckean % (Auto) Eos % (Auto) Baso % (Auto) Lymph # (Auto) Mckean # (Auto) Eos # (Auto) Baso # (Auto) Abs Immat Gran (auto) Absolute Neuts (auto) Absolute Nucleated RBC Nucleated RBC % (auto) ESR 1 PT INR APTT Anion Gap Estim Creat Clear Calc Estimated GFR Random Glucose Calcium Magnesium Total Bilirubin AST ALT Alkaline Phosphatase Troponin I High Sens 2.9 D Total Protein Albumin Urine Color Yellow Urine Appearance Clear Urine pH 6.5 Ur Specific [place] 1.010 Urine Protein Negative Urine Glucose (UA) Negative Urine Ketones Negative Urine Blood Negative Urine Nitrite Negative Ur Leukocyte Esterase Negative Urine RBC 0-2 Urine WBC 0-5 Ur Squamous Epith Cells 0-2 Urine Bacteria None Seen Hyaline Casts 0-2 Imaging Radiologist's Impressions: Impressions Head/Neck CTA 01/09/25 08:56 IMPRESSION: NONCONTRAST HEAD CT: 1. No intracranial hemorrhage or mass effect. No CT evidence of acute territorial infarct. 2. Moderate small vessel ischemic changes. CTA NECK: 1. There is an approximate 30% stenosis of the right ICA at the origin secondary to calcific plaque. Vessel is otherwise patent. 2. There is an approximate 20% stenosis of the left ICA at the origin secondary to calcific plaque. Vessel is otherwise patent. 3. The vertebral arteries are normal in course and caliber without stenoses. The left is dominant. 4. There is emphysema in the lung apices. There is a stable 1.2 x 0.8 cm right upper lobe pulmonary nodule, unchanged from 2020 exam. This is a benign entity. 5. There is a right-sided goiter. CTA HEAD: 1. There is no flow-limiting high-grade stenosis, occlusion, dissection, or aneurysm in the intracranial arterial vasculature. 2. The major cortical and dural venous sinuses are patent. Electronically signed by: Donald Melendrez MD 01/09/2025 09:44 AM EDT Assessment and Plan (1) Brain TIA: Status: Acute Plan 79 yo M with multiple risk factors for CVA presenting with acute neurological changes (which have since resolved) concerning for TIA vs acute CVA. 1. Suspected TIA has multiple risk factors monitor on tele neurology consult -- further work up pending their eval including echo, mri, etc 2. HTN continue BP meds 3. HLD statin 4. history of CVA continue statin, asa 5. Mood continue baseline meds Full Code DVT pptx -- lovenox Quality Stroke Does the patient have a stroke diagnosis?: No VTE Prior VTE?: No VTE Risk Level:: Medical - moderate - high VTE Device Contraindication: N/A - Device Ordered VTE Drug Contraindication: N/A - Med Ordered
[2025-01-09 12:10] LABS: Cholesterol 117 mg/dL (<200); HDL Cholesterol 47 mg/dL (>40); LDL Cholesterol Calculated 53 mg/dL (<100); Triglycerides 85 mg/dL (<150)
[2025-01-09] MEDS: Enoxaparin Sodium 40 MG/0.4 ML SYRINGE SUBCUT (13:26)
[2025-01-09] MEDS: 0.9 % Sodium Chloride Flush 3 ML SYRINGE IVFLUSH ×2 (15:52→20:49)
--- NOTE | 2025-01-09 15:54 | P.CNNE_ITS ---
History of Present Illness Data of Consult Service Date: 01/09/25 Primary Care Provider: Nonstaff Physician HPI Reason for consult: Dizziness 79 years old man with past medical history of PTSD, hearing impairment, and suspected seizure disorder but negative EEG, woke up this morning and wanted to go to restroom when he felt dizzy. He stood there for few sec and then when to the restroom and urinated. After that he came out and felt dizzy again but also had blurriness of what he stated was his right eye. He also noted shaking of his right hand. These symptoms occurred couple of times and each time lasted for a minute or 2. He said that he was alert and awake and remembered everything. Now he was feeling okay. Review of Systems 2 Review of Systems: There was no associated chest pain shortness of breath palpitation PMFSH Past Medical History Medical History Thyroid nodule Cerebral microvascular disease Hematuria Epistaxis Lung mass Tobacco dependence Cataract Constipation Hyperlipidemia Anxiety CVA (cerebral vascular accident) Seasonal allergies JOSEF on CPAP Melanoma Paget's disease GERD (gastroesophageal reflux disease) Neuralgia HTN (hypertension) Family History Family History Father Unknown family medical history Mother Unknown family medical history Son No problems noted. Daughter No problems noted. Daughter No problems noted. Daughter No problems noted. Surgical History Surgical History Hx of cataract surgery No pertinent past surgical history Social History Social History Household Members: None Housing: House Alcohol intake: never Patient Tobacco Use Status: Never used Tobacco Smoked in Last 30 Days: No e-Cigarette/Vaping Use: Never Used Use of substances other than those prescribed or required for medical reasons: No Advance Directives: No Advance Directives Information Provided: Yes Do you have a plan to hurt others: No Plan service: No Current occupational status: retired Cognitive needs: No Hearing needs: Yes Vision needs: Yes Meds Allergies Allergy/AdvReac Type Severity Reaction Status Date / Time gabapentin [GABAPENTIN] Allergy Intermediate DARK Verified 01/09/25 07:19 THOUGHTS, suicidal cetirizine [From Zyrtec] Allergy Unknown Nausea, Verified 01/09/25 07:19 Emotional clindamycin [CLINDAMYCIN] Allergy Unknown HIVES Verified 01/09/25 07:19 penicillin V Allergy Unknown hives Verified 01/09/25 07:19 Penicillins [PENICILLINS] Allergy Unknown Hives Verified 01/09/25 07:19 prednisone Allergy Unknown nightmares Verified 01/09/25 07:19 sertraline [From ZOLOFT] AdvReac Severe SI Verified 01/09/25 07:19 Active Medications: Current Medications Acetaminophen (Acetaminophen 325 Mg Tablet) 650 mg PO Q6H PRN PRN Reason: Pain, Mild 1-3,fever,headache Amlodipine Besylate (Amlodipine Besylate 5 Mg Tablet) 5 mg PO BEDTIME@1800 [facility]; Protocol Aspirin (Aspirin Enteric Coated 81 Mg Tablet.) 81 mg PO DAILY [facility] Atorvastatin Calcium (Atorvastatin Calcium 40 Mg Tablet) 40 mg PO BEDTIME [facility] Buspirone HCl (Buspirone Hcl 5 Mg Tablet) 15 mg PO BID [facility] Calcium Carbonate (Calcium Carbonate 750 Mg Tab.Chew) 750 mg PO Q4H PRN PRN Reason: Heartburn Doxycycline Monohydrate (Doxycycline Monohydrate 100 Mg Capsule) 100 mg PO Q12H [facility] Enoxaparin Sodium (Enoxaparin Sodium 40 Mg/0.4 Ml Syringe) 40 mg SUBCUT Q24H [facility] Last Admin: 01/09/25 13:26 Dose: 40 mg Finasteride (Finasteride 5 Mg Tablet) 5 mg PO DAILY [facility] Magnesium Hydroxide (Milk Of Magnesia 30 Ml Oral.Susp) 30 ml PO DAILY PRN PRN Reason: Constipation Melatonin (Melatonin 3 Mg Tablet) 6 mg PO BEDTIME PRN PRN Reason: Insomnia Omeprazole (Omeprazole 20 Mg Capsule.) 20 mg PO DAILY@0630 [facility] Sodium Chloride (0.9 % Sodium Chloride Flush 3 Ml Syringe) 3 ml IVFLUSH QSHIFT [facility] Home Medications ?Medication ?Instructions ?Recorded ?Confirmed ?Last Taken ?Type amlodipine 5 mg tablet 5 mg PO BEDTIME@1800 07/12/24 01/09/25 01/08/25 History azelastine 137 mcg (0.1 %) nasal 2 spray intranasal BID PRN Allergy 01/09/25 01/09/25 01/08/25 History spray Symptoms buspirone 10 mg tablet 15 mg PO BID 01/09/25 01/09/25 01/08/25 History lisinopril 40 mg tablet 40 mg PO DAILY 01/09/25 01/09/25 01/08/25 History nystatin 100,000 unit/gram topical 1 appl topical BID PRN Rash 01/09/25 01/09/25 01/08/25 History powder Physical Exam 2 Vital Signs: Vital Signs: Last Vital Signs Temp 98.8 F 01/09/25 15:31 Pulse 84 01/09/25 15:31 Resp 15 01/09/25 15:31 BP 146/79 H 01/09/25 15:31 Pulse Ox 95 01/09/25 15:31 O2 Del Method Room Air 01/09/25 15:31 BMI result Body Mass Index 33.9 Neuro: Other: He is alert and awake with normal spontaneity of speech fluency comprehension and affect. Hearing is diminished. Face is symmetrical. Visual roth are full. [id number] testing is normal. Deep tendon reflexes are absent in plantars are flexor. Results Labs 01/09/25 07:34 01/09/25 08:16 Labs: Short CBC 01/09/25 Range/Units 07:34 WBC 7.5 (4.8-10.8) X10*3/uL Hgb 16.2 (14.0-18.0) g/dl Hct 46.2 (42.0-52.0) % Plt Count 232 (160-400) X10*3/uL BMP 01/09/25 08:16 Sodium 143 Potassium 3.7 Chloride 109 H Carbon Dioxide 26 BUN 16 Creatinine 0.91 Calcium 9.1 D Liver Function 01/09/25 Range/Units 08:16 Total Bilirubin 0.8 (0.0-1.0) mg/dL AST 35 (5-37) U/L ALT 56 H (0-40) U/L Alkaline Phosphatase 179 H (39-117) U/L Albumin 4.3 (3.5-5.0) g/dL Urine 01/09/25 Range/Units 08:17 Urine Color Yellow Urine Appearance Clear Urine pH 6.5 (5.0-9.0) Ur Specific [place] 1.010 (1.005-1.025) Urine Protein Negative (Neg-Trace) mg/dL Urine Glucose (UA) Negative (Negative) mg/dL Head CT revealed moderately severe diffuse cerebral and cerebellar atrophy and moderately severe chronic microvascular ischemic changes. CTA did not reveal any significant large vessel disease. Assessment and Plan (1) Brain TIA: Status: Acute 79 years old man with symptoms of dizziness, blurriness of vision, and right hand shaking. These symptoms might be related to vascular disease but there was no large vessel disease, which sometime can cause this type of symptoms. Seizure disorder was another possibility but he stated that he was fully alert during these episodes, which would make it less likely. His blood pressure was not low enough to cause orthostatic symptoms. My recommendation is to cover him for vascular disease were anti-platelet agent and obtain an EEG. Procedures Date of Service Date of Service: 01/09/25
[2025-01-09] MEDS: amLODIPine Besylate 5 MG TABLET PO (18:09)
[2025-01-09] MEDS: Atorvastatin Calcium 40 MG TABLET PO (20:47)
[2025-01-09] MEDS: busPIRone HCl 5 MG TABLET 15 MG PO (20:48)
[2025-01-09] MEDS: Doxycycline Monohydrate 100 MG CAPSULE PO (20:48)
[2025-01-10 03:38] LABS: CRP High Sensitivity <0.2 mg/L
[2025-01-10 03:50] VITALS: BP 134/87; PULSE 65; RESP 16; TEMP 36.9; O2SAT 100
[2025-01-10] MEDS: Omeprazole 20 MG CAPSULE.DR PO (06:14)
[2025-01-10 07:28] VITALS: BP 108/54; PULSE 68; RESP 18; TEMP 37.5; O2SAT 95
[2025-01-10] MEDS: Finasteride 5 MG TABLET PO (08:22)
[2025-01-10] MEDS: busPIRone HCl 5 MG TABLET 15 MG PO (08:22)
[2025-01-10] MEDS: Aspirin Enteric Coated 81 MG TABLET.DR PO (08:22)
[2025-01-10] MEDS: 0.9 % Sodium Chloride Flush 3 ML SYRINGE IVFLUSH ×2 (08:23→14:17)
[2025-01-10] MEDS: Doxycycline Monohydrate 100 MG CAPSULE PO (08:23)
--- NOTE | 2025-01-10 09:10 | MHC.CM.PN ---
DAT 01/10/25, PT W/TIA, CM MET W/PT WHO IS A&O, PT REPORTS HE LIVES ALONE HOWEVER HAS MULTIPLE FAMILY MEMBERS CHECKING IN ON PT, PER P.T. PT AT FUNCTIONAL BASELINE, PT REPORTS HE IS INDEP W/CARE AND USES A CANE INSIDE HOME AND WALKER WHEN HE LEAVES HOME, BR IS ACCESSIBLE IT WAS REMODELED FOR PT'S PRIOR TO HER PASSING, NO HOME SERVICES AND PT DECLINES NEED FOR HOME SERVICES AT THIS TIME, GOAL FOR DC IS HOME. PT VERIFIES PCP IS EZIO MCDONALD, PT REPORTS HIS HCP IS HIS SON HONORIO AND DTR TIMA SABILLON, COPY REQUESTED. ANTIC PT WILL DC LATER TODAY HOME SELF CARE, ONE OF PT'S SON WILL TRANSPORT
[2025-01-10 11:09] VITALS: BP 143/73; PULSE 59; RESP 16; TEMP 36.6; O2SAT 96
--- NOTE | 2025-01-10 13:50 | P.DS_ITS ---
DS: Providers Provider Date of Service: 01/10/25 Date of admission: 01/09/25 10:29 Date of discharge: 01/10/25 Primary care physician: Nonstaff Physician Consults: 01/09/25 11:50 Consult to Neurology Routine Consulting Provider: [facility] Reason for consultation: TIA DS: Diagnosis Discharge Diagnosis (1) Brain TIA: Status: Acute DS: Summary Hospital Course Hospital Course: History and physical as per admitting provider. The patient is a 79-year-old with a past medical history significant for hypertension, CVA, post herpetic neuralgia, Paget's, GERD, multiple others who presents to [facility] with complaints of acute neurological changes was began on the morning prior to hospitalization. The patient states that this morning while ambulating to the bathroom, the patient felt off balance as though he would fall backwards. The patient ambulated to and from the bathroom with this feeling. Subsequent to this the patient reported a several minute episode where his right eye vision was blurred. He reports that his vision looked as though seeing through ?prostate glass.? Shortly after this the patient reported ?flapping? of his right hand which lasted several sec. In the interim, the patient called his son and subsequently the paramedics. He had another episode of flapping of his hand. He reports that these have now resolved. In the emergency room, CT a of the head and neck reveals: No evidence of acute territorial infarct, moderate small- vessel ischemic changes. 30% stenosis of the right ICA and 20% stenosis of the left ICA. (see full reports for other findings) Pt patient will now be placed under observation for further monitoring and evaluation. 79-year-old man presented with neurological changes with suspected TIA. MRI was negative for any acute abnormalities, seen evaluated by Neurology who recommended treatment for vascular disease which sometimes may cause neurologic symptoms. Recommendation was to start antiplatelet agent. Patient is alert and oriented with no acute neurological changes. Plan will be to discharge home. Hypertension. Continue blood pressure medications Hyperlipidemia. Continue aspirin and statin Mood disorder. Continue home medications. Time Attestation Discharge Coordination Time (in mins): 40 Quality: Safe Use of Opioids Does Pt have an Active Cancer Diagnosis on the Problem List?: No Quality: Stroke Does the patient have a stroke diagnosis?: No Physical Exam Vital Signs: Vital Signs: Last Vital Signs Temp 97.9 F 01/10/25 11:09 Pulse 59 01/10/25 11:09 Resp 16 01/10/25 11:09 BP 143/73 H 01/10/25 11:09 Pulse Ox 96 01/10/25 11:09 O2 Del Method Room Air 01/10/25 11:09 BMI result Body Mass Index 33.9 Appearing in no acute distress head is normocephalic atraumatic eyes pupils are PERRLA sclera is anicteric mouth throat mucous membranes are intact and moist neck is supple no lymphadenopathy, no JVD noted lung sounds are clear to auscultation heart regular rate rhythm, clear S1, S2 positive bowel sounds, abdomen is soft, nontender neuro patient is alert x3, no focal deficits DS: Data Data Completed and Pending Labs on day of discharge: Laboratory Results - last 24 hr 01/09/25 08:22 C-React Prot High Sens <0.2 Discharge Plan Discharge Anticipated Discharge Date/Time: 01/10/25 07:49 Patient Disposition: Home, Self-Care Discharge Diagnosis: Suspected TIA Referrals: Alicia Kelsey MD [Physician] - 1 Week Discharge Medications: Continued lidocaine [Lidoderm] 5 % adhesive patch,medicated 2 patch topical DAILY Qty: 60 2RF Rx Instructions: leave on most painful area for up to 12 hrs aspirin 81 mg tablet,delayed release (DR/EC) 81 mg PO DAILY Qty: 90 3RF (DME) lancets [OneTouch Delica Plus Lancet] 33 gauge misc See Rx Instructions .Route Qty: 100 3RF Rx Instructions: Test blood sugar once a day azelastine 137 mcg (0.1 %) spray,non-aerosol 2 spray intranasal BID PRN (Reason: Allergy Symptoms) buspirone 10 mg tablet 15 mg PO BID nystatin 100,000 unit/gram powder 1 appl topical BID PRN (Reason: Rash) Rx Instructions: to the groin lisinopril 40 mg tablet 40 mg PO DAILY amlodipine 5 mg tablet 5 mg PO BEDTIME@1800 (DME) OneTouch Ultra Test Strip See Rx Instructions .Route Qty: 100 3RF Rx Instructions: 1 qd (DME) blood-glucose meter [OneTouch Ultra2 Meter] Misc See Rx Instructions .Route Qty: 1 0RF Rx Instructions: As directed atorvastatin 40 mg tablet 40 mg PO BEDTIME Qty: 90 3RF omeprazole 20 mg capsule,delayed release(DR/EC) 20 mg PO DAILY@0630 Qty: 90 3RF triamcinolone acetonide 0.1 % cream 1 appl topical DAILY Qty: 80 1RF Rx Instructions: Mix with Cerave cream finasteride 5 mg tablet 5 mg PO DAILY Qty: 90 3RF doxycycline hyclate 100 mg tablet 100 mg PO BID Qty: 14 0RF Discharge Orders: Discharge Order (Routine); Ordered 01/10/25 Ordered By: Christina Snyder Diet: Advance to usual diet Activity on Discharge: As tolerated Stand Alone Forms: Patient Portal Discharge page Print Language: Panamanian Care Plan Goals: Keep hydrated, drink at least 1 L of fluid a day Before getting up to a standing position sit down for a few minutes and get up slowly, rest for few sec before beginning to ambulate If symptoms return, come back to the emergency department Health Concerns: Suspected TIA Plan of Treatment: Follow-up with primary care provider as needed Take all medications as prescribed Assessment: See discharge summary
[2025-01-10] MEDS: Enoxaparin Sodium 40 MG/0.4 ML SYRINGE SUBCUT (14:17)
[2025-01-10 15:16] VITALS: BP 138/67; PULSE 60; RESP 20; TEMP 36.6; O2SAT 94
== END 2025-01-10 18:09 | disposition home or self-care (01) ==
LOC: HO.ED 10:39 → HO.EDOVER 10:55 → HO.IMC 11:25
PROVIDERS: Admitting Provider Family Medicine; Emergency Provider Emergency Medicine Emergency Medical Services; PCP Internal Medicine; Visit Provider Nurse Practitioner Acute Care
DX: R42 Dizziness and giddiness (principal); R26.9 Unspecified abnormalities of gait and mobility; H53.8 Other visual disturbances; R25.1 Tremor, unspecified; Z86.73 Personal history of transient ischemic attack (TIA), and cerebral infarction without residual deficits; I10 Essential (primary) hypertension; K21.9 Gastro-esophageal reflux disease without esophagitis; E78.5 Hyperlipidemia, unspecified; F39 Unspecified mood [affective] disorder; Z79.899 Other long term (current) drug therapy
CPT/HCPCS: 36415; 70496; 70498; 80053; 80061; 81001; 83735; 84484; 85025; 85610; 85652; 85730; 86141; 93005; 96360; 96361; 96372; 97161; 99222; 99285; J1650; Q9967

== ENCOUNTER → 2025-01-09 07:17 | Outpatient (BNV) | payer OTHER, SELFPAY | PROVIDERS: Admitting Provider Family Medicine; Emergency Provider Emergency Medicine Emergency Medical Services; Visit Provider Internal Medicine | DX: R94.31 Abnormal electrocardiogram [ECG] [EKG] (principal); R42 Dizziness and giddiness | CPT/HCPCS: 93010 ==

== ENCOUNTER → 2025-01-09 08:11 | Outpatient (BNV) | payer OTHER, SELFPAY | PROVIDERS: Emergency Provider Emergency Medicine Emergency Medical Services; Visit Provider Radiology Diagnostic Radiology | DX: J43.9 Emphysema, unspecified (principal) | CPT/HCPCS: 70496; 70498 ==

== ENCOUNTER → 2025-01-09 10:29 | Outpatient (BNV) | payer OTHER, SELFPAY | PROVIDERS: Admitting Provider Family Medicine; Emergency Provider Emergency Medicine Emergency Medical Services; Visit Provider Psychiatry & Neurology Neurology | DX: G45.9 Transient cerebral ischemic attack, unspecified (principal) | CPT/HCPCS: 99222 ==

== ENCOUNTER → 2025-01-09 10:29 | Outpatient (BNV) | payer OTHER, SELFPAY | PROVIDERS: Admitting Provider Family Medicine; Emergency Provider Emergency Medicine Emergency Medical Services; Visit Provider Family Medicine | DX: G45.9 Transient cerebral ischemic attack, unspecified (principal) | CPT/HCPCS: 99222; 99239 ==

== ENCOUNTER 2025-01-24 10:55 | Outpatient (AMB) | payer OTHER, SELFPAY ==
--- NOTE | 2025-01-24 11:21 | MHC.PC.OV ---
Vital Signs 01/24/25 11:22 Height 6 ft Weight 244 lb BMI 33.1 BP 120/68 Blood Pressure Location Rt brachial Position Sitting Respiration 20 Pulse 84 Pulse Source Pulse Oximeter Pulse Oximetry (%) 97 Oxygen Delivery Method Room Air Intake Visit Reasons: TCM Intake Note: Pt is here today for TCM. Allergies gabapentin [GABAPENTIN] Allergy (Intermediate, Verified 01/24/25 11:23) DARK THOUGHTS, suicidal cetirizine [From Zyrtec] Allergy (Unknown, Verified 01/24/25 11:23) Nausea, Emotional clindamycin [CLINDAMYCIN] Allergy (Unknown, Verified 01/24/25 11:23) HIVES penicillin V Allergy (Unknown, Verified 01/24/25 11:23) hives Penicillins [PENICILLINS] Allergy (Unknown, Verified 01/24/25 11:23) Hives prednisone Allergy (Unknown, Verified 01/24/25 11:23) nightmares sertraline [From ZOLOFT] Adverse Reaction (Severe, Verified 01/24/25 11:23) SI Tobacco use date assessed: 01/24/25 Last assessed Fall Risk: 01/24/25 Dental Screening Dental Screen Date: 11/14/24 HPI TCM HPI Details Patient presents for the follow-up of hospitalization for the episode of lightheadedness dizziness and transitional loss of vision in the right eye. Patient had negative neurological and cardiac workup. Patient denies any recurrent symptoms. Hypertension hyperlipidemia and chronic anxiety are stable on current medications. He has been ambulating with a walker due to poor balance despite extensive physical therapy. TCM TCM Information Date of Discharge 01/10/25 Discharged From [facility] Interactive Contact Date (Reference documentation from this date) 01/11/25 [facility] Medical History (Updated 01/24/25 @ 12:54 by Alicia Kelsey MD) Brain TIA Thyroid nodule Cerebral microvascular disease Hematuria Epistaxis Lung mass Tobacco dependence Cataract Constipation Hyperlipidemia Anxiety CVA (cerebral vascular accident) Seasonal allergies JOSEF on CPAP Melanoma Paget's disease GERD (gastroesophageal reflux disease) Neuralgia HTN (hypertension) Surgical History Hx of cataract surgery No pertinent past surgical history Family History Father Unknown family medical history Mother Unknown family medical history Son No problems noted. Daughter No problems noted. Daughter No problems noted. Daughter No problems noted. Social History Household Members: None Housing: House Alcohol intake: never Patient Tobacco Use Status: Never used Tobacco e-Cigarette/Vaping Use: Never Used service: No Current occupational status: retired Cognitive needs: No Hearing needs: Yes Vision needs: Yes Questionnaire Thrive Questionnaire Date Thrive assessed: 11/07/24 I am a: Patient What is your living situation today?: I have a steady place to live Within the past 12 months, did the food you bought not last and you didn't have the money to get more?: Never true Within the past 12 months, did you worry whether your food would run out before you got money to buy more?: Never true Do you have trouble paying for medicines?: No Do you have trouble getting transportation to medical appointments?: No Do you have trouble paying your heating and electricity bill?: No Do you have trouble taking care of your child, family member or friend?: I choose not to answer this question Do you have trouble with day-to-day activities such as bathing, preparing meals, shopping, managing finances, etc.?: No Are you currently unemployed and looking for a job?: No Are you interested in more education?: Yes Please select the resources that you would like help with: None Currently or been in a relationship where the following occur: No concerns reported THRIVE Score: 0 ABBY-7 AMB Questionnaire ABBY-7 Date ABBY - 7 assessed: 11/14/24 Source: Developed by Drs. Neil Dominguez, Trang Butler, Armando Parr and colleagues, with an educational unruly from [employer]. Review of Systems Const All systems reviewed & are unremarkable except as noted in HPI and below Eyes Reports no additional complaints ENT Reports no additional complaints Card Reports no additional complaints Resp Reports no additional complaints GI Reports no additional complaints Reports no additional complaints Physical exam (Primary Care) Vital Signs: Last Vital Signs Pulse 84 01/24/25 11:22 Resp 20 01/24/25 11:22 BP 120/68 01/24/25 11:22 Pulse Ox 97 01/24/25 11:22 Oxygen Delivery Method Room Air 01/24/25 11:22 BMI result Body Mass Index 33.1 Tobacco/Smoking Status: Tobacco use Status Tobacco use date assessed 01/24/25 01/24/25 11:37 Patient Tobacco Use Status Never used Tobacco 01/24/25 11:37 e-Cigarette/Vaping Use Never Used 01/24/25 11:22 Thrive Assessment: Date of Thrive Assessment Date Thrive assessed 11/07/24 01/24/25 11:22 Currently or been in a relationship where the following occur: No concerns reported Const General: no acute distress HENMT Head: Yes normal to inspection Throat: Yes posterior oropharynx normal Resp Effort & Inspection: normal respiratory effort Auscultation: clear to auscultation bilaterally Cardio Rhythm: regular rhythm Heart sounds: S1 normal heart sound present and S2 normal heart sound present GI Inspection: Yes normal to inspection Palpation (GI): Soft to palpation Percussion: Yes normal to percussion Auscultation: normal bowel sounds Neuro Cranial nerves: Yes CN's II-XII intact bilaterally Gait exam (Neuro): Shuffling gait present Motor exam (neuro): 5/5 motor strength present throughout Romberg Test: Negative Extrem General: Yes no clubbing, cyanosis or edema Coding Level of Care Code Est Pt Level 4 (05936) Diagnoses Hyperlipidemia E78.5 HTN (hypertension) I10 Brain TIA G45.9 Assessment & Plan Assessment & Plan (1) Hyperlipidemia: Code(s): E78.5 - Hyperlipidemia, unspecified Category: Medical Plan: Continue statin (2) HTN (hypertension): Comment: 20 years Code(s): I10 - Essential (primary) hypertension Category: Medical Plan: Continue current medications (3) Brain TIA: Comment: CT angio brain and neck negative 01/2025 Code(s): G45.9 - Transient cerebral ischemic attack, unspecified Category: Medical Plan: Obtain 7 day Holter and echocardiogram for the full TIA workup. Continue aspirin and high dose of statin
[2025-01-24 11:22] VITALS: BP 120/68; PULSE 84; RESP 20; O2SAT 97; BMI 33.1
--- OUTSIDE RECORDS SUMMARY | 2025-01-24 12:25 | XMS_ITS | Referral Summary ---
Author Organization [facility] Address [address] [id number] Care Team Providers Care Instructional Aide Name Role Phone LowAlicia Primary Care Provider Allergies Active Allergy Reactions Criticality Noted Date [...] Plan of Treatment Not on file Insurance [facility] [employer] [id number] Care Teams Instructional Aide Relationship Specialty Start Date End Date Alicia Kelsey [address] [place] [address] PCP - General Internal Medicine 08/16/21
== END 2025-01-24 12:44 | disposition home or self-care (01) ==
LOC: HO.HMCC 10:55
PROVIDERS: PCP Internal Medicine; Visit Provider Internal Medicine
DX: E78.5 Hyperlipidemia, unspecified (principal); I10 Essential (primary) hypertension; G45.9 Transient cerebral ischemic attack, unspecified

== ENCOUNTER → 2025-01-24 10:55 | Outpatient (BNVA) | payer OTHER, SELFPAY | PROVIDERS: PCP Internal Medicine; Visit Provider Internal Medicine | DX: Z13.89 Encounter for screening for other disorder (principal) ==

== ENCOUNTER 2025-02-27 10:16 | Outpatient (REF) | payer OTHER, SELFPAY ==
--- NOTE | ~2025-02-27 | US_ITS ---
EXAMINATION: US THYROID HISTORY: E04.1 - Nontoxic single thyroid nodule TECHNIQUE: Real-time grayscale ultrasound imaging was performed and images were reviewed. COMPARISON: Comparison is made with the prior examination dated 09/02/2016. Correlation is also made with a CT angiogram of the neck dated 01/09/2025. FINDINGS: SIZE: The right thyroid lobe measures 6.3 x 3.9 x 2.8 cm. The left thyroid lobe measures 5.6 x 2.1 x 1.9 cm. The isthmus measures 7 mm. FLOW: Flow to the gland is normal. ECHOGENICITY: The echotexture of the gland is heterogeneous. NODULES: Numerous nodules are noted bilaterally. The largest nodules are described below: Nodule #: 1 Location: Lower pole of the right thyroid lobe measuring 3.2 x 2.4 x 2.6 cm (previously 2.5 x 2.4 x 2.0 cm). Shape: Wider than tall (0 points) Margins: Smooth (0 points) Echotexture: Hypoechoic (2 points) Composition: Mostly solid (2 points) Calcifications: None (0 points) Total points: 4 TIRADS: TR4: Moderately suspicious. Nodule #: 2 Location: Lower pole of the right thyroid lobe measuring 8 x 6 x 8 mm (previously 7 x 4 x 1 mm). Shape: Wider than tall (0 points) Margins: Smooth (0 points) Echotexture: Hypoechoic (2 points) Composition: Solid (2 points) Calcifications: None (0 points) Total points: 4 TIRADS: TR4: Moderately suspicious. Nodule #: 3 Location: Lower pole of the right thyroid lobe medially measuring 8 x 8 x 9 mm (not seen previously). Shape: Wider than tall (0 points) Margins: Smooth (0 points) Echotexture: Isoechoic (1 point) Composition: Mostly solid (2 points) Calcifications: None (0 points) Total points: 3 TIRADS: TR3: Mildly suspicious. Nodule #: 4 Location: Lower pole of the left thyroid lobe measuring 1.6 x 1.3 x 1.2 cm (not seen previously). Shape: Taller than wide (3 points) Margins: Ill-defined (0 points) Echotexture: Hypoechoic (2 points) Composition: Solid (2 points) Calcifications: None (0 points) Total points: 7 TIRADS: TR5: Highly suspicious. Nodule #: 5 Location: Lower pole of the left thyroid lobe measuring 1.2 x 1.3 x 1.5 cm (not seen previously). Shape: Wider than tall (0 points) Margins: Ill-defined (0 points) Echotexture: Indeterminate (1 point) Composition: Mostly solid (2 points) Calcifications: None (0 points) Total points: 3 TIRADS: TR3: Mildly suspicious. US/US thyroid IMPRESSION: Multinodular thyroid gland as detailed above. According to ACR TI-RADS guidelines below, ultrasound-guided fine-needle aspiration of nodules #1 and 4 is recommended. ACR TI-RADS Guidelines TR1 (0 points): Benign, No follow-up or biopsy required TR2 (2 points): Not Suspicious, No biopsy or follow up indicated TR3 (3 points): Mildly Suspicious, FNA if >= 2.5 cm, Follow if >= 1.5 cm TR4 (4-6 points): Moderately Suspicious, FNA if >= 1.5 cm, Follow if >= 1.0 cm TR5 (>=7 points): Highly Suspicious, FNA if >= 1.0 cm, Follow if >= 0.5 cm Electronically signed by: Neil Banegas MD 02/27/2025 02:31 PM EDT
--- OUTSIDE RECORDS SUMMARY | 2025-02-27 11:12 | XMS_ITS | Referral Summary ---
Author Organization [facility] Address [address] [id number] Care Team Providers Care Manager Resource Name Role Phone LowAlicia Primary Care Provider [phone] Allergies Active Allergy Reactions Criticality Noted Date [...] 89 04/07/2018 10:50 AM EDT Temperature 36.7 C (98 F) 04/07/2018 10:50 AM EDT Respiratory Rate 16 04/07/2018 10:50 AM EDT Oxygen Saturation 98% 04/07/2018 10:50 AM EDT Inhaled Oxygen Concentration - - Weight 107 kg (236 lb) 04/07/2018 10:50 AM EDT Height 182.9 cm (6') 04/07/2018 10:50 AM EDT Body Mass Index 32.01 04/07/2018 10:50 AM EDT Plan [place] [id number] [employer] [id number] Care Teams Manager Resource Relationship Specialty Start Date End Date Alicia Kelsey [address] [place] [address] PCP - General Internal Medicine 08/16/21
--- OUTSIDE RECORDS SUMMARY | 2025-02-27 11:12 | XMS_ITS | Clinical Summary ---
Author Organization [facility] Address [address] [place] [id number] Care Team Providers Care Carboy Filler Name Role Phone Unavailable Primary Care Provider [...] Vaccine ( - 2023-2 5 season) 2024 Depression Screening 08/10/2024 Influenza Vaccine (#1) 2025 HIB Vaccines Aged Out No longer [...] complete this topic RSV Immunization Patients Un liyl 20 months Aged Out No longer eligible b ased on patient's age to complete this topic Varicella Vaccines Aged Out No longer eligible based on patient's age to complete this topic
--- OUTSIDE RECORDS SUMMARY | 2025-02-27 11:12 | XMS_ITS | Data Portability ---
Author Organization [place] - [facility], Allergy Address [address] [address] Care Team Providers Care Basketball Assembler Name Role Phone [email or web address] Primary Care Provider Assessment Encounter Date Assessment [...] also consider cool-mist humidifier. Follow-up as needed. Not available 10/26/2024 09:05:00 Plan of Treatment [...] view 2023 024 [email or web address] 4 [facility], [address] [place] [address], [phone], 05/18/2024 14:07:44 Medication Orders mupirocin 2 % topical ointment 2024 025 [id number], [address] [facility], [place], [address], 10/26/2024 09:05:29 Patient TargetsNo targets recorded. Patient InstructionsNo instructions recorded. Reason for Referral None Reported. Results Created Date Observation Date Name Description Value Unit Range Abnormal Flag Note LastModifiedBy Organization Detail LastModifiedTime 05/18/20 24 XR, sinus es, paran flores, 3 or more view No observ ation record ed. [email or web address] [facility] [address], [phone], 05/18/2024 14:04:56 Result Notes None recorded. Problems Name Problem SNOMED Code Status Onset Date Resolution Date Notes Provider Name and Address Organization Details Recorded Time Gastroeso phageal reflux disease without esophagit is 070260331 Active 2015 Gastro-eso phageal reflux disease without esophagiti s; Condition: improved N ote: Date Diagnosed: 09/10/2015 9:47 AM (K21.9) Not Available [facility] 4 02:42:12 Chronic rhinitis 91723325 Active 2015 Chronic rhinitis; Note: Date Diagnosed: 09/10/2015 9:27 AM (J31.0) Not Available [facility] 4 02:42:03 Benign paroxysma l positiona l vertigo 511130798 Active 2015 Benign paroxysmal vertigo, right ear; Note: Date Diagnosed: 09/10/2015 9:27 AM (H81.11) Not Available [facility] 4 02:42:08 Nasal congestio n 69691856 Active 2016 Nasal congestion ; Note: Date Diagnosed: 11/05/2016 2:50 PM (R09.81) Not Available [facility] 4 02:42:05 Atypical facial pain 77552414 Active 2016 Atypical facial pain; Note: Date Diagnosed: 11/05/2016 2:50 PM (G50.1) Not Available [facility] 4 02:42:01 Sensorine ural hearing loss of bilateral ears 502173712 Active 2016 Sensorineu ral HL, bilateral; Note: Date Diagnosed: 02/20/2015 9:53 AM (389.18) ; Start Date : 02/20/2015 Sensorine ural hearing loss, bilateral; Note: Date Diagnosed: 12/02/2016 2:25 PM (H90.3) Not Available [facility] 4 02:42:07 Disorder of nasal sinus 8796114 Active 2016 Other specified disorders of nose and nasal sinuses; Note: Date Diagnosed: 05/19/2017 12:46 PM (J34.89) Not Available [facility] 4 02:42:02 Disorder of the nose 53000157 Active 2016 Other specified disorders of nose and nasal sinuses; Note: Date Diagnosed: 05/19/2017 12:46 PM (J34.89) Not Available [facility] 4 02:42:02 Lighthead edness 125344735 Active 2023 KAVON HERNANDEZ MD [address] [facility],[place] [address], [place], [phone] , [facility] - [facility] 4 14:03:53 Dizziness 483573717 Active 2023 CHEN TURCIOS PA-C [address] [facility],[place] [address], [place], [phone] , [place] - [facility] 4 15:45:12 Ulcerativ e rhinitis 57177036 Active 2024 ESPERANZA CASTLE PA-C [address] [facility],[place] [address], [place], [phone] , [facility] - [facility] 5 09:05:17 Problem Notes None recorded. Medical Equipment None Reported. Allergies Allergen ID Allergen Name Allergen Category Reaction Reaction Severity Criticality Documentation Date Start Date Code Code System Note Provider Name and Address Organization Details Recorded Time 40617 gabapenti n medicatio n other Not available Not available 12/22/2023 45082 RxNorm React ion: unkno wn, unspe cifie d;; Not Available [facility] 4 01:02:20 46554 cetirizin e hydrochlo ride medicatio n other Not available Not available 12/22/2023 51795 0 RxNorm React ion: unkno wn, unspe cifie d;; Not Available [facility] 4 01:02:31 48662 sertralin e hydrochlo ride medicatio n other Not available Not available 12/22/2023 16166 7 RxNorm React ion: unkno wn, unspe cifie d;; Not Available [facility] 4 01:02:32 Medications Name Sig Start Date Stop Date Status Note LastModified by Organization Details LastModified Time Prescript ion - Prior Authoriza tion Request active Script Copy/Josephine or Auth^Scr ipt Copy/Josephine or Auth_ [id number] Not Available Not Available Not Available celecoxib [...] elayed release 09/27 completed Medicati on ID: [id number] D uration Value: 30 Brand Name: omeprazo [...] mg tablet 01/10 completed Medicati on ID: [id number] D uration Value: 10 Brand Name: levoflox [...] spray,janet pension 01/10 completed Medicati on ID: [id number] D uration Value: 30 Brand Name: fluticas [...] both nostrils 01/10 completed Medicati on ID: [id number] P rescribe d By Name: ROME Merlos [...] drops,janet pension 01/10 completed Medicati on ID: [id number] D uration Value: 7 Brand Name: tobramyc [...] e Hcl 01/10 completed Medicati on ID: [id number] D uration Value: 90 Brand Name: ranitidi ne hcl Send Method: E-Prescr ibed Sub s Allowed: subs OK Speci al Instruct ion: TAKE 1 TABLET BY MOUTH EVERY DAY AT BEDTIME Medicati onGeneri cName: ranitidi ne hcl Not Available Not Available Not Available omeprazol e 20 mg tablet,de layed release 10/26 completed Medicati on ID: [id number] Janette castañeda By Name: ROME Merlos nd [...] Updated DateTime 10/26/2024 182.88 cm 32.5 kg/m2 921676.17 g Varsha Doe [place] - [facility] 10/26/2024 08:50:33 Date Recorded Body height Body mass index (BMI) Body weight Provider Name and Address Organization Details Last Updated DateTime 05/18/2024 182.88 cm 32.7 kg/m2 126784.76 g Leonel Almonte [place] - [facility] 05/18/2024 13:14:48 Social History None recorded. Functional Status None recorded. Mental Status None recorded. Family History Nothing Reported. Medical History Condition Response Allergies/Hayfever Y Heart Problems N Anxiety Y Tonsil Infections N Emphysema N Migraines Y Thyroid Problems N Developmental Delay N COPD N Depression N Glaucoma N Nasal or Sinus Problems Y Anemia N Immune System Disorder N Anesthesia Complications N Heart Attack (CT) N Other Skin Condition N Diabetes N [...] Diagnosis Note KAVON HERNANDEZ MD [facility] [address] [phone] 05/18/2024 12:51:34 05/18/2024 14:07:44 Nasal congestion 09460995 R09.81 Lightheadedness 59529376 8 R42 Dizziness 303992878 R42 [id number] ESPERANZA CASTLE PA-C [facility] [address] [phone] 10/26/2024 08:40:31 10/26/2024 09:01:21 Chronic rhinitis 60538625 J31.0 Ulcerative rhinitis 3666 9007 J34.81 Health Concerns Section Related Observation LastModified by Organization Detai ls LastModified Time None Recorded Concern Status LastModified by Organization Details LastModified Time None Recorded Advance Directives Directive None Recorded Payers Insurance Date Sequence Insurance Name Policy Number Policy Ross Covered Member ID Ross Member ID Guarantor Name 10/26/2024 1 [facility] INDEMNITY PLAN (MEDICARE SUPPLEMENT) [id number] Gabo Tanner [id number] Gabo Tanner 10/26/2024 1 [facility] INDEMNITY PLAN (PPO) [id number] Gabo Tanner [id number] Gabo Tanner 10/26/2024 2 [facility] [id number] Gabo Tanner [id number] Gabo Shannon Ciro Notes Date Note Type Note Provider Name [...] Flonase in the past. KAVON NICHOLE MD [address] [place] [address], [phone], [facility] - [facility] 05/19/2024 08:44:39 10/26/2024 text/html 79-year-old male presents [...] jelly in the nose. KAVON NICHOLE MD [address] [place] [address],[address], [phone], [facility] - [facility] 10/26/2024 12:06:48
== END 2025-02-27 10:17 | disposition home or self-care (01) ==
LOC: HO.HMGCX 10:16
PROVIDERS: PCP Internal Medicine; Visit Provider Internal Medicine
DX: E04.1 Nontoxic single thyroid nodule (principal)
CPT/HCPCS: 76536

== ENCOUNTER → 2025-02-27 10:22 | Outpatient (BNV) | payer OTHER, SELFPAY | PROVIDERS: PCP Internal Medicine; Visit Provider Radiology Diagnostic Radiology | DX: R90.82 White matter disease, unspecified (principal); E04.2 Nontoxic multinodular goiter | CPT/HCPCS: 70551; 76536 ==

== ENCOUNTER 2025-02-27 11:30 | Emergency (ER) | payer OTHER, SELFPAY ==
[2025-02-27] VITALS (7 sets, daily range): BP systolic 116–167; BP diastolic 68–82; PULSE 65–89; RESP 15–20; TEMP 36.3–37; O2SAT 94–98; BMI 33.1
--- NOTE | ~2025-02-27 | MR_ITS ---
CLINICAL HISTORY: dizziness, vomiting, diff walking --- Additional Notes or Special Instructions: just had CTA and CT scan January MR Brain without gadolinium Comparison: CT/AL/SR - CT HEAD NECK ANGIOGRAPHY WITH IV CONTRAST - 01/09/25 08:56 EDT Findings: No restricted diffusion. No intra-axial mass or hemorrhage. There are severe white matter changes. There is involvement of both the deep and superficial white matter. No midline shift. No hydrocephalus. Vascular flow voids are intact. The orbits are normal. There is a mucous retention cyst within the right maxillary sinus. There are no air-fluid levels. No focal bone lesion. 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 IMPRESSION: 1. There are severe white matter changes. This may be secondary to advanced small-vessel ischemia or to a demyelinating process. This document has been electronically signed by: Sangeetha Moctezuma MD on 02/27/2025 17:56:47
--- NOTE | 2025-02-27 11:32 | ED_ITS ---
HPI - Dizziness General Chief Complaint: Dizziness Stated Complaint: dizziness, nausea Time Seen by Provider: 02/27/25 11:44 Source: patient and old records reviewed Mode of arrival: ambulatory Limitations: no limitations History of Present Illness ED Provider: RAJI BAGLEY Narrative: 79 yo male with PMH of CVA, seizures, anxiety, HTN, HLD who was just seen and treated here January 2025 for possible TIA - he takes a baby aspirin daily. He notes he was getting thyroid US today when he was sat up from exam even though it was slow he started to feel off again. He felt like his balance was off, he had n/v, he again had shaking R arm. These were similar findings to his last visit in ED. 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 He denies any falls or trauma. 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) Timing: sudden onset Severity: severe Description: sense of movement Context: change in body position and anxiety History of similar symptoms: Yes Exacerbating factors: movement/ambulation and change in body position Relieving factors: remaining still Associated symptoms: nausea and vomiting Related Data Home Medications ?Medication ?Instructions ?Recorded ?Confirmed amlodipine 5 mg tablet 5 mg PO BEDTIME@1800 4 01/11/25 azelastine 137 mcg (0.1 %) nasal 2 spray intranasal BI D PRN Allergy 01/09/25 01/11/25 spray Symptoms buspirone 10 mg tablet 15 mg PO BID 01/09/25 lisinopril 40 mg tablet 40 mg PO DAILY 01/09/2512/02 nystatin 100,000 unit/gram topical 1 appl topical BID PRN Rash 01/09/25 01/11/25 powder Previous Rx's ?Medication ?Instructions ?Recorded lidocaine 5 % topical patch 2 patch topical DAILY #60 ea 01/26/24 (Lidoderm) aspirin 81 mg tablet,delayed 81 mg PO DAILY #90 tabs 1 08/12/23 release OneTouch Ultra Test (blood sugar #100 ea 07/12/24 diagnostic) OneTouch Ultra2 Meter #1 ea 07/12/24 (blood-glucose meter) atorvastatin 40 mg tablet 40 mg PO BEDTIME #90 tabs finasteride 5 mg tablet 5 mg PO DAILY #90 tabs 07/12 omeprazole 20 mg capsule,delayed 20 mg PO DAILY@0630 # 90 caps 07/12/24 release triamcinolone acetonide 0.1 % 1 appl topical DAILY #80 grams 07/12/24 topical cream lancets 33 gauge (trueEXTouch [place] #100 ea 07/15/24 Plus Lancet) Allergies Allergy/AdvReac Type Severity Reaction Status Date / Time gabapentin (GABAPENTIN) Allergy Intermediate DARK Verified 02/27/25 11:41 THOUGHTS, suicidal cetirizine (From Zyrtec) Allergy Unknown Nausea, Verified 02/27/25 11:41 Emotional clindamycin (CLINDAMYCIN) Allergy Unknown HIVES Verified 02/27/25 11:41 penicillin V Allergy Unknown hives Verified 02/27/25 11:41 Penicillins (PENICILLINS) Allergy Unknown Hives Verified 02/27/25 11:41 prednisone Allergy Unknown nightmares Verified 02/27/25 11:41 sertraline (From ZOLOFT) AdvReac Severe SI Verified 02/27/25 11:41 Review of Systems 2 Review of Systems: Constitutional : No Fever, No Chills, No Fatigue ENT/Mouth : No sore throat, No Rhinorrhea Eyes: No Eye Pain, No Swelling, No Redness Cardiovascular : No Chest Pain, No SOB, No Dyspnea on Exertion Respiratory : No Cough, No Sputum Gastrointestinal : pos Nausea, pos Vomiting, No Diarrhea, No abdominal Pain Genitourinary : No Dysuria, No Urinary Frequency, No Hematuria, Musculoskeletal : No joint pain, No Myalgias, No Joint Swelling Skin : No Skin Lesions, No rash Neuro : No Weakness, No Numbness, pos Dizziness, no Headache All other systems reviewed and are negative [facility] Past Medical History Attestation statement: The following information was validated with the patient. 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 Daughter No problems noted. Daughter No problems noted. Daughter No problems noted. Social History Social History Household Members: None Housing: House Alcohol intake: never Patient Tobacco Use Status: Never used Tobacco e-Cigarette/Vaping Use: Never Used Advance Directives: No Advance Directives Information Provided: Yes service: No Current occupational status: retired Cognitive needs: No Hearing needs: Yes Vision needs: Yes Physical Exam 2 Vital Signs: Vital Signs: Last Vital Signs Temp 97.4 F 02/27/25 14:34 Pulse 65 02/27/25 17:57 Resp 18 02/27/25 17:57 BP 116/73 02/27/25 17:57 Pulse Ox 95 02/27/25 17:57 O2 Del Method Room Air 02/27/25 17:57 BMI result Body Mass Index 33.1 Appearance: Alert. Oriented X3. No acute distress. anxious Eyes: Pupils equal, round and reactive to light. ENT: Pharynx normal. Neck: Normal inspection. Neck supple. CVS: Normal heart rate and rhythm. Pulses normal. Respiratory: No respiratory distress. Breath sounds normal. Abdomen: Soft and nontender. Skin: Skin warm and dry. Normal skin color. Normal skin turgor. Extremities: No lower extremity edema. No calf ttp Neuro: Oriented X 3. No motor deficit. No sensory deficit. CN2-12 intact, no drift, able to spell world forwards and backwards no change in vision NIH Stroke Scale Internal: Initial- Upon Arrival Level of Consciousness: Alert Level of Consciousness Questions: Answers both questions correctly Level of Consciousness Commands: Performs both tasks correctly Best Gaze: Normal Visual: No visual loss Facial Palsy: Normal Motor Arm (Right): No drift Motor Arm (Left): No drift Motor Leg (Right): No drift Motor Leg (Left): No drift Limb Ataxia: Absent Sensory: Normal Best Language: No aphasia Dysarthia: Normal Extinction and Inattention: No abnormality Score: 0 Course Course Course Narrative: This is an RME performed by Girma Lopez CNP: Additional HPI, ROS, PE not included below will be deferred to primary provider. Patient is an 79-year-old male who presents emergency department for evaluation he is in a wheelchair, reporting profound dizziness, feels he is unable to stand or walk without falling over no fall. 20 minutes prior to arrival he was having a thyroid ultrasound performed, when they tried to get me up - progressively worsening, I feel unsteady and it's all in my head . Began actively vomiting while in triage, anxious, any movement resulting in dry heaving, unable to participate in full neuro exam. Denies headache, vision changes, chest pain, shortness of breath, abdominal pain. States he presented similarly 2 month ago, was found to have a TIA. Has had vertigo in the past but states this is much worse and totally different . Patient brought back to room 4 Reevaluation(s) Reevaluation #1: 1245pm symptoms have resolved. Medications Administered Discontinued Medications Generic Name Dose Route Start Last Admin Trade Name Freq PRN Reason Stop Dose Admin Ondansetron HCl 4 mg 02/27/25 11:45 02/27/25 12:07 Ondansetron Hcl 4 Mg/2 Ml Vial IVPUSH 02/27/25 11:46 Not Given ONCE ONE Ondansetron HCl 4 mg 02/27/25 11:49 02/27/25 12:07 Ondansetron Hcl 4 Mg/2 Ml Vial IVPUSH 02/27/25 11:50 4 mg ONCE ONE Administration Medical Decision Making Medical Decision Making [facility] Narrative: 79 yo male with PMH of CVA, seizures, anxiety, HTN, HLD here with c/o feeling off, n/v but no focal deficits on exam. He has hx of same with recent CTA showing no occlusive disease. He has NIH of O and no sig deficits based off this and symptoms he is not a candidate for TNK. I am going to obtain labs and given recurrent dizziness but no MRI I am going to obtain MRI for evidence of posterior stroke Differential Diagnosis Differential Diagnoses: The differential diagnosis associated with the presentation includes vertigo, TIA, anxiety Admission/Observation Consideration of admission/observation: Escalation of care including admission/observation considered if MRI normal with symptoms gone will DC home Lab Data [facility] Lab Attestation statement: I reviewed the patient's lab results. trop flat x 2 02/27/25 12:02 02/27/25 12:02 Labs: Lab Results 02/27/25 02/27/25 02/27/25 Range/Units 12:02 14:32 15:21 WBC 9.8 (4.8-10.8) X10*3/uL RBC 5.10 (4.60-5.80) X10*6/uL Hgb 15.5 (14.0-18.0) g/dl Hct 44.4 (42.0-52.0) % MCV 87.1 (80.0-98.0) fL MCH 30.4 (27.0-33.0) pg MCHC 34.9 (31.0-36.0) g/dl RDW 13.4 (11.0-16.0) % Plt Count 240 (160-400) X10*3/uL MPV 9.3 L (9.4-12.4) fL Immature Gran % (Auto) 0.6 H (0.0-0.4) % Neut % (Auto) 61.1 (45-73) % Lymph % (Auto) 23.0 (20-40) % Mineral % (Auto) 12.0 H (2-11) % Eos % (Auto) 2.3 (0-4) % Baso % (Auto) 1.0 (0-2) % Lymph # (Auto) 2.3 (1.2-4.9) X10*3/uL Mineral # (Auto) 1.2 (0.1-1.2) X10*3/uL Eos # (Auto) 0.2 (0.0-0.4) X10*3/uL Baso # (Auto) 0.1 (0.0-0.2) X10*3/uL Abs Immat Gran (auto) 0.06 H (0.00-0.03) X10*3/uL Absolute Neuts (auto) 6.0 (2.0-8.3) x10*3/uL Absolute Nucleated RBC 0.000 (0.0-0.012) X10*3/uL Nucleated RBC % (auto) 0.0 (0.0-0.2) /100WBC Sodium 145 (135-145) mmol/L Potassium 3.9 (3.3-5.1) mmol/L Chloride 109 H (96-108) mmol/L Carbon Dioxide 26 (22-29) mmol/L Anion Gap 14 (12-20) BUN 12 (9-16) mg/dL Creatinine 1.03 (0.5-1.4) mg/dL Estim Creat Clear Calc 73.4 Estimated GFR > 60 Random Glucose 113 (60-115) mg/dL Calcium 9.6 (8.4-10.2) mg/dL Magnesium 1.8 (1.6-2.6) mg/dL Total Bilirubin 0.9 (0.0-1.0) mg/dL AST 33 (5-37) U/L ALT 49 H (0-40) U/L Alkaline Phosphatase 167 H (39-117) U/L Troponin I High Sens 5.1 D 6.0 (<3.5-35.0) ng/L B-Natriuretic Peptide 13 (<100) pg/mL Total Protein 7.2 (6.5-8.0) g/dL Albumin 4.6 (3.5-5.0) g/dL Lipase 31 (8-78) U/L Urine Color Yellow Urine Appearance Clear Urine pH 6.5 (5.0-9.0) Ur Specific [place] 1.015 (1.005-1.025) Urine Protein Negative (Neg-Trace) mg/dL Urine Glucose (UA) Negative (Negative) mg/dL Urine Ketones Negative (Negative) mg/dL Urine Blood Negative (Negative) Urine Nitrite Negative (Negative) Ur Leukocyte Esterase Negative (Negative) Independent Interpretation I performed an independent interpretation of an: EKG and MRI (no focal stroke) Interpretation: Rate: 60 Rhythm: NSR [place]: left, LVH Normal P waves. Normal KARRI. Normal QRS complex. ST T wave : normal no DEYVI qTC: 418 prior studies: no acute ischemia The study has been interpreted contemporaneously by me. . Radiology Impression Discussion of test interpretation with radiology: I have reviewed the radiologist's reading. External Record Review External record reviewed: Inpatient record, Outpatient record, Prior outpatient labs and Prior outpatient radiology Discharge Plan Discharge Clinical Impression: Dizziness Patient Disposition: Home, Self-Care Instructions: Lightheadedness (ED) Additional Instructions: repeat labs reassuring no stroke seen on MRI but there is some findings that your doctor needs to follow return for any worsening symptoms or concern Findings: No restricted diffusion. No intra-axial mass or hemorrhage. There are severe white matter changes. There is involvement of both the deep and superficial white matter. No midline shift. No hydrocephalus. Vascular flow voids are intact. The orbits are normal. There is a mucous retention cyst within the right maxillary sinus. There are no air-fluid levels. No focal bone lesion. 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 IMPRESSION: 1. There are severe white matter changes. This may be secondary to advanced small-vessel ischemia or to a demyelinating process. Prescriptions: No Action lidocaine [Lidoderm] 5 % adhesive patch,medicated 2 patch topical DAILY Qty: 60 2RF Rx Instructions: leave on most painful area for up to 12 hrs aspirin 81 mg tablet,delayed release (DR/EC) 81 mg PO DAILY Qty: 90 3RF (DME) lancets [OneTouch Delica Plus Lancet] 33 gauge [facility] See Rx Instructions .Route Qty: 100 3RF Rx Instructions: Test blood sugar once a day azelastine 137 mcg (0.1 %) spray,non-aerosol 2 spray intranasal BID PRN (Reason: Allergy Symptoms) buspirone 10 mg tablet 15 mg PO BID nystatin 100,000 unit/gram powder 1 appl topical BID PRN (Reason: Rash) Rx Instructions: to the groin lisinopril 40 mg tablet 40 mg PO DAILY amlodipine 5 mg tablet 5 mg PO BEDTIME@1800 (DME) OneTouch Ultra Test Strip See Rx Instructions .Route Qty: 100 3RF Rx Instructions: 1 qd (DME) blood-glucose meter [OneTouch Ultra2 Meter] [facility] See Rx Instructions .Route Qty: 1 0RF Rx Instructions: As directed atorvastatin 40 mg tablet 40 mg PO BEDTIME Qty: 90 3RF omeprazole 20 mg capsule,delayed release(DR/EC) 20 mg PO DAILY@0630 Qty: 90 3RF triamcinolone acetonide 0.1 % cream 1 appl topical DAILY Qty: 80 1RF Rx Instructions: Mix with Cerave cream finasteride 5 mg tablet 5 mg PO DAILY Qty: 90 3RF Referrals: [facility] Neuro/Sleep [Provider Group] Referral Note: call to schedule appointment Print Language: Ecuadorean
--- NOTE | 2025-02-27 11:37 | ECG_ITS ---
Test Reason : dizziness Blood Pressure : */* mmHG Vent. Rate : 60 BPM Atrial Rate : 60 BPM P-R Int : 174 ms QRS Dur : 102 ms QT Int : 418 ms P-R-T Axes : 50 -33 36 degrees QTcB Int : 418 ms Normal sinus rhythm with sinus arrhythmia Left axis deviation Minimal voltage criteria for LVH, may be normal variant ( R in aVL ) Abnormal ECG When compared with ECG of 09-Jan-2025 07:18, No significant change was found Referred By: Sandie Lopez Electronically Signed By: Henrik Pascual
[2025-02-27 12:05] LABS: MANUAL DIFF FLAG NO
[2025-02-27 12:22] LABS: Hematocrit 44.4 % (42.0-52.0); Hemoglobin 15.5 g/dl (14.0-18.0); Imm Gran Abs Auto 0.06 X10*3/uL (0.00-0.03); Imm Gran Pct Auto 0.6 % (0.0-0.4); Lymphocytes Absolute Auto 2.3 X10*3/uL (1.2-4.9); Mean Corpuscular HGB Conc 34.9 g/dl (31.0-36.0); Mean Corpuscular Hemoglobin 30.4 pg (27.0-33.0); Mean Corpuscular Volume 87.1 fL (80.0-98.0); NRBC Abs Auto 0.000 X10*3/uL (0.0-0.012); NRBC Pct Auto 0.0 /100WBC (0.0-0.2); Platelet Count 240 X10*3/uL (160-400); Red Blood Count 5.10 X10*6/uL (4.60-5.80); White Blood Count 9.8 X10*3/uL (4.8-10.8)
[2025-02-27 12:24] LABS: Anion Gap 14 (12-20); Blood Urea Nitrogen 12 mg/dL (9-16); Carbon Dioxide 26 mmol/L (22-29); Chloride 109 mmol/L (96-108); Potassium 3.9 mmol/L (3.3-5.1); Sodium 145 mmol/L (135-145)
[2025-02-27 12:25] LABS: Alanine Aminotransferase 49 U/L (0-40); Albumin Level 4.6 g/dL (3.5-5.0); Alkaline Phosphatase 167 U/L (39-117); Aspartate Amino Transferase 33 U/L (5-37); Calcium 9.6 mg/dL (8.4-10.2); Creatinine Clr Calc Pharmacy 73.4; Estimated Glomerular Filt Rate > 60; Lipase 31 U/L (8-78); Magnesium 1.8 mg/dL (1.6-2.6); Total Protein 7.2 g/dL (6.5-8.0)
[2025-02-27 12:30] LABS: B Type Natriuretic Peptide 13 pg/mL (<100)
[2025-02-27 12:32] LABS: Troponin-I High Sensitivity 5.1 ng/L (<3.5-35.0)
--- NOTE | 2025-02-27 12:59 | PC.NURSE ---
Pt brought in through triage, pt reporting dizziness (does have baseline vertigo), pt noting new shaking tremors in right arm and leg. Pt is very anxious, [place] and unable to focus on questions from staff without going into side stories and getting distracted. IV line placed, pt changed over and placed on monitor, MD at bedside for assessment. Awaiting testing results at this time.
[2025-02-27 14:44] LABS: Appearance Urine Clear; Glucose Urine UA Negative (Negative); PH 6.5 (5.0-9.0); Specific Gravity - Urine 1.015 (1.005-1.025)
[2025-02-27 15:45] LABS: Troponin-I High Sensitivity 6.0 ng/L (<3.5-35.0)
--- NOTE | 2025-02-27 17:58 | PC.NURSE ---
pt back from MRI, reports increased dizziness after standing up for MRI - describes dizziness as unsteadiness/wobbly, denies room spinning. cardiac cath lab manager reapplied - sinus rhythm. vss. pt requesting and provided adelfo prather.
== END 2025-02-27 19:20 | disposition home or self-care (01) ==
PROVIDERS: Nurse Practitioner Family; Emergency Provider Emergency Medicine
DX: R42 Dizziness and giddiness (principal); R11.2 Nausea with vomiting, unspecified; F41.9 Anxiety disorder, unspecified; R26.2 Difficulty in walking, not elsewhere classified; R29.700 NIHSS score 0; I10 Essential (primary) hypertension; E78.5 Hyperlipidemia, unspecified; Z86.73 Personal history of transient ischemic attack (TIA), and cerebral infarction without residual deficits
CPT/HCPCS: 36415; 70551; 80053; 81003; 83690; 83735; 83880; 84484; 85025; 93005; 96374; 99285; J2405

== ENCOUNTER → 2025-02-27 11:37 | Outpatient (BNV) | payer OTHER, SELFPAY | PROVIDERS: Emergency Provider Emergency Medicine; Visit Provider Internal Medicine Cardiovascular Disease | DX: R94.31 Abnormal electrocardiogram [ECG] [EKG] (principal); I49.9 Cardiac arrhythmia, unspecified | CPT/HCPCS: 93010 ==

== ENCOUNTER 2025-04-26 10:00 | Outpatient (RCR) | payer OTHER, SELFPAY ==
--- NOTE | 2025-04-25 08:59 | MHC.PT.EP ---
[facility] [place] Office [place] Office [place] Office [address] Jeremie Sotelo [address] [facility] [phone] F: [phone] F: [phone] F: [phone] F: [phone] Physical Therapy Plan of Care Date of Evaluation: 04/21/25 Date of Surgery: Diagnosis: Assessment: Frequency and Duration: The patient will be seen Short Term Goals: House Fellow Goals: Treatment Plan: Modalities to reduce pain, spasms and effusion. Manual therapy to restore motion and function. Therapeutic exercise to improve strength and flexibility. Neuromuscular re-education for posture and balance. Therapeutic activities to return to functional activities of daily living. Electronically signed by: Please sign and return to therapist. Thank you for your referral.
--- NOTE | 2025-04-26 09:51 | MHC.PT.EP ---
[facility] [place] Office [place] Office [place] Office [address] Jeremie Sotelo [address] [phone] F: [phone] F: [phone] F: [phone] F: [phone] Physical Therapy Plan of Care Date of Evaluation: 04/21/25 Date of Surgery: Diagnosis: VERTIGO Assessment: GERRI IS A PLEASANT 79 YO MALE WHO PRESENTS WITH INCREASING REPORTS OF DIZZINESS OVER THE LAST FEW MONTHS. IN JANUARY HE WAS SEEN IN ED FOR INCREASING SYMPTOMS. CARDIAC AND NEURO CLEARED, HE WAS TREATED AND RELEASED. HE REPORTS EPISODIC DIZZINESS AND ROOM SPINNING WITH TRANSITIONAL TYPE MOVEMENTS. UPON EXAM HE DEMONSTRATES (+) LEFT POSTERIOR CANALITHIASIS AND WAS TREATED WITH CANALITH REPOSITIONING MANEUVER X 2 WITH NEGATIVE RETEST. Frequency and Duration: The patient will be seen 2 X WEEK FOR 4 WEEKS Short Term Goals: INITIATE HEP AND PROMOTE SELF MANAGEMENT OF SYMPTOMS Group Home Goals: Patient to be educated on symptoms and indications to return to therapy when needed min 4 weeks. Pt will be negative for nystagmus or reports of vertigo in all diagnostic positions bilaterally to resolution of BPPV in 4 weeks. Patient to be able to functionally move in all planes and directions without provocation of dizziness to show return to PLOF in 4 weeks. Treatment Plan: Modalities to reduce pain, spasms and effusion. Manual therapy to restore motion and function. Therapeutic exercise to improve strength and flexibility. Neuromuscular re-education for posture and balance. Therapeutic activities to return to functional activities of daily living. Electronically signed by: MARY BOURNE PT DPT Please sign and return to therapist. Thank you for your referral.
== END 2025-07-07 13:56 | disposition home or self-care (01) ==
LOC: HO.PT 10:00
PROVIDERS: PCP Internal Medicine; Visit Provider Internal Medicine
DX: R42 Dizziness and giddiness (principal)
CPT/HCPCS: 95992; 97162; 97535

== ENCOUNTER 2025-05-02 06:33 | Outpatient (REF) | payer OTHER, SELFPAY ==
--- OUTSIDE RECORDS SUMMARY | 2025-05-02 06:36 | XMS_ITS | Clinical Summary ---
Author Organization [facility] ity Address [address] [place] [id number] Care Team Providers Care Business Dean Name Role Phone Unavailable Primary Care Provider [...] nts (1 - 1-dose 75+ series) 2019 Depression Screening 08/10/2024 COVID-19 Vaccine ( - 2023-2 5 season) 2025 Influenza Vaccine (#1) 2025 HIB Vaccines Aged [...]
--- OUTSIDE RECORDS SUMMARY | 2025-05-02 06:36 | XMS_ITS | Clinical Summary ---
Author Organization [facility] Address [address] [id number] Care Team Providers Care Assistant Family Teacher Name Role Phone TalikarlaAlicia Primary Care Provider [phone] Allergies Active Allergy Reactions Criticality Noted Date [...] patients) (1 - 1-dose 75+ series) 2019 Alcohol/Substance Use Screening 08/10/2024 Depression Screening and Follow-Up 08/10/2024 Health Care Proxy Review 08/10/2024 Social Drivers of Health Annual Screening 08/10/2024 COVID-19 Vaccine ( season) 2025 05/08/2022, 11/11/2021, 05/19/2021, Additional history exists Influenza Vaccine (#1) 2025 , 04/17/2021, 05/10/2020, Additional history exists Zoster Vaccines Completed 06/18/2019, 03/04/2019 Hepatitis B Vaccines Aged Out No long er eligible based on patient's age to complete this topic Insurance [employer] Care Teams Assistant Family Teacher Relationship Specialty Start Date End Date Alicia Kelsey [address] [place] [id number] PCP - General Internal Medicine 08/16/21
== END 2025-05-02 06:34 | disposition home or self-care (01) ==
LOC: HO.LAB 06:33
PROVIDERS: PCP Internal Medicine; Visit Provider Internal Medicine
DX: I10 Essential (primary) hypertension (principal); E78.5 Hyperlipidemia, unspecified; R73.9 Hyperglycemia, unspecified
CPT/HCPCS: 36415; 80053; 80061; 82043; 82306; 82570; 83036; 85025

== ENCOUNTER 2025-05-05 07:29 | Outpatient (AMB) | payer OTHER, SELFPAY ==
--- OUTSIDE RECORDS SUMMARY | 2025-05-05 07:32 | XMS_ITS | Clinical Summary ---
Author Organization [facility] Address [address] [id number] Care Team Providers Care Head Of Product Name Role Phone TalikarlaAlicia Primary Care Provider [phone] Allergies Active Allergy Reactions Criticality Noted Date [...] patient's age to complete this topic Insurance [employer] Care Teams Head Of Product Relationship Specialty Start Date End Date Alicia Kelsey [address] [place] [phone] PCP - General Internal Medicine 08/16/21
--- OUTSIDE RECORDS SUMMARY | 2025-05-05 07:33 | XMS_ITS | Data Portability ---
Author Organization [place] - [facility], Allergy Address [address] [address] Care Team Providers Care Produce Manager Name Role Phone [email or web address] Primary Care Provider [...] examined pt and formulated this plan. Chen Gage PA-C functioned as a scribe for this [...] view 2023 [email or web address] [facility], [address] [place] [address], [phone], 05/18/2024 14:07:44 Medication Orders mupirocin 2 % topical ointment 2024 025 [id number], [address] [facility], [place], [address], 10/26/2024 09:05:29 Patient TargetsNo targets recorded. Patient InstructionsNo instructions recorded. Reason for Referral None Reported. Results Created Date Observation Date Name Description Value Unit Range Abnormal Flag Note LastModifiedBy Organization Detail LastModifiedTime 05/18/20 24 XR, sinus es, paran flores, 3 or more view No observ ation record ed. [email or web address] [facility] [address], [address], 05/18/2024 14:04:56 Result Notes None recorded. Problems Name Problem SNOMED Code Status Onset Date Resolution Date Notes Provider Name and Address Organization Details Recorded Time Gastroeso phageal reflux disease without esophagit is 498014605 Active 2015 Gastro-eso phageal reflux disease without esophagiti s; Condition: improved N ote: Date Diagnosed: 09/10/2015 9:47 AM (K21.9) Not Available [facility] 4 02:42:12 Chronic rhinitis 02452648 Active 2015 Chronic rhinitis; Note: Date Diagnosed: 09/10/2015 9:27 AM (J31.0) Not Available [facility] 4 02:42:03 Benign paroxysma l positiona l vertigo 451856282 Active 2015 Benign paroxysmal vertigo, right ear; Note: Date Diagnosed: 09/10/2015 9:27 AM (H81.11) Not Available [facility] 4 02:42:08 Nasal congestio n 27432036 Active 2016 Nasal congestion ; Note: Date Diagnosed: 11/05/2016 2:50 PM (R09.81) Not Available [facility] 4 02:42:05 Atypical facial pain 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 2016 Atypical facial pain; Note: Date Diagnosed: 11/05/2016 2:50 PM (G50.1) Not Available [facility] 4 02:42:01 Sensorine ural hearing loss of bilateral ears 381867869 Active 2016 Sensorineu ral HL, bilateral; Note: Date Diagnosed: 02/20/2015 9:53 AM (389.18) ; Start Date : 02/20/2015 Sensorine ural hearing loss, bilateral; Note: Date Diagnosed: 12/02/2016 2:25 PM (H90.3) Not Available [facility] 4 02:42:07 Disorder of nasal sinus 3524158 Active 2016 Other specified disorders of nose and nasal sinuses; Note: Date Diagnosed: 05/19/2017 12:46 PM (J34.89) Not Available [facility] 4 02:42:02 Disorder of the nose 18390246 Active 2016 Other specified disorders of nose and nasal sinuses; Note: Date Diagnosed: 05/19/2017 12:46 PM (J34.89) Not Available [facility] 4 02:42:02 Lighthead edness 633437523 Active 2023 KAVON HERNANDEZ MD [address] [place] [address], [place], [address] , [facility] - [facility] 4 14:03:53 Dizziness 678562998 Active 2023 Chen garcía [place] - [facility] 4 15:45:12 Ulcerativ e rhinitis 34892363 Active 2024 ESPERANZA CASTLE PA-C [address] [place] [address], [place], [address] , [facility] - [facility] 5 09:05:17 Problem Notes None recorded. Medical Equipment None Reported. Allergies Allergen ID Allergen Name Allergen Category Reaction Reaction Severity Criticality Documentation Date Start Date Code Code System Note Provider Name and Address Organization Details Recorded Time 07203 gabapenti n medicatio n other Not available Not available 12/22/2023 74866 RxNorm React ion: unkno wn, unspe cifie d;; Not Available [facility] 4 01:02:20 61141 cetirizin e hydrochlo ride medicatio n other Not available Not available 12/22/2023 81295 0 RxNorm React ion: unkno wn, unspe cifie d;; Not Available [facility] 4 01:02:31 65358 sertralin e hydrochlo ride medicatio n other Not available Not available 12/22/2023 42418 7 RxNorm React ion: unkno wn, unspe cifie d;; Not Available [facility] 4 01:02:32 Medications Name Sig Start Date Stop Date Status Note LastModified by Organization Details LastModified Time Prescript ion - Prior Authoriza tion Request active Script Copy/Josephine or Auth^Scr ipt Copy/Josephine or Auth_ [id number] Not Available Not Available Not Available celecoxib [...] elayed release 09/27 completed Medicati on ID: [id number] D uration Value: 30 Brand Name: omeprazo [...] mg tablet 01/10 completed Medicati on ID: [id number] D uration Value: 10 Brand Name: levoflox acin Sen d Method: E-Prescr ibed Sub s Allowed: subs OK Medic ationGen ericName : levoflox acin Not Available Not Available Not Available lisinopri l 40 mg tablet TAKE 1 TABLET BY MOUTH EVERY DAY active Not Available Not Available No t Available fluticaso ne propionat e 50 mcg/actua tion nasal spray,janet zayrajustice 01/10 completed Medicati on ID: [id number] D uration Value: 30 Brand Name: fluticas [...] both nostrils 01/10 completed Medicati on ID: [id number] P humphrey d By Name: ROME Merlos [...] drops,janet pension 01/10 completed Medicati on ID: [id number] D uration Value: 7 Brand Name: tobramyc [...] e Hcl 01/10 completed Medicati on ID: [id number] D uration Value: 90 Brand Name: ranitidi ne hcl Send Method: E-Prescr ibed Sub s Allowed: subs OK Speci al Instruct ion: TAKE 1 TABLET BY MOUTH EVERY DAY AT BEDTIME Medicati onGeneri cName: ranitidi ne hcl Not Available Not Available Not Available omeprazol e 20 mg tablet,de layed release 10/26 completed Medicati on ID: [id number] P rescribe d By Name: ROME Merlos [...] Updated DateTime 10/26/2024 182.88 cm 32.5 kg/m2 317797.17 g Varsha Doe [place] - [facility] 10/26/2024 08:50:33 Date Recorded Body height Body mass index (BMI) Body weight Provider Name and Address Organization Details Last Updated DateTime 05/18/2024 182.88 cm 32.7 kg/m2 305379.76 g Leonel Almonte [place] - [facility] 05/18/2024 13:14:48 Social History None recorded. Functional [...] Disorder N Anesthesia Complications N Heart Attack ([place]) N Other Skin Condition N Diabetes N [...] Diagnosis SNOMED-CT Code Diagnosis ICD10 Code Diagnosis IMO Codes Diagnosis Note KAVON HERNANDEZ MD [facility] [address] [address] 05/18/2024 12:51:34 05/18/2024 14:07:44 Nasal congestion 59047484 R09.81 Lightheadedness 39524764 8 R42 Dizziness 716252698 R42 [id number] ESPERANZA CASTLE PA-C [facility] [address] [address] 10/26/2024 08:40:31 10/26/2024 09:01:21 Chronic rhinitis 24542939 J31.0 Ulcerative rhinitis 3666 9007 J34.81 Health Concerns Section Related Observation LastModified by Organization Detai ls LastModified Time None Recorded Concern Status LastModified by Organization Details LastModified Time None Recorded Advance Directives Directive None Recorded Payers Insurance Date Sequence Insurance Name Policy Number Policy Ross Covered Member ID Ross Member ID Guarantor Name 10/26/2024 1 [facility] INDEMNITY PLAN (MEDICARE SUPPLEMENT) [id number] Gabo Tanner [id number] Gabo Tanner 10/26/2024 1 [facility] INDEMNITY PLAN (PPO) [id number] Gabo Tanner [id number] Gabo Tanner 10/26/2024 2 [facility] [id number] Gabo Tanner [id number] Gabo Pappasonnell Notes Date Note Type Note Provider Name and Address Organization Details Recorded Time 05/18/2024 text/html ROS as noted in the [facility] 78 year old male presents for evaluation [...] Flonase in the past. KAVON NICHOLE MD [address] [place] [address], [phone], [facility] - [facility] 05/19/2024 08:44:39 10/26/2024 text/html ROS as noted in the [facility] 79-year-old male presents for evaluation of nasal [...] jelly in the nose. KAVON NICHOLE MD [address] [place] [address],[address], [address], [facility] 10/26/2024 12:06:48
--- OUTSIDE RECORDS SUMMARY | 2025-05-05 07:33 | XMS_ITS ---
Author Name Gabriel Ng Address Unknown Organization [facility] Care Team Providers Care Superintendent Drivers Name Role Phone Unavailable Primary Care Physician Unavailab le History Of Present Illness 1. This is an 79 year old male who is an established patient who is being seen for an evaluation ofskin lesions, located on the body throughout. He also presents for education and counseling about sun exposure, evaluation for suspicious growths, evaluation for concerning skin lesions on a 6 month basis, evaluation of current nevi, surveillance against skin cancer recurrences, and surveillance against the recurrence of atypical nevi. 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 Rough spots on right forearm and right lower leg. 2. This is an 79 year old male who is following up for seborrheic dermatitis on the left medial inferior chest. He was seen on September 07, 2024, at which time the following treatment recommendations were given: Continue the following treatments: He has triamcinolone at home and will use this twice daily for 1-2 weeks at a time.The patient presents for further evaluation and management. 3. This is an 79 year old male who is following up for dermatitis unspecified on the right anteriorproximal thigh and left anterior proximal thigh. He was seen on September 07, 2024, at which time he was prescribed Elidel 1 % topical cream (Apply twice daily to affected areas in the groin as needed.).The patient presents for further evaluation and management.Interval History: He does not recall using this, but currently applying nystatin powder his pcp prescribed him. Sometimes burn not red or ra anymore. Allergies, Adverse Reactions, Alerts Substance RxNorm Reaction(s) Severity Status Start Da te Zyrtec unspecified active Zoloft unspecified active Penicillins unspecified active Neurontin unspecified active levofloxacin unspecified active Medications Medication Generic Name RxNorm Strength Strength Unit Route Dose Dose Form Frequency Date Started Date Ended Status Indication Sig Elidel pimecrol imus 709955 1 % Topica l cream bid 09/07/19 25 active Appl y twic e jeff y to affe cted area s in the groi n as need ed. lidocaine lidocain e 5 % Topica l cream suspend ed mupirocin mupiroci n 639680 2 % Topica l ointm ent 03/17/20 23 suspend ed Appl y to surg ical site twic e a day unti l sutu re feliciano herman nystatin nystatin 100,000 unit/gram Topica l ointm ent suspend ed triamcinolo ne acetonide triamcin olone acetonid e 7393948 0.1 % Topica l cream BID 05/03/20 25 active Appl y twic e jeff y to affe cted area s of ecze ma for 1-2 week s for flar es. Ok to use on ches t. Do not use on face or skin fold s. azelastine 4272040 137 mcg (0.1 %) Intran flores Aeros ol, Lyndon bid active amlodipine 579991 5 mg Oral 1 table t QHS active aspirin 578356 81 mg Oral 1 table t, delay ed relea se (ente lesvia mercedes d) qd active atorvastati n atorvast atin 40 mg Oral 1 table t qd active buspirone 104542 10 mg Oral 1 table t bid active celecoxib 822861 200 mg Oral 1 capsu le qd active cyclobenzap rine 369715 10 mg Oral 1 table t qd active dicyclomine 398463 10 mg Oral 1 caps u le qd active finasteride finaster sukhi 5 mg Oral 1 table t qd active lisinopril 599314 40 mg Oral 1 table t qd active meloxicam 421254 15 mg Oral 1 table t qd active omeprazole omeprazo le 20 mg Oral 1 capsu le,de layed relea se(DR /EC) qd active Problems Problem Code Type Status Date of Diagnosis Date of Resolution Inflammatory dermatosis (disorder) 687215736( SNOMED) Diagnosis active 05/03/2025 History of melanoma in situ of skin (situation) 5355751433 106(SNOMED ) Diagnosis active 05/03/2025 History of malignant neoplasm of skin (situation) 966084972( SNOMED) Diagnosis active 05/03/2025 Seborrheic dermatitis (disorder) 19415240(S NOMED) Diagnosis active 05/03/2025 Seborrheic keratosis (disorder) 891445207( SNOMED) Diagnosis active 05/03/2025 Melanocytic nevus of trunk (disorder) 787542524( SNOMED) Diagnosis active 05/03/2025 Disorder of pigmentation (disorder) 136054472( SNOMED) Diagnosis active 05/03/2025 Inflammatory dermatosis (disorder) 800243283( SNOMED) Diagnosis active 09/07/2024 History of melanoma in situ of skin (situation) 8648580463 106(SNOMED ) Diagnosis active 09/07/2024 History of malignant neoplasm of skin (situation) 839428628( SNOMED) Diagnosis active 09/07/2024 Seborrheic dermatitis (disorder) 88840059(S NOMED) Diagnosis active 09/07/2024 Seborrheic keratosis (disorder) 253511821( SNOMED) Diagnosis active 09/07/2024 Melanocytic nevus of trunk (disorder) 857177550( SNOMED) Diagnosis active 09/07/2024 Disorder of pigmentation (disorder) 955135413( SNOMED) Diagnosis active 09/07/2024 History of melanoma in situ of skin (situation) 1392536488 106(SNOMED ) Diagnosis active 01/08/2024 History of malignant neoplasm of skin (situation) 529285793( SNOMED) Diagnosis active 01/08/2024 Seborrheic dermatitis (disorder) 35288411(S NOMED) Diagnosis active 01/08/2024 Seborrheic keratosis (disorder) 687353568( SNOMED) Diagnosis active 01/08/2024 Melanocytic nevus of trunk (disorder) 730397320( SNOMED) Diagnosis active 01/08/2024 Disorder of pigmentation (disorder) 273280468( SNOMED) Diagnosis active 01/08/2024 Neoplasm of uncertain behavior of skin (disorder) 19430610(S NOMED) Diagnosis active 05/07/2023 Inflamed seborrheic keratosis (disorder) 850563745( SNOMED) Diagnosis active 05/07/2023 Surgical follow-up (finding) 379655922( SNOMED) Diagnosis active 03/27/2023 Basal cell carcinoma of face (disorder) 128779032( SNOMED) Diagnosis active 03/17/2023 Neoplasm of uncertain behavior of skin (disorder) 76196569(S NOMED) Diagnosis active 12/24/2022 History of melanoma in situ of skin (situation) 9688309869 106(SNOMED ) Diagnosis active 12/24/2022 History of malignant neoplasm of skin (situation) 818113095( SNOMED) Diagnosis active 12/24/2022 Seborrheic dermatitis (disorder) 38714877(S NOMED) Diagnosis active 12/24/2022 Seborrheic keratosis (disorder) 792031614( SNOMED) Diagnosis active 12/24/2022 Melanocytic nevus of trunk (disorder) 891591556( SNOMED) Diagnosis active 12/24/2022 Disorder of pigmentation (disorder) 521835453( SNOMED) Diagnosis active 12/24/2022 History of melanoma in situ of skin (situation) 3163166511 106(SNOMED ) Diagnosis active 07/09/2022 History of malignant neoplasm of skin (situation) 127039528( SNOMED) Diagnosis active 07/09/2022 Atopic dermatitis (disorder) 82777148(S NOMED) Diagnosis active 07/09/2022 Seborrheic dermatitis (disorder) 08443871(S NOMED) Diagnosis active 07/09/2022 Seborrheic keratosis (disorder) 121285429( SNOMED) Diagnosis active 07/09/2022 Melanocytic nevus of trunk (disorder) 652761870( SNOMED) Diagnosis active 07/09/2022 Disorder of pigmentation (disorder) 387147012( SNOMED) Diagnosis active 07/09/2022 Seborrheic dermatitis (disorder) 38594461(S NOMED) Diagnosis active 03/13/2022 Actinic keratosis (disorder) 957026215( SNOMED) Diagnosis active 12/20/2021 History of melanoma in situ of skin (situation) 5679742713 106(SNOMED ) Diagnosis active 12/20/2021 History of malignant neoplasm of skin (situation) 316713636( SNOMED) Diagnosis active 12/20/2021 Follicular cysts of skin and subcutaneous tissue (disorder) 300640690( SNOMED) Diagnosis active 12/20/2021 Seborrheic keratosis (disorder) 442313916( SNOMED) Diagnosis active 12/20/2021 Melanocytic nevus of trunk (disorder) 771849371( SNOMED) Diagnosis active 12/20/2021 Disorder of pigmentation (disorder) 201591869( SNOMED) Diagnosis active 12/20/2021 Patient encounter status (finding) 281221066( SNOMED) Diagnosis active 12/20/2021 History of malignant melanoma of the skin (situation) 6133391735 08(SNOMED) Diagnosis active 05/31/2021 History of malignant neoplasm of skin (situation) 838031368( SNOMED) Diagnosis active 05/31/2021 Inflamed seborrheic keratosis (disorder) 756570169( SNOMED) Diagnosis active 05/31/2021 Follicular cysts of skin and subcutaneous tissue (disorder) 463098683( SNOMED) Diagnosis active 05/31/2021 Seborrheic keratosis (disorder) 962887108( SNOMED) Diagnosis active 05/31/2021 Melanocytic nevus of trunk (disorder) 747847068( SNOMED) Diagnosis active 05/31/2021 Disorder of pigmentation (disorder) 546346497( SNOMED) Diagnosis active 05/31/2021 Patient encounter status (finding) 307109571( SNOMED) Diagnosis active 05/31/2021 History of malignant melanoma of the skin (situation) 3752092352 08(SNOMED) Diagnosis active 11/29/2020 History of malignant neoplasm of skin (situation) 932526327( SNOMED) Diagnosis active 11/29/2020 Disorder of skin (disorder) 28724788(S NOMED) Diagnosis active 11/29/2020 Follicular cysts of skin and subcutaneous tissue (disorder) ( SNOMED) Diagnosis active 11/29/2020 Seborrheic keratosis (disorder) 930164880( SNOMED) Diagnosis active 11/29/2020 Melanocytic nevus of trunk (disorder) 791909670( SNOMED) Diagnosis active 11/29/2020 Disorder of pigmentation (disorder) 160204928( SNOMED) Diagnosis active 11/29/2020 Patient encounter status (finding) 515966720( SNOMED) Diagnosis active 11/29/2020 Other diseases of capillaries I78.8(ICD- 10) Diagnosis active 10/25/2020 Actinic keratosis L57.0(ICD- 10) Diagnosis active 05/16/2020 Personal history of malignant melanoma of skin Z85.820(IC D-10) Diagnosis active 05/16/2020 Personal history of other malignant neoplasm of skin Z85.828(IC D-10) Diagnosis active 05/16/2020 Other seborrheic keratosis L82.1(ICD- 10) Diagnosis active 05/16/2020 Melanocytic nevi of trunk D22.5(ICD- 10) Diagnosis active 05/16/2020 Other melanin hyperpigmentation L81.4(ICD- 10) Diagnosis active 05/16/2020 Inflamed seborrheic keratosis L82.0(ICD- 10) Diagnosis active 04/05/2020 Other seborrheic keratosis L82.1(ICD- 10) Diagnosis active 09/14/2019 Melanocytic nevi of trunk D22.5(ICD- 10) Diagnosis active 09/14/2019 Other melanin hyperpigmentation L81.4(ICD- 10) Diagnosis active 09/14/2019 Other hypertrophic disorders of the skin L91.8(ICD- 10) Diagnosis active 09/14/2019 Other follicular cysts of the skin and subcutaneous tissue L72.8(ICD- 10) Diagnosis active 09/14/2019 Personal history of malignant melanoma of skin Z85.820(IC D-10) Diagnosis active 09/14/2019 Personal history of other malignant neoplasm of skin Z85.828(IC D-10) Diagnosis active 09/14/2019 Neoplasm of uncertain behavior of skin (disorder) 32339658(S NOMED) Diagnosis active 10/06/2018 Melanocytic nevus of trunk (disorder) 297725876( SNOMED) Diagnosis active 08/13/2018 Senile hyperkeratosis (disorder) 589904325( SNOMED) Diagnosis active 05/13/2018 Senile hyperkeratosis (disorder) 396687462( SNOMED) Diagnosis active 03/26/2018 Senile hyperkeratosis (disorder) 307643550( SNOMED) Diagnosis active 12/31/2017 Personal history of other drug therapy Z92.29(ICD -10) Diagnosis active 11/18/2017 Encounter for immunization Z23(ICD-10 ) Diagnosis active 11/18/2017 Senile hyperkeratosis (disorder) 491325817( SNOMED) Diagnosis active 11/18/2017 Actinic keratosis (disorder) ( SNOMED) Diagnosis active 09/01/2017 Other specified health status Z78.9(ICD- 10) Diagnosis active 07/21/2017 Other specified health status Z78.9(ICD- 10) Diagnosis active 07/21/2017 Actinic keratosis (disorder) ( SNOMED) Diagnosis active 07/21/2017 Scar conditions and fibrosis of skin (disorder) ( SNOMED) Diagnosis active 05/12/2017 Other specified health status Z78.9(ICD- 10) Diagnosis active 04/16/2017 Neoplasm of uncertain behavior of skin (disorder) 40920019(S NOMED) Diagnosis active 04/16/2017 History of malignant neoplasm of skin (situation) 259701139( SNOMED) Diagnosis active 11/14/2016 Senile hyperkeratosis (disorder) 385295645( SNOMED) Diagnosis active 08/01/2016 Senile hyperkeratosis (disorder) 688560032( SNOMED) Diagnosis active 05/27/2016 Disorder of skin (disorder) 45455342(S NOMED) Diagnosis active 04/04/2016 Neoplasm of uncertain behavior of skin (disorder) 97589819(S NOMED) Diagnosis active 01/16/2016 Neoplasm of uncertain behavior of skin (disorder) 72961558(S NOMED) Diagnosis active 11/21/2015 Other specified health status Z78.9(ICD- 10) Diagnosis active 10/04/2015 History of pneumonia (situation) 989282245( SNOMED) Diagnosis active 10/04/2015 Benign neoplasm of skin of trunk (disorder) 46581434(S NOMED) Diagnosis active 10/04/2015 Scar conditions and fibrosis of skin (disorder) ( SNOMED) Diagnosis active 06/27/2015 Basal cell carcinoma of truncal skin (disorder) 839915513( SNOMED) Diagnosis active 06/14/2015 Senile hyperkeratosis (disorder) 957867536( SNOMED) Diagnosis active 05/23/2015 Actinic keratosis (disorder) ( SNOMED) Diagnosis active 03/01/2015 Senile hyperkeratosis (disorder) 487164959( SNOMED) Diagnosis active 11/20/2014 Benign neoplasm of skin of face (disorder) 54612522(S NOMED) Diagnosis active 10/17/2014 Actinic keratosis (disorder) 321967083( SNOMED) Diagnosis active 06/19/2014 Malignant 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) 139178176( SNOMED) Diagnosis active 06/13/2014 Malignant 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) 338052213( SNOMED) Diagnosis active 05/02/2014 Malignant 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) 247586878( SNOMED) Diagnosis active 05/01/2014 Neoplasm of uncertain behavior of skin (disorder) 58837360(S NOMED) Diagnosis active 03/27/2014 History of clinical finding in subject (situation) 198755620( SNOMED) Problem active Actinic keratosis (disorder) 040130125( SNOMED) Problem active Atrial fibrillation (disorder) 31110849(S NOMED) Problem active Increased blood pressure (finding) 91055203(S NOMED) Problem active Acne (disorder) 04731412(S NOMED) Problem active Basal cell carcinoma of skin (disorder) 048393509( SNOMED) Problem active Eczema (disorder) 40566821(S NOMED) Problem active Malignant melanoma (disorder) 304432306( SNOMED) Problem active Squamous cell carcinoma (disorder) 558328603( SNOMED) Problem active Hypercholesterolemia (disorder) 94745426(S NOMED) Problem active History of transient ischemic attack (situation) 695593192( SNOMED) Problem active Vaccine product containing only severe acute respiratory syndrome coronavirus 2 messenger ribonucleic acid (medicinal product) 0472101510 (SNOMED) Problem active History of skin disorder (situation) 623210125( SNOMED) Problem active Results No data Encounters Service provided at [address], [address], [place], [place] [id number]. Office phonenumber is [phone]. Office fax number is [phone]. Encounter Diagnosis Location Date / Time Type Dermatitis Unspecified (L30. 9)History of Malignant Melanoma in situ (Z86.006)History of Basal Cell Carcinoma (Z85.828)History of squamous cell carcinoma (Z85.828)Seborrheic Dermatitis (L21.8)Seborrheic Keratoses (L82.1)Benign Nevi (D22.5)Lentigines (L81.4) [facility] 05/03/2025 11:45:00 [facility] [id number] Reason For Referral No data Procedures Procedure Date Cryotherapy of skin lesion with liquid n itrogen (procedure) 05/07/2023 12:00 am UTC Shave biopsy (procedure) 05/07/2023 12:0 0 am UTC Mohs surgery (procedure) 03/17/2023 12:0 0 am UTC Shave biopsy (procedure) 12/24/2022 12:0 0 am UTC Cryotherapy of skin lesion with liquid n itrogen (procedure) 12/20/2021 12:00 am UTC Cryotherapy of skin lesion with liquid n itrogen (procedure) 05/31/2021 12:00 am UTC Cryotherapy of skin lesion with liquid n itrogen (procedure) 05/16/2020 12:00 am UTC Cryotherapy of skin lesion with liquid n itrogen (procedure) 04/05/2020 12:00 am UTC Excision of squamous cell carcinoma (pro cedure) Surgical biopsy of skin (procedure) Excision of melanoma (procedure) Excision of basal cell carcinoma (proced ure) Excision of melanoma (procedure) Excision of squamous cell carcinoma (pro cedure) Excision of basal cell carcinoma (proced ure) Surgical biopsy of skin (procedure) Excision of squamous cell carcinoma (pro cedure) Excision of basal cell carcinoma (proced ure) Surgical biopsy of skin (procedure) Excision of melanoma (procedure) Excision of squamous cell carcinoma (pro cedure) Surgical biopsy of skin (procedure) Excision of basal cell carcinoma (proced ure) Excision of melanoma (procedure) Excision of basal cell carcinoma (proced ure) Excision of melanoma (procedure) Excision of squamous cell carcinoma (pro cedure) Surgical biopsy of skin (procedure) Excision of basal cell carcinoma (proced ure) Excision of melanoma (procedure) Excision of squamous cell carcinoma (pro cedure) Surgical biopsy of skin (procedure) Surgical biopsy of skin (procedure) Excision of basal cell carcinoma (proced ure) Excision of melanoma (procedure) Excision of squamous cell carcinoma (pro cedure) Documentation of past medical history (p rocedure) Excision of basal cell carcinoma (proced ure) Excision of melanoma (procedure) Excision of squamous cell carcinoma (pro cedure) Surgical biopsy of skin (procedure) Documentation of past medical history (p rocedure) Documentation of past medical history (p rocedure) Surgical biopsy of skin (procedure) Excision of basal cell carcinoma (proced ure) Excision of melanoma (procedure) Excision of squamous cell carcinoma (pro cedure) Excision of basal cell carcinoma (proced ure) Surgical biopsy of skin (procedure) Documentation of past medical history (p rocedure) Excision of melanoma (procedure) Excision of squamous cell carcinoma (pro cedure) Excision of squamous cell carcinoma (pro cedure) Surgical biopsy of skin (procedure) Documentation of past medical history (p rocedure) Excision of basal cell carcinoma (proced ure) Excision of melanoma (procedure) Excision of basal cell carcinoma (proced ure) Excision of melanoma (procedure) Excision of squamous cell carcinoma (pro cedure) Surgical biopsy of skin (procedure) Documentation of past medical history (p rocedure) Surgical biopsy of skin (procedure) Documentation of past medical history (p rocedure) Excision of basal cell carcinoma (proced ure) Excision of melanoma (procedure) Excision of squamous cell carcinoma (pro cedure) Excision of melanoma (procedure) Excision of squamous cell carcinoma (pro cedure) Surgical biopsy of skin (procedure) Documentation of past medical history (p rocedure) Excision of basal cell carcinoma (proced ure) Cataract surgery (procedure) Excision of squamous cell carcinoma (pro cedure) Excision of basal cell carcinoma (proced ure) Surgical biopsy of skin (procedure) Excision of melanoma (procedure) Excision of squamous cell carcinoma (pro cedure) Surgical biopsy of skin (procedure) Cataract surgery (procedure) Excision of basal cell carcinoma (proced ure) Excision of melanoma (procedure) Cataract surgery (procedure) 06/2021 Excision of melanoma (procedure) Excision of basal cell carcinoma (proced ure) Surgical biopsy of skin (procedure) Excision of squamous cell carcinoma (pro cedure) Review Of Systems Provider reviewed on May 03, 2025.A focused review of systems was performed including Hematologic /Lymphatic and Integumentary and was notable for problems with bleeding.No Problems With Healing AndNo Problems With Scarring (hypertrophic Or Keloid). Assessment 1.Dermatitis UnspecifiedCounselingPrescription: Elidel 1 % topical cream TP2.History of Malignant Melanoma in situCounseling3.History of Basal Cell CarcinomaCounseling4.History of squamous cell carcinomaCounseling5.Seborrheic DermatitisCounselingPrescription Medication Management: Continue Regimen - He has triamcinolone at home and will use this twice daily for 1-2 weeks at a time..6.Seborrheic KeratosesCounseling7.Benign NeviCounseling8.LentiginesCounseling Plan of Care Future visit for 05/03/2026 - Follow up in 1 year for: Skin Check Code Detail Instructions [id number] triamcinolone aceton sukhi 0.1 % topical cream Apply twice daily to affected areas of eczema for 1-2 weeks for flares. Ok to use on chest. Do not use on face or skin folds. 321356 Elidel 1 % topical cream Apply t wice daily to affected areas in the groin as needed. 899935 Elidel 1 % topical cream Apply t wice daily to affected areas in the groin as needed. 988322 mupirocin 2 % topical ointment A pply to surgical site twice a day until suture removal 6637190 triamcinolone aceton sukhi 0.1 % topical cream Apply twice daily to affected areas of eczema for 1-2 weeks for flares. Do not use on face or skin folds. 9888703 triamcinolone aceton sukhi 0.1 % topical cream Apply twice daily to affected areas of eczema for 1-2 weeks for flares. Do not use on face or skin folds. 0707156 triamcinolone aceton sukhi 0.1 % topical cream Apply twice daily to affected areas of eczema on the body for 1-2 weeks at a time for flares. Do not use on face or skin folds. 2696312 triamcinolone aceton sukhi 0.1 % topical cream Apply twice daily to affected areas of eczema on the body for 1-2 weeks at a time for flares. Do not use on face or skin folds. Instructions * I counseled the patient regarding the following:Skin care: Intertrigo responds to absorbent or topical antifungal powders to reduce friction and moisture, and low potency topical steroids to reduce inflammation.Expectations: Intertrigo is a rash that occurs with frictional rubbing of skin in warm and moist environments. Common intertriginous locations include: inframammary skin, inguinal folds, abdominal folds.Contact office if: Rash continues to spread despite treatment. * I counseled the patient regarding the following:Skin Care: Patients with a family history of melanoma should wear broad spectrum sunscreen and sun protective clothing.Expectations: Patients with a family history of melanoma from a 1st degree relative have a higher risk of developing a melanoma sofiya red with the rest of the population. Monthly self-skin checks should be performed to monitor for any moles that change in size, shape or color, itch burn or bleed.Contact Office if: Patient notices any new or changing moles. * I counseled the patient regarding the following:Skin Care: Patients with a history of non-melanoma skin cancer should wear broad spectrum sunscreen and sun protective clothing.Expectations: Scars from excisional sites of non- melanoma skin cancers should be monitored for any recurrences.Contact Office if: If the patient notices discoloration or a bump arising from a previously stable scar or any new lesions that are not healing. * I counseled the patient regarding the following:Skin Care: Patients with a history of non-melanoma skin cancer should wear broad spectrum sunscreen and sun protective clothing.Expectations: Scars from excisional sites of non- melanoma skin cancers should be monitored for any recurrences.Contact Office if: If the patient notices discoloration or a bump arising from a previously stable scar or any new lesions that are not healing. * I counseled the patient regarding the following:Skin care: Emollients, shampoos with tar, selenium or zinc pyrithione can improve seborrheic dermatitis.Expectations: Seborrheic Dermatitis is chronic in nature with periods of remissions and flares. Flares can be triggered by stress.Contact office if: Seborrheic dermatitis worsens, or fails to improve despite several months of treatment. * I counseled the patient regarding the following:Skin Care: Seborrheic Keratoses are benign. No treatment is necessary.Expectations: Seborrheic Keratoses are benign warty growths. Patients get more ofthem as they age. Please call with any changes or concerns. * I counseled the patient regarding the following:Instructions: Monthly self- skin checks to monitor for any changes in moles are recommended.Expectations: Benign Nevi are pigmented nests of cells within the skin. No treatment is necessary.Contact Office if: Any moles change in size, shape or color; itch, burn or bleed. * I counseled the patient regarding the following:Skin Care: Lentigines can improve with broad spectrum sunscreen, sun avoidance, bleaching creams, retinoids, chemical peels and laser.Expectations: Lentigines are benign pigmented lesions that occur on sun-exposed and sun-damaged skin. Social History Code Activity Start Date End Date [id number] (SNOMED) Never smoker Sex male Sexual orientation Unspecified Gender identity Unspecified Vital Signs No data
--- OUTSIDE RECORDS SUMMARY | 2025-05-05 07:33 | XMS_ITS | Clinical Summary ---
Author Organization [facility] ity Address [address] [place] [id number] Care Team Providers Care Concrete Finishing Machine Operator Name Role Phone Unavailable Primary Care Provider [...]
[2025-05-05 07:43] VITALS: BP 174/100; PULSE 83; O2SAT 96; BMI 34.1
--- NOTE | 2025-05-05 07:43 | MHC.OFFVIS ---
Vital Signs 05/05/25 07:43 Height 6 ft Weight 251 lb 8.759 oz BMI 34.1 BP 174/100 H Blood Pressure Location Lt brachial Position Sitting Pulse 83 Pulse Source Pulse Oximeter Pulse Oximetry (%) 96 Oxygen Delivery Method Room Air Intake Visit Reasons: Nontoxic multinodular goiter Intake Note: New patient present today for Nontoxic multinodular goiter office visit. Partnership Development Manager Required: No Accompanied by: Son Allergies gabapentin (GABAPENTIN) Allergy (Intermediate, Verified 05/05/25 07:48) DARK THOUGHTS, suicidal cetirizine (From Zyrtec) Allergy (Unknown, Verified 05/05/25 07:48) Nausea, Emotional clindamycin (CLINDAMYCIN) Allergy (Unknown, Verified 05/05/25 07:48) HIVES penicillin V Allergy (Unknown, Verified 05/05/25 07:48) hives Penicillins (PENICILLINS) Allergy (Unknown, Verified 05/05/25 07:48) Hives prednisone Allergy (Unknown, Verified 05/05/25 07:48) nightmares sertraline (From ZOLOFT) Adverse Reaction (Severe, Verified 05/05/25 07:48) SI Medication List - Last Reconciled 05/05/25 by Brunilda Cadet MD amlodipine 5 mg PO BEDTIME@1800 aspirin 81 mg PO DAILY atorvastatin 40 mg PO BEDTIME azelastine 2 sprays intranasal BID PRN buspirone 15 mg PO BID finasteride 5 mg PO DAILY lancets (OneTouch Delica Plus Lancet) Test blood sugar once a day lidocaine 5% (Lidoderm) 2 patches topical DAILY lisinopril 40 mg PO DAILY nystatin 1 appl topical BID PRN omeprazole 20 mg PO DAILY@0630 OneTouch Ultra Test (blood sugar diagnostic) 1 qd NS OneTouch Ultra2 Meter (blood-glucose meter) As directed NS HPI Comments Details: 79-year-old male here today for 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 Here today with son Kasi. He has had a diagnosis of thyroid nodules at least dating back to 2000. Was told didnt need further. Per PACS, Biopsy was attempted at that time of the dominant right lower pole nodule measuring 2.5 cm in maximum dimension at that time, however apparently due to difficult access, procedure was canceled. per patient no one ever attempted a biopsy on his thyroid nodules. Ultrasound thyroid 02/27/2025, I reviewed the images myself which showed a right lower pole 3.2 cm solid hypoechoic TR 4 nodule, meets criteria for FNA and has a increased in size compared to previous ultrasound in 2017 when it was 2.5 cm.. A right lower pole 0.8 cm solid hypoechoic TR 4 nodule. Another right lower pole 0.8 cm solid isoechoic TR 3 category nodule noted. A left lower pole 1.6 cm solid isoechoic taller than wide ill-defined nodule noted, TR 5 category. Also meets criteria for FNA. Another left lower pole 1.5 cm solid isoechoic ill-defined TR 3 category nodule noted. Patient currently denies heat or cold intolerance, hair loss, palpitation, anxiety, weight changes, mood changes, low energy, changes in appearance of eyes or vision changes, tremors, increased diaphoresis or dry skin. ? Has some constipation. Patient denies any difficulty swallowing, pain on swallowing or voice changes or difficulty breathing. Patient denies any history of childhood neck radiation. Denies having ever used lithium, amiodarone or biotin supplements. Patient denies any family history of thyroid cancer or thyroid disease. Physical exam General: sitting comfortably in no acute distress HEENT: normocephalic/atraumatic, Neck: supple, Cardiac: reg heart rate Pulm: normal pulmonary effort Laboratory Tests 07/05/24 06:33 TSH 1.00 EXAMINATION: US THYROID 02/27/25 HISTORY: E04.1 - Nontoxic single thyroid nodule TECHNIQUE: Real-time grayscale ultrasound imaging was performed and images were reviewed. COMPARISON: Comparison is made with the prior examination dated 09/02/2016. Correlation is also made with a CT angiogram of the neck dated 01/09/2025. FINDINGS: SIZE: The right thyroid lobe measures 6.3 x 3.9 x 2.8 cm. The left thyroid lobe measures 5.6 x 2.1 x 1.9 cm. The isthmus measures 7 mm. FLOW: Flow to the gland is normal. ECHOGENICITY: The echotexture of the gland is heterogeneous. NODULES: Numerous nodules are noted bilaterally. The largest nodules are described below: Nodule #: 1 Location: Lower pole of the right thyroid lobe measuring 3.2 x 2.4 x 2.6 cm (previously 2.5 x 2.4 x 2.0 cm). Shape: Wider than tall (0 points) Margins: Smooth (0 points) Echotexture: Hypoechoic (2 points) Composition: Mostly solid (2 points) Calcifications: None (0 points) Total points: 4 TIRADS: TR4: Moderately suspicious. Nodule #: 2 Location: Lower pole of the right thyroid lobe measuring 8 x 6 x 8 mm (previously 7 x 4 x 1 mm). Shape: Wider than tall (0 points) Margins: Smooth (0 points) Echotexture: Hypoechoic (2 points) Composition: Solid (2 points) Calcifications: None (0 points) Total points: 4 TIRADS: TR4: Moderately suspicious. Nodule #: 3 Location: Lower pole of the right thyroid lobe medially measuring 8 x 8 x 9 mm (not seen previously). Shape: Wider than tall (0 points) Margins: Smooth (0 points) Echotexture: Isoechoic (1 point) Composition: Mostly solid (2 points) Calcifications: None (0 points) Total points: 3 TIRADS: TR3: Mildly suspicious. Nodule #: 4 Location: Lower pole of the left thyroid lobe measuring 1.6 x 1.3 x 1.2 cm (not seen previously). Shape: Taller than wide (3 points) Margins: Ill-defined (0 points) Echotexture: Hypoechoic (2 points) Composition: Solid (2 points) Calcifications: None (0 points) Total points: 7 TIRADS: TR5: Highly suspicious. Nodule #: 5 Location: Lower pole of the left thyroid lobe measuring 1.2 x 1.3 x 1.5 cm (not seen previously). Shape: Wider than tall (0 points) Margins: Ill-defined (0 points) Echotexture: Indeterminate (1 point) Composition: Mostly solid (2 points) Calcifications: None (0 points) Total points: 3 TIRADS: TR3: Mildly suspicious. US/US thyroid IMPRESSION: Multinodular thyroid gland as detailed above. According to ACR TI-RADS guidelines below, ultrasound-guided fine-needle aspiration of nodules #1 and 4 is recommended. 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 Daughter No problems noted. Daughter No problems noted. Daughter No problems noted. Social History Household Members: None Housing: House Alcohol intake: never Patient Tobacco Use Status: Never used Tobacco e-Cigarette/Vaping Use: Never Used service: No Current occupational status: retired Cognitive needs: No Hearing needs: Yes Vision needs: Yes Physical Exam Vital Signs: Last Vital Signs Pulse 83 05/05/25 07:43 BP 174/100 H 05/05/25 07:43 Pulse Ox 96 05/05/25 07:43 Oxygen Delivery Method Room Air 05/05/25 07:43 BMI result Body Mass Index 34.1 Assessment & Plan Assessment & Plan (1) Multinodular goiter: Code(s): E04.2 - Nontoxic multinodular goiter Category: Medical Plan: 79-year-old male with no family history of thyroid cancer with no personal history of head or neck radiation coming in today for initial evaluation of multinodular goiter. He has had a diagnosis of thyroid nodules at least dating back to 2000. Was told didnt need further. Per PACS, Biopsy was attempted at that time of the dominant right lower pole nodule measuring 2.5 cm in maximum dimension at that time, however apparently due to difficult access, procedure was canceled. per patient no one ever attempted a biopsy on his thyroid nodules. Ultrasound thyroid 02/27/2025, I reviewed the images myself which showed a right lower pole 3.2 cm solid hypoechoic TR 4 nodule, meets criteria for FNA and has a increased in size compared to previous ultrasound in 2017 when it was 2.5 cm.. A right lower pole 0.8 cm solid hypoechoic TR 4 nodule. Another right lower pole 0.8 cm solid isoechoic TR 3 category nodule noted. A left lower pole 1.6 cm solid isoechoic taller than wide ill-defined nodule noted, TR 5 category. Also meets criteria for FNA. Another left lower pole 1.5 cm solid isoechoic ill-defined TR 3 category nodule noted. I explained that it is common to have thyroid nodules. About 95% of the time these nodules are benign. However if the nodule is > 1 cm in size or suspicious on ultrasound then a fine need aspiration biopsy is recommended. We discussed that a FNAB involves 4-5 passes with a small gauge needle and material obtained is sent off for cytology.If the cytopathology is benign then the nodule will be followed annually with repeat ultrasounds. However if it is suspicious or malignant, we will need to discuss further management. Indeterminate cytology can be further investigated with repeat FNA, genetic testing or empiric lobectomy. Malignant cytology is managed with either lobectomy or total thyroidectomy. We discussed briefly that thyroid cancer is, in most patients, an indolent disease that does not affect mortality. We will arrange for FNA of the right lower 3.2 cm and the left lower 1.6 cm thyroid nodules at next available opening and patient will follow up with me in clinic thereafter for results and further decision making. No compressive symptoms. Normal TSH from June 2024. Plan: -scheduled for FNA of the right lower 3.2 cm and the left lower 1.6 cm thyroid nodules and a follow up 2 weeks after to discuss results -ordered TSH and free T4 to be done now Plan I spent 45 minutes in reviewing the record, seeing the patient and documenting in the medical record. Orders: Orders Free T4 (Free Thyroxine) Today E04.2 - Nontoxic multinodular goiter US biopsy thyroid Today E04.2 - Nontoxic multinodular goiter Thyroid Stimulating Hormone Today E04.2 - Nontoxic multinodular goiter Coding Level of Care Code New Pt Level 4 (49586) Diagnoses Multinodular goiter E04.2 Time Spent (min) 45
== END 2025-05-05 08:35 | disposition home or self-care (01) ==
LOC: HO.ENCR 07:30
PROVIDERS: Visit Provider Student in an Organized Health Care Education/Training Program
DX: E04.2 Nontoxic multinodular goiter (principal)
CPT/HCPCS: 99204

== ENCOUNTER 2025-05-05 08:40 | Outpatient (REF) | payer OTHER, SELFPAY ==
[2025-05-05 11:25] LABS: Free T4 (Free Thyroxine) 0.87 ng/dL (0.71-1.85); Thyroid Stimulating Hormone 0.67 uIU/mL (0.32-4.0)
== END 2025-05-05 08:41 | disposition home or self-care (01) ==
LOC: HO.10HDL 08:40
PROVIDERS: Visit Provider Student in an Organized Health Care Education/Training Program
DX: E04.2 Nontoxic multinodular goiter (principal)
CPT/HCPCS: 36415; 84439; 84443

== ENCOUNTER 2025-05-24 07:28 | Outpatient (REF) | payer OTHER, SELFPAY ==
--- OUTSIDE RECORDS SUMMARY | 2025-05-24 07:30 | XMS_ITS | Clinical Summary ---
Author Organization [facility] Address [address] [id number] Care Team Providers Care Cement Side Laster Name Role Phone TalikarlaAlicia Primary Care Provider Allergies Active Allergy Reactions [...] patient's age to complete this topic Insurance [employer] Care Teams Cement Side Laster Relationship Specialty Start Date End Date Alicia Kelsey [address] [place] [id number] PCP - General Internal Medicine 08/16/21
--- OUTSIDE RECORDS SUMMARY | 2025-05-24 07:30 | XMS_ITS | Data Portability ---
Author Organization [place] - [facility], Allergy Address [address] [address] Care Team Providers Care Charter Bus Driver Name Role Phone HARRYEZIO Primary Care Provider [phone] Assessment Encounter Date Assessment Date Assessment LastModified [...] also consider cool-mist humidifier. Follow-up as needed. [email or web address] Not available 10/26/2024 09:05:00 Plan of Treatment Reminders Order Date Submit Date Provider Last Modified By Organization Details Last Modified Time Details Appointments FOLLOW UP 15 2024 08:30A M KAVON LEGER MD Not available Not available Not available Lab None recorded. Referral None recorded. Procedures None recorded. Surgeries None recorded. Imaging XR, sinuses, paranasal , 3 or more view 2023 024 [email or web address] [facility], [address] [place] [address], [phone], 05/18/2024 14:07:44 Medication Orders mupirocin 2 % topical ointment 2024 025 [facility] #[id number], [address] [facility], [place], [address], 10/26/2024 09:05:29 Patient TargetsNo targets recorded. Patient InstructionsNo instructions recorded. Reason for Referral None Reported. Results Created Date Observation Date Name Description Value Unit Range Abnormal Flag Note LastModifiedBy Organization Detail LastModifiedTime 05/18/20 24 XR, sinus es, paran flores, 3 or more view No observ ation record ed. [email or web address] [facility] [address], [address], 05/18/2024 14:04:56 Result Notes None recorded. Problems Name Problem SNOMED Code Status Onset Date Resolution Date Notes Provider Name and Address Organization Details Recorded Time Gastroeso phageal reflux disease without esophagit is 476048898 Active 2015 Gastro-eso phageal reflux disease without esophagiti s; Condition: improved N ote: Date Diagnosed: 09/10/2015 9:47 AM (K21.9) Not Available [facility] 4 02:42:12 Chronic rhinitis 45066703 Active 2015 Chronic rhinitis; Note: Date Diagnosed: 09/10/2015 9:27 AM (J31.0) Not Available [facility] 4 02:42:03 Benign paroxysma l positiona l vertigo 011078140 Active 2015 Benign paroxysmal vertigo, right ear; Note: Date Diagnosed: 09/10/2015 9:27 AM (H81.11) Not Available [facility] 4 02:42:08 Nasal congestio n 63788379 Active 2016 Nasal congestion ; Note: Date Diagnosed: 11/05/2016 2:50 PM (R09.81) Not Available [facility] 4 02:42:05 Atypical facial pain 21580032 Active 2016 Atypical facial pain; Note: Date Diagnosed: 11/05/2016 2:50 PM (G50.1) Not Available [facility] 4 02:42:01 Sensorine ural hearing loss of bilateral ears 268109241 Active 2016 Sensorineu ral HL, bilateral; Note: Date Diagnosed: 02/20/2015 9:53 AM (389.18) ; Start Date : 02/20/2015 Sensorine ural hearing loss, bilateral; Note: Date Diagnosed: 12/02/2016 2:25 PM (H90.3) Not Available [facility] 4 02:42:07 Disorder of nasal sinus 5551997 Active 2016 Other specified disorders of nose and nasal sinuses; Note: Date Diagnosed: 05/19/2017 12:46 PM (J34.89) Not Available [facility] 4 02:42:02 Disorder of the nose 07409592 Active 2016 Other specified disorders of nose and nasal sinuses; Note: Date Diagnosed: 05/19/2017 12:46 PM (J34.89) Not Available [facility] 4 02:42:02 Lighthead edness 810734265 Active 2023 KAVON HERNANDEZ MD [address] [place] [address], [place], [phone] , [facility] - [facility] 4 14:03:53 Dizziness 658129576 Active 2023 Chen garcía [place] - [facility] 4 15:45:12 Ulcerativ e rhinitis 17524434 Active 2024 ESPERANZA CASTLE PA-C [address] [place] [address], [place], [phone] , [facility] - [facility] 5 09:05:17 Problem Notes None recorded. Medical Equipment None Reported. Allergies Allergen ID Allergen Name Allergen Category Reaction Reaction Severity Criticality Documentation Date Start Date Code Code System Note Provider Name and Address Organization Details Recorded Time 63485 gabapenti n medicatio n other Not available Not available 12/22/2023 88920 RxNorm React ion: unkno wn, unspe cifie d;; Not Available [facility] 4 01:02:20 33389 cetirizin e hydrochlo ride medicatio n other Not available Not available 12/22/2023 66127 0 RxNorm React ion: unkno wn, unspe cifie d;; Not Available [facility] 4 01:02:31 32584 sertralin e hydrochlo ride medicatio n other Not available Not available 12/22/2023 14150 7 RxNorm React ion: unkno wn, unspe cifie d;; Not Available [facility] 4 01:02:32 Medications Name Sig Start Date Stop Date Status Note LastModified by Organization Details LastModified Time Prescript ion - Prior Authoriza tion Request active Script Copy/Josephine or Auth^Scr ipt Copy/Josephine or Auth_ [id number] Not Available Not Available Not Available celecoxib [...] elayed release 09/27 completed Medicati on ID: [id number] D uration Value: 30 Brand Name: omeprazo [...] mg tablet 01/10 completed Medicati on ID: [id number] D uration Value: 10 Brand Name: levoflox [...] spray,janet zayrajustice 01/10 completed Medicati on ID: [id number] D uration Value: 30 Brand Name: fluticas [...] both nostrils 01/10 completed Medicati on ID: [id number] P humphrey d By Name: ROME Merlos [...] drops,janet pension 01/10 completed Medicati on ID: [id number] D uration Value: 7 Brand Name: tobramyc [...] e Hcl 01/10 completed Medicati on ID: [id number] D uration Value: 90 Brand Name: ranitidi ne hcl Send Method: E-Prescr ibed Sub s Allowed: subs OK Speci al Instruct ion: TAKE 1 TABLET BY MOUTH EVERY DAY AT BEDTIME Medicati onGeneri cName: ranitidi ne hcl Not Available Not Available Not Available omeprazol e 20 mg tablet,de layed release 10/26 completed Medicati on ID: [id number] P rescribe d By Name: ROME Merlos [...] Updated DateTime 10/26/2024 182.88 cm 32.5 kg/m2 424066.17 g Varsha Doe [place] - [facility] 10/26/2024 08:50:33 Date Recorded Body height Body mass index (BMI) Body weight Provider Name and Address Organization Details Last Updated DateTime 05/18/2024 182.88 cm 32.7 kg/m2 427917.76 g Leonel Almonte [place] - [facility] 05/18/2024 13:14:48 Social History None recorded. [...] Disorder N Anesthesia Complications N Heart Attack (ND) N Other Skin Condition N Diabetes N [...] Diagnosis Note KAVON HERNANDEZ MD [facility] [address] [phone] 05/18/2024 12:51:34 05/18/2024 14:07:44 Nasal congestion 76087492 R09.81 Lightheadedness 57000991 8 R42 Dizziness 974578266 R42 [id number] ESPERANZA CASTLE PA-C [facility] [address] [address] 10/26/2024 08:40:31 10/26/2024 09:01:21 Chronic rhinitis 09872236 J31.0 Ulcerative rhinitis 3666 9007 J34.81 Health Concerns Section Related Observation LastModified by Organization Detai ls LastModified Time None Recorded Concern Status LastModified by Organization Details LastModified Time None Recorded Advance Directives Directive None Recorded Payers Insurance Date Sequence Insurance Name Policy Number Policy Ross Covered Member ID Ross Member ID Guarantor Name 10/26/2024 1 [facility] INDEMNITY PLAN (MEDICARE SUPPLEMENT) [id number] Gabo Tanner [id number] Gabo Tanner 10/26/2024 1 [facility] INDEMNITY PLAN (PPO) [id number] Gabo Tanner [id number] Gabo Tanner 10/26/2024 2 [facility] INDEMNITY PLAN (INDEMNITY) [id number] Gabo Tanner [id number] Gabo Tanner Notes Date Note Type Note Provider Name and Address Organization Details Recorded Time 05/18/2024 text/html ROS as noted in the [facility] 78 year old male presents for [...] Flonase in the past. KAVON NICHOLE MD [address] [place] [address], [phone], [facility] - [facility] 05/19/2024 08:44:39 10/26/2024 text/html ROS as noted in the [facility] 79-year-old male presents for evaluation of [...] jelly in the nose. KAVON NICHOLE MD [address] [place] [address],[address], [phone], [facility] - [facility] 10/26/2024 12:06:48
--- OUTSIDE RECORDS SUMMARY | 2025-05-24 07:30 | XMS_ITS | Clinical Summary ---
Author Organization [facility] ity Address [address] [place] [phone] Care Team Providers Care Metrology Manager Name Role Phone Unavailable Primary Care Provider [...]
--- NOTE | 2025-05-24 08:58 | PCN2_ITS ---
Brief Operative Note Date of procedure: 05/24/25 Pre-op diagnosis: left lower 1.6 cm and right lower pole 3.2 cm thyroid nodule FNA biopsy Post-op diagnosis: same Procedure: THYROID FINE NEEDLE ASPIRATION PROCEDURE NOTE ? PROCEDURE PERFORMED: Ultrasound-guided FNA of thyroid nodule ? OPERATORS: Dr. Brunilda Cadet ? INDICATION: left lower pole 1.6 cm and right lower pole 3.2 cm thyroid nodules ; FNA performed to assess for malignancy ? DESCRIPTION OF PROCEDURE: The indications for FNA (to assess for malignancy) were reviewed with the patient in detail. Potential complications (e.g., bleeding, infection, damage to local structures, absence of clear diagnosis afte r FNA) were reviewed. Alternatives to FNA including conservative observation or surgery were described. The patient understood and agreed to proceed. This was documented by the signing of the written informed consent form. A time-out was performed to confirm the patient's identity and the site of planned FNA. The nodules of interest were identified using ultrasound (14 MHz linear array probe). The sites of FNA were then draped in the usual fashion and carefully cleaned and prepared using alcohol swabs. The skin at the previously-identified sites of needle insertion was iced and sprayed with numbing spray. First for the left lower pole 1.6 cm thyroid nodule, Under ultrasound guidance, _4_ passes were performed using a 1.5-inch, 25-gauge needle, and sample was obtained via capillary action. The needle tip was clearly visualized to be within the nodule at the time of sampling for _2_ of _4_ passes. Very heterogenous gland, ill-defined borders, hard to tell if real or pseudonodule. Then for the right lower pole 3.2 cm thyroid nodule, Under ultrasound guidance, _4_ passes were performed using a 1.5-inch, 25-gauge needle, and sample was obtained via capillary action. The needle tip was clearly visualized to be within the nodule at the time of sampling for _4_ of _4_ passes. The patient tolerated the procedure well. There were no immediate complications. A small adhesive bandage was applied, and the patient was advised to take acetaminophen (rather than NSAIDs) for any discomfort and to report any signs of inflammation/infection or marked swelling. IMPRESSION: Technically successful ultrasound-guided fine needle aspiration of left lower pole 1.6 cm and right lower pole 3.2 cm thyroid nodules . PLAN: The patient was advised that I will provide follow-up regarding the cytology result and any subsequent plans. Brunilda Cadet MD Endocrinology Attending Condition: stable Disposition: same day
== END 2025-05-24 07:29 | disposition home or self-care (01) ==
LOC: HO.US 07:28
PROVIDERS: PCP Internal Medicine; Visit Provider Student in an Organized Health Care Education/Training Program
DX: E04.2 Nontoxic multinodular goiter (principal)
CPT/HCPCS: 10005; 10006; 88173

== ENCOUNTER → 2025-05-24 07:28 | Outpatient (BNV) | payer OTHER, SELFPAY | PROVIDERS: PCP Internal Medicine; Visit Provider Student in an Organized Health Care Education/Training Program | DX: E04.2 Nontoxic multinodular goiter (principal) | CPT/HCPCS: 10005; 10006 ==

== ENCOUNTER 2025-05-30 13:48 | Outpatient (AMB) | payer OTHER, SELFPAY ==
--- NOTE | 2025-05-30 13:50 | A.OFFPC_ITS ---
Vital Signs 05/30/25 13:52 Height 6 ft Weight 250 lb BMI 33.9 BP 142/82 H Blood Pressure Location Lt brachial Position Sitting Respiration 19 Pulse 95 Pulse Source Pulse Oximeter Temp 98.0 F Temp Source Oral Pulse Oximetry (%) 97 Oxygen Delivery Method Room Air Intake Visit Reasons: Hospital follow up Intake Note: Pt is here today for a follow up visit. Allergies gabapentin (GABAPENTIN) Allergy (Intermediate, Verified 05/30/25 13:52) DARK THOUGHTS, suicidal cetirizine (From Zyrtec) Allergy (Unknown, Verified 05/30/25 13:52) Nausea, Emotional clindamycin (CLINDAMYCIN) Allergy (Unknown, Verified 05/30/25 13:52) HIVES penicillin V Allergy (Unknown, Verified 05/30/25 13:52) hives Penicillins (PENICILLINS) Allergy (Unknown, Verified 05/30/25 13:52) Hives prednisone Allergy (Unknown, Verified 05/30/25 13:52) nightmares sertraline (From ZOLOFT) Adverse Reaction (Severe, Verified 05/30/25 13:52) SI Medication List - Last Reconciled 05/30/25 by Alicia Kelsey MD amlodipine 5 mg PO BEDTIME@1800 aspirin 81 mg PO DAILY atorvastatin 40 mg PO BEDTIME azelastine 2 sprays intranasal BID PRN buspirone 15 mg PO BID finasteride 5 mg PO DAILY lancets (OneTouch Delica Plus Lancet) Test blood sugar once a day lidocaine 5% (Lidoderm) 2 patches topical DAILY lisinopril 40 mg PO DAILY nystatin 1 appl topical BID PRN omeprazole 20 mg PO DAILY@0630 OneTouch Ultra Test (blood sugar diagnostic) 1 qd NS OneTouch Ultra2 Meter (blood-glucose meter) As directed NS Tobacco use date assessed: 05/30/25 Fall risk assessment: 2 + Falls in past year Last assessed Fall Risk: 05/30/25 Dental Screening Dental Screen Date: 11/14/24 HPI Hospital follow up HPI Details Pt presents for f/u of ER visit at [facility] on 05/11 for the episode of squeezing right upper chest pain. Patient had negative cardiac workup. Patient complains of anxiety worsen because of his 's birthday anniversary. Patient is planning to start psychotherapy. He denies suicide ideation or insomnia. Patient complains of poor balance when ambulating with a walker and would like to try physical therapy. He has been compliant taking medications for hypertension and hyperlipidemia. [facility] Medical History (Updated 05/30/25 @ 14:51 by Alicia Kelsey MD) Vertigo Brain TIA Thyroid nodule Cerebral microvascular disease Hematuria Epistaxis Lung mass Tobacco dependence Cataract Constipation Hyperlipidemia Anxiety CVA (cerebral vascular accident) Seasonal allergies JOSEF on CPAP Melanoma Paget's disease GERD (gastroesophageal reflux disease) Neuralgia HTN (hypertension) Surgical History Hx of cataract surgery No pertinent past surgical history Family History Father Unknown family medical history Mother Unknown family medical history Son No problems noted. Daughter No problems noted. Daughter No problems noted. Daughter No problems noted. Social History Household Members: None Housing: House Alcohol intake: never Patient Tobacco Use Status: Never used Tobacco e-Cigarette/Vaping Use: Never Used service: No Current occupational status: retired Cognitive needs: No Hearing needs: Yes Vision needs: Yes Questionnaire Thrive Questionnaire Date Thrive assessed: 11/07/24 I am a: Patient What is your living situation today?: I have a steady place to live Within the past 12 months, did the food you bought not last and you didn't have the money to get more?: Never true Within the past 12 months, did you worry whether your food would run out before you got money to buy more?: Never true Do you have trouble paying for medicines?: No Do you have trouble getting transportation to medical appointments?: No Do you have trouble paying your heating and electricity bill?: No Do you have trouble taking care of your child, family member or friend?: I choose not to answer this question Do you have trouble with day-to-day activities such as bathing, preparing meals, shopping, managing finances, etc.?: No Are you currently unemployed and looking for a job?: No Are you interested in more education?: Yes Please select the resources that you would like help with: None Currently or been in a relationship where the following occur: No concerns reported THRIVE Score: 0 ABBY-7 AMB Questionnaire ABBY-7 Date ABBY - 7 assessed: 11/14/24 Source: Developed by DrsTravis Dominguez, Trang Butler, Armando Parr and colleagues, with an educational unruly from [employer]. Review of Systems Const All systems reviewed & are unremarkable except as noted in HPI and below Eyes Reports no additional complaints ENT Reports no additional complaints Card Reports no additional complaints Resp Reports no additional complaints GI Reports no additional complaints Reports no additional complaints Physical exam (Primary Care) Vital Signs: Last Vital Signs Temp 98.0 F 05/30/25 13:52 Pulse 95 05/30/25 13:52 Resp 19 05/30/25 13:52 BP 142/82 H 05/30/25 13:52 Pulse Ox 97 05/30/25 13:52 Oxygen Delivery Method Room Air 05/30/25 13:52 BMI result Body Mass Index 33.9 Tobacco/Smoking Status: Tobacco use Status Tobacco use date assessed 05/30/25 05/30/25 13:53 Patient Tobacco Use Status Never used Tobacco 05/30/25 13:53 e-Cigarette/Vaping Use Never Used 05/30/25 13:53 Thrive Assessment: Date of Thrive Assessment Date Thrive assessed 11/07/24 05/30/25 13:53 Currently or been in a relationship where the following occur: No concerns reported Const General: no acute distress HENMT Head: Yes normal to inspection Mouth: Normal oral and palatal mucosa present Resp Effort & Inspection: normal respiratory effort Auscultation: clear to auscultation bilaterally Cardio Rhythm: regular rhythm Heart sounds: S1 normal heart sound present and S2 normal heart sound present GI Inspection: Yes normal to inspection Palpation (GI): Soft to palpation Coding Level of Care Code Est Pt Level 4 (33686) Diagnoses Balance disorder R26.89 Hyperlipidemia E78.5 Anxiety F41.9 HTN (hypertension) I10 Assessment & Plan Assessment & Plan (1) Balance disorder: Comment: Ambulating with a walker Code(s): R26.89 - Other abnormalities of gait and mobility Category: Medical Plan: Referred to physical therapy (2) Hyperlipidemia: Code(s): E78.5 - Hyperlipidemia, unspecified Category: Medical Plan: Continue statin (3) Anxiety: Code(s): F41.9 - Anxiety disorder, unspecified Category: Medical Plan: Increase buspirone to 30 mg twice a day stress management discussed with the patient. He will start psychotherapy (4) HTN (hypertension): Comment: 20 years, Echo 05/2025 [facility] LVEF 65%, LV WALL THICKNESS MILDLY INCREASED IN PATTERN OF CONCENTRIC HYPERTROPHY RIGHT VENTRICLE MODERATELY DILATED RIGHT VENTRICLE SYSTOLIC FUNCTION MILDLY REDUCED PULMONARY ARTERY SYSTOLIC PRESSURE NORMAL TO MILDLY ELEVATED Code(s): I10 - Essential (primary) hypertension Category: Medical Plan: Add 25 mg of metoprolol succinate to lisinopril and amlodipine, follow-up in 1 month Orders: Orders PT Evaluation and Treatment Today R26.89 - Other abnormalities of gait and mobility Medications: New buspirone 30 mg PO BID 60 tabs 3RF metoprolol succinate ER 25 mg PO DAILY 90 tabs 0RF
[2025-05-30 13:52] VITALS: BP 142/82; PULSE 95; RESP 19; TEMP 36.7; O2SAT 97; BMI 33.9
--- OUTSIDE RECORDS SUMMARY | 2025-05-30 18:26 | XMS_ITS | Clinical Summary ---
Author Organization [facility] it[facility] Address [address] [place] [address] Care Team Providers Care Tank Wagon Driver Name Role Phone Unavailable Primary Care Provider [...]
--- OUTSIDE RECORDS SUMMARY | 2025-05-30 18:26 | XMS_ITS | Clinical Summary ---
Author Organization [facility] Address [address] [id number] Care Team Providers Care Cylinder Handler Name Role Phone TalikarlaAlicia Primary Care Provider [phone] Allergies Active Allergy Reactions Criticality Noted Date [...] patient's age to complete this topic Insurance [email or web address] Care Teams Cylinder Handler Relationship Specialty Start Date End Date Alicia Kelsey [address] [place] [id number] PCP - General Internal Medicine 08/16/21
== END 2025-05-30 14:35 | disposition home or self-care (01) ==
LOC: HO.HMCC 13:50
PROVIDERS: PCP Internal Medicine; Visit Provider Internal Medicine
DX: R26.89 Other abnormalities of gait and mobility (principal); E78.5 Hyperlipidemia, unspecified; F41.9 Anxiety disorder, unspecified; I10 Essential (primary) hypertension

== ENCOUNTER 2025-07-03 06:11 | Outpatient (REF) | payer OTHER, SELFPAY ==
--- OUTSIDE RECORDS SUMMARY | 2025-07-03 06:13 | XMS_ITS | Clinical Summary ---
Author Organization [facility] ity Address [address] [place] [phone] Care Team Providers Care Show Girl Name Role Phone Unavailable Primary Care Provider [...] Depression Screening 08/10/2024 COVID-19 Vaccine ( - 2024-2 6 season) 2025 Influenza Vaccine (#1) 2025 HIB [...]
--- OUTSIDE RECORDS SUMMARY | 2025-07-03 06:13 | XMS_ITS | Data Portability ---
Author Organization [place] - [facility], Allergy Address [address] [address] Care Team Providers Care Gray Mixing Operator Name Role Phone [email or web address] Primary Care Provider [phone] Assessment Encounter Date Assessment Date Assessment LastModified [...] also consider cool-mist humidifier. Follow-up as needed. [email or web address] Not available 10/26/2024 09:05:00 Plan of Treatment Reminders Order Date Submit Date Provider Last Modified By Organization Details Last Modified Time Details Appointments Establish ed 30 2025 01:00P M KAVON LEGER MD Not available Not available Not available Lab None recorded. Referral None recorded. Procedures None recorded. Surgeries None recorded. Imaging XR, sinuses, paranasal , 3 or more view 2023 024 [email or web address] 4 [facility], [address] [place] [address], [phone], 05/18/2024 14:07:44 Medication Orders mupirocin 2 % topical ointment 2024 025 [id number], [address] [facility], [place], [address], 10/26/2024 09:05:29 Patient TargetsNo targets recorded. Patient InstructionsNo instructions recorded. Reason for Referral None Reported. Results Created Date Observation Date Name Description Value Unit Range Abnormal Flag Note LastModifiedBy Organization Detail LastModifiedTime 05/18/20 24 XR, sinus es, paran flores, 3 or more view No observ ation record ed. [email or web address] [facility] [address], [address], 05/18/2024 14:04:56 Result Notes None recorded. Problems Name Problem SNOMED Code Status Onset Date Resolution Date Notes Provider Name and Address Organization Details Recorded Time Gastroeso phageal reflux disease without esophagit is 385391503 Active 2015 Gastro-eso phageal reflux disease without esophagiti s; Condition: improved N ote: Date Diagnosed: 09/10/2015 9:47 AM (K21.9) Not Available [facility] 4 02:42:12 Chronic rhinitis 92660397 Active 2015 Chronic rhinitis; Note: Date Diagnosed: 09/10/2015 9:27 AM (J31.0) Not Available [facility] 4 02:42:03 Benign paroxysma l positiona l vertigo 822301123 Active 2015 Benign paroxysmal vertigo, right ear; Note: Date Diagnosed: 09/10/2015 9:27 AM (H81.11) Not Available [facility] 4 02:42:08 Nasal congestio n 77270187 Active 2016 Nasal congestion ; Note: Date Diagnosed: 11/05/2016 2:50 PM (R09.81) Not Available [facility] 4 02:42:05 Atypical facial pain 47838042 Active 2016 Atypical facial pain; Note: Date Diagnosed: 11/05/2016 2:50 PM (G50.1) Not Available [facility] 4 02:42:01 Sensorine ural hearing loss of bilateral ears 122035477 Active 2016 Sensorineu ral HL, bilateral; Note: Date Diagnosed: 02/20/2015 9:53 AM (389.18) ; Start Date : 02/20/2015 Sensorine ural hearing loss, bilateral; Note: Date Diagnosed: 12/02/2016 2:25 PM (H90.3) Not Available [facility] 4 02:42:07 Disorder of nasal sinus 9079377 Active 2016 Other specified disorders of nose and nasal sinuses; Note: Date Diagnosed: 05/19/2017 12:46 PM (J34.89) Not Available [facility] 4 02:42:02 Disorder of the nose 20098964 Active 2016 Other specified disorders of nose and nasal sinuses; Note: Date Diagnosed: 05/19/2017 12:46 PM (J34.89) Not Available [facility] 4 02:42:02 Lighthead edness 055698073 Active 2023 KAVON HERNANDEZ MD [address] [place] [address], [place], [address] , [facility] - [facility] 4 14:03:53 Dizziness 166479168 Active 2023 Chen garcía [place] - [facility] 4 15:45:12 Ulcerativ e rhinitis 71443644 Active 2024 ESPERANZA CASTLE PA-C [address] [place] [address], [place], [address] , [facility] - [facility] 5 09:05:17 Problem Notes None recorded. Medical Equipment None Reported. Allergies Allergen ID Allergen Name Allergen Category Reaction Reaction Severity Criticality Documentation Date Start Date Code Code System Note Provider Name and Address Organization Details Recorded Time 51798 gabapenti n medicatio n other Not available Not available 12/22/2023 44125 RxNorm React ion: unkno wn, unspe cifie d;; Not Available [facility] 4 01:02:20 35291 cetirizin e hydrochlo ride medicatio n other Not available Not available 12/22/2023 40059 0 RxNorm React ion: unkno wn, unspe cifie d;; Not Available [facility] 4 01:02:31 06712 sertralin e hydrochlo ride medicatio n other Not available Not available 12/22/2023 66536 7 RxNorm React ion: unkno wn, unspe cifie d;; Not Available [facility] 4 01:02:32 Medications Name Sig Start Date Stop Date Status Note LastModified by Organization Details LastModified Time Prescript ion - Prior Authoriza tion Request active Script Copy/Josephine or Auth^Scr ipt Copy/Josephine or Auth_ [id number] Not Available Not Available Not Available celecoxib [...] elayed release 09/27 completed Medicati on ID: [id number] D uration Value: 30 Brand Name: omeprazo [...] 2 SPRAYS NASALLY TWICE A DAY DIRECTED 2024 active Not Available Not Available Not Avai lable levofloxa melina 750 mg tablet 01/10 completed Medicati on ID: [id number] D uration Value: 10 Brand Name: levoflox acin Sen d Method: E-Prescr ibed Sub s Allowed: subs OK Medic ationGen ericName : levoflox acin Not Available Not Available Not Available lisinopri l 40 mg tablet TAKE 1 TABLET BY MOUTH EVERY DAY active Not Available Not Available No t Available fluticaso ne propionat e 50 mcg/actua tion nasal spray,janet [facility] 01/10 completed Medicati on ID: [id number] D uration Value: 30 Brand Name: fluticas [...] both nostrils 01/10 completed Medicati on ID: [id number] P rescribe d By Name: ROME Merlos [...] drops,janet pension 01/10 completed Medicati on ID: [id number] D uration Value: 7 Brand Name: tobramyc [...] e Hcl 01/10 completed Medicati on ID: [id number] D uration Value: 90 Brand Name: ranitidi ne hcl Send Method: E-Prescr ibed Sub s Allowed: subs OK Speci al Instruct ion: TAKE 1 TABLET BY MOUTH EVERY DAY AT BEDTIME Medicati onGeneri cName: ranitidi ne hcl Not Available Not Available Not Available omeprazol e 20 mg tablet,de layed release 10/26 completed Medicati on ID: [id number] Janette castañeda By Name: ROME Merlos nd [...] Updated DateTime 10/26/2024 182.88 cm 32.5 kg/m2 074522.17 g Varsha Doe [place] - [facility] 10/26/2024 08:50:33 Date Recorded Body height Body mass index (BMI) Body weight Provider Name and Address Organization Details Last Updated DateTime 05/18/2024 182.88 cm 32.7 kg/m2 260431.76 g Leonel Gage [place] - [facility] 05/18/2024 13:14:48 Social History None recorded. [...] Disorder N Anesthesia Complications N Heart Attack ([place]) N Other Skin Condition N Diabetes N [...] Diagnosis Note KAVON HERNANDEZ MD [facility] [address] [address] 05/18/2024 12:51:34 05/18/2024 14:07:44 Nasal congestion 58147253 R09.81 Lightheadedness 14083273 8 R42 Dizziness 375750099 R42 [id number] ESPERANZA CASTLE PA-C [facility] [address] [address] 10/26/2024 08:40:31 10/26/2024 09:01:21 Chronic rhinitis 63212158 J31.0 Ulcerative rhinitis 3666 9007 J34.81 Health Concerns Section Related Observation LastModified by Organization Detai ls LastModified Time None Recorded Concern Status LastModified by Organization Details LastModified Time None Recorded Advance Directives Directive None Recorded Payers Insurance Date Sequence Insurance Name Policy Number Policy Ross Covered Member ID Ross Member ID Guarantor Name 10/26/2024 1 [facility] INDEMNITY PLAN (MEDICARE SUPPLEMENT) [id number] Gabo Tanner [id number] Gabo Tanner 10/26/2024 1 [facility] INDEMNITY PLAN (PPO) [id number] Gabo Tanner [id number] Gabo Tanner 10/26/2024 2 [facility] INDEMNITY PLAN (INDEMNITY) [id number] Gabo Shannon Ciro [id number] Gabo Tanner Notes Date Note Type Note Provider Name and Address Organization Details Recorded Time 05/18/2024 text/html ROS as noted in the [facility] 78 year old male presents for [...] Flonase in the past. KAVON NICHOLE MD [address] [place] [address], [phone], [facility] - [facility] 05/19/2024 08:44:39 10/26/2024 text/html ROS as noted in the [facility] 79-year-old male presents for evaluation of [...] jelly in the nose. KAVON NICHOLE MD [address] [place] [address],[address], [address], [facility] - [facility] 10/26/2024 12:06:48
--- OUTSIDE RECORDS SUMMARY | 2025-07-03 06:13 | XMS_ITS | Clinical Summary ---
Author Organization [facility] Address [address] [phone] Care Team Providers Care Extension Clerk Name Role Phone TalikarlaAlicia Primary Care Provider [phone] Allergies Active Allergy Reactions Criticality Noted Date [...] Screening 08/10/2024 Depression Screening and Follow-Up 08/10/2024 Fall Risk Screening 08/10/2024 Health Care Proxy Review 08/10/2024 Social Drivers of Health Annual Screening 08/10/2024 Influenza Vaccine (#1) 2025 2, 04/17/2021, 05/10/2020, Additional history exists COVID-19 Vaccine ( season) 2025 05/08/2022, 11/11/2021, 05/19/2021, Additional history exists Zoster Vaccines Completed 06/18/2019, 03/04/2019 Hepatitis B Vaccines Aged Out No long er eligible based on patient's age to complete [place] [address] [employer] Care Teams Extension Clerk Relationship Specialty Start Date End Date Alicia Kelsey [address] [place] [address] PCP - General Internal Medicine 08/16/21
[2025-07-03 06:33] LABS: MANUAL DIFF FLAG NO
[2025-07-03 08:16] LABS: Hematocrit 47.9 % (42.0-52.0); Hemoglobin 16.0 g/dl (14.0-18.0); Imm Gran Abs Auto 0.08 X10*3/uL (0.00-0.03); Imm Gran Pct Auto 0.9 % (0.0-0.4); Lymphocytes Absolute Auto 3.0 X10*3/uL (1.2-4.9); Mean Corpuscular HGB Conc 33.4 g/dl (31.0-36.0); Mean Corpuscular Hemoglobin 29.9 pg (27.0-33.0); Mean Corpuscular Volume 89.4 fL (80.0-98.0); NRBC Abs Auto 0.000 X10*3/uL (0.0-0.012); NRBC Pct Auto 0.0 /100WBC (0.0-0.2); Platelet Count 246 X10*3/uL (160-400); Red Blood Count 5.36 X10*6/uL (4.60-5.80); White Blood Count 9.3 X10*3/uL (4.8-10.8)
[2025-07-03 08:38] LABS: Alanine Aminotransferase 50 U/L (0-40); Albumin Level 4.4 g/dL (3.5-5.0); Alkaline Phosphatase 183 U/L (39-117); Anion Gap 13 (12-20); Aspartate Amino Transferase 34 U/L (5-37); Blood Urea Nitrogen 13 mg/dL (9-16); Calcium 9.2 mg/dL (8.4-10.2); Carbon Dioxide 25 mmol/L (22-29); Chloride 109 mmol/L (96-108); Estimated Glomerular Filt Rate > 60; Potassium 4.0 mmol/L (3.3-5.1); Sodium 143 mmol/L (135-145); Total Protein 6.9 g/dL (6.5-8.0)
== END 2025-07-03 06:12 | disposition home or self-care (01) ==
LOC: HO.LAB 06:11
PROVIDERS: PCP Internal Medicine; Visit Provider Internal Medicine
DX: I10 Essential (primary) hypertension (principal); E78.5 Hyperlipidemia, unspecified; R73.9 Hyperglycemia, unspecified
CPT/HCPCS: 36415; 80053; 83036; 85025

== ENCOUNTER 2025-07-10 13:59 | Outpatient (AMB) | payer OTHER, SELFPAY ==
--- NOTE | 2025-07-10 14:23 | A.OFFPC_ITS ---
Vital Signs 07/10/25 14:24 Height 6 ft Weight 244 lb BMI 33.1 BP 130/82 Blood Pressure Location Rt brachial Position Sitting Respiration 17 Pulse 85 Pulse Source Pulse Oximeter Temp 98.0 F Temp Source Oral Pulse Oximetry (%) 95 Oxygen Delivery Method Room Air Intake Visit Reasons: 1 month f/up Allergies gabapentin (GABAPENTIN) Allergy (Intermediate, Verified 05/30/25 13:52) DARK THOUGHTS, suicidal cetirizine (From Zyrtec) Allergy (Unknown, Verified 05/30/25 13:52) Nausea, Emotional clindamycin (CLINDAMYCIN) Allergy (Unknown, Verified 05/30/25 13:52) HIVES penicillin V Allergy (Unknown, Verified 05/30/25 13:52) hives Penicillins (PENICILLINS) Allergy (Unknown, Verified 05/30/25 13:52) Hives prednisone Allergy (Unknown, Verified 05/30/25 13:52) nightmares sertraline (From ZOLOFT) Adverse Reaction (Severe, Verified 05/30/25 13:52) SI Medication List - Last Reconciled 07/10/25 by Alicia Kelsey MD amlodipine 5 mg PO QAM aspirin 81 mg PO DAILY atorvastatin 40 mg PO BEDTIME azelastine 2 sprays intranasal BID PRN buspirone 10 mg PO BID finasteride 5 mg PO DAILY lancets ([employer] Delica Plus Lancet) Test blood sugar once a day lidocaine 5% (Lidoderm) 2 patches topical DAILY lisinopril 40 mg PO DAILY metoprolol succinate ER 25 mg PO DAILY nystatin 1 appl topical BID PRN omeprazole 20 mg PO DAILY@0630 OneTouch Ultra Test (blood sugar diagnostic) 1 qd NS OneTouch Ultra2 Meter (blood-glucose meter) As directed NS Tobacco use date assessed: 05/30/25 Dental Screening Dental Screen Date: 11/14/24 HPI 1 month f/up HPI Details Pt presents for f/u of hypertension hyperlipidemia diet-controlled diabetes chronic anxiety stable on current medications. PFSH Medical History Vertigo Brain TIA Thyroid nodule Cerebral microvascular disease Hematuria Epistaxis Lung mass Tobacco dependence Cataract Constipation Hyperlipidemia Anxiety CVA (cerebral vascular accident) Seasonal allergies JOSEF on CPAP Melanoma Paget's disease GERD (gastroesophageal reflux disease) Neuralgia HTN (hypertension) Surgical History Hx of cataract surgery No pertinent past surgical history Family History Father Unknown family medical history Mother Unknown family medical history Son No problems noted. Daughter No problems noted. Daughter No problems noted. Daughter No problems noted. Social History Household Members: None Housing: House Alcohol intake: never Patient Tobacco Use Status: Never used Tobacco e-Cigarette/Vaping Use: Never Used service: No Current occupational status: retired Cognitive needs: No Hearing needs: Yes Vision needs: Yes Questionnaire Thrive Questionnaire Date Thrive assessed: 11/07/24 I am a: Patient What is your living situation today?: I have a steady place to live Within the past 12 months, did the food you bought not last and you didn't have the money to get more?: Never true Within the past 12 months, did you worry whether your food would run out before you got money to buy more?: Never true Do you have trouble paying for medicines?: No Do you have trouble getting transportation to medical appointments?: No Do you have trouble paying your heating and electricity bill?: No Do you have trouble taking care of your child, family member or friend?: I choose not to answer this question Do you have trouble with day-to-day activities such as bathing, preparing meals, shopping, managing finances, etc.?: No Are you currently unemployed and looking for a job?: No Are you interested in more education?: Yes Please select the resources that you would like help with: None Currently or been in a relationship where the following occur: No concerns reported THRIVE Score: 0 ABBY-7 AMB Questionnaire ABBY-7 Date ABBY - 7 assessed: 11/14/24 Source: Developed by Drs. Neil Dominguez, Trang Butler, Armando Parr and colleagues, with an educational unruly from [employer]. Review of Systems Const All systems reviewed & are unremarkable except as noted in HPI and below ENT Reports no additional complaints Card Reports no additional complaints Resp Reports no additional complaints GI Reports no additional complaints Physical exam (Primary Care) Vital Signs: Last Vital Signs Temp 98.0 F 07/10/25 14:24 Pulse 85 07/10/25 14:24 Resp 17 07/10/25 14:24 BP 130/82 07/10/25 14:24 Pulse Ox 95 07/10/25 14:24 Oxygen Delivery Method Room Air 07/10/25 14:24 BMI result Body Mass Index 33.1 Tobacco/Smoking Status: Tobacco use Status Tobacco use date assessed 05/30/25 07/10/25 14:24 Patient Tobacco Use Status Never used Tobacco 07/10/25 14:24 e-Cigarette/Vaping Use Never Used 07/10/25 14:24 Thrive Assessment: Date of Thrive Assessment Date Thrive assessed 11/07/24 07/10/25 14:24 Currently or been in a relationship where the following occur: No concerns reported Const General: no acute distress HENMT Head: Yes normal to inspection Mouth: Normal oral and palatal mucosa present Eyes General: appearance normal, both eyes and all related structures Resp Effort & Inspection: normal respiratory effort Auscultation: clear to auscultation bilaterally Cardio Rhythm: regular rhythm Heart sounds: S1 normal heart sound present and S2 normal heart sound present GI Inspection: Yes normal to inspection Palpation (GI): Soft to palpation Percussion: Yes normal to percussion Auscultation: normal bowel sounds Coding Level of Care Code Est Pt Level 4 (02046) Diagnoses HTN (hypertension) I10 Anxiety F41.9 Hyperlipidemia E78.5 Hyperglycemia R73.9 Assessment & Plan Assessment & Plan (1) HTN (hypertension): Comment: 20 years, Echo 05/2025 [facility] LVEF 65%, LV WALL THICKNESS MILDLY INCREASED IN PATTERN OF CONCENTRIC HYPERTROPHY RIGHT VENTRICLE MODERATELY DILATED RIGHT VENTRICLE SYSTOLIC FUNCTION MILDLY REDUCED PULMONARY ARTERY SYSTOLIC PRESSURE NORMAL TO MILDLY ELEVATED Code(s): I10 - Essential (primary) hypertension Category: Medical Plan: Continue current medications (2) Anxiety: Code(s): F41.9 - Anxiety disorder, unspecified Category: Medical Plan: Continue buspirone and counseling (3) Hyperlipidemia: Code(s): E78.5 - Hyperlipidemia, unspecified Category: Medical Plan: Continue statin (4) Hyperglycemia: Code(s): R73.9 - Hyperglycemia, unspecified Category: Medical Plan: A1c is 6.0. Continue ADA diet increase physical activity weight loss discussed with the patient. Follow-up in 3 months with a fasting labs before Orders: Orders Hemoglobin A1c 3 Months E78.5 - Hyperlipidemia, unspecified, I10 - Essential (primary) hypertension, R73.9 - Hyperglycemia, unspecified Microalbumin, Random (w Creat) 3 Months E78.5 - Hyperlipidemia, unspecified, I10 - Essential (primary) hypertension, R73.9 - Hyperglycemia, unspecified Comprehensive [place]. Panel Fast 3 Months E78.5 - Hyperlipidemia, unspecified, I10 - Essential (primary) hypertension, R73.9 - Hyperglycemia, unspecified Complete Blood Count Auto Diff 3 Months E78.5 - Hyperlipidemia, unspecified, I10 - Essential (primary) hypertension, R73.9 - Hyperglycemia, unspecified Lipid Panel 3 Months E78.5 - Hyperlipidemia, unspecified, I10 - Essential (primary) hypertension, R73.9 - Hyperglycemia, unspecified UA w Microscopic 3 Months E78.5 - Hyperlipidemia, unspecified, I10 - Essential (primary) hypertension, R73.9 - Hyperglycemia, unspecified Medications: Changed From buspirone 30 mg PO BID 60 tabs 3RF To buspirone 10 mg PO BID
[2025-07-10 14:24] VITALS: BP 130/82; PULSE 85; RESP 17; TEMP 36.7; O2SAT 95; BMI 33.1
--- OUTSIDE RECORDS SUMMARY | 2025-07-10 17:25 | XMS_ITS | Clinical Summary ---
Author Organization [facility] Address [address] [id number] Care Team Providers Care Coal Washer Tender Name Role Phone BebetomailekarlaAlicia Primary Care Provider Allergies Active Allergy Reactions [...] complete [place] [id number] [employer] Care Teams Coal Washer Tender Relationship Specialty Start Date End Date Alicia Kelsey [address] [place] [address] PCP - General Internal Medicine 08/16/21
--- OUTSIDE RECORDS SUMMARY | 2025-07-10 17:26 | XMS_ITS | Data Portability ---
Author Organization [place] - [facility], Allergy Address [address] [address] Care Team Providers Care Hardwood Floor Installer Name Role Phone [email or web address] Primary Care Provider [...] also consider cool-mist humidifier. Follow-up as needed. [email or web address] Not available 10/26/2024 09:05:00 Plan of Treatment [...] view 2023 024 [email or web address] 4 [facility], [address] [place] [address], [phone], 05/18/2024 14:07:44 Medication Orders mupirocin 2 % topical ointment [address] [id number], [address] [facility], [place], [address], 10/26/2024 09:05:29 Patient TargetsNo targets recorded. Patient InstructionsNo instructions recorded. Reason for Referral None Reported. Results Created Date Observation Date Name Description Value Unit Range Abnormal Flag Note LastModifiedBy Organization Detail LastModifiedTime 05/18/20 24 XR, sinus es, paran flores, 3 or more view No observ ation record ed. [email or web address] [facility] [address], [address], 05/18/2024 14:04:56 Result Notes None recorded. Problems Name Problem SNOMED Code Status Onset Date Resolution Date Notes Provider Name and Address Organization Details Recorded Time Gastroeso phageal reflux disease without esophagit is 990111655 Active 2015 Gastro-eso phageal reflux disease without esophagiti s; Condition: improved N ote: Date Diagnosed: 09/10/2015 9:47 AM (K21.9) Not Available [facility] 4 02:42:12 Chronic rhinitis 38789032 Active 2015 Chronic rhinitis; Note: Date Diagnosed: 09/10/2015 9:27 AM (J31.0) Not Available [facility] 4 02:42:03 Benign paroxysma l positiona l vertigo 567522966 Active 2015 Benign paroxysmal vertigo, right ear; Note: Date Diagnosed: 09/10/2015 9:27 AM (H81.11) Not Available [facility] 4 02:42:08 Nasal congestio n 50617828 Active 2016 Nasal congestion ; Note: Date Diagnosed: 11/05/2016 2:50 PM (R09.81) Not Available [facility] 4 02:42:05 Atypical facial pain 74431809 Active 2016 Atypical facial pain; Note: Date Diagnosed: 11/05/2016 2:50 PM (G50.1) Not Available [facility] 4 02:42:01 Sensorine ural hearing loss of bilateral ears 643240780 Active 2016 Sensorineu ral HL, bilateral; Note: Date Diagnosed: 02/20/2015 9:53 AM (389.18) ; Start Date : 02/20/2015 Sensorine ural hearing loss, bilateral; Note: Date Diagnosed: 12/02/2016 2:25 PM (H90.3) Not Available [facility] 4 02:42:07 Disorder of nasal sinus 9845159 Active 2016 Other specified disorders of nose and nasal sinuses; Note: Date Diagnosed: 05/19/2017 12:46 PM (J34.89) Not Available [facility] 4 02:42:02 Disorder of the nose 35308369 Active 2016 Other specified disorders of nose and nasal sinuses; Note: Date Diagnosed: 05/19/2017 12:46 PM (J34.89) Not Available [facility] 4 02:42:02 [place] edness 468127090 Active 2023 KAVON HERNANDEZ MD [address] [place] [address], [place]ys [place], [phone] , [facility] - [facility] 4 14:03:53 Dizziness 394064970 Active 2023 Chen garcía [place] - [facility] 4 15:45:12 Ulcerativ e rhinitis 34658478 Active 2024 ESPERANZA CASTLE PA-C [address] [place] [address], [place], [phone] , [facility] - [facility] 5 09:05:17 Problem Notes None recorded. Medical Equipment None Reported. Allergies Allergen ID Allergen Name Allergen Category Reaction Reaction Severity Criticality Documentation Date Start Date Code Code System Note Provider Name and Address Organization Details Recorded Time 80464 gabapenti n medicatio n other Not available Not available 12/22/2023 26219 RxNorm React ion: unkno wn, unspe cifie d;; Not Available [facility] 4 01:02:20 50859 cetirizin e hydrochlo ride medicatio n other Not available Not available 12/22/2023 27080 0 RxNorm React ion: unkno wn, unspe cifie d;; Not Available [facility] 4 01:02:31 91444 sertralin e hydrochlo ride medicatio n other Not available Not available 12/22/2023 80696 7 RxNorm React ion: unkno wn, unspe cifie d;; Not Available [facility] 4 01:02:32 Medications Name Sig Start Date Stop Date Status Note LastModified by Organization Details LastModified Time Prescript ion - Prior Authoriza tion Request active Script Copy/Josephine or Auth^Scr ipt Copy/Josephine or Auth_ [id number] Not Available Not Available Not Available celecoxib [...] elayed release 09/27 completed Medicati on ID: [id number] D uration Value: 30 Brand Name: omeprazo [...] mg tablet 01/10 completed Medicati on ID: [id number] D uration Value: 10 Brand Name: levoflox acin Sen d Method: E-Prescr ibed Sub s Allowed: subs OK Medic ationGen ericName : levoflox acin Not Available Not Available Not Available lisinopri l 40 mg tablet TAKE 1 TABLET BY MOUTH EVERY DAY active Not Available Not Available No t Available fluticaso ne propionat e 50 mcg/actua tion nasal spray,janet [facility] 01/10 completed Medicati on ID: [id number] D uration Value: 30 Brand Name: fluticas [...] both nostrils 01/10 completed Medicati on ID: [id number] P rescribe d By Name: ROME Merlos [...] drops,janet pension 01/10 completed Medicati on ID: [id number] D uration Value: 7 Brand Name: tobramyc [...] e Hcl 01/10 completed Medicati on ID: [id number] D uration Value: 90 Brand Name: ranitidi ne hcl Send Method: E-Prescr ibed Sub s Allowed: subs OK Speci al Instruct ion: TAKE 1 TABLET BY MOUTH EVERY DAY AT BEDTIME Medicati onGeneri cName: ranitidi ne hcl Not Available Not Available Not Available omeprazol e 20 mg tablet,de layed release 10/26 completed Medicati on ID: [id number] Janette castañeda By Name: ROME Merlos nd [...] Updated DateTime 10/26/2024 182.88 cm 32.5 kg/m2 413465.17 g Varsha Doe [place] - [facility] 10/26/2024 08:50:33 Date Recorded Body height Body mass index (BMI) Body weight Provider Name and Address Organization Details Last Updated DateTime 05/18/2024 182.88 cm 32.7 kg/m2 329315.76 g Leonel Gage [place] - [facility] 05/18/2024 13:14:48 Social History None recorded. [...] Disorder N Anesthesia Complications N Heart Attack ([place]) N Other Skin Condition N Diabetes N [...] Note KAVON HERNANDEZ MD [facility] [address] [address] 05/18/2024 12:51:34 05/18/2024 14:07:44 Nasal congestion 08845114 R09.81 Lightheadedness 26549653 8 R42 Dizziness 261178056 R42 30722 ESPERANZA CASTLE PA-C [facility] [address] [address] 10/26/2024 08:40:31 10/26/2024 09:01:21 Chronic rhinitis 38527929 J31.0 Ulcerative rhinitis 3666 9007 J34.81 Health Concerns Section Related Observation LastModified by Organization Detai ls LastModified Time None Recorded Concern Status LastModified by Organization Details LastModified Time None Recorded Advance Directives Directive None Recorded Payers Insurance Date Sequence Insurance Name Policy Number Policy Ross Covered Member ID Ross Member ID Guarantor Name 10/26/2024 1 [facility] INDEMNITY PLAN (MEDICARE SUPPLEMENT) [id number] Gabo Tanner [id number] Gabo Tanner 10/26/2024 1 [facility] INDEMNITY PLAN (PPO) [id number] Gabo Tanner [id number] Gabo Tanner 10/26/2024 2 [facility] INDEMNITY PLAN (INDEMNITY) [id number] Gabo Shannon Ciro [id number] Gabo Tanner Notes Date Note Type Note Provider Name and Address Organization Details Recorded Time 05/18/2024 text/html ROS as noted in the [facility] 78 year old male presents for evaluation [...] Flonase in the past. KAVON NICHOLE MD [address] [place] [address], [phone], [facility] - [facility] 05/19/2024 08:44:39 10/26/2024 text/html ROS as noted in the [facility] 79-year-old male presents for evaluation of nasal [...] jelly in the nose. KAVON NICHOLE MD [address] [place] [address],[address], [phone], [facility] - [facility] 10/26/2024 12:06:48
== END 2025-07-10 15:31 | disposition home or self-care (01) ==
LOC: HO.HMCC 14:00
PROVIDERS: PCP Internal Medicine; Visit Provider Internal Medicine
DX: I10 Essential (primary) hypertension (principal); F41.9 Anxiety disorder, unspecified; E78.5 Hyperlipidemia, unspecified; R73.9 Hyperglycemia, unspecified

== ENCOUNTER 2025-07-21 06:18 | Emergency (ER) | payer OTHER, SELFPAY ==
--- NOTE | ~2025-07-21 | XR_ITS ---
EXAMINATION: XR CHEST 2 VIEWS HISTORY: cp/sob/cough COMPARISON: Comparison is made with the prior examination dated 08/29/2024. FINDINGS: PA and lateral views of the chest are submitted. There are low lung volumes. The lungs are clear. There is no pleural effusion, pneumothorax, or pulmonary vascular congestion. The heart is normal in size. There is degenerative disc disease of the spine. XR/XR chest 2V IMPRESSION: Low lung volumes. No acute cardiopulmonary abnormality. Electronically signed by: Neil Banegas MD 07/21/2025 08:50 AM EST
--- NOTE | 2025-07-21 06:21 | ECG_ITS ---
Test Reason : cp Blood Pressure : */* mmHG Vent. Rate : 56 BPM Atrial Rate : 56 BPM P-R Int : 164 ms QRS Dur : 104 ms QT Int : 444 ms P-R-T Axes : 80 -26 -10 degrees QTcB Int : 428 ms Sinus bradycardia Minimal voltage criteria for LVH, may be normal variant ( R in aVL ) Nonspecific ST and T wave abnormality Abnormal ECG When compared with ECG of 21-Jul-2025 06:22, Nonspecific T wave abnormality no longer evident in Lateral leads Referred By: Dagoberto Walker Electronically Signed By: WILLA COBURN MD
--- NOTE | 2025-07-21 06:21 | ECG_ITS ---
Test Reason : cough,cp Blood Pressure : */* mmHG Vent. Rate : 66 BPM Atrial Rate : 66 BPM P-R Int : 172 ms QRS Dur : 98 ms QT Int : 416 ms P-R-T Axes : 71 -33 -17 degrees QTcB Int : 436 ms Normal sinus rhythm Left axis deviation Minimal voltage criteria for LVH, may be normal variant ( R in aVL ) Nonspecific ST and T wave abnormality Abnormal ECG When compared with ECG of 27-Feb-2025 11:44, Nonspecific T wave abnormality, worse in Lateral leads Referred By: Generic ED Physician Electronically Signed By: WILLA COBURN MD
[2025-07-21 06:27] VITALS: BP 157/70; PULSE 76; RESP 20; TEMP 36.9; O2SAT 94; BMI 33.1
--- OUTSIDE RECORDS SUMMARY | 2025-07-21 06:45 | XMS_ITS | Clinical Summary ---
Author Organization [facility] ity Address [address] [place] [phone] Care Team Providers Care Despatch Clerk Name Role Phone Unavailable Primary Care Provider [...]
--- OUTSIDE RECORDS SUMMARY | 2025-07-21 06:45 | XMS_ITS | Data Portability ---
Author Organization [place] - [facility], Allergy Address [address] [address] Care Team Providers Care Gas Or Petroleum Operator Name Role Phone [email or web address] Primary Care [...] also consider cool-mist humidifier. Follow-up as needed. [email or web address] Not available 10/26/2024 09:05:00 Plan of Treatment [...] 2023 024 [email or web address] 4 [facility], [address] [place] [address], [phone], 05/18/2024 14:07:44 Medication Orders mupirocin 2 % topical ointment 2024 025 [facility]/Pharmacy #[id number], [address], [place], [address], 10/26/2024 09:05:29 Patient TargetsNo targets recorded. Patient InstructionsNo instructions recorded. Reason for Referral None Reported. Results Created Date Observation Date Name Description Value Unit Range Abnormal Flag Note LastModifiedBy Organization Detail LastModifiedTime 05/18/20 24 XR, sinus es, paran flores, 3 or more view No observ ation record ed. [email or web address] [facility] Of [address], [address], 05/18/2024 14:04:56 Result Notes None recorded. Problems Name Problem SNOMED Code Status Onset Date Resolution Date Notes Provider Name and Address Organization Details Recorded Time Gastroeso phageal reflux disease without esophagit is 962598065 Active 2015 Gastro-eso phageal reflux disease without esophagiti s; Condition: improved N ote: Date Diagnosed: 09/10/2015 9:47 AM (K21.9) Not Available [facility] 4 02:42:12 Chronic rhinitis 15261610 Active 2015 Chronic rhinitis; Note: Date Diagnosed: 09/10/2015 9:27 AM (J31.0) Not Available [facility] 4 02:42:03 Benign paroxysma l positiona l vertigo 177933128 Active 2015 Benign paroxysmal vertigo, right ear; Note: Date Diagnosed: 09/10/2015 9:27 AM (H81.11) Not Available [facility] 4 02:42:08 Nasal congestio n 96222215 Active 2016 Nasal congestion ; Note: Date Diagnosed: 11/05/2016 2:50 PM (R09.81) Not Available [facility] 4 02:42:05 Atypical facial pain 28680793 Active 2016 Atypical facial pain; Note: Date Diagnosed: 11/05/2016 2:50 PM (G50.1) Not Available [facility] 4 02:42:01 Sensorine ural hearing loss of bilateral ears 742573657 Active 2016 Sensorineu ral HL, bilateral; Note: Date Diagnosed: 02/20/2015 9:53 AM (389.18) ; Start Date : 02/20/2015 Sensorine ural hearing loss, bilateral; Note: Date Diagnosed: 12/02/2016 2:25 PM (H90.3) Not Available Critical [facility] hospital 4 02:42:07 Disorder of nasal sinus 9080304 Active 2016 Other specified disorders of nose and nasal sinuses; Note: Date Diagnosed: 05/19/2017 12:46 PM (J34.89) Not Available [facility] hospital 4 02:42:02 Disorder of the nose 91690047 Active 2016 Other specified disorders of nose and nasal sinuses; Note: Date Diagnosed: 05/19/2017 12:46 PM (J34.89) Not Available Critical access hospital 4 02:42:02 Lighthead edness 013541142 Active 2023 KAVON HERNANDEZ MD [address] [place] [address], [place], [address] , [facility] - [facility] 4 14:03:53 Dizziness 835261438 Active 2023 Chen garcía [place] - [facility] 4 15:45:12 Ulcerativ e rhinitis 24383268 Active 2024 ESPERANZA CASTLE PA-C [address] [place] [address], [place], [phone] , [facility] - [facility] 5 09:05:17 Problem Notes None recorded. Medical Equipment None Reported. Allergies Allergen ID Allergen Name Allergen Category Reaction Reaction Severity Criticality Documentation Date Start Date Code Code System Note Provider Name and Address Organization Details Recorded Time 62887 gabapenti n medicatio n other Not available Not available 12/22/2023 26699 RxNorm React ion: unkno wn, unspe cifie d;; Not Available Critical [facility] hospital 4 01:02:20 36640 cetirizin e hydrochlo ride medicatio n other Not available Not available 12/22/2023 51650 0 RxNorm React ion: unkno wn, unspe cifie d;; Not Available Critical [facility] hospital 4 01:02:31 38506 sertralin e hydrochlo ride medicatio n other Not available Not available 12/22/2023 09415 7 RxNorm React ion: unkno wn, unspe cifie d;; Not Available Critical [facility] hospital 4 01:02:32 Medications Name Sig Start Date Stop Date Status Note LastModified by Organization Details LastModified Time Prescript ion - Prior Authoriza tion Request active Script Copy/Josephine or Auth^Scr ipt Copy/Josephine or Auth_ [id number] Not Available Not Available Not Available celecoxib [...] elayed release 09/27 completed Medicati on ID: [id number] D uration Value: 30 Brand Name: omeprazo [...] mg tablet 01/10 completed Medicati on ID: [id number] D uration Value: 10 Brand Name: levoflox acin Sen d Method: E-Prescr ibed Sub s Allowed: subs OK Medic ationGen ericName : levoflox acin Not Available Not Available Not Available lisinopri l 40 mg tablet TAKE 1 TABLET BY MOUTH EVERY DAY active Not Available Not Available No t Available fluticaso ne propionat e 50 mcg/actua tion nasal spray,janet [facility] 01/10 completed Medicati on ID: [id number] D uration Value: 30 Brand Name: fluticas [...] both nostrils 01/10 completed Medicati on ID: [id number] P rescribe d By Name: ROME Merlos [...] drops,janet pension 01/10 completed Medicati on ID: [id number] D uration Value: 7 Brand Name: tobramyc [...] e Hcl 01/10 completed Medicati on ID: [id number] D uration Value: 90 Brand Name: ranitidi ne hcl Send Method: E-Prescr ibed Sub s Allowed: subs OK Speci al Instruct ion: TAKE 1 TABLET BY MOUTH EVERY DAY AT BEDTIME Medicati onGeneri cName: ranitidi ne hcl Not Available Not Available Not Available omeprazol e 20 mg tablet,de layed release 10/26 completed Medicati on ID: [id number] Janette castañeda By Name: ROME Merlos nd [...] Updated DateTime 10/26/2024 182.88 cm 32.5 kg/m2 103377.17 g Varsha Doe [place] - [facility] 10/26/2024 08:50:33 Date Recorded Body height Body mass index (BMI) Body weight Provider Name and Address Organization Details Last Updated DateTime 05/18/2024 182.88 cm 32.7 kg/m2 630582.76 g Leonel Gage [place] - [facility] 05/18/2024 13:14:48 Social History None recorded. [...] Disorder N Anesthesia Complications N Heart Attack ([place]) N Other Skin Condition N Diabetes N [...] Diagnosis Note KAVON HERNANDEZ MD [facility] [address] [address] 05/18/2024 12:51:34 05/18/2024 14:07:44 Nasal congestion 41324459 R09.81 Lightheadedness 23684805 8 R42 Dizziness 138288477 R42 [id number] ESPERANZA CASTLE PA-C [facility] [address] [address] 10/26/2024 08:40:31 10/26/2024 09:01:21 Chronic rhinitis 81476542 J31.0 Ulcerative rhinitis 3666 9007 J34.81 Health Concerns Section Related Observation LastModified by Organization Detai ls LastModified Time None Recorded Concern Status LastModified by Organization Details LastModified Time None Recorded Advance Directives Directive None Recorded Payers Insurance Date Sequence Insurance Name Policy Number Policy Ross Covered Member ID Ross Member ID Guarantor Name 10/26/2024 1 [facility] INDEMNITY PLAN (MEDICARE SUPPLEMENT) [id number] Gabo Tanner [id number] Gabo Tanner 10/26/2024 1 [facility] INDEMNITY PLAN (PPO) [id number] Gabo Tanner [id number] Gabo Tanner 10/26/2024 2 [facility] INDEMNITY PLAN (INDEMNITY) [id number] Gabo Shannon Ciro [id number] Gabo Tanner Notes Date Note Type Note [...] Flonase in the past. KAVON NICHOLE MD [address] [place] [address], [phone], [facility] - [facility] 05/19/2024 08:44:39 10/26/2024 text/html ROS as [...] jelly in the nose. KAVON NICHOLE MD [address] [place] [address],[address], [address], [facility] - [facility] 10/26/2024 12:06:48
--- OUTSIDE RECORDS SUMMARY | 2025-07-21 06:45 | XMS_ITS | Clinical Summary ---
Author Organization [facility] Address [address] [id number] Care Team Providers Care Telesales Team Leader Name Role Phone TalikarlaAlicia Primary Care Provider [phone] Allergies Active Allergy Reactions Criticality Noted Date [...] complete [place] [id number] [employer] Care Teams Telesales Team Leader Relationship Specialty Start Date End Date Alicia Kelsey [address] [place] [address] PCP - General Internal Medicine 08/16/21
[2025-07-21 06:47] LABS: MANUAL DIFF FLAG NO
[2025-07-21 06:55] LABS: Hematocrit 44.6 % (42.0-52.0); Hemoglobin 15.6 g/dl (14.0-18.0); Imm Gran Abs Auto 0.06 X10*3/uL (0.00-0.03); Imm Gran Pct Auto 0.6 % (0.0-0.4); Lymphocytes Absolute Auto 1.3 X10*3/uL (1.2-4.9); Mean Corpuscular HGB Conc 35.0 g/dl (31.0-36.0); Mean Corpuscular Hemoglobin 30.3 pg (27.0-33.0); Mean Corpuscular Volume 86.6 fL (80.0-98.0); NRBC Abs Auto 0.000 X10*3/uL (0.0-0.012); NRBC Pct Auto 0.0 /100WBC (0.0-0.2); Platelet Count 202 X10*3/uL (160-400); Red Blood Count 5.15 X10*6/uL (4.60-5.80); White Blood Count 10.2 X10*3/uL (4.8-10.8)
[2025-07-21 06:56] LABS: INTERNATIONAL NORM RATIO 1.0 (0.9-1.1); Prothrombin Time 12.8 SEC (11.2-13.5)
--- NOTE | 2025-07-21 07:00 | ED_ITS ---
HPI - Chest Pain General Chief Complaint: Chest Pain Stated Complaint: resp symptoms/CP Time Seen by Provider: 07/21/25 07:00 Source: patient Mode of arrival: ambulatory Limitations: no limitations History of Present Illness ED Provider: HPI narrative: The patient presents to the Emergency Department for evaluation of a severe cough that began Thursday. He describes pain ?all the way across? the lower anterior chest (left and right) that is exacerbated by coughing. He denies hemoptysis or production of phlegm. With frequent coughing he feels pain that radiates to both ears. He reports associated nausea, vomiting, and non-watery diarrhea, having experienced approximately 6?7 bowel movements on Thursday. He attempted self-management at home but symptoms have persisted, prompting today?s visit. Related Data Home Medications ?Medication ?Instructions ?Recorded ?Confirmed azelastine 137 mcg (0.1 %) nasal 2 spray intranasal BI D PRN Allergy 01/09/25 07/10/25 spray Symptoms lisinopril 40 mg tablet 40 mg PO DAILY 01/09/2509/03 buspirone 30 mg tablet 10 mg PO BID 07/10/25 Previous Rx's ?Medication ?Instructions ?Recorded OneTouch Ultra Test (blood sugar #100 ea 07/12/24 diagnostic) OneTouch Ultra2 Meter #1 ea 07/12/24 (blood-glucose meter) atorvastatin 40 mg tablet 40 mg PO BEDTIME #90 tabs finasteride 5 mg tablet 5 mg PO DAILY #90 tabs 07/12 omeprazole 20 mg capsule,delayed 20 mg PO DAILY@0630 # 90 caps 07/12/24 release lancets 33 gauge (OneTouch Delica #100 ea 07/15/24 Plus Lancet) lidocaine 5 % topical patch 2 patch topical DAILY #60 ea 04/05/25 (Lidoderm) nystatin 100,000 unit/gram topical 1 appl topical BID PRN Rash #60 04/12/25 powder grams metoprolol succinate 25 mg 25 mg PO DAILY #90 tabs tablet,extended release 24 hr aspirin 81 mg tablet,delayed 81 mg PO DAILY #90 tabs 1 release amlodipine 5 mg tablet 5 mg PO QAM #90 tabs 5 codeine 7.5 mg-guaifenesin 225 5 ml PO Q4-6H PRN cough #473 mL 07/21/25 mg/5 mL oral liquid Allergies Allergy/AdvReac Type Severity Reaction Status Date / Time gabapentin (GABAPENTIN) Allergy Intermediate DARK Verified 07/21/25 06:33 THOUGHTS, suicidal cetirizine (From Zyrtec) Allergy Unknown Nausea, Verified 07/21/25 06:33 Emotional clindamycin (CLINDAMYCIN) Allergy Unknown HIVES Verified 07/21/25 06:33 penicillin V Allergy Unknown hives Verified 07/21/25 06:33 Penicillins (PENICILLINS) Allergy Unknown Hives Verified 07/21/25 06:33 prednisone Allergy Unknown nightmares Verified 07/21/25 06:33 sertraline (From ZOLOFT) AdvReac Severe SI Verified 07/21/25 06:33 Review of Systems 2 Review of Systems: * Constitutional: No information provided on fever or chills. * HEENT: Ear pain with coughing; throat pain denied, throat examined later. * Respiratory: Severe, non-productive cough. Denies hemoptysis or phlegm production. * Cardiovascular: Chest pain across lower anterior chest, worsened by cough. No shoulder, arm, or neck radiation reported. * Gastrointestinal: Nausea, vomiting, and non-watery diarrhea (6?7 BMs on Thursday). 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 Daughter No problems noted. Daughter No problems noted. Daughter No problems noted. Social History Social History Household Members: None Housing: House Alcohol intake: never Patient Tobacco Use Status: Never used Tobacco e-Cigarette/Vaping Use: Never Used Advance Directives: Yes Advance Directives Information Provided: Yes Advance Directives on File: No service: No Current occupational status: retired Cognitive needs: No Hearing needs: Yes Vision needs: Yes Physical Exam 2 Exam: Exam: * General: Patient alert and oriented x4 (person, place, time, situation), in no acute distress, conversant. * HEENT: Oropharynx clear. No visible lesions. Throat clear. * Lungs: Clear to auscultation bilaterally. * Cardiovascular: Regular rate and rhythm by auscultation (no additional details noted). * Abdomen: Soft, non-tender, bowel sounds present. * Extremities: No swelling appreciated. * Neurological: Cranial nerves II?XII intact. Vital Signs: Vital Signs: Last Vital Signs Temp 98.4 F 07/21/25 06:27 Pulse 58 07/21/25 07:10 Resp 16 07/21/25 07:10 BP 132/66 07/21/25 07:10 Pulse Ox 94 07/21/25 07:10 O2 Del Method Room Air 07/21/25 07:10 BMI result Body Mass Index 33.1 Medications Administered Discontinued Medications Generic Name Dose Route Start Last Admin Trade Name Freq PRN Reason Stop Dose Admin Guaifenesin/Codeine Phosphate 10 ml 07/21/25 07:44 07/21/25 07:55 Guaifen/Codeine Sf 200/20/10ml 10 Ml Liquid PO 07/21/25 07:45 10 ml ONCE ONE Administration Ondansetron HCl 4 mg 07/21/25 07:43 07/21/25 07:55 Ondansetron Odt 4 Mg Tab.Rapdis TRANSLINGU 07/21/25 07:44 4 mg ONCE ONE Administration Medical Decision Making Medical Decision Making MDM Narrative: 8:05 AM 07/21/2025 (Dr. Dagoberto Walker): Bedside evaluation performed including lung, heart, abdominal, and oropharyngeal examinations as above. Physician ordered blood work, respiratory swabs, and a chest radiograph to evaluate for infectious or cardiopulmonary etiology. Symptomatic therapy for cough was requested by the patient. make sure there are no dynamic changes in ECG, trend troponin given his age and cardiac risk factors, disposition to be determined 8:56 AM 07/21/2025 (Dr. Dagoberto Walker): patient re-evaluated, discussed workup with him, chest x-ray without any consolidations, ECG with possibly ST- depression in V2 and V3 as well as V4 to V6 but I believe this is likely lead positioning, we will repeat a new EKG and another set of troponin cardiac enzymes reassuring, patient is chest pain-free 9:57 AM 07/21/2025 (Dr. Dagoberto Walker): Repeat ECG without the artifact 56 beats per minute, no ST-T changes troponin is still pending, will re-evaluate and if it is negative and anticipate discharge Differential Diagnosis Differential Diagnoses: The differential diagnosis associated with the presentation includes * Viral respiratory infection (e.g., influenza, RSV, COVID-19): Acute onset of severe cough, bilateral lower chest pain, and associated gastrointestinal symptoms (nausea, vomiting, diarrhea) are consistent with viral respiratory illnesses, which can present with both respiratory and GI manifestations. * Bacterial pneumonia: Severe cough and chest pain may indicate pneumonia, though absence of fever and clear lung exam on auscultation make this less likely; chest X-ray and respiratory swabs are ordered to evaluate this possibility. * Acute bronchitis: Non-productive cough and chest pain without significant findings on lung exam are suggestive of acute bronchitis, which is commonly viral but can be bacterial. * Cardiac etiologies (e.g., unstable angina, myocardial infarction): History of unstable angina raises concern for cardiac causes of chest pain, though pain is described as bilateral and lower anterior, and is exacerbated by cough rather than exertion; cardiovascular exam is unremarkable. his initial ECG with some nonspecific findings which may be due to lead positioning because involving anterior and lateral ST segments, but the quality of the ECG I believe is poor * Gastrointestinal infection (viral or bacterial gastroenteritis): Nausea, vomiting, and non-watery diarrhea could indicate a primary GI infection, though the prominent cough and chest pain suggest a respiratory rather than isolated GI process. * Musculoskeletal chest pain (e.g., costochondritis, muscle strain): Chest pain worsened by coughing may be due to musculoskeletal strain from frequent coughing. * Other causes: Less likely etiologies include pulmonary embolism (no risk factors or classic symptoms), pericarditis (no positional chest pain or pericardial rub), and anxiety-related symptoms (history of bereavement and anxiety, but physical symptoms predominate). Admission/Observation Consideration of admission/observation: Escalation of care including admission/observation considered Lab Data MDM Lab Attestation statement: I reviewed the patient's lab results. 07/21/25 06:41 07/21/25 06:41 Labs: Lab Results 07/21/25 07/21/25 07/21/25 Range/Units 06:41 07:40 09:28 WBC 10.2 (4.8-10.8) X10*3/uL RBC 5.15 (4.60-5.80) X10*6/uL Hgb 15.6 (14.0-18.0) g/dl Hct 44.6 (42.0-52.0) % MCV 86.6 (80.0-98.0) fL MCH 30.3 (27.0-33.0) pg MCHC 35.0 (31.0-36.0) g/dl RDW 13.5 (11.0-16.0) % Plt Count 202 (160-400) X10*3/uL MPV 9.1 L (9.4-12.4) fL Immature Gran % (Auto) 0.6 H (0.0-0.4) % Neut % (Auto) 69.0 (45-73) % Lymph % (Auto) 13.0 L (20-40) % [place] % (Auto) 13.2 H (2-11) % Eos % (Auto) 3.4 (0-4) % Baso % (Auto) 0.8 (0-2) % Lymph # (Auto) 1.3 (1.2-4.9) X10*3/uL [place] # (Auto) 1.4 H (0.1-1.2) X10*3/uL Eos # (Auto) 0.4 (0.0-0.4) X10*3/uL Baso # (Auto) 0.1 (0.0-0.2) X10*3/uL Abs Immat Gran (auto) 0.06 H (0.00-0.03) X10*3/uL Absolute Neuts (auto) 7.1 (2.0-8.3) x10*3/uL Absolute Nucleated RBC 0.000 (0.0-0.012) X10*3/uL Nucleated RBC % (auto) 0.0 (0.0-0.2) /100WBC PT 12.8 (11.2-13.5) SEC INR 1.0 (0.9-1.1) Sodium 141 (135-145) mmol/L Potassium 3.7 (3.3-5.1) mmol/L Chloride 109 H (96-108) mmol/L Carbon Dioxide 22 (22-29) mmol/L Anion Gap 14 (12-20) BUN 14 (9-16) mg/dL Creatinine 1.04 (0.5-1.4) mg/dL Estim Creat Clear Calc 71.5 Estimated GFR > 60 Random Glucose 140 H (60-115) mg/dL Calcium 9.2 (8.4-10.2) mg/dL Magnesium 1.6 (1.6-2.6) mg/dL Total Bilirubin 1.4 H (0.0-1.0) mg/dL AST 34 (5-37) U/L ALT 41 H (0-40) U/L Alkaline Phosphatase 143 H (39-117) U/L Troponin I High Sens 7.8 7.9 (<3.5-35.0) ng/L Total Protein 6.9 (6.5-8.0) g/dL Albumin 4.4 (3.5-5.0) g/dL Influenza Type A (PCR) POSITIVE A (Negative) Influenza Type B (PCR) NEGATIVE (Negative) RSV RNA Qual (PCR) NEGATIVE (Negative) SARS-CoV-2 RNA (RT-PCR) NEGATIVE (Negative) Independent Interpretation I performed an independent interpretation of an: EKG (66 beats per minute very subtle ST changes V2 to V6 which I believe due to his leads being malpositioned will re-evaluate however) and Plain X-Ray (Chest x-ray differential) Radiology Impression Discussion of test interpretation with radiology: I have reviewed the radiologist's reading. ( XR/XR chest 2V IMPRESSION: Low lung volumes. No acute cardiopulmonary abnormality.) Prescription Management I considered prescription management with: Antibiotic Chronic Conditions Patient?s care impacted by: Hypertension Discharge Plan Discharge Clinical Impression: Exertional dyspnea, Chest pain, precordial, Cough Patient Disposition: Home, Self-Care Additional Instructions: your chest pain and shortness of breath has been worked up, you had chest x-ray EKG cardiac enzymes all of which has been reassuring there was no evidence for underlying infection, heart failure or heart issues, I am going to provide you with medications for cough you can take in the evening, this medication does have codeine which can make you drowsy so please make sure just to take in the evening follow up with the primary care physician any other issues or concerns come back to the ER Prescriptions: New codeine-guaifenesin 7.5-225 mg/5 mL liquid 5 ml PO Q4-6H PRN (Reason: cough) Qty: 473 0RF No Action (DME) lancets [OneTouch Delica Plus Lancet] 33 gauge [facility] See Rx Instructions .Route Qty: 100 3RF Rx Instructions: Test blood sugar once a day lidocaine [Lidoderm] 5 % adhesive patch,medicated 2 patch topical DAILY Qty: 60 2RF Rx Instructions: leave on most painful area for up to 12 hrs nystatin 100,000 unit/gram powder 1 appl topical BID PRN (Reason: Rash) Qty: 60 4RF Rx Instructions: to the groin aspirin 81 mg tablet,delayed release (DR/EC) 81 mg PO DAILY Qty: 90 3RF amlodipine 5 mg tablet 5 mg PO QAM Qty: 90 1RF azelastine 137 mcg (0.1 %) spray,non-aerosol 2 spray intranasal BID PRN (Reason: Allergy Symptoms) lisinopril 40 mg tablet 40 mg PO DAILY metoprolol succinate 25 mg tablet extended release 24 hr 25 mg PO DAILY Qty: 90 0RF (DME) OneTouch Ultra Test Strip See Rx Instructions .Route Qty: 100 3RF Rx Instructions: 1 qd (DME) blood-glucose meter [OneTouch Ultra2 Meter] [facility] See Rx Instructions .Route Qty: 1 0RF Rx Instructions: As directed atorvastatin 40 mg tablet 40 mg PO BEDTIME Qty: 90 3RF omeprazole 20 mg capsule,delayed release(DR/EC) 20 mg PO DAILY@0630 Qty: 90 3RF finasteride 5 mg tablet 5 mg PO DAILY Qty: 90 3RF buspirone 30 mg tablet 10 mg PO BID Print Language: Norwegian
[2025-07-21 07:10] VITALS: BP 132/66; PULSE 58; RESP 16; O2SAT 94
[2025-07-21 07:13] LABS: Alanine Aminotransferase 41 U/L (0-40); Albumin Level 4.4 g/dL (3.5-5.0); Alkaline Phosphatase 143 U/L (39-117); Anion Gap 14 (12-20); Aspartate Amino Transferase 34 U/L (5-37); Blood Urea Nitrogen 14 mg/dL (9-16); Calcium 9.2 mg/dL (8.4-10.2); Carbon Dioxide 22 mmol/L (22-29); Chloride 109 mmol/L (96-108); Creatinine Clr Calc Pharmacy 71.5; Estimated Glomerular Filt Rate > 60; Magnesium 1.6 mg/dL (1.6-2.6); Potassium 3.7 mmol/L (3.3-5.1); Sodium 141 mmol/L (135-145); Total Protein 6.9 g/dL (6.5-8.0)
[2025-07-21 07:20] LABS: Troponin-I High Sensitivity 7.8 ng/L (<3.5-35.0)
[2025-07-21] MEDS: guaiFEN/Codeine SF 200/20/10ML 10 ML LIQUID PO (07:55)
[2025-07-21 09:04] LABS: Resp Syncy Virus RNA Qual PCR NEGATIVE (Negative); SARS COV2 PCR INHOUSE NEGATIVE (Negative)
--- NOTE | 2025-07-21 09:35 | PC.NURSE ---
Assumed care of patient at 0645. Patient admitted for CP since 07/18 due to coughing. Patient describes pain in sternal area. Patient on monitor and BP stable. Cough noted to be productive and congested. Patient complaints of nausea. Medicated per OCT. Repeat EKG and troponin ordered. No complaints at this time.
[2025-07-21 09:59] LABS: Troponin-I High Sensitivity 7.9 ng/L (<3.5-35.0)
[2025-07-21 10:30] VITALS: BP 133/73; PULSE 56; RESP 14; TEMP 36.8; O2SAT 95
== END 2025-07-21 10:39 | disposition home or self-care (01) ==
PROVIDERS: Emergency Provider Emergency Medicine; PCP Internal Medicine
DX: J10.1 Influenza due to other identified influenza virus with other respiratory manifestations (principal); R06.09 Other forms of dyspnea; R07.2 Precordial pain; R05.9 Cough, unspecified; Z03.818 Encounter for observation for suspected exposure to other biological agents ruled out; I10 Essential (primary) hypertension; E78.5 Hyperlipidemia, unspecified; Z79.82 Long term (current) use of aspirin; Z79.899 Other long term (current) drug therapy; Z79.02 Long term (current) use of antithrombotics/antiplatelets
CPT/HCPCS: 36415; 71046; 80053; 83735; 84484; 85025; 85610; 87637; 93005; 99283

== ENCOUNTER → 2025-07-21 06:21 | Outpatient (BNV) | payer OTHER, SELFPAY | PROVIDERS: Emergency Provider Emergency Medicine; PCP Internal Medicine; Visit Provider Internal Medicine Cardiovascular Disease | DX: R94.31 Abnormal electrocardiogram [ECG] [EKG] (principal); R07.9 Chest pain, unspecified; R05.9 Cough, unspecified; R00.1 Bradycardia, unspecified | CPT/HCPCS: 93010 ==

== ENCOUNTER → 2025-07-21 08:44 | Outpatient (BNV) | payer OTHER, SELFPAY | PROVIDERS: Emergency Provider Emergency Medicine; PCP Internal Medicine; Visit Provider Radiology Diagnostic Radiology | DX: J98.4 Other disorders of lung (principal) | CPT/HCPCS: 71046 ==

== ENCOUNTER 2025-07-22 19:44 | Emergency (ER) | payer OTHER, SELFPAY ==
--- NOTE | ~2025-07-22 | XR_ITS ---
CLINICAL HISTORY: cough, flu + 1 view chest x-ray Comparison: CR/SR - XR CHEST 2 VIEWS - 07/21/2025 08:44 AM EST Findings: No consolidation or effusion. Normal size heart. No acute fracture. IMPRESSION: 1. No acute findings. This document has been electronically signed by: Fmailia Doshi MD on 07/22/2025 21:16:04
[2025-07-22 19:52] VITALS: BP 151/66; PULSE 76; RESP 18; TEMP 36.6; O2SAT 93
[2025-07-22 19:54] VITALS: BP 151/66; BP 180/90; PULSE 65; PULSE 82; RESP 18; TEMP 36.6; O2SAT 93; O2SAT 96; BMI 28.7
[2025-07-22 19:59] VITALS: O2SAT 93
--- OUTSIDE RECORDS SUMMARY | 2025-07-22 20:14 | XMS_ITS | Data Portability ---
Author Organization [place] - [facility], Allergy Address [address] [address] Care Team Providers Care Electrical Controls Technician Name Role Phone [email or web address] Primary Care Provider [...] also consider cool-mist humidifier. Follow-up as needed. [email or web address] Not available 10/26/2024 09:05:00 Plan of Treatment [...] view 2023 024 [email or web address] 4 [facility], [address] [place] [address], [phone], 05/18/2024 14:07:44 Medication Orders mupirocin 2 % topical ointment 2024 025 [facility] #[id number], [address] [facility], [place], [address], 10/26/2024 09:05:29 Patient TargetsNo targets recorded. Patient InstructionsNo instructions recorded. Reason for Referral None Reported. Results Created Date Observation Date Name Description Value Unit Range Abnormal Flag Note LastModifiedBy Organization Detail LastModifiedTime 05/18/20 24 XR, sinus es, paran flores, 3 or more view No observ ation record ed. [email or web address] [facility] [address], [address], 05/18/2024 14:04:56 Result Notes None recorded. Problems Name Problem SNOMED Code Status Onset Date Resolution Date Notes Provider Name and Address Organization Details Recorded Time Gastroeso phageal reflux disease without esophagit is 080688692 Active 2015 Gastro-eso phageal reflux disease without esophagiti s; Condition: improved N ote: Date Diagnosed: 09/10/2015 9:47 AM (K21.9) Not Available [facility] 4 02:42:12 Chronic rhinitis 27637518 Active 2015 Chronic rhinitis; Note: Date Diagnosed: 09/10/2015 9:27 AM (J31.0) Not Available [facility] 4 02:42:03 Benign paroxysma l positiona l vertigo 185575739 Active 2015 Benign paroxysmal vertigo, right ear; Note: Date Diagnosed: 09/10/2015 9:27 AM (H81.11) Not Available [facility] 4 02:42:08 Nasal congestio n 83992019 Active 2016 Nasal congestion ; Note: Date Diagnosed: 11/05/2016 2:50 PM (R09.81) Not Available [facility] 4 02:42:05 Atypical facial pain 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 Active 2016 Atypical facial pain; Note: Date Diagnosed: 11/05/2016 2:50 PM (G50.1) Not Available [facility] 4 02:42:01 Sensorine ural hearing loss of bilateral ears 825416470 Active 2016 Sensorineu ral HL, bilateral; Note: Date Diagnosed: 02/20/2015 9:53 AM (389.18) ; Start Date : 02/20/2015 Sensorine ural hearing loss, bilateral; Note: Date Diagnosed: 12/02/2016 2:25 PM (H90.3) Not Available [facility] 4 02:42:07 Disorder of nasal sinus 5418890 Active 2016 Other specified disorders of nose and nasal sinuses; Note: Date Diagnosed: 05/19/2017 12:46 PM (J34.89) Not Available [facility] 4 02:42:02 Disorder of the nose 26713752 Active 2016 Other specified disorders of nose and nasal sinuses; Note: Date Diagnosed: 05/19/2017 12:46 PM (J34.89) Not Available [facility] 4 02:42:02 Lighthead edness 175174152 Active 2023 KAVON HERNANDEZ MD [address] [place] [address], [place], [phone] , [facility] - [facility] 4 14:03:53 Dizziness 925455592 Active 2023 Chen garcía [place] - [facility] 4 15:45:12 Ulcerativ e rhinitis 01019035 Active 2024 ESPERANZA CASTLE PA-C [address] [place] [address], [place], [phone] , [facility] - [facility] 5 09:05:17 Problem Notes None recorded. Medical Equipment None Reported. Allergies Allergen ID Allergen Name Allergen Category Reaction Reaction Severity Criticality Documentation Date Start Date Code Code System Note Provider Name and Address Organization Details Recorded Time 20928 gabapenti n medicatio n other Not available Not available 12/22/2023 28841 RxNorm React ion: unkno wn, unspe cifie d;; Not Available [facility] 4 01:02:20 63952 cetirizin e hydrochlo ride medicatio n other Not available Not available 12/22/2023 02016 0 RxNorm React ion: unkno wn, unspe cifie d;; Not Available [facility] 4 01:02:31 40279 sertralin e hydrochlo ride medicatio n other Not available Not available 12/22/2023 26695 7 RxNorm React ion: unkno wn, unspe cifie d;; Not Available [facility] 4 01:02:32 Medications Name Sig Start Date Stop Date Status Note LastModified by Organization Details LastModified Time Prescript ion - Prior Authoriza tion Request active Script Copy/Josephine or Auth^Scr ipt Copy/Josephine or Auth_ [id number] Not Available Not Available Not Available celecoxib [...] elayed release 09/27 completed Medicati on ID: [id number] D uration Value: 30 Brand Name: omeprazo [...] mg tablet 01/10 completed Medicati on ID: [id number] D uration Value: 10 Brand Name: levoflox [...] [facility] 01/10 completed Medicati on ID: [id number] D uration Value: 30 Brand Name: fluticas [...] both nostrils 01/10 completed Medicati on ID: [id number] P rescribe d By Name: ROME Merlos [...] drops,janet pension 01/10 completed Medicati on ID: [id number] D uration Value: 7 Brand Name: tobramyc [...] e Hcl 01/10 completed Medicati on ID: [id number] D uration Value: 90 Brand Name: ranitidi ne hcl Send Method: E-Prescr ibed Sub s Allowed: subs OK Speci al Instruct ion: TAKE 1 TABLET BY MOUTH EVERY DAY AT BEDTIME Medicati onGeneri cName: ranitidi ne hcl Not Available Not Available Not Available omeprazol e 20 mg tablet,de layed release 10/26 completed Medicati on ID: [id number] Janette castañeda By Name: ROME Merlos nd [...] Updated DateTime 10/26/2024 182.88 cm 32.5 kg/m2 915070.17 g Varsha Doe [place] - [facility] 10/26/2024 08:50:33 Date Recorded Body height Body mass index (BMI) Body weight Provider Name and Address Organization Details Last Updated DateTime 05/18/2024 182.88 cm 32.7 kg/m2 647854.76 g Leonel Gage [place] - [facility] 05/18/2024 13:14:48 Social History None recorded. [...] Disorder N Anesthesia Complications N Heart Attack ([place]) N Other Skin Condition N Diabetes N [...] Diagnosis Note KAVON HERNANDEZ MD [facility] [address] [address] 05/18/2024 12:51:34 05/18/2024 14:07:44 Nasal congestion 00810472 R09.81 Lightheadedness 87265796 8 R42 Dizziness 118371974 R42 [id number] ESPERANZA CASTLE PA-C [facility] [address] [address] 10/26/2024 08:40:31 10/26/2024 09:01:21 Chronic rhinitis 60409620 J31.0 Ulcerative rhinitis 3666 9007 J34.81 Health Concerns Section Related Observation LastModified by Organization Detai ls LastModified Time None Recorded Concern Status LastModified by Organization Details LastModified Time None Recorded Advance Directives Directive None Recorded Payers Insurance Date Sequence Insurance Name Policy Number Policy Ross Covered Member ID Ross Member ID Guarantor Name 10/26/2024 1 [facility] INDEMNITY [facility] (MEDICARE SUPPLEMENT) [id number] Gabo Tanner [id number] Gabo Tanner 10/26/2024 1 [facility] INDEMNITY PL[facility] (PPO) [id number] Gabo Tanner [id number] Gabo Tanner 10/26/2024 2 [facility] INDEMNITY [facility] (INDEMNITY) [id number] Gabo Shannon Ciro [id number] Gabo Tanner Notes Date Note Type Note Provider Name and Address Organization Details Recorded Time 05/18/2024 text/html ROS as noted in the [facility] 78 year old male presents for evaluation [...] Flonase in the past. KAVON NICHOLE MD [address] [place] [address], [phone], [facility] - [facility] 05/19/2024 08:44:39 10/26/2024 text/html ROS as noted in the [facility] 79-year-old male presents for evaluation of nasal [...] jelly in the nose. KAVON NICHOLE MD [address] [place] [address],[address], [phone], [facility] - [facility] 10/26/2024 12:06:48
--- OUTSIDE RECORDS SUMMARY | 2025-07-22 20:15 | XMS_ITS | Clinical Summary ---
Author Organization [facility] Address [address] [id number] Care Team Providers Care Finisher Brush Name Role Phone TalikarlaAlicia Primary Care Provider [phone] Allergies Active Allergy Reactions Criticality Noted Date [...] complete [place] [id number] [address] [id number] Care Teams Finisher Brush Relationship Specialty Start Date End Date Alicia Kelsey [address] [place] [address] PCP - General Internal Medicine 08/16/21
--- OUTSIDE RECORDS SUMMARY | 2025-07-22 20:15 | XMS_ITS | Clinical Summary ---
Author Organization [facility] ity Address [address] [place] [address] Care Team Providers Care Grain And Yeast Plants Supervisor Name Role Phone Unavailable Primary Care Provider [...]
[2025-07-22] MEDS: guaiFEN/Codeine SF 200/20/10ML 10 ML LIQUID PO (21:12)
[2025-07-22 22:00] VITALS: BP 126/63; PULSE 54; RESP 12; TEMP 36.4; O2SAT 92
--- NOTE | 2025-07-22 22:51 | ED.GENADULT ---
HPI - General Adult General Chief complaint: Upper Respiratory Symptoms Stated complaint: Diff Breathing Time Seen by Provider: 07/22/25 20:18 Source: patient Limitations: no limitations History of Present Illness ED Provider: Hedy Pitt PA-C HPI narrative: 80-year-old male with a history of anxiety, hypertension, hyperlipidemia, GERD, sleep apnea, who was known influenza positive, who presents after a choking episode at home. Patient states he was having a significant coughing episode, when he felt as if he was ?choking and could not catch his breath?. Patient was prescribed Mucinex with codeine, he was unable to pick it up from the pharmacy, the prescription we will be completed by Thursday. Related Data Home Medications ?Medication ?Instructions ?Recorded ?Confirmed azelastine 137 mcg (0.1 %) nasal 2 spray intranasal BID PRN Allergy 01/09/25 07/10/25 spray Symptoms lisinopril 40 mg tablet 40 mg PO DAILY 01/09/25 07/10/25 buspirone 30 mg tablet 10 mg PO BID 07/10/25 07/10/25 Previous Rx's ?Medication ?Instructions ?Recorded OneTouch Ultra Test (blood sugar #100 ea 07/12/24 diagnostic) OneTouch Ultra2 Meter #1 ea 07/12/24 (blood-glucose meter) atorvastatin 40 mg tablet 40 mg PO BEDTIME #90 tabs 07/12/24 finasteride 5 mg tablet 5 mg PO DAILY #90 tabs 07/12/24 omeprazole 20 mg capsule,delayed 20 mg PO DAILY@0630 #90 caps 07/12/24 release lancets 33 gauge (OneTouch Delica #100 ea 07/15/24 Plus Lancet) lidocaine 5 % topical patch 2 patch topical DAILY #60 ea 04/05/25 (Lidoderm) nystatin 100,000 unit/gram topical 1 appl topical BID PRN Rash #60 04/12/25 powder grams metoprolol succinate 25 mg 25 mg PO DAILY #90 tabs 05/30/25 tablet,extended release 24 hr aspirin 81 mg tablet,delayed 81 mg PO DAILY #90 tabs 06/09/25 release amlodipine 5 mg tablet 5 mg PO QAM #90 tabs 06/19/25 codeine 7.5 mg-guaifenesin 225 5 ml PO Q4-6H PRN cough #473 mL 07/21/25 mg/5 mL oral liquid ondansetron 4 mg disintegrating 4 mg PO Q8H PRN nausea and 07/22/25 tablet vomiting #10 tabs Allergies Allergy/AdvReac Type Severity Reaction Status Date / Time gabapentin (GABAPENTIN) Allergy Intermediate DARK Verified 07/22/25 19:57 THOUGHTS, suicidal cetirizine (From Zyrtec) Allergy Unknown Nausea, Verified 07/22/25 19:57 Emotional clindamycin (CLINDAMYCIN) Allergy Unknown HIVES Verified 07/22/25 19:57 penicillin V Allergy Unknown hives Verified 07/22/25 19:57 Penicillins (PENICILLINS) Allergy Unknown Hives Verified 07/22/25 19:57 prednisone Allergy Unknown nightmares Verified 07/22/25 19:57 sertraline (From ZOLOFT) AdvReac Severe SI Verified 07/22/25 19:57 Review of Systems Review of Systems: Yes all other systems are reviewed and are negative Constitutional: Constitutional: Denies fatigue, Denies fever(s), Reports malaise and Reports poor appetite ENT: Denies sore throat Cardiovascular: Cardiovascular: Denies chest pain and Denies dyspnea Respiratory: Respiratory: Reports cough and Denies dyspnea Endocrine: Endocrine: Denies fatigue PMFSH Past Medical History Attestation statement: The following information was validated with the patient. 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 Daughter No problems noted. Daughter No problems noted. Daughter No problems noted. Social History Social History Household Members: None Housing: House Alcohol intake: never Patient Tobacco Use Status: Never used Tobacco Smoked in Last 30 Days: No e-Cigarette/Vaping Use: Never Used Use of substances other than those prescribed or required for medical reasons: No Advance Directives: No Advance Directives Information Provided: Yes Do you have a plan to hurt others: No Plan service: No Current occupational status: retired Cognitive needs: No Hearing needs: Yes Vision needs: Yes Physical Exam ED Vital Signs: Vital Signs - 24 hr 07/22/25 19:52 07/22/25 19:54 07/22/25 19:59 Temperature 97.8 F 97.8 F Pulse Rate 76 65 Respiratory Rate 18 18 Blood Pressure 151/66 H 151/66 H Pulse Oximetry 93 93 93 Oxygen Delivery Method Room Air Room Air Room Air 07/22/25 22:00 Temperature 97.6 F Pulse Rate 54 Respiratory Rate 12 Blood Pressure 126/63 Pulse Oximetry 92 Oxygen Delivery Method Room Air BMI result Body Mass Index 28.7 Const Other: Alert well-appearing Orientation/consciousness: patient oriented x3 Resp Effort & Inspection: normal respiratory effort Cardio Other: Normal peripheral perfusion Skin Other: Warm dry no rash Neuro General: patient oriented x3, gait normal, no focal motor deficits and CN's II-XI intact bilaterally Psych Other: Cooperative Medications Administered Discontinued Medications Generic Name Dose Route Start Last Admin Trade Name Freq PRN Reason Stop Dose Admin Guaifenesin/Codeine Phosphate 10 ml 07/22/25 20:52 07/22/25 21:12 Guaifen/Codeine Sf 200/20/10ml 10 Ml Liquid PO 07/22/25 20:53 10 ml ONCE ONE Administration Ondansetron HCl 8 mg 07/22/25 22:45 07/22/25 22:57 Ondansetron Odt 8 Mg Tab.Rapdis TRANSLINGU 07/22/25 22:46 8 mg ONCE ONE Administration Medical Decision Making Medical Decision Making MDM Narrative: 80-year-old male with a history of anxiety, hypertension, hyperlipidemia, GERD, sleep apnea, who was known influenza positive, who presents after a choking episode at home. Patient states he was having a significant coughing episode, when he felt as if he was ?choking and could not catch his breath?. Patient was prescribed Mucinex with codeine, he was unable to pick it up from the pharmacy, the prescription we will be completed by Thursday. Problem: Known influenza History: Per patient I have considered the following differential diagnoses: Choking on secretions, extensive coughing, sleep apnea, GERD, esophageal foreign body, globus Plan: Patient here because he was choking on his secretions while having an exacerbation of his cough. He is not hypoxic, I repeated the chest x-ray, there was no viral pneumonia. He also did not have the benefit of his cough suppressant. I gave him a dose of the Mucinex with codeine. He is happy to crop picker the remainder of the script on Thursday. I told him in the meantime he could use [id number]-[id number] Mucinex. He was not choking in the setting of eating, I have no suspicion for esophageal foreign body, furthermore he is not complaining of globus sensation. There was no indication for additional imaging. I have independently reviewed the following tests: Chest x-ray:Findings: No consolidation or effusion. Normal size heart. No acute fracture. IMPRESSION: 1. No acute findings. Differential Diagnosis Differential Diagnoses: The differential diagnosis associated with the presentation includes See MDM Admission/Observation Consideration of admission/observation: Escalation of care including admission/observation considered Not applicable Radiology Impression Discussion of test interpretation with radiology: I have reviewed the radiologist's reading. Discharge Plan Discharge Clinical Impression: Choking due to phlegm Qualifiers: Encounter type: initial encounter Qualified Code(s): T17.310A - Gastric contents in larynx causing asphyxiation, initial encounter Patient Disposition: Home, Self-Care Additional Instructions: It is expected that you may have considerable coughing episodes given you have influenza A. We repeated the chest x-ray is clear, your oxygen levels are completely normal here in the emergency room. You were given a dose of your cough suppressant. This medication also helps to thin your secretions. You can purchase siso-itp-mcilgbs Mucinex tomorrow, until you can crop picker your prescribed cough syrup at your pharmacy. Uses Zofran as needed for nausea. Prescriptions: New ondansetron 4 mg tablet,disintegrating 4 mg PO Q8H PRN (Reason: nausea and vomiting) Qty: 10 0RF No Action (DME) lancets [OneTouch Delica Plus Lancet] 33 gauge misc See Rx Instructions .Route Qty: 100 3RF Rx Instructions: Test blood sugar once a day lidocaine [Lidoderm] 5 % adhesive patch,medicated 2 patch topical DAILY Qty: 60 2RF Rx Instructions: leave on most painful area for up to 12 hrs nystatin 100,000 unit/gram powder 1 appl topical BID PRN (Reason: Rash) Qty: 60 4RF Rx Instructions: to the groin aspirin 81 mg tablet,delayed release (DR/EC) 81 mg PO DAILY Qty: 90 3RF amlodipine 5 mg tablet 5 mg PO QAM Qty: 90 1RF azelastine 137 mcg (0.1 %) spray,non-aerosol 2 spray intranasal BID PRN (Reason: Allergy Symptoms) lisinopril 40 mg tablet 40 mg PO DAILY codeine-guaifenesin 7.5-225 mg/5 mL liquid 5 ml PO Q4-6H PRN (Reason: cough) Qty: 473 0RF metoprolol succinate 25 mg tablet extended release 24 hr 25 mg PO DAILY Qty: 90 0RF (DME) OneTouch Ultra Test Strip See Rx Instructions .Route Qty: 100 3RF Rx Instructions: 1 qd (DME) blood-glucose meter [OneTouch Ultra2 Meter] [facility] See Rx Instructions .Route Qty: 1 0RF Rx Instructions: As directed atorvastatin 40 mg tablet 40 mg PO BEDTIME Qty: 90 3RF omeprazole 20 mg capsule,delayed release(DR/EC) 20 mg PO DAILY@0630 Qty: 90 3RF finasteride 5 mg tablet 5 mg PO DAILY Qty: 90 3RF buspirone 30 mg tablet 10 mg PO BID Print Language: Chilean
[2025-07-22 23:30] VITALS: BP 126/63; PULSE 54; RESP 12; TEMP 36.4; O2SAT 92
== END 2025-07-22 23:31 | disposition home or self-care (01) ==
PROVIDERS: Emergency Provider Emergency Medicine Emergency Medical Services; PCP Internal Medicine
DX: T17.310A Gastric contents in larynx causing asphyxiation, initial encounter (principal); W44.8XXA Other foreign body entering into or through a natural orifice, initial encounter; R05.9 Cough, unspecified; I10 Essential (primary) hypertension; K21.9 Gastro-esophageal reflux disease without esophagitis; G47.33 Obstructive sleep apnea (adult) (pediatric); F41.9 Anxiety disorder, unspecified
CPT/HCPCS: 71045; 99283; 99285

== ENCOUNTER → 2025-07-22 20:51 | Outpatient (BNV) | payer OTHER, SELFPAY | PROVIDERS: Emergency Provider Emergency Medicine Emergency Medical Services; PCP Internal Medicine; Visit Provider Radiology Diagnostic Radiology | DX: R05.9 Cough, unspecified (principal) | CPT/HCPCS: 71045 ==